=== PATIENT | male | born 1945 | race Caucasian/White ===

== ENCOUNTER 2023-04-28 09:40 | Emergency (ER) | payer OTHER, SELFPAY ==
[2023-04-28 09:53] VITALS: BP 170/108; PULSE 125; RESP 22; O2SAT 99; BMI 23.7
--- NOTE | 2023-04-28 09:58 | ED.MALEGU1 ---
HPI - Male Genitourinary General Stated complaint: DIFFICULTY URINATING Time Seen by Provider: 04/28/23 09:56 Source: patient Mode of arrival: walk-in Limitations: no limitations History of Present Illness HPI Narrative: 77-year-old male presents to the emergency department because he can't urinate. He's been dribbling a little bit but has the extreme need to urinate. No fever or vomiting. He's had to have a urinary catheter previously and sees a urologist. No fever or vomiting. Symptom is continuous. Related Data Previous Rx's Medication Instructions Recorded cephalexin 500 mg tablet 500 mg PO Q8H 10 days #30 tabs 04/28/23 Allergies Allergy/AdvReac Type Severity Reaction Status Date / Time No Known Drug Allergies Allergy Verified 04/28/23 09:57 Review of Systems ROS Narrative A ten point review of systems is negative except as noted above. PFSH PFSH Social History Smoking status: Former smoker Exam Narrative Exam Narrative: Nurses note and vital signs reviewed and patient is not hypoxic. General: The patient appears uncomfortable and is sitting on the edge of the cart. Skin: Warm, dry, no pallor noted. There is no rash noted. Head: Normocephalic, atraumatic Eye: Normal conjunctiva, no drainage Ears, Nose, Mouth, and Throat: oral mucosa is moist. Nares patent. Cardiovascular: Regular Rate and Rhythm Respiratory: Patient is in no distress, no accessory muscle use, lungs are clear to auscultation, no wheezing, rales or rhonchi Back: non-tender GI: mildly distended Musculoskeletal: The patient has no evidence of calf tenderness, no pitting edema, symmetrical pulses noted bilaterally Neurological: A&O, normal speech Psychiatric: Cooperative Constitutional Vital Signs, click to edit/add: Last Vital Signs Pulse 79 04/28/23 10:20 Resp 14 04/28/23 10:20 BP 117/82 04/28/23 10:20 Pulse Ox 99 04/28/23 10:20 O2 Del Method Room Air 04/28/23 10:20 Course Vital Signs Vital signs: Vital Signs Pulse Rate 125 H 04/28/23 09:53 Respiratory Rate 22 04/28/23 09:53 Blood Pressure 170/108 H 04/28/23 09:53 Pulse Oximetry 99 04/28/23 09:53 Oxygen Delivery Method Room Air 04/28/23 09:53 Pulse Rate 79 04/28/23 10:20 Respiratory Rate 14 04/28/23 10:20 Blood Pressure 117/82 04/28/23 10:20 Pulse Oximetry 99 04/28/23 10:20 Oxygen Delivery Method Room Air 04/28/23 10:20 MDM - Male Genitourinary MDM Narrative Medical decision making narrative: White catheter was inserted with at least fourteen hundred mL is of drainage. He feels much better now. Renal function is preserved but he has a urinary tract infection. He was given IV Rocephin and prescribed Keflex. He feels well and at this point does not need to be admitted to the hospital. Treatment diagnosis and follow-up were discussed with the patient as well as . He is already on Flomax. Differential Diagnosis Differential diagnosis: Likely acute retention of urine and other Lab Data Attestation: I reviewed the patient's lab results. Labs: Lab Results 04/28/23 04/28/23 Range/Units 10:15 10:44 WBC 11.1 H (4.0-11.0) 10^3/uL RBC 4.27 L (4.70-6.10) 10^6/uL Hgb 14.4 (14.0-18.0) g/dL Hct 41.3 L (42.0-54.0) % MCV 96.7 H (80.0-94.0) fL MCH 33.7 (25.9-34.0) pg MCHC 34.9 (29.9-35.2) g/dL RDW 12.4 (11.0-15.0) % Plt Count 246 (150-450) 10^3/uL MPV 9.8 (9.5-13.5) fL Neut % (Auto) 74.3 (43.0-75.0) % Lymph % (Auto) 11.1 L (20.5-60.0) % [place] % (Auto) 13.0 H (1.7-12.0) % Eos % (Auto) 0.4 L (0.9-7.0) % Baso % (Auto) 0.4 (0.2-2.0) % Neut # (Auto) 8.3 H (1.4-6.5) 10^3/uL Lymph # (Auto) 1.2 (1.2-3.8) 10^3/uL [place] # (Auto) 1.5 H (0.3-0.8) 10^3/uL Eos # (Auto) 0.0 (0.0-0.7) 10^3/uL Baso # (Auto) 0.1 (0.0-0.1) 10^3/uL Abs Immat Gran (auto) 0.09 H (0.00-0.03) 10^3/uL Imm/Tot Granulo (auto) 0.8 H (0.0-0.5) % Sodium 139 (136-145) mmol/L Potassium 3.2 L (3.5-5.1) mmol/L Chloride 101 (98-107) mmol/L Carbon Dioxide 23.0 (21.0-32.0) mmol/L Anion Gap 18.2 BUN 23.0 H (7.0-18.0) mg/dL Creatinine 1.26 (0.70-1.30) mg/dL Est GFR ( Amer) >60 (>=60) Est GFR (Non-Af Amer) 56 L (>=60) BUN/Creatinine Ratio 18.3 Glucose 159 H (74-106) mg/dL Calcium 9.4 (8.5-10.1) mg/dL Urine Color Yellow (YELLOW) Urine Clarity Cloudy A (CLEAR) Urine pH 7.0 (5.0-9.0) Ur Specific [place] 1.015 (1.005-1.025) Urine Protein 100 A (NEG/TRACE) mg/dL Urine Glucose (UA) Negative (NEGATIVE) mg/dL Urine Ketones Negative (NEGATIVE) mg/dL Urine Occult Blood Small A (NEGATIVE) Urine Nitrite Positive A (NEGATIVE) Urine Bilirubin Negative (NEGATIVE) Urine Urobilinogen 0.2 (0.2-1.0) EU/dL Ur Leukocyte Esterase Moderate A (NEGATIVE) Urine RBC 5-10 A (0-2) #/HPF Urine WBC >100 A (NONE SEEN) #/HPF Ur Squamous Epith Cells Few A (NONE/RARE) #/LPF Ur Renal Epithelial Cell Rare A (NONE SEEN) #/LPF Urine Crystals Seen A (None Seen) #/HPF Triple Phos Crystals Moderate Urine Bacteria Large A (NONE SEEN) #/HPF Urine Mucus None seen (NONE SEEN) Discharge Plan Discharge Clinical Impression: Urinary tract infection, Acute urinary retention Patient Disposition: Home, Self-Care Time of Disposition Decision: 11:47 Condition: Good Mode of Transportation: Private Vehicle Prescriptions / Home Meds: New cephalexin 500 mg tablet 500 mg PO Q8H 10 Days Qty: 30 0RF Instructions: Urinary Retention in Men (ED), Urinary Tract Infection in Men (ED), White Catheter Placement and Care (ED), How to Change a Catheter Drainage Bag (DC) Stand Alone Forms: Portal Instructions Referrals: Physician,Non-Staff, MD [Primary Care Provider] - 1 week
[2023-04-28 10:20] VITALS: BP 117/82; PULSE 79; RESP 14; O2SAT 99
[2023-04-28 10:28] LABS: Basophils Absolute Auto 0.1 10^3/uL (0.0-0.1); Basophils Percent Auto 0.4 % (0.2-2.0); Eosinophils Percent Auto 0.4 % (0.9-7.0); Hematocrit 41.3 % (42.0-54.0); Hemoglobin 14.4 g/dL (14.0-18.0); Immature Granulocytes Abs Auto 0.09 10^3/uL (0.00-0.03); Immature Granulocytes Pct Auto 0.8 % (0.0-0.5); Lymphocytes Absolute Auto 1.2 10^3/uL (1.2-3.8); Lymphocytes Percent Auto 11.1 % (20.5-60.0); Mean Corpuscular HGB Conc 34.9 g/dL (29.9-35.2); Mean Corpuscular Hemoglobin 33.7 pg (25.9-34.0); Mean Corpuscular Volume 96.7 fL (80.0-94.0); Mean Platelet Volume 9.8 fL (9.5-13.5); Monocytes Absolute Auto 1.5 10^3/uL (0.3-0.8); Neutrophils Absolute Auto 8.3 10^3/uL (1.4-6.5); Neutrophils Percent Auto 74.3 % (43.0-75.0); Platelet Count 246 10^3/uL (150-450); Red Blood Count 4.27 10^6/uL (4.70-6.10); Red Cell Distribution Width 12.4 % (11.0-15.0); White Blood Count 11.1 10^3/uL (4.0-11.0)
[2023-04-28 10:39] LABS: Bilirubin Urine NEGATIVE (NEGATIVE); Blood Urine SMALL (NEGATIVE); Color Urine YELLOW (YELLOW); Glucose Urine UA NEGATIVE (NEGATIVE); Ketones Urine NEGATIVE (NEGATIVE); Leukocyte Esterase Urine MODERATE (NEGATIVE); Nitrite Urine POSITIVE (NEGATIVE); Protein Urine 100 mg/dL (NEG/TRACE); Specific Gravity Urine 1.015 (1.005-1.025); Urobilinogen Urine 0.2 EU/dL (0.2-1.0)
[2023-04-28 10:50] LABS: Clarity Urine CLOUDY (CLEAR)
[2023-04-28 10:53] LABS: WBC Urine >100 #/HPF (NONE SEEN)
[2023-04-28 10:54] LABS: Bacteria Urine LARGE #/HPF (NONE SEEN); Crystals Seen? Seen #/HPF (None Seen); Mucus Urine NONE SEEN (NONE SEEN); Renal Epithelial Cells Urine RARE #/LPF (NONE SEEN); Squamous Epithelial Cell Urine FEW #/LPF (NONE/RARE); Triple Phosphate Crystal Urine MODERATE
[2023-04-28] MEDS: CEFTRIAXONE 1,000 MG in 0.9 % SODIUM CHLORIDE 50 ML 100 MG IV (11:09)
[2023-04-28 11:10] LABS: Anion Gap 18.2; BUN Creatinine Ratio 18.3; Calcium 9.4 mg/dL (8.5-10.1); Chloride 101 mmol/L (98-107); Estimated GFR (African America >60 (>=60); Estimated GFR (Non-African Ame 56 (>=60); Glucose 159 mg/dL (74-106); Potassium 3.2 mmol/L (3.5-5.1); Sodium 139 mmol/L (136-145)
[2023-04-28 12:05] VITALS: BP 130/80; PULSE 85; RESP 18; O2SAT 96
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
== END 2023-04-28 12:11 | disposition home or self-care (01) ==
PROVIDERS: Emergency Provider Emergency Medicine
DX: N39.0 Urinary tract infection, site not specified (principal); R33.9 Retention of urine, unspecified; Z87.891 Personal history of nicotine dependence
CPT/HCPCS: 36415; 80048; 81001; 85025; 87086; 87150; 87186; 96365; 99285

== ENCOUNTER 2023-06-10 11:08 | Emergency (ER) | payer OTHER, SELFPAY ==
[2023-06-10 11:12] VITALS: BP 119/72; PULSE 103; RESP 16; TEMP 36.6; O2SAT 96; BMI 23.7
--- NOTE | 2023-06-10 11:18 | ED.MALEGU1 ---
HPI - Male Genitourinary General Chief complaint: Urogenital-Male Stated complaint: UTI SYMPTOMS Time Seen by Provider: 06/10/23 11:17 Source: patient Mode of arrival: walk-in Limitations: no limitations History of Present Illness HPI Narrative: Patient admits to brownish colored urine for the last few days. He humphries a urethral catheter that was inserted 5 weeks ago and changed 2 weeks ago. No abdominal pain or flank pain. He admits to some uretheral discomfort that has been present since the catheter was placed. No penile or scrotal redness, swelling or tenderness. Related Data Previous Rx's Medication Instructions Recorded cephalexin 500 mg capsule 500 mg PO BID 7 days #14 caps 06/10/23 Allergies Allergy/AdvReac Type Severity Reaction Status Date / Time No Known Drug Allergies Allergy Verified 06/10/23 11:16 PFSH [facility] Social History Smoking status: Former smoker Exam Narrative Exam Narrative: Nurses notes and vital signs reviewed and patient is not hypoxic. afebrile General: Well-appearing and in no apparent distress. Skin: Warm, dry, no pallor noted. Eye: Pupils are equal, round and EOMI. No scleral icterus. Cardiovascular: Regular Rate and Rhythm without murmur, gallop or rub. Respiratory: No accessory muscle use or respiratory distress. Lungs are clear to auscultation, no wheezing, rales or rhonchi Back: No CVA tenderness Musculoskeletal: normal ROM GI: Abdomen is soft, non-distended. Normal bowel sounds. No tenderness to palpation. No rebound, guarding, or rigidity noted. Neurological: A&O x4. No cranial nerve dysfunction observed. No truncal ataxia. Moves all extremities. Sensation intact. Psychiatric: Cooperative and interactive. Normal mood and affect. Constitutional Vital Signs, click to edit/add: Last Vital Signs Temp 97.8 F 06/10/23 11:12 Pulse 103 H 06/10/23 11:12 Resp 16 06/10/23 11:12 BP 119/72 06/10/23 11:12 Pulse Ox 96 06/10/23 11:12 O2 Del Method Room Air 06/10/23 11:12 Course Vital Signs Vital signs: Vital Signs Temperature 97.8 F 06/10/23 11:12 Pulse Rate 103 H 06/10/23 11:12 Respiratory Rate 16 06/10/23 11:12 Blood Pressure 119/72 06/10/23 11:12 Pulse Oximetry 96 06/10/23 11:12 Oxygen Delivery Method Room Air 06/10/23 11:12 Temperature 97.8 F 06/10/23 11:12 Pulse Rate 103 H 06/10/23 11:12 Respiratory Rate 16 06/10/23 11:12 Blood Pressure 119/72 06/10/23 11:12 Pulse Oximetry 96 06/10/23 11:12 Oxygen Delivery Method Room Air 06/10/23 11:12 MDM - Male Genitourinary MDM Narrative Medical decision making narrative: urine obtained from the catheter and sent for testing. Blood drawn as well. Normal WBC, normal BUN/Cr and electrolytes. Recent urine culture revealed cook sensitive Klebsiella. Patient discharged home with prescription for Keflex. Will call him if UCx reveals resistant bacteria. Lab Data Attestation: I reviewed the patient's lab results. Labs: Lab Results 06/10/23 06/10/23 Range/Units 11:19 11:35 WBC 9.4 (4.0-11.0) 10^3/uL RBC 4.38 L (4.70-6.10) 10^6/uL Hgb 14.7 (14.0-18.0) g/dL Hct 43.6 (42.0-54.0) % MCV 99.5 H (80.0-94.0) fL MCH 33.6 (25.9-34.0) pg MCHC 33.7 (29.9-35.2) g/dL RDW 13.2 (11.0-15.0) % Plt Count 259 (150-450) 10^3/uL MPV 8.2 L (9.5-13.5) fL Neut % (Auto) 54.8 (43.0-75.0) % Lymph % (Auto) 22.3 (20.5-60.0) % [place] % (Auto) 12.2 H (1.7-12.0) % Eos % (Auto) 9.1 H (0.9-7.0) % Baso % (Auto) 1.0 (0.2-2.0) % Neut # (Auto) 5.1 (1.4-6.5) 10^3/uL Lymph # (Auto) 2.1 (1.2-3.8) 10^3/uL [place] # (Auto) 1.2 H (0.3-0.8) 10^3/uL Eos # (Auto) 0.9 H (0.0-0.7) 10^3/uL Baso # (Auto) 0.1 (0.0-0.1) 10^3/uL Abs Immat Gran (auto) 0.06 H (0.00-0.03) 10^3/uL Imm/Tot Granulo (auto) 0.6 H (0.0-0.5) % Sodium 142 (136-145) mmol/L Potassium 3.6 (3.5-5.1) mmol/L Chloride 104 (98-107) mmol/L Carbon Dioxide 32.6 H (21.0-32.0) mmol/L Anion Gap 9.0 BUN 15.0 (7.0-18.0) mg/dL Creatinine 1.07 (0.70-1.30) mg/dL Est GFR ( Amer) >60 (>=60) Est GFR (Non-Af Amer) >60 (>=60) BUN/Creatinine Ratio 14.0 Glucose 135 H (74-106) mg/dL Calcium 9.2 (8.5-10.1) mg/dL Urine Color Brown A (YELLOW) Urine Clarity Cloudy A (CLEAR) Urine pH 6.5 (5.0-9.0) Ur Specific [place] >=1.030 A (1.005-1.025) Urine Protein >=300 A (NEG/TRACE) mg/dL Urine Glucose (UA) Negative (NEGATIVE) mg/dL Urine Ketones Negative (NEGATIVE) mg/dL Urine Occult Blood Large A (NEGATIVE) Urine Nitrite Positive A (NEGATIVE) Urine Bilirubin Small A (NEGATIVE) Urine Urobilinogen 1.0 (0.2-1.0) EU/dL Ur Leukocyte Esterase Moderate A (NEGATIVE) Urine RBC >100 A (0-2) #/HPF Urine WBC 5-10 A (NONE SEEN) #/HPF Ur Squamous Epith Cells None seen (NONE/RARE) #/LPF Urine Crystals None seen (None Seen) #/HPF Urine Bacteria Trace A (NONE SEEN) #/HPF Urine Casts None seen (NONE SEEN) #/LPF Urine Mucus None seen (NONE SEEN) Ur Culture Indicated? Yes Discharge Plan Discharge Chief Complaint: Urogenital-Male Clinical Impression: Urinary tract infection Patient Disposition: Home, Self-Care Time of Disposition Decision: 12:00 Prescriptions / Home Meds: New cephalexin 500 mg capsule 500 mg PO BID 7 Days Qty: 14 0RF Instructions: Urinary Tract Infection in Men (ED) Stand Alone Forms: Portal Instructions Referrals: Physician,Non-Staff, MD [Primary Care Provider] - 1 week
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
[2023-06-10 11:47] LABS: Basophils Absolute Auto 0.1 10^3/uL (0.0-0.1); Eosinophils Absolute Auto 0.9 10^3/uL (0.0-0.7); Eosinophils Percent Auto 9.1 % (0.9-7.0); Hematocrit 43.6 % (42.0-54.0); Hemoglobin 14.7 g/dL (14.0-18.0); Immature Granulocytes Abs Auto 0.06 10^3/uL (0.00-0.03); Immature Granulocytes Pct Auto 0.6 % (0.0-0.5); Lymphocytes Absolute Auto 2.1 10^3/uL (1.2-3.8); Lymphocytes Percent Auto 22.3 % (20.5-60.0); Mean Corpuscular HGB Conc 33.7 g/dL (29.9-35.2); Mean Corpuscular Hemoglobin 33.6 pg (25.9-34.0); Mean Corpuscular Volume 99.5 fL (80.0-94.0); Mean Platelet Volume 8.2 fL (9.5-13.5); Monocytes Absolute Auto 1.2 10^3/uL (0.3-0.8); Monocytes Percent Auto 12.2 % (1.7-12.0); Neutrophils Absolute Auto 5.1 10^3/uL (1.4-6.5); Neutrophils Percent Auto 54.8 % (43.0-75.0); Platelet Count 259 10^3/uL (150-450); Red Blood Count 4.38 10^6/uL (4.70-6.10); Red Cell Distribution Width 13.2 % (11.0-15.0); White Blood Count 9.4 10^3/uL (4.0-11.0)
[2023-06-10 11:50] LABS: Bilirubin Urine SMALL (NEGATIVE); Blood Urine LARGE (NEGATIVE); Clarity Urine CLOUDY (CLEAR); Color Urine BROWN (YELLOW); Glucose Urine UA NEGATIVE (NEGATIVE); Ketones Urine NEGATIVE (NEGATIVE); Leukocyte Esterase Urine MODERATE (NEGATIVE); Nitrite Urine POSITIVE (NEGATIVE); Protein Urine >=300 mg/dL (NEG/TRACE); Specific Gravity Urine >=1.030 (1.005-1.025); Urine Microscopic Indicated YES; pH Urine 6.5 (5.0-9.0)
[2023-06-10 11:51] LABS: Calcium 9.2 mg/dL (8.5-10.1); Carbon Dioxide 32.6 mmol/L (21.0-32.0); Chloride 104 mmol/L (98-107); Estimated GFR (African America >60 (>=60); Estimated GFR (Non-African Ame >60 (>=60); Glucose 135 mg/dL (74-106); Potassium 3.6 mmol/L (3.5-5.1); Sodium 142 mmol/L (136-145)
[2023-06-10 11:55] LABS: RBC Urine >100 #/HPF (0-2)
[2023-06-10 11:56] LABS: Bacteria Urine TRACE #/HPF (NONE SEEN); Cast Seen? NONE SEEN #/LPF (NONE SEEN); Crystals Seen? None Seen #/HPF (None Seen); Mucus Urine NONE SEEN (NONE SEEN); Squamous Epithelial Cell Urine NONE SEEN #/LPF (NONE/RARE); Urine Culture Indicated YES
== END 2023-06-10 12:05 | disposition home or self-care (01) ==
PROVIDERS: Emergency Provider Emergency Medicine
DX: N39.0 Urinary tract infection, site not specified (principal); Z87.891 Personal history of nicotine dependence
CPT/HCPCS: 36415; 80048; 81001; 85025; 87086; 87186; 99283

== ENCOUNTER 2023-08-07 20:43 | Emergency (ER) | payer OTHER, SELFPAY ==
[2023-08-07 20:46] VITALS: BP 173/100; PULSE 85; RESP 18; TEMP 36.4; O2SAT 97; BMI 24.4
--- OUTSIDE RECORDS SUMMARY | 2023-08-07 20:51 | XMS_ITS | CCD ---
Author Name Unknown Address [address] [place] [address] Organization [facility] Care Team Providers Care Hotel Supplies Salesperson Name Role Phone Janice Arellano Unavailable Maged Andrade Unavailable CHRISTIANA DIA Consulting Unavailable EDWARDO WALKER Admitting Unavailable EDWARDO WALKER Attending Unavailable [facility], DR BONILLA Primary Care Unavailable DESIRE, DR JERAMY Singh Admitting Unavailable DESIRE, DR JERAMY Singh Attending Unavailable DESIRE, DR JERAMY Singh Consulting Unavailable MAGED ANDRADE Primary Care Physician Lue, Deandra MCarla Admitting Unavailable Lue, Deandra MCarla Attending Unavailable Lue, Deandra MCarla Referring Unavailable Lue, Deandra MCrala Admitting Unavailable Lue, Deandra MCarla Attending Unavailable Lue, Deandra MCarla Referring Unavailable Lue, Deandra MCarla Attending Unavailable Lue, Deandra MCarla Referring Unavailable Lue, Deandra M. Admitting Unavailable Lue, Deandra MCarla Attending Unavailable Lue, Deandra MCarla Attending Unavailable Lue, Deandra MaCrla Attending Unavailable DAMIYESENIA Attending Unavailable Lue, Deandra MCarla Attending Unavailable DAMI YESENIA E Attending Unavailable DAMIYESENIA Attending Unavailable Lue, Deandra MCarla Attending Unavailable Steve ROBISON Attending Unavailable Steve ROBISON Attending Unavailable MAGED ANDRADE Attending Unavailable SHAIKH CONTE Attending Unavailable Allergies Allergy Classification Reported Allergen(s) Allergy Type Date of Onset Reaction(s) Facility (1 source) No Known Medication Allergies; Translations: [No Known Medication Allergies] Propensity to adverse reactions (disorder) [facility] Repository Medications Current Medications Medication Drug Class(es) Dates Sig (Normalized) Sig (Original) [id number] 200 actuat albuterol 0.09 mg/actuat metered dose inhaler (3 sources) beta2-Adrenergic Agonist take 1 puff(s) by inhalation every four hours as needed ProAir HFA 108 (90 Base) MCG/ACT 1 puff as needed Inhalation every 4 hrs Active aspirin 81 mg oral capsule (11 sources) Platelet Aggregation Inhibitor, Nonsteroidal Anti-inflammatory Drug Start: 10-15-2022 take 1 capsule by mouth once daily aspirin 81 mg oral capsule 81 mg = 1 cap(s), Oral, Daily, Refills(s) 0, Blood Thinner Start Date: 10/15/22 Status: Ordered take 1 tablet by chintan th every twenty-four hours Aspirin 81 MG 1 tablet Orally Once a day Active brimonidine (3 sources) alpha-Adrenergic Agonist Brimoni dine Tartrate Active calcium carbonate 1250 mg oral tablet (8 sources) Start: 023 calcium 500 mg tablets 1,250 mg = 1 tab(s), Oral, BID, Refills(s) 0, Prophylaxis Start Date: 10/15/22 Status: Ordered cephalexin 500 mg oral capsule (3 sources) Cephalosporin Antibacterial Start: 023 cephalexin 500 mg Cap Refills(s) 0 Start Date: 05/01/23 Status: Ordered cetirizine hydrochloride 10 mg oral tablet (3 sources) Histamine-1 Receptor Antagonist Start: 022 take 1 tablet by mouth every twenty-four hours Cetirizine HCl 10 MG 1 tablet Orally Once a day for 14 days Oct, Active DULoxetine 60 mg delayed release oral capsule (3 sources) Serotonin and Norepinephrine Reuptake Inhibitor take 2 capsules by mouth every twenty-four hours DULoxetine HCl 60 MG 2 capsules Orally Once a day Active duloxetine 60 mg Cap-DR (8 sources) Start: 023 take 2 capsules by mouth once daily duloxetine 60 mg Cap-DR 120 mg, Oral, Daily, Refills(s) 0, Depression Start Date: 10/15/22 Status: Ordered finasteride 5 mg oral tablet (11 sources) 5-alpha Reductase Inhibitor Start: 023 take 1 tablet by mouth once daily finasteride 5 mg Tab 5 mg = 1 tab(s), Oral, Daily, Refills(s) 0, Urinary discomfort Start Date: 10/15/22 Status: Ordered take 1 tablet by chintan th every twenty-four hours Finasteride 5 MG 1 tablet Orally Once a day Active hydroCHLOROthiazide 25 mg oral tablet (11 sources) Thiazide Diuretic Start: 10-15-2022 hydrochlorothiazide 25 mg Tab 12.5 mg = 0.5 tab(s), Oral, Daily, Refills(s) 0, High blood pressure Start Date: 10/15/22 Status: Ordered take 0.5 tablet by mouth once da aubrey hydroCHLOROthiazide 25 MG 1/2 tab Orally Once a day Active hydroxychloroquine sulfate 200 mg oral tablet (11 sources) Antimalarial, Antirheumatic Agent Start: 10-15-2022 take 1 tablet by mouth twice daily hydroxychloroquine 200 mg Tab 200 mg = 1 tab(s), Oral, BID, Refills(s) 0, Arthritis Start Date: 10/15/22 Status: Ordered take 1 tablet by mouth twice roger ly Hydroxychloroquine Sulfate 200 MG 1 tab Orally bid Active lamoTRIgine 150 mg oral tablet (11 sources) Mood Stabilizer, Anti-epileptic Agent Start: 10-15-2022 take 1 tablet by mouth twice daily lamotrigine 150 mg Tab 150 mg = 1 tab(s), Oral, BID, Refills(s) 0, Depression Start Date: 10/15/22 Status: Ordered take 1 tablet by chintan th every twelve hours lamoTRIgine 150 MG 1 tablet Orally bid Active latanoprost 0.05 mg/ml ophthalmic solution (3 sources) Prostaglandin Analog take 1 drop(s) into the eye(s) once daily in the evening Latanoprost 0.005 % 1 drop into affected eye in the evening Ophthalmic Once a day Active take 1 drop(s) into the eye(s) once daily in the evening Latanoprost 0.005 % 1 drop into affected eye in the evening Ophthalmic Once a day Active leflunomide 20 mg oral tablet (11 sources) Antirheumatic Agent Start: 10-15-2022 take 1 tablet by mouth once daily leflunomide 20 mg Tab 20 mg = 1 tab(s), Oral, Daily, Refills(s) 0, Arthritis Start Date: 10/15/22 Status: Ordered take 1 tablet by chintan th every twenty-four hours Leflunomide 20 MG 1 tablet Orally Once a day Active Multivitamin preparation (8 sources) Start: 10-15-2022 multivitamin See Instructions, Refill(s) 0, Prophylaxis Start Date: 10/15/22 Status: Ordered nitrofurantoin, macrocrystals 25 mg / nitrofurantoin, monohydrate 75 mg oral capsule (1 source) Nitrofuran Antibacterial Start: 10-28-2022 End: 10-29-2022 take 1 capsule by mouth every twelve hours in the morning Macrobid 100 mg Cap 100 mg = 1 cap(s), Oral, q12hr, Take AM of white removal, X 1 day(s), # 2 cap(s), Refills(s) 0, Pharmacy: [email or web address][id number], 186, cm, 10/15/22 12:53:00 EDT, Height/Length Dosing, 85.7, kg, 10/15/22 12:53:00 EDT, Weight Dosing Start Date: 10/28/22 Stop Date: 10/29/22 Status: Ordered predniSONE 10 mg oral tablet (3 sources) Start: 10-31-2021 prednisone 10 MG as directed with food Orally 5 tablet x 2 days, 4 tablet x2 days, 3 tablet x2 days, 2 tablet x 2 days, 1 tablet x 2 days for 10 days Oct, Active rOPINIRole 1 mg oral tablet (11 sources) Nonergot Dopamine Agonist Start: 10-15-2022 take 2 tablets by mouth twice daily ropinirole 1 mg Tab 2 mg = 2 tab(s), Oral, BID, Refills(s) 0, Other (see comment) Start Date: 10/15/22 Status: Ordered take 1 tablet by [facility] once daily at bedtime rOPINIRole HCl 1 MG 1 tablet 1 to 3 hour s before bedtime Orally 4x day Active sertraline 50 mg oral tablet (11 sources) Serotonin Reuptake Inhibitor Start: 10-15-2022 sertraline 50 mg Tab 25 mg = 0.5 tab(s), Oral, Daily, Refills(s) 0, Depression Start Date: 10/15/22 Status: Ordered take 0.5 tablet by mouth once da aubrey Sertraline HCl 50 MG 1/2 tab Orally Once a day Active tamsulosin hydrochloride 0.4 mg oral capsule (11 sources) alpha-Adrenergic Christophe Start: 10-15-2022 take 1 capsule by mouth once daily tamsulosin 0.4 mg Cap 0.4 mg = 1 cap(s), Oral, Daily, Refills(s) 0, Urinary discomfort Start Date: 10/15/22 Status: Ordered take 1 capsule by [facility] every twenty-four hours Tamsulosin HCl 0.4 MG 1 capsule Orally Once a day Active traZODone hydrochloride 100 mg oral tablet (11 sources) Serotonin Reuptake Inhibitor Start: 10-15-2022 take 1 tablet by mouth once daily at bedtime traZODONE 100 mg Tab 100 mg = 1 tab(s), Oral, Once a day (at bedtime), Refills(s) 0, Sleep Start Date: 10/15/22 Status: Ordered take 2 tablets by mouth once roger ly traZODone HCl 100 MG 2 tabs Orally Once a day Active 24 hr verapamil hydrochloride 240 mg extended release oral capsule (8 sources) Calcium Channel Christophe Start: 10-15-2022 take 1 capsule by mouth once daily verapamil 240 mg Cap-ER 240 mg = 1 cap(s), Oral, Daily, Refills(s) 0, High blood pressure Start Date: 10/15/22 Status: Ordered Completed/Discontinued Medications Medication Drug Class(es) Dates Sig (Normalized) Sig (Original) ciprofloxacin 500 mg oral tablet (1 source) Quinolone Antimicrobial Start: 09-08-2022 take 1 tablet by mouth every twelve hours ciprofloxacin 500 mg Tab 14 EA, take 1 tablet by mouth every 12 hours, Refills(s) 0 Start Date: 09/08/22 Status: Ordered potassium chloride 10 meq oral tablet (11 sources) Start: 10-15-2022 take 1 tablet by mouth once daily potassium chloride 10 mEq ER Tab 10 mEq = 1 tab(s), Oral, Daily, Refills(s) 0, Prophylaxis Start Date: 10/15/22 Status: Ordered take 2 tablets by mouth once roger ly Potassium Chloride ER 10 MEQ 2 tabs Orally Once a day Active triamcinolone acetonide 1 mg/ml topical cream (5 sources) Corticosteroid Start: 09-08-2022 triamcinolone Top 0.1% Crm 15 gram Refill(s) 0, 454 gm, APPLY TO THE AREAS ON THE TRUNK AND EXTREMITIES FOR SEVERE FLARES... (REFER TO PRESCRIPTION NOTES). Start Date: 09/08/22 Status: Ordered Start: 11-21-2021 Kenalog -40 mg Oct, 60 mg Start: 10-31-2021 Kenalog -40 mg Oct, 60 mg Problems Active Problems Problem Classification Problem Date Documented Date Episodic/Chronic Anxiety disorders (3 sources) Anxiety; Translations: [Other specified anxiety disorders] Chronic Biliary tract disease (9 sources) Gallstone 09-08-2022 Episodic Calculus of urinary tract (18 sources) Kidney stone; Translations: [Calculus of kidney] Onset: 10-28-2022 09-08-2022 Episodic Chronic obstructive pulmonary disease and bronchiectasis (12 sources) Pulmonary emphysema; Translations: [Other emphysema] 09-08-2022 Chronic Essential hypertension (12 sources) Essential hypertension; Translations: [Essential (primary) hypertension] 09-08-2022 Chronic Genitourinary symptoms and ill-defined conditions (20 sources) Retention of urine, unspecified; Translations: [Retention of urine] Onset: 08-25-2022 Episodic Glaucoma (9 sources) Glaucoma 09-08-2022 Chronic Hyperplasia of prostate (14 sources) Benign prostatic hyperplasia with lower urinary tract symptoms; Translations: [Benign prostatic hypertrophy with outflow obstruction] Onset: 08-26-2022 Chronic Mood disorders (9 sources) Depressive disorder 09-08-2022 Chronic Osteoarthritis (9 sources) Arthritis 09-08-2022 Chronic Other diseases of kidney and ureters (1 source) Urinary tract obstruction; Translations: [Other obstructive and reflux uropathy] Onset: 10-28-2022 Episodic Other hereditary and degenerative nervous system conditions (8 sources) Restless legs 10-15-2022 Chronic Residual codes; unclassified (3 sources) Obstructive sleep apnea syndrome; Translations: [Obstructive sleep apnea (adult) (pediatric)] Chronic Rheumatoid arthritis and related disease (4 sources) Rheumatoid arthritis; Translations: [Rheumatoid arthritis, unspecified] Onset: 12-24-2021 Chronic Substance-related disorders (8 sources) Smoker 10-15-2022 Chronic Comment on above: Added secondary to d ocumentation in Social History. Unclassified (9 sources) Finding of sensation of bladder 09-08-2022 Urinary tract infections (9 sources) Urinary tract infection, site not specified; Translations: [Urinary tract infectious disease] Onset: 08-26-2022 Episodic Past or Other Problems Problem Classification Problem Date Documented Da te Episodic/Chronic Allergic reactions (3 sources) Irritant contact dermatitis due to other chemical products; Translations: [Urticaria, unspecified] Onset: 10-31-2021 Resolved: 11-21-2021 Episodic Other skin disorders (3 sources) Rash and other nonspecific skin eruption; Translations: [RASH OTH NONSPECIFIC SKIN ERUPTION] Onset: 12-20-2021 Episodic Screening and history of mental health and substance abuse codes (1 source) Personal history of nicotine dependence; Translations: [PERSONAL HISTORY OF NICOTINE DEPEND] Onset: 12-24-2021 Episodic Results Test Name Value Interpretation Reference Range Facility [facility] 07-24-2023 Screens [id number]. 00TIFF [facility] Screens [id number] 0TIFF [facility] Ambulatory Visit Summaryon 1 09-22-2022 Ambulatory Visit Summary RICKEY GARCIA Hernandez :1945 Visit Date:07/22/2023 Ambulatory Visit Instructions Your Diagnosis Urinary retention Bacteriuria BPH with urinary obstruction History of kidney stones Your Care Team Attending Physician - Deandra Rodriguez MD Primary Care Physician - MAGED ANDRADE DO This Is Your Medications List Contact prescribing physician if questions or concerns aspirin (aspirin 81 mg oral capsule) calcium carbonate (calcium 500 mg tablets) cephalexin (cephalexin 500 mg Cap) duloxetine (duloxetine 60 mg Cap-DR) finasteride (finasteride 5 mg Tab) hydrochlorothiazide (hydrochlorothiazide 25 mg Tab) hydroxychloroquine (hydroxychloroquine 200 mg Tab) lamotrigine (lamotrigine 150 mg Tab) leflunomide (leflunomide 20 mg Tab) multivitamin potassium chloride (potassium chloride 10 mEq ER Tab) ropinirole (ropinirole 1 mg Tab) sertraline (sertraline 50 mg Tab) tamsulosin (tamsulosin 0.4 mg Cap) trazodone (traZODONE 100 mg Tab) verapamil (verapamil 240 mg Cap-ER) Procedures Performed Cystoscopic litholapaxy (10/28/2022), Transurethral insertion of prostatic urethral lift implant (10/28/2022), Cystoscopy (09/29/2022), TRUS - Transrectal ultrasonography (09/29/2022), Urodynamics (09/29/2022), Colonoscopy. Discharge Vitals Temperature (Temporal Artery) 36.2 ?C Heart Rate (Peripheral) 74 Blood Pressure 118/78 Height 185 cm Height 73 in Weight 82 kg Weight 180.4 lb BMI 23.96 What to do next Scheduled Follow-Up Appointments Thursday 9:45 AM EST With: Deandra Rodriguez MD Where: [facility] Patient Educationon 07-22-20 23 Patient Education Urology Benign Prostatic Hyperplasia Benign prostatic hyperplasia (BPH) is an enlarged prostate gland that is caused by the normal aging process. The prostate may get bigger as a man gets older. The condition is not caused by cancer. The prostate is a walnut-sized gland that is involved in the production of semen. It is located in front of the rectum and below the bladder. The bladder stores urine. The urethra carries stored urine out of the body. An enlarged prostate can press on the urethra. This can make it harder to pass urine. The buildup of urine in the bladder can cause infection. Back pressure and infection may progress to bladder damage and kidney (renal) failure. What are the causes? This condition is part of the normal aging process. However, not all men develop problems from this condition. If the prostate enlarges away from the urethra, urine flow will not be blocked. If it enlarges toward the urethra and compresses it, there will be problems passing urine. What increases the risk? This condition is more likely to develop in men older than 50 years. What are the signs or symptoms? Symptoms of this condition include: ? Getting up often during the night to urinate. ? Needing to urinate frequently during the day. ? Difficulty starting urine flow. ? Decrease in size and strength of your urine stream. ? Leaking (dribbling) after urinating. ? Inability to pass urine. This needs immediate treatment. ? Inability to completely empty your bladder. ? Pain when you pass urine. This is more common if there is also an infection. ? Urinary tract infection (UTI). How is this diagnosed? This condition is diagnosed based on your medical history, a physical exam, and your symptoms. Tests will also be done, such as: ? A post-void bladder scan. This measures any amount of urine that may remain in your bladder after you finish urinating. ? A digital rectal exam. In a rectal exam, your health care provider checks your prostate by putting a lubricated, gloved finger into your rectum to feel the back of your prostate gland. This exam detects the size of your gland and any abnormal lumps or growths. ? An exam of your urine (urinalysis). ? A prostate specific antigen (PSA) screening. This is a blood test used to screen for prostate cancer. ? An ultrasound. This test uses sound waves to electronically produce a picture of your prostate gland. Your health care provider may refer you to a specialist in kidney and prostate diseases (urologist). How is this treated? Once symptoms begin, your health care provider will monitor your condition (active surveillance or watchful waiting). Treatment for this condition will depend on the severity of your condition. Treatment may include: ? Observation and yearly exams. This may be the only treatment needed if your condition and symptoms are mild. ? Medicines to relieve your symptoms, including: ? Medicines to shrink the prostate. ? Medicines to relax the muscle of the prostate. ? Surgery in severe cases. Surgery may include: ? Prostatectomy. In this procedure, the prostate tissue is removed completely through an open incision or with a laparoscope or robotics. ? Transurethral resection of the prostate (TURP). In this procedure, a tool is inserted through the opening at the tip of the penis (urethra). It is used to cut away tissue of the inner core of the prostate. The pieces are removed through the same opening of the penis. This removes the blockage. ? Transurethral incision (TUIP). In this procedure, small cuts are made in the prostate. This lessens the prostate's pressure on the urethra. ? Transurethral microwave thermotherapy (TUMT). This procedure uses microwaves to create heat. The heat destroys and removes a small amount of prostate tissue. ? Transurethral needle ablation (TUNA). This procedure uses radio frequencies to destroy and remove a small amount of prostate tissue. ? Interstitial laser coagulation (ILC). This procedure uses a laser to destroy and remove a small amount of prostate tissue. ? Transurethral electrovaporization (TUVP). This procedure uses electrodes to destroy and remove a small amount of prostate tissue. ? Prostatic urethral lift. This procedure inserts an implant to push the lobes of the prostate away from the urethra. Follow these instructions at home: ? Take bniw-rwu-ptljiuy and prescription medicines only as told by your health care provider. ? Monitor your symptoms for any changes. Contact your health care provider with any changes. ? Avoid drinking large amounts of liquid before going to bed or out in public. ? Avoid or reduce how much caffeine or alcohol you drink. ? Give yourself time when you urinate. ? Keep all follow-up visits. This is important. Contact a health care provider if: ? You have unexplained back pain. ? Your symptoms do not get better with treatment. ? You develop side effects from the medicine (more content not included)... Normal [facility] Urology Office/Clinic Noteon 07-22-2023 Urology Office/Clinic Note Chief Complaint 2 week F/U with PVR and voiding trial HPI Staff 2wk PVR & Voiding Diary DX: Urinary Retention, Bacteriuria, BPH & Hx of Kidney Stones Began CIC q3hrs at time of last encounter. Every 6 hours is what he is CIC now. Advised to increase water intake at time of last encounter *Tamsulosin 0.4mg qd and Finasteride 5mg qd. He is still taking, is not having no concerns with these [facility] checks PSA. IPSS 5 LEONARDO 3 Could not give a urine sample today 7 a.m. last CIC today. No discomfort al all PVR 661 History of Present Illness Tests reviewed: reviewed UA and PVR. I have reviewed the previous health record information and history for this patient from . I have reviewed and verified the staff HPI to be accurate for this encounter. There have been no associated fever, chills, flank pain, or blood in the urine. Denies any urinary infections since last encounter. Review of Systems PHQ Score Initial Depression Screen Score: 0 SCORE ROS - Provider Constitutional: denies weight loss, denies hot flashes. Eyes: denies eye problems. Gastrointestinal: denies nausea, denies vomiting. Cardiovascular: denies chest pain or angina. Integumentary: no dryness Musculoskeletal: denies musculoskeletal symptoms. ENMT: denies otolaryngeal symptoms. Respiratory: no shortness of breath. Heme/Lymph: denies easy bleeding tendency, denies easy bruising tendency. Psychiatric: no confusion, no anxiety. Genitourinary: See HPI. Physical Exam Vitals & Measurements T: 36.2 ?C(Temporal Artery) HR: 74(Peripheral) BP: 118/78 HT: 73 in HT: 185 cm WT: 82 kg WT: 180.4 lb BMI: 23.96 General Appearance: alert, no distress, well nourished, well developed male. Assessment/Plan Rickey is a 77 yo M pt, here today with daughter. COPD, former smoker with long standing history of recurrent urinary retention (2 L) s/p UroLift/Cystolitholapa xy 10/28/22. Post op requiring CIC, pt stopped, prompting retention 4-6 wks later. [place] [facility] [place], did not bring a list of medications with him today. Baby aspirin, no hx of stroke or heart attack. States if he has to see a specialist through the [place] he has to travel to [place]. 1. Urinary retention (R33.9: Retention of urine, unspecified) S/p UroLift/Cystolitholapa xy 10/28/22. Did CIC in the past, stopped about 4-6 weeks ago due feeling he did not need to. States lowest volume he had was 180mL when self-cathing. Presented to [facility] ER 04/28/23 due to inability to urinate. Drained at least 1400mL with White catheter. Kidney function was preserved at that time. Hx of CIC, pt non compliant. At time of encounter w/[facility], pt opted for indwelling catheter. Has been getting monthly cath changes in our office. Cath Last changed: 06/23/23 Pt was to start CIC again, every 3 hours, and was to do a voiding diary. Pt states that he has done this but is concerned that his volumes from when he CIC's are low, about 150mL, and when he CIC's in the morning his volumes are high, 650-700mL, sleeps for about 12 hours, does not wake up with the urge to void. Pt states that he is not able to void on his own before he CIC's. IPSS 5, LEONARDO 3 Could not give a urine sample today, 7 a.m. last CIC today. No discomfort at all. PVR today was 661cc. Advised pt that he may not be cathing all of the way to get all of the urine out vs very low fluid intake during the day (pt admits to this). Advised pt on the proper technique of self cathing. Pt states that he does not think he has been doing that, has been taking the catheter out once it is done flowing. Advised pt that with how long he sleeps, he should try to cath if he wakes up in the middle of the night. Advised pt that the total he needs to try to get is 500mL's when he cath's during the day. Pt states that there are times that the pee sprays out when he caths- might be waiting too long and his bladder might have had a spasm due to being too full. Pt states that he has an easy time cathing, but he has some trouble at times. Again discussed bladder retraining. Counseled pt on the possible treatment options such as SMN if fails bladder retraining. Education provided Follow up in 2 wks w/PVR and Voiding Diary. All questions/concerns were discussed. Pt to call the office if he encounters any issues prior. Pt acknowledges understanding. -Increase fluids. -CIC as instructed as above 2. Bacteriuria (R82.71: Bacteriuria) UCx 04/28/23 - K. oxytoca, still taking Keflex. Advised pt to complete abx course. [facility] ER 06/10/23 - CC: brownish colored urine, +C&S Sent home with Keflex therapy. He did take all this, no problems with this, no pain or burning, blood in bag, noticed this morning. -Increase water intake. -CIC as instructed 3. BPH with urinary obstruction (N40.1: Benign prostatic hyperplasia with lower urinary tract symptoms) Hx long standing history of recurrent urinary retention, catheter dependent for over 3 months after 2L urinary retentio (more content not included)... Normal [facility] Comment on above: Result Comment: Elec tronically Signed By: Deandra Rodriguez MD\.br\Date and Time Signed: 07/22/23 09:00 EST\.br\Electronically Co-Signed By: Anastasia Rowell\.br\Date and Time Co-Signed: 07/22/23 08:37 EST ED Note-Physicianon 12-15-20 23 ED Note-Physician [id number] 0TIFF [facility] Lab Reportson 07-10-2023 Lab Reports [id number] 0TIFF [facility] Ambulatory Visit Summaryon 1 09-08-2022 Ambulatory Visit Summary RICKEY GARCIA :1945 Visit Date:07/08/2023 Ambulatory Visit Instructions Your Diagnosis Urinary retention Bacteriuria BPH with urinary obstruction History of kidney stones Your Care Team Attending Physician - Deandra Rodriguez MD Primary Care Physician - MAGED ANDRADE DO This Is Your Medications List sulfamethoxazole-trime thoprim (Bactrim D.S. 800 mg-160 mg Tab) Contact prescribing physician if questions or concerns aspirin (aspirin 81 mg oral capsule) calcium carbonate (calcium 500 mg tablets) cephalexin (cephalexin 500 mg Cap) duloxetine (duloxetine 60 mg Cap-DR) finasteride (finasteride 5 mg Tab) hydrochlorothiazide (hydrochlorothiazide 25 mg Tab) hydroxychloroquine (hydroxychloroquine 200 mg Tab) lamotrigine (lamotrigine 150 mg Tab) leflunomide (leflunomide 20 mg Tab) multivitamin potassium chloride (potassium chloride 10 mEq ER Tab) ropinirole (ropinirole 1 mg Tab) sertraline (sertraline 50 mg Tab) tamsulosin (tamsulosin 0.4 mg Cap) trazodone (traZODONE 100 mg Tab) verapamil (verapamil 240 mg Cap-ER) Procedures Performed Cystoscopic litholapaxy (10/28/2022), Transurethral insertion of prostatic urethral lift implant (10/28/2022), Cystoscopy (09/29/2022), TRUS - Transrectal ultrasonography (09/29/2022), Urodynamics (09/29/2022), Colonoscopy. Discharge Vitals Heart Rate (Peripheral) 68 Blood Pressure 117/78 Height 185 cm Height 73 in Weight 82 kg Weight 180.4 lb BMI 23.96 What to do next Scheduled Follow-Up Appointments Thursday 8:15 AM EST With: Michael SMITH, Deandra Smith Where: [facility]ara [facility] Patient Educationon 07-08-20 Patient Education Urology Clean Intermittent Catheterization, Male Clean intermittent catheterization (CIC) is a procedure to remove urine from the bladder by placing a small, flexible tube (catheter) into the bladder though the urethra. The urethra is a tube in the body that carries urine from the bladder out of the body. CIC may be done when: ? You cannot completely empty your bladder on your own. This may be due to a blockage in the bladder or urethra. ? Your bladder leaks urine. This may happen when the muscles or nerves near the bladder are not working normally, so the bladder overflows. Your health care provider will show you how to perform CIC and will help you to become comfortable performing this procedure at home. Your health care provider will also help you to get the home care supplies that are needed for this procedure. Supplies needed: ? Germ-free (sterile), water-based lubricant. ? A container for urine collection. You may also use the toilet to dispose of urine from the catheter. ? A catheter. Your health care provider will determine the best size for you. ? Use this catheter size: ? Clean gloves. ? Soap and water. ? Towel. How to perform this procedure: Most people need CIC at least 4 times per day to adequately empty the bladder. Your health care provider will tell you how often you should perform CIC. ? Number of times per day to perform CIC: ____ To perform CIC, follow these steps: 1. Wash your hands with soap and water. If soap and water are not available, use hand fisher purse seine. 2. Clean your penis with soap and water. Dry the tip of your penis completely. 3. Prepare the supplies that you will use during the procedure. Open the catheter package and lubricant. 4. Get in a comfortable position. Possible positions include: ? Sitting on a toilet, a chair, or the edge of a bed. ? Standing near a toilet. ? Lying down with your head raised on pillows and your knees pointing to the ceiling. You may wish to place a waterproof mat or pad under you. 5. If you are using a urine collection container, position it between your legs. 6. Urinate, if you are able. 7. Put on gloves. 8. Apply lubricant to about 2 inches (5 cm) of the tip of the catheter. 9. Set the catheter down on a clean, dry surface within reach. 10. Gently stretch your penis out from your body. Pull back any skin that covers the end of your penis (foreskin). Clean the end of your penis with medicated sterile swabs as told by your health care provider. 11. Hold your penis upward at a 45?60 degree angle. This helps to straighten the urethra. 12. Slowly insert the lubricated catheter straight into your urethra until urine flows freely. This is usually about 6?8 inches (15?20 cm). 13. When urine starts to flow freely, insert the catheter 1 inch (3 cm) more. Allow urine to drain into the toilet or the urine collection container. 14. When urine stops flowing, slowly remove the catheter. 15. Note the color, amount, and odor of the urine. 16. Measure your urine and note the amount, if told by your health care provider. 17. Discard the urine in the toilet. 18. Clean your penis using soap and water. 19. Move the foreskin back in place, if applicable. 20. If you are using a single-use catheter, discard the catheter and supplies. 21. Wash your hands with soap and water. 22. If you are using a reusable catheter, follow package instructions about how to clean the catheter after each use. How often should I perform this procedure? ? Do CIC to empty your bladder every 4?6 hours or as often as told by your health care provider. ? If you have symptoms of too much urine in your bladder (overdistension) and you are not able to urinate, perform CIC. Symptoms of overdistension may include: ? Restlessness. ? Sweating or chills. ? Headache. ? Flushed or pale skin. ? Bloated lower abdomen. What are the risks? Generally, this is a safe procedure, however problems may occur, including: ? Infection. ? Injury to the urethra. ? Irritation of the urethra. Follow these instructions at home General instructions ? Drink enough fluid to keep your urine pale yellow. ? Dispose of a multiple use catheter when it becomes dry, brittle, or cloudy. This usually happens after you use the catheter for 1 week. ? Avoid caffeine. Caffeine may make you need to urinate more frequently and more urgently. ? When traveling, bring extra supplies with you in case of delays. Keep supplies with you in a place that you can access easily. If traveling by plane: ? Make sure that the lubricant in your carry-on bag is less than 3.4 ounces (100 mL). ? Use a single-use catheter. It may be difficult to clean a reusable catheter in a small bathroom. ? Take tkyv-xpb-rnyzinz and prescription medicines only as told by your he (more content not included)... 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 Pt had initially presented to [facility] as a new pt, due to Urinary Retention this past August. *Tamsulosin 0.4mg qd and Finasteride 5mg qd He states he is not sure if it working, but is still taking [facility] checks PSA S/p UroLift/Cystolitholapa xy 10/28/22. Hx of CIC, pt non compliant. At time of encounter w/PRW, pt opted for indwelling catheter. Has been getting monthly cath changes in our office. Cath Last changed: 06/23/23- Pt is here today to follow up to [facility] ER 06/10/23 CC: brownish colored urine +C&S Sent home with Keflex therapy. He did take all this, no problems with this * no pain or burning, blood in bag, noticed this morning* History of Present Illness Tests reviewed: reviewed external records including labs, cultures and notes I have reviewed the previous health record information and history for this patient from , Dr. Robison and external providers I have reviewed and verified the staff HPI to be accurate for this encounter. There have been no associated fever, chills, flank pain, or blood in the urine. Denies any urinary infections since last encounter. Review of Systems PHQ Score Initial Depression Screen Score: 0 SCORE ROS - Provider Constitutional: denies weight loss, denies hot flashes. Eyes: denies eye problems. Gastrointestinal: denies nausea, denies vomiting. Cardiovascular: denies chest pain or angina. Integumentary: no dryness Musculoskeletal: denies musculoskeletal symptoms. ENMT: denies otolaryngeal symptoms. Respiratory: no shortness of breath. Heme/Lymph: denies easy bleeding tendency, denies easy bruising tendency. Psychiatric: no confusion, no anxiety. Genitourinary: See HPI. Physical Exam Vitals & Measurements HR: 68(Peripheral) BP: 117/78 HT: 73 in HT: 185 cm WT: 82 kg WT: 180.4 lb BMI: 23.96 General Appearance: alert, no distress, well nourished, well developed male. Assessment/Plan Rickey is a 77 yo M pt, here today with daughter. COPD, former smoker with long standing history of recurrent urinary retention (2 L) s/p UroLift/Cystolitholapa xy 10/28/22. Post op requiring CIC, pt stopped, prompting retention 4-6 wks later. [place], did not bring a list of medications with him today. Baby aspirin, no hx of stroke or heart attack. States if he has to see a specialist through the [place] he has to travel to [place]. 1. Urinary retention (R33.9: Retention of urine, unspecified) S/p UroLift/Cystolitholapa xy 10/28/22. Did CIC in the past, stopped about 4-6 weeks ago due feeling he did not need to. States lowest volume he had was 180mL when self-cathing. Presented to [facility] ER 04/28/23 due to inability to urinate. Drained at least 1400mL with White catheter. Kidney function was preserved at that time. Hx of CIC, pt non compliant. At time of encounter w/PRW, pt opted for indwelling catheter. Has been getting monthly cath changes in our office. Cath Last changed: 06/23/23 Discussed starting to CIC again or repeat cysto to see if room for improvement with BPH. Given his PVRs were improving from 650 ml to 180 ml while CIC prior, likely due to bladder decompensation and need for retraining, CIC compliance rather than outlet. Counseled pt on the possible risks of his bladder being permanently damaged given 3+ trabeculations and large volume retention. Counseled pt and daughter on the proper care for the catheter and where is should be secured. Pt states that he had some difficulty when he CIC at times. Counseled pt on how to avoid bladder spasms, and how to ensure he empties his bladder properly. Pt states that he would like to know how to CIC and keep it placed and taking it out so he can get in the hot tub. Advised pt that we would need to teach him how to properly do this, due to risks of infection and possible complications. Pt states that he would like to start to CIC again and would like to be taught again. Advised pt to record the volumes he gets when he CIC to keep track, start with CIC every 3 hours, goal total volume < 500cc Follow up in 1-2 wks w/PVR and voiding diary All questions/concerns were discussed. Pt to call the office if he encounters any issues prior. Pt acknowledges understanding. -Start CIC again, every 3 hours, with voiding diary. -Will send Bactrim DS BID x3days for prophy given manipulation today 2. Bacteriuria (R82.71: Bacteriuria) UCx 04/28/23 - K. oxytoca, still taking Keflex. Advised pt to complete abx course. Pt is here today to follow up to [facility] ER 06/10/23 - CC: brownish colored urine, +C&S Sent home with Keflex therapy. He did take all this, no problems with this, no pain or burning, blood in bag, noticed this morning. Has been asx during positive cultures. Discussed difference between colonization vs UTI. Advised pt that when he has a catheter placed, he will always have bacteria (more content not included)... [facility] Comment on above: Result Comment: Elec tronically Signed By: Michael SMITH, Deandra Smith\.br\Date and Time Signed: 07/08/23 11:33 EST\.br\Electronically Co-Signed By: Anastasia Rowell\.br\Date and Time Co-Signed: 07/08/23 11:11 EST Ambulatory Visit Summaryon 1 Ambulatory Visit Summary RICKEY GARCIA :1945 Visit Date:05/26/2023 Ambulatory Visit Instructions Your Care Team Attending Physician - Steve ROBISON MD Primary Care Physician - MAGED ANDRADE DO This Is Your Medications List aspirin (aspirin 81 mg oral capsule) calcium carbonate (calcium 500 mg tablets) cephalexin (cephalexin 500 mg Cap) duloxetine (duloxetine 60 mg Cap-DR) finasteride (finasteride 5 mg Tab) hydrochlorothiazide (hydrochlorothiazide 25 mg Tab) hydroxychloroquine (hydroxychloroquine 200 mg Tab) lamotrigine (lamotrigine 150 mg Tab) leflunomide (leflunomide 20 mg Tab) multivitamin potassium chloride (potassium chloride 10 mEq ER Tab) ropinirole (ropinirole 1 mg Tab) sertraline (sertraline 50 mg Tab) tamsulosin (tamsulosin 0.4 mg Cap) trazodone (traZODONE 100 mg Tab) verapamil (verapamil 240 mg Cap-ER) Procedures Performed Cystoscopic litholapaxy (10/28/2022), Transurethral insertion of prostatic urethral lift implant (10/28/2022), Cystoscopy (09/29/2022), TRUS - Transrectal ultrasonography (09/29/2022), Urodynamics (09/29/2022), Colonoscopy. What to do next Scheduled Follow-Up Appointments Thursday 1:00 PM EST Where: [facility] Patient Correspondenceon Patient Correspondence [id number] 0TIFF [facility] Ambulatory Visit Summaryon 1 Ambulatory Visit Summary RICKEY GARCIA Hernandez :1945 Visit Date:05/01/2023 Ambulatory Visit Instructions Your Diagnosis Urinary retention Urinary tract infection BPH with urinary obstruction History of kidney stones Your Care Team Attending Physician - Steve ROBISON MD Primary Care Physician - MAGED ANDRADE DO This Is Your Medications List Contact prescribing physician if questions or concerns aspirin (aspirin 81 mg oral capsule) calcium carbonate (calcium 500 mg tablets) cephalexin (cephalexin 500 mg Cap) duloxetine (duloxetine 60 mg Cap-DR) finasteride (finasteride 5 mg Tab) hydrochlorothiazide (hydrochlorothiazide 25 mg Tab) hydroxychloroquine (hydroxychloroquine 200 mg Tab) lamotrigine (lamotrigine 150 mg Tab) leflunomide (leflunomide 20 mg Tab) multivitamin potassium chloride (potassium chloride 10 mEq ER Tab) ropinirole (ropinirole 1 mg Tab) sertraline (sertraline 50 mg Tab) tamsulosin (tamsulosin 0.4 mg Cap) trazodone (traZODONE 100 mg Tab) verapamil (verapamil 240 mg Cap-ER) Procedures Performed Cystoscopic litholapaxy (10/28/2022), Transurethral insertion of prostatic urethral lift implant (10/28/2022), Cystoscopy (09/29/2022), TRUS - Transrectal ultrasonography (09/29/2022), Urodynamics (09/29/2022), Colonoscopy. Discharge Vitals Heart Rate (Peripheral) 90 Respiratory Rate 16 Blood Pressure 139/84 Height 185 cm Height 73 in Weight 82 kg Weight 180.4 lb BMI 23.96 What to do next Scheduled Follow-Up Appointments Thursday 1:00 PM EDT Where: [facility] ED Note-Physicianon 05-01-20 ED Note-Physician [id number] 0TIFF [facility] Patient Educationon 05-01-20 Patient Education Urology Indwelling Urinary Catheter Insertion For people with certain conditions, urine is not able to move normally through the urethra. The urethra is the part of the body that drains urine from the bladder. An indwelling urinary catheter may be needed if you have urinary retention problems or bladder obstruction. It may also be needed during and after surgical procedures and for other medical conditions. An indwelling urinary catheter is a thin, germ-free (sterile) tube that is placed into the bladder through the urethra to help drain urine out of the body. After the catheter is inserted, it is held in place by a small balloon on the catheter. The small balloon is filled with sterile water. Urine drains from the catheter into a drainage bag outside of the body. Tell a health care provider about: ? Any allergies you have. ? Any surgeries you have had. ? Any medical conditions you have. ? Any bleeding problems you have. What are the risks? Generally, this is a safe procedure. However, problems may occur, including: ? Infection. ? Bleeding. ? Damage to nearby structures or organs. What happens before the procedure? ? Your health care provider will inspect your urethra before inserting the catheter. ? Ask your health care provider what steps will be taken to help prevent infection. These steps may include washing your skin with a germ-killing soap. What happens during the procedure? ? A lubricant will be placed on the catheter to make it easy to insert it into the urethra. ? The catheter will be inserted into the urethra until you can see urine flowing into the drainage bag. After the urine starts to flow, the catheter may be inserted another couple of inches (about 5 cm). ? Sterile water will be used to inflate the balloon to hold the catheter in place. ? After the catheter balloon is inflated, it will be pulled back so it is against the narrow opening at the end of the bladder. ? Your health care provider will check for urine flow into the drainage bag. The procedure may vary among health care providers and hospitals. What happens after the procedure? ? Urine in the drainage bag will be emptied and measured by your health care provider while you are in the hospital. ? Your health care provider will remove the catheter for you. This will be done when the catheter is no longer necessary, which is likely to be before you leave the hospital. Summary ? An indwelling catheter is a sterile tube that is placed into the bladder through the urethra to help drain urine out of the body. ? The catheter will be removed when it is no longer needed. This information is not intended to replace advice given to you by your health care provider. Make sure you discuss any questions you have with your health care provider. Document Revised: 03/12/2022 Document Reviewed: 03/12/2022 [employer] Patient Education ? 2022 [employer] Indwelling Urinary Catheter Insertion, Care After This sheet gives you information about how to care for yourself after your procedure. Your health care provider may also give you more specific instructions. If you have problems or questions, contact your health care provider. What can I expect after the procedure? After the procedure, it is common to have: ? Slight discomfort around your urethra where the catheter enters your body. Follow these instructions at home: General instructions ? Keep the drainage bag at or below the level of your bladder. By doing this, your urine can only drain out instead of going back into your body. ? Secure the catheter tubing and drainage bag to your leg or thigh to keep it from moving. ? Check the catheter tubing regularly to make sure there are no kinks or blockages. ? Take showers daily to keep the catheter clean. Do not take a bath. ? Do not pull on your catheter. ? Disconnect the tubing and drainage bag as little as possible. ? Empty the drainage bag every 2?4 hours, or more often if needed. Do not let the bag get completely full. ? Wash your hands with soap and water before and after touching the catheter, tubing, or drainage bag. ? Do not let the drainage bag or catheter tubing touch the floor. ? Drink enough fluids to keep your urine pale yellow, or as told by your health care provider. How to remove the catheter Remove the catheter only if told by your health care provider. Follow instructions from your health care provider about when and how to remove the catheter. For most catheters, you will need to take the following steps: 1. Prepare your supplies. You will need a: ? Syringe. This would be given to you by your health care provider. ? Towel. ? Wastebasket. 2. Empty the drainage bag if needed. 3. Wash your hands with soap and warm water. 4. Remove the tape that secures the catheter to your leg or thigh. 5. Get into a comfortable po (more content not included)... [facility] Urology Office/Clinic Noteon 05-01-2023 Urology Office/Clinic Note Chief Complaint ER follow up *Urinary Retention HPI Staff Follow up to [facility] ER 04/28/23 CC: difficulty urinating Catheter was inserted with at least 1400ml drainage Tx'd w/IV Rocephin & Sent home with Keflex due to UTI *>100k Klebsiella Oxytoca Pt is a KML pt Last seen in our office 11/18/22 by KEVIN due to urinary retention. sp Urolift/cystolithalopa xy 10/28/22. still on Flomax and Finasteride. At that time pt was taught CIC Pt called our office 11/25/22 stating he was having high volumes (650-1000ml). Pt was advised to increase CIC to BID. Pt later advised to increase CIC to TID. Pt called our office 04/28/23 c/o weakness and inability to void for the past 4days Denies CIC. Stopped approximately 6wks ago. States he only had a limited amount of catheters. Tried washing them. Ran out. States his PVR's were 140-180ml w/CIC TID. Did not think he needed to it anymore. States he will try again if he needs to. States he might prefer an indwelling catheter vs CIC. Denies blood in bag. Still taking Keflex therapy. History of Present Illness Tests reviewed: ER notes, urine culture I have reviewed the previous health record information and history for this patient from Dr. Rodriguez. I have reviewed and verified the staff HPI to be accurate for this encounter. There have been no associated fever, chills, flank pain, or blood in the urine. Denies any urinary infections since last encounter. Review of Systems PHQ Score Initial Depression Screen Score: 0 ROS - Provider Constitutional: denies weight loss, denies hot flashes. Eyes: denies eye problems. Gastrointestinal: denies nausea, denies vomiting. Cardiovascular: denies chest pain or angina. Integumentary: no dryness Musculoskeletal: denies musculoskeletal symptoms. ENMT: denies otolaryngeal symptoms. Respiratory: no shortness of breath. Heme/Lymph: denies easy bleeding tendency, denies easy bruising tendency. Psychiatric: no confusion, no anxiety. Genitourinary: See HPI. Physical Exam Vitals & Measurements HR: 90(Peripheral) RR: 16 BP: 139/84 HT: 73 in HT: 185 cm WT: 82 kg WT: 180.4 lb BMI: 23.96 General Appearance: alert, no distress, well nourished, well developed male. Genitourinary: normal scrotum, normal testes, normal urethra, normal epididymis, normal vas deferens/spermatic cord. Flank Pain: none. Bladder: nonpalpable. Assessment/Plan Rickey is a 77 yo M pt of Dr. Rodriguez. 1. Urinary retention (R33.9: Retention of urine, unspecified) S/p UroLift/Cystolitholapa xy 10/28/22. Did CIC in the past, stopped about 4-6 weeks ago due feeling he did not need to. States lowest volume he had was 180mL when self-cathing. Presented to [facility] ER 04/28/23 due to inability to urinate. Drained at least 1400mL with White catheter. Kidney function was preserved at that time. States he would be satisfied with leaving indwelling catheter in place. Discussed this is a good option. Will teach proper catheter and leg bag placement IO today. Follow up with monthly cath changes with Dr. Rodriguez. All questions/concerns were discussed. Pt to call the office if he encounters any issues prior. Pt acknowledges understanding. 2. Urinary tract infection (N39.0: Urinary tract infection, site not specified) UCx 04/28/23 - K. oxytoca, still taking Keflex. Advised pt to complete abx course. 3. BPH with urinary obstruction (N40.1: Benign prostatic hyperplasia with lower urinary tract symptoms) Taking Tamsulosin 0.4mg qd and Finasteride 5mg qd. [facility] checks PSA. 4. History of kidney stones (Z87.442: Personal history of urinary calculi) States last stone was approx. 5 years ago, hx of surgical tx. No recent imaging. Follow-up With When Contact Information Michael SMITH, Deandra Smith, URL, [facility] [address], [address] [place], [place] [id number] Additional Instructions: 1 month cath change Patient Education Indwelling Urinary Catheter Insertion Indwelling Urinary Catheter Insertion, Care After IShahla, personally scribed for Dr. Robison on 05/01/2023 11:05:21. . Documentation recorded by the scribeShahla, accurately reflects the services(s) I performed and decisions made by me. Authenticated by Dr. Robison on 05/01/2023 11:06:59. Problem List/Past Medical History Ongoing Arthritis BPH with urinary obstruction COPD (chronic obstructive pulmonary disease) Depression Feeling of incomplete bladder emptying Gall stone Glaucoma History of kidney stones HTN (hypertension) Kidney stones Smoker Urinary retention Urinary tract infection Historical No qualifying data Procedure/Surgical History Cystoscopic litholapaxy (10/28/2022), Transurethral insertion of prostatic urethral lift implant (10/28/2022), Cystoscopy (09/29/2022), TRUS - Transrectal ultrasonography (09/29/2022), Urodynamics (09/29/2022), Colonoscopy. Medications aspirin 81 mg oral capsule, 81 mg= 1 cap(s), Oral, Daily calcium 500 mg tablets, (more content not included)... [facility] Comment on above: Result Comment: Elec tronically Signed By: Steve ROBISON MD\.br\Date and Time Signed: 05/01/23 11:07 EDT\.br\Electronically Co-Signed By: Shahla Shelley\.br\Date and Time Co-Signed: 05/01/23 11:05 EDT ED Note-Physicianon 04-29-20 ED Note-Physician [id number]#[id number] 0CD:127 [facility] Ambulatory Visit Summaryon 0 11-18-2022 Ambulatory Visit Summary RICKEY GARCIA :1945 Visit Date:11/18/2022 Ambulatory Visit Instructions Your Diagnosis Urinary retention Tests Performed Urnls Dip Stick Auto w/o Microscopy POC 71512 Your Care Team Attending Physician - YESENIA LOMAX PA-C Primary Care Physician - MAGED ANDRADE DO This Is Your Medications List Contact prescribing physician if questions or concerns aspirin (aspirin 81 mg oral capsule) calcium carbonate (calcium 500 mg tablets) duloxetine (duloxetine 60 mg Cap-DR) finasteride (finasteride 5 mg Tab) hydrochlorothiazide (hydrochlorothiazide 25 mg Tab) hydroxychloroquine (hydroxychloroquine 200 mg Tab) lamotrigine (lamotrigine 150 mg Tab) leflunomide (leflunomide 20 mg Tab) multivitamin potassium chloride (potassium chloride 10 mEq ER Tab) ropinirole (ropinirole 1 mg Tab) sertraline (sertraline 50 mg Tab) tamsulosin (tamsulosin 0.4 mg Cap) trazodone (traZODONE 100 mg Tab) verapamil (verapamil 240 mg Cap-ER) Procedures Performed Cystoscopic litholapaxy (10/28/2022), Transurethral insertion of prostatic urethral lift implant (10/28/2022), Cystoscopy (09/29/2022), TRUS - Transrectal ultrasonography (09/29/2022), Urodynamics (09/29/2022), Colonoscopy. Discharge Vitals Heart Rate (Peripheral) 68 Respiratory Rate 16 Blood Pressure 132/78 Height 186 cm Height 73 in Weight 82 kg Weight 180.4 lb BMI 23.7 Medications What How Much When Instructions Unchanged aspirin (aspirin 81 mg oral capsule) 1 Capsules By Mouth Every day Contact prescribing physician if questions or concerns Unchanged calcium carbonate (calcium 500 mg tablets) 1 Tablets By Mouth 2 times a day Contact prescribing physician if questions or concerns Unchanged duloxetine (duloxetine 60 mg Cap-DR) 120 Milligram By Mouth Every day Contact prescribing physician if questions or concerns Unchanged finasteride (finasteride 5 mg Tab) 1 Tablets By Mouth Every day Contact prescribing physician if questions or concerns Unchanged hydrochlorothiazide (hydrochlorothiazide 25 mg Tab) 0.5 Tablets By Mouth Every day Contact prescribing physician if questions or concerns Unchanged hydroxychloroquine (hydroxychloroquine 200 mg Tab) 1 Tablets By Mouth 2 times a day Contact prescribing physician if questions or concerns Unchanged lamotrigine (lamotrigine 150 mg Tab) 1 Tablets By Mouth 2 times a day Contact prescribing physician if questions or concerns Unchanged leflunomide (leflunomide 20 mg Tab) 1 Tablets By Mouth Every day Contact prescribing physician if questions or concerns Unchanged multivitamin See instructions Contact prescribing physician if questions or concerns Unchanged potassium chloride (potassium chloride 10 mEq ER Tab) 1 Tablets By Mouth Every day Contact prescribing physician if questions or concerns Unchanged ropinirole (ropinirole 1 mg Tab) 2 Tablets By Mouth 2 times a day Contact prescribing physician if questions or concerns Unchanged sertraline (sertraline 50 mg Tab) 0.5 Tablets By Mouth Every day Contact prescribing physician if questions or concerns Unchanged tamsulosin (tamsulosin 0.4 mg Cap) 1 Capsules By Mouth Every day Contact prescribing physician if questions or concerns Unchanged trazodone (traZODONE 100 mg Tab) 1 Tablets By Mouth Once a day (at bedtime) Contact prescribing physician if questions or concerns Unchanged verapamil (verapamil 240 mg Cap-ER) 1 Capsules By Mouth Every day Contact prescribing physician if questions or concerns Test Results Urnls Dip Stick Auto w/o Microscopy POC 70944 (11/18/2022) Bilirubin Urine Dipstick - Negative Blood Urine Dipstick - Negative Glucose Urine Dipstick - Negative Ketones Urine Dipstick - Negative Leukocytes Urine Dipstick - 1+ Small Nitrite Urine Dipstick - Positive Protein Urine Dipstick - Negative Specific [place] Urine Dipstick - 1.025 Urine Appearance Urine Dipstick - Clear Urine Color Urine Dipstick - Yellow Urobilinogen Urine Dipstick - Normal 0.2-1 EU/dl pH Urine Dipstick - 6 Allergies No Known Medication Allergies Problems Ongoing - Any problem that you are currently receiving treatment for. Arthritis BPH with urinary obstruction COPD (chronic obstructive pulmonary disease) Depression Feeling of incomplete bladder emptying Gall stone Glaucoma HTN (hypertension) Kidney stones Smoker Urinary retention Urinary tract infection Education Materials Acute Urinary Retention, Male Acute urinary retention is a condition in which a person is unable to pass urine or can only pass a little urine. This condition can happen suddenly and last for a short time. If left untreated, it can become long-term (chronic) and result in kidney damage or other serious complications. What are the causes? This condition may be caused by: ? Obstruction or narrowing of the tube that drains the bladder (urethra). This may be caused by surgery, probl (more content not included)... Normal [facility] Patient Educationon 11-19-19 Patient Education Urology Acute Urinary Retention, Male Acute urinary retention is a condition in which a person is unable to pass urine or can only pass a little urine. This condition can happen suddenly and last for a short time. If left untreated, it can become long-term (chronic) and result in kidney damage or other serious complications. What are the causes? This condition may be caused by: ? Obstruction or narrowing of the tube that drains the bladder (urethra). This may be caused by surgery, problems with nearby organs, or injury to the bladder or urethra. ? Problems with the nerves in the bladder. ? Tumors in the area of the pelvis, bladder, or urethra. ? Certain medicines. ? Bladder or urinary tract infection. ? Constipation. What increases the risk? This condition is more likely to develop in older men. As men age, their prostate may become larger and may start to press or squeeze on the bladder or the urethra. Other chronic health conditions can increase the risk of acute urinary retention. These include: ? Diseases such as multiple sclerosis. ? Spinal cord injuries. ? Diabetes. ? Degenerative cognitive conditions, such as delirium or dementia. ? Psychological conditions. A man may hold his urine due to trauma or because he does not want to use the bathroom. What are the signs or symptoms? Symptoms of this condition include: ? Trouble urinating. ? Pain in the lower abdomen. How is this diagnosed? This condition is diagnosed based on a physical exam and your medical history. You may also have other tests, including: ? An ultrasound of the bladder or kidneys or both. ? Blood tests. ? A urine analysis. ? Additional tests may be needed, such as a CT scan, MRI, and kidney or bladder function tests. How is this treated? Treatment for this condition may include: ? Medicines. ? Placing a thin, sterile tube (catheter) into the bladder to drain urine out of the body. This is called an indwelling urinary catheter. After it is inserted, the catheter is held in place with a small balloon that is filled with sterile water. Urine drains from the catheter into a collection bag outside of the body. ? Behavioral therapy. ? Treatment for other conditions. If needed, you may be treated in the hospital for kidney function problems or to manage other complications. Follow these instructions at home: Medicines ? Take xyhs-jwx-epxybjl and prescription medicines only as told by your health care provider. Avoid certain medicines, such as decongestants, antihistamines, and some prescription medicines. Do not take any medicine unless your health care provider approves. ? If you were prescribed an antibiotic medicine, take it as told by your health care provider. Do not stop using the antibiotic even if you start to feel better. General instructions ? Do not use any products that contain nicotine or tobacco. These products include cigarettes, chewing tobacco, and vaping devices, such as e-cigarettes. If you need help quitting, ask your health care provider. ? Drink enough fluid to keep your urine pale yellow. ? If you have an indwelling urinary catheter, follow the instructions from your health care provider. ? Monitor any changes in your symptoms. Tell your health care provider about any changes. ? If instructed, monitor your blood pressure at home. Report changes as told by your health care provider. ? Keep all follow-up visits. This is important. Contact a health care provider if: ? You have uncomfortable bladder contractions that you cannot control (spasms). ? You leak urine with the spasms. Get help right away if: ? You have chills or a fever. ? You have blood in your urine. ? You have a catheter and the following happens: ? Your catheter stops draining urine. ? Your catheter falls out. Summary ? Acute urinary retention is a condition in which a person is unable to pass urine or can only pass a little urine. If left untreated, this condition can result in kidney damage or other serious complications. ? An enlarged prostate may cause this condition. As men age, their prostate gland may become larger and may press or squeeze on the bladder or the urethra. ? Treatment for this condition may include medicines and placement of an indwelling urinary catheter. ? Monitor any changes in your symptoms. Tell your health care provider about any changes. This information is not intended to replace advice given to you by your health care provider. Make sure you discuss any questions you have with your health care provider. Document Revised: 04/03/2021 Document Reviewed: 04/03/2021 [employer] Patient Education ? 2022 [employer] [facility] Urology Office/Clinic Noteon 11-18-2022 Urology Office/Clinic Note Chief Complaint Teach CIC HPI Staff See message from 11/11/22. Pt here to either have white placed or learn CIC. Last OV by KMHernandez on 09/08/22. Cysto/TRUS 09/29/22 - Obstructed prostate, Severe bilobar hypertrophy, mild elevated bladder neck without significant ball-valve intravesical median lobe. Posterior bladder wall mucosal irrigation from white. No concerning bladder tumors or lesions. 1 x 2cm bladder stone and debris. Large posterior inferior wall diverticulum. 2-3+ trabeculations. [facility] Note 09/29/22 - Discussed outlet procedure vs bladder retraining. Urodynamics 09/29/22 - Large bladder capacity 800 ml, compliant, delayed sensation, detrusor overactivity at 215 ml without leak, PDet at max flow 25 cm H2O but only able to void 14 ml. EMG activity and valsalva during attempts to void. XR Ab 10/28/22 [facility] - A catheter overlies the lower pelvis, likely within the urinary bladder. An approximately 1. A by 0.8 cm radiodensity overlying the midline of the distal sacrum may be a bladder calculus. Two approximately 5 mm calcifications overlie the lower pole the right kidney, without other significant urinary tract calculi identified elsewhere, by plain radiography. S/p Urolift 6 implants, cystolitholapaxy 10/28/22. Cath removed 10/30/22. Finasteride & Fl[place] therapy from [place]. Urine today does have strong odor but pt admits to not drinking much today. As well as +Leuks & Nitrates. PVR 566. Pt states his stream has gone back to normal. Denies pain/burning. Gets up 1-2x/night. No complaints getting stream started. Denies urgency. States he has not successfully cathed himself in 4 wks. Has tried, but gets large amount of blood each time. Review of Systems PHQ Score Initial Depression Screen Score: 0 no fever, chills, malaise, myalgia. no rash/lesions. no chest pain, palpitations, or SOB. no abdominal pain, nausea, vomiting. no unilateral calf swelling, redness, pain Physical Exam Vitals & Measurements HR: 68(Peripheral) RR: 16 BP: 132/78 HT: 73 in HT: 186 cm WT: 82 kg WT: 180.4 lb BMI: 23.7 General: nontoxic, NAD Mouth: moist mucosa Lungs: normal respiratory effort Cardio: regular rate, good distal perfusion Abdomen: nondistended, no suprapubic distention or tenderness, no CVA tenderness Neurologic: Grossly normal Skin: No rashes or suspicious lesions Assessment/Plan UA today shows leuks/nitrites but pt has been attempting to cath himself and so he will likely have some colonization. He denies dysuria, SP or low back pain. Will hold off on cx for now. 1. Urinary retention (R33.9: Retention of urine, unspecified) sp Urolift/cystolithalopa xy 10/28/22. still on Flomax and Finasteride. Discussed options - relearn CIC vs indwelling white. Pt strongly prefers CIC. I instructed pt on proper CIC technique. He demonstrated this during office visit today. He was given a supply bag of 14fr coude tip caths for home. I told him to CIC once daily, at bedtime, after trying to empty his bladder fully. Document volumes and call office w update in 1 week. no f/u currently scheduled. wait and see how things go with CIC. Ordered: Body Mass Index (BMI) documented 3008F Current tobacco non-user 1036F Depression Screening Negative 3352F E&M of Est. Patient Low 20-29 Min 64516 Influenza immunization status assessed 1030F Measure Post Void residual urine and/or bladder capacity by US- non-imaging 56706 Most recent diastolic blood pressure <80 mm Hg 3078F Patient screen for fall risk: no falls in last year or 1 fall with no injury in last year 1101F Systolic BP 130-139 mm Hg (Most Recent) 3075F Urnls Dip Stick Auto w/o Microscopy POC 45841 Total time spent reviewing previous notes/results/external documents, preparing the chart, conducting the encounter with the patient and family, ordering tests/medications, and documenting the encounter was 25 minutes. Follow-up No qualifying data available pending call in 1 week Problem List/Past Medical History Ongoing Arthritis BPH with urinary obstruction COPD (chronic obstructive pulmonary disease) Depression Feeling of incomplete bladder emptying Gall stone Glaucoma HTN (hypertension) Kidney stones Smoker Urinary retention Urinary tract infection Historical No qualifying data Procedure/Surgical History Cystoscopic litholapaxy (10/28/2022), Transurethral insertion of prostatic urethral lift implant (10/28/2022), Cystoscopy (09/29/2022), TRUS - Transrectal ultrasonography (09/29/2022), Urodynamics (09/29/2022), Colonoscopy. Medications aspirin 81 mg oral capsule, 81 mg= 1 cap(s), Oral, Daily calcium 500 mg tablets, 1250 mg= 1 tab(s), Oral, BID duloxetine 60 mg Cap-DR, 120 mg, Oral, Daily finasteride 5 mg Tab, 5 mg= 1 tab(s), Oral, Daily hydrochlorothiazide 25 mg Tab, 12.5 mg= 0.5 tab(s), Oral, Daily hydroxychloroquine 200 mg Tab, 200 mg= 1 tab(s), Oral, BID lamotrigine 150 mg Tab, 150 mg= 1 tab(s), Oral, BID leflunomide 20 mg Tab, (more content not included)... Normal [facility] Comment on above: Result Comment: Elec tronically Signed By: YESENIA LOMAX PA-C\Date and Time Signed: 11/18/22 15:58 EDT Ambulatory Visit Summaryon 0 11-07-2022 Ambulatory Visit Summary RICKEY GARCIA :1945 Visit Date:11/07/2022 Ambulatory Visit Instructions Your Diagnosis Urinary retention Your Care Team Attending Physician - MAGED ANDRADE DO Primary Care Physician - MAGED ANDRADE DO This Is Your Medications List aspirin (aspirin 81 mg oral capsule) calcium carbonate (calcium 500 mg tablets) duloxetine (duloxetine 60 mg Cap-DR) finasteride (finasteride 5 mg Tab) hydrochlorothiazide (hydrochlorothiazide 25 mg Tab) hydroxychloroquine (hydroxychloroquine 200 mg Tab) lamotrigine (lamotrigine 150 mg Tab) leflunomide (leflunomide 20 mg Tab) multivitamin potassium chloride (potassium chloride 10 mEq ER Tab) ropinirole (ropinirole 1 mg Tab) sertraline (sertraline 50 mg Tab) tamsulosin (tamsulosin 0.4 mg Cap) trazodone (traZODONE 100 mg Tab) verapamil (verapamil 240 mg Cap-ER) Procedures Performed Lithotripsy (10/28/2022), Colonoscopy. Medications What How Much When Instructions Unchanged aspirin (aspirin 81 mg oral capsule) 1 Capsules By Mouth Every day Unchanged calcium carbonate (calcium 500 mg tablets) 1 Tablets By Mouth 2 times a day Unchanged duloxetine (duloxetine 60 mg Cap-DR) 120 Milligram By Mouth Every day Unchanged finasteride (finasteride 5 mg Tab) 1 Tablets By Mouth Every day Unchanged hydrochlorothiazide (hydrochlorothiazide 25 mg Tab) 0.5 Tablets By Mouth Every day Unchanged hydroxychloroquine (hydroxychloroquine 200 mg Tab) 1 Tablets By Mouth 2 times a day Unchanged lamotrigine (lamotrigine 150 mg Tab) 1 Tablets By Mouth 2 times a day Unchanged leflunomide (leflunomide 20 mg Tab) 1 Tablets By Mouth Every day Unchanged multivitamin See instructions Unchanged potassium chloride (potassium chloride 10 mEq ER Tab) 1 Tablets By Mouth Every day Unchanged ropinirole (ropinirole 1 mg Tab) 2 Tablets By Mouth 2 times a day Unchanged sertraline (sertraline 50 mg Tab) 0.5 Tablets By Mouth Every day Unchanged tamsulosin (tamsulosin 0.4 mg Cap) 1 Capsules By Mouth Every day Unchanged trazodone (traZODONE 100 mg Tab) 1 Tablets By Mouth Once a day (at bedtime) Unchanged verapamil (verapamil 240 mg Cap-ER) 1 Capsules By Mouth Every day Allergies No Known Medication Allergies Problems Ongoing - Any problem that you are currently receiving treatment for. Arthritis BPH with urinary obstruction COPD (chronic obstructive pulmonary disease) Depression Feeling of incomplete bladder emptying Gall stone Glaucoma HTN (hypertension) Kidney stones Smoker Urinary retention Urinary tract infection Normal [facility] IntraOperative Documentson 0 11-04-2022 IntraOperative Documents [id number]. 00CD:127 Normal [facility] Postoperative Documentson Postoperative Documents [id number]#1.0 0CD:127 Normal [facility] Calculus Analysison 11-04-19 23 Calcium hydrogen phosphate dihydrate (Stone) [Mass fraction] 5 % Invalid Interpretation Code [facility] Comment on above: Performed By: #### 1 [id number] #### [facility] [address] [place] [address] Calcium oxalate dihydrate Infrared spectroscopy (Stone) [Mass fraction] 20 % Invalid Interpretation Code [facility] Comment on above: Performed By: #### 1 [id number] #### [facility] [address] [place] [address] Calcium oxalate monohydrate (Stone) [Mass fraction] 75 % Invalid Interpretation Code [facility] Comment on above: Performed By: #### 1 [id number] #### [facility] [address] [place] [address] Color (Stone) Duran Invalid Interpretation Code [facility] Comment on above: Performed By: #### 1 [id number] #### [facility] [address] [place] [address] Composition Comment Invalid Interpretation Code [facility] Comment on above: Result Comment: Perc entage (Represents the % composition) Performed By: #### 1 [id number] #### [facility] [address] [place] [address] Disclaimer: Comment Invalid Interpretation Code [facility] Comment on above: Result Comment: This test was developed and its performance characteristics determined by [facility]. It has not been cleared or approved by the Food and Drug Administration. Performed at: [facility] [employer] Stone [employer] [address] [place] [address] [address] [place] [id number] PhD Alvarez Mccoy Performed By: #### 1 [id number] #### [facility] [address] [id number] Laboratory comment Good (Report) Comment Invalid Interpretation Code [facility] Comment on above: Result Comment: Tessa louis questions regarding Calculi Analysis contact [facility] at: [phone]. Performed By: #### 1 [id number] #### [facility] [address] [id number] Please Note: Comment Invalid Interpretation Code [facility] Comment on above: Result Comment: Calc maciej report will follow via computer, mail or independent crop consultant delivery. Performed By: #### 1 [id number] #### [facility] [address] [place] [address] Size (Stone) [Entitic vol] 7x13 Invalid Interpretation Code [facility] Comment on above: Result Comment: Mult iple pieces received. Dimensions of the largest piece reported. Performed By: #### 1 [id number] #### [facility] [address] [place] [address] Specimen source subject Nom Comment Invalid Interpretation Code [facility] Comment on above: Result Comment: Urin jasiel Bladder Performed By: #### 1 [id number] #### [facility] [address] [place] [address] Stone Photo Comment Invalid Interpretation Code [facility] Comment on above: Result Comment: Phot ograph will follow under a separate cover Performed By: #### 1 [id number] #### [facility] [address] [place] [address] Weight (Stone) 1188 mg Invalid Interpretation Code [facility] Comment on above: Performed By: #### 1 [id number] #### [facility] [address] [place] [address] Coding Summary.on 10-31-2022 Coding Summary. CD:[id number] Ww +PGhlYWQ+NY0AXOLwW84et NZyqK1nD3BGEMeXWbkbTBH ZJZgEWvLecpZkNW9opZSiT XJu IC8+IS0bQWYfFykifZMpx1 T1gDS0N67ejv5uOIuiuOB9 ENUiElLqotyrg7iqcJz8BL cuNmluOyBt PXByoI80XVN0gB52Pw37iU RtpPGmb6aybBo0WqTrCCPb PHN7wYenAKcad2IpGZFfN3 3hfFFbf6T6 XFKxhKswoRZtVePzuNW0xZ 9jDPlrzwxty3oioqxoLcd6 nq27eSRuy0O1nHF9L3Suza X6QBInmNSb RnstyMIYcZ6llugne7hvbl akWzXaVOZyRRe6ZTs7WNJi iVdeCvNeBP45ZKB9ZJNwsl HyT7AiNHNr bLbfAwL2y2P5Zh0SY4BOZz txC4VPFBJBJCqcdZL+PC90 lp59K0DeGuapRsv8IOAgEQ I5gRX7vJ7x ERPmXFlqz2Y0xRJ8J0Akdj Pwrl4pq3zwHEQkUFmuF00w hFPlr7B0QZUlaVQ3TEGgxY uzPbUgrT63 Oyc+EPKzmGxya0QzPxmey2 ats2ffuJb9AroxIJXzmmUh bKpcFSD6u5RgIi7bYCMhxE B1oCN1aX0e JnOhHnM1DXbhG676IsXkaX SeFnahX99tD3NbtKM+PHRy Oyp1VAGzdNgpQL5kN5BkNB RpbmctbGVm rJojAX1cUDZgadxuWUKsiD 1zNORaV3i9KaRfBfE4CWuy Q1XnDDEegfvkCe42uD1vWe CaDwK7LUrs P0HukzZ4MZQdyHWdEZihRN K0U47dd5H5MNEcJUVaKOK0 lFG0iK3piLqhkarubVPrsG sgdmVydGlj JDtsHOpoI780TKFkmXhePn NvZGluZyBEYXRlOiAgMDQv MDcvMjAyMzwvdGQ+PHRkIH U6jHluLOYs iERgEQajZk1hfJcrdDzoQC 4jTVZuaqsdUCGtkY1uTGBj nIPiaOaaYY6zUORjhptzj6 72ZhKoGEY7 DLHwaXGeG0DypU0tTlPyTB OmRTLzU3UqqUJhQYujL144 VQqtMsW9CNTaioVpC6LsIK FsaWduOiB0 o4I9Ma2Dg4CgguclX9MwzQ JkMkCnIwvtRVw0K2OoMwzf dHI+ZG70QEOaCB49GYy5QO B6hImsLEqf QQIvE9RdpE7sYcKpTLPsWG RkOyc+PHRhYmxlIHdpZHRo YSwbIFEbBdDgbMmdGM8qBc 9yZGVyLWNv vIallEHzLiIvx1dvAEPnPO foCG4thPfyE0OmbQN5PLPs f0f2Xi40G97sR5MrmVD+PG UjsMB6hWN4 zW1eHkHhOzH7IKiyN546Cx EfwMBbBlhyq2ene9vaaPx1 VmY9QQWweuYkgXtmBWR3b2 MkXi61Q75z IHdpZHRoPSIxNSUiIHZhbG sgom4fdN5aDq3+PGNvbCB3 tCL6aS2qOmQuPaG4OOcxD7 49InRvcCIv Ddolo6hqs1mimCh2TvXcCE BeadLfyQirSMY1f9GoKc71 F6UraHukb1UtEel8ax57yO Yox0V5yKI9 P2LkRNLugchzjWBxbDzgQT 4iKNBycugyGSJbaV9oYCMq Q7s7VuUlNlK3MLnrT7Eard U9XRXidQVs CODzaBRYvY1oghniw7adxz alGdWjQLGxFFn6NAj7OOFl sShvFgGjPXM8KxJ4UMR7sX FwuV3eyLuq monrhV4jVau+QNT9wNOduM SYYX5hUqmnrNG+PHRkIHN0 sIlfZJvrGMKftE1fVHQkR8 q6JbExDiO7 RKcuZ6BhdoE5PHUptZZjIM MlfHGNpG6escfqw9wyyvnc FyAxLUBvABf1SNq1SJSsjF duOiBsZWZ0 ItP9RFV2kNGycJ3lqPahpr kjjY9uOit+QmlydGggRGF0 QWb8N1MfGwp3XZOglIfhOM 0ncGFkZGlu He9zqDogmWqdGS5tHGZqds nfr825VhYwa0vvKHBfsFRk YUmnZBN6W87ik4T9DEUfBM BnPVP8hQX4 kK0haFwfecwxqGGwaZwrnz IybPtbVPikUOlpQ962HIQo sOibPaUuABv7U8McZcn9DX YfvMxdEL8o sJXnLEmnXo4uyPmhmWjdVM 9nHBGjjrmts777RyRap7wt UOQcpMNxZUkoXPM3Z20bo1 L5LYZaXPOz ZDR1cKH9eH4atPpxzwwbxB VmdDsgdmVydGljYWwtYWxp V306ZGEhgXwoMoYkmRm5X9 HgAan3IYCz kLvaSX8apUKmWWncDw2icS zfgTbkRB2gMXPtqorpr469 GmBej3trHDRxzSBhIKssJH D7Y60ba5P1 NIYzGPEyLPQ8tDZ9rA8fxH lnbjogbGVmdDsgdmVydGlj ZXurOBrpS327RXVhtSywLj BhdGllbnQg SWapVPo4H1LhBjsjoGV+PC 31MHWcLM81lZMgvALup4sz sVj4RmEiRFWmCDY3jWthGI ary6AoSBWo L07ylDRrv0W1LWFsvAkzuC DiVcQctNS1eO1sBCwbksdt t2fdfcitYutxq1puos18vH 27D95cHTyt ZHRoPSIzMCUiIHZhbGlnbj 1bjV2oQh3+GBPsuML7dOE3 dR3fECWrVcX5KGrgY519Jv RvcCIvPjxj x8ics7lnhSk6CvV9GTCmqb KhlPcbTJQ9f6OvEx30L13q IHdpZHRoPSIyMCUiIHZhbG irad7lpC7g Ii8+YEYggWR4tEW0mE8qUf LvLrY3XNftG231XqVnvCOq SgjdN64fM2UjlBC+PHRyPj h7IEAcfLbw XA2gpMBeSFkjZs4xFSA2Zy GbXjQtQRrmX9XiRSXdbtmt hzxhaPT5VJVjRODvxR52Ww 9udDogMTBw jUNFpW1ogerhk0kdloarOa FySZSqZBr6UZm7XVFdpTdp FvUzDKY6FgT6PCA7wNDzxW 1hbGlnbjog tZ6kD3BrUVNbdrhjIc76nF 5dNgAnPoO7CMayGyf+TEFV JiPNOMVYZSnqX8NLWIjKWl WQEM59VJ93 fURrb6B2qJH5L5SnNQBwvf zxkzahzCK4BHVaOMPfcU68 iYEgWCgfMw1cv0K1f842WY XlKSIhnQ03 Ep3rwJxoRBCilLQCfE3bsb exd3rafvzoAlVvIHYgDAm6 QTn5MNUidDgiMvRoEMI6Tz V0SEF3dNRi iN8asXrwqbskzC4rXjy+MD LvGywiFCz3OfmjoMD+PHRk JKY6pBajNZemUPItmT3oAV AzM7r0TsRc WvE2OGshY7WfLOYxyhsxYf 23nQ1zZaJzBdD5DNowE4Ci sqX7BPVlwFXoOOlaTIF8Y6 8hv5I9HDEi XCNlWUX9dHX8dP3dpLqsuy ogbGVmdDsgdmVydGljYWwt QHunR403YKRdyHihIht2EZ nyNDOpZU47 OV63aATdf8E7xIT5M4GwUL JndezjhgqxkVH4WMGkSRFu kI20sWVeAElyCu2uk7P3i0 06IDAuMDUw lE35Ku6vbKzjOLFmfJZBlV 8wsjcyr5rwmjqjYnAsCXPr MOu0KQp4HNDgkIzlVzGePG I3TcC8YQY0 xTYunR0ceMuikknwqY7mRu c+TWFsZTwvdGQ+PHRkIHN0 iDlkTDsiUUSkyV1yQBPeX0 b6ZpYeEmM4 DPchD8QcAZKuitubWd22pO 0iIsKmKbP0CKgpE3YlssQ2 JGZowOZcGFutSXT4T46hf2 Q4CZNtEOYw XJA7iXH8hP7vyIhewyzljS VmdDsgdmVydGljYWwtYWxp X258IKRtsDfsGzLfDkVyYP JgoqqqV0Oq MEVJIVjeX6FsC4WgrNyuvR Q+YY26ad15R7TfBceyOml9 JSVgWVJ7tJK7kC1gPHFnET lya2E6qGO6 G0WpndEgqj4gd6gdOYPcOX xvM30frMVsm5J5HAHfxUL1 NMCflWziOtPwqZ50Mix+PG IdvGlry6Wy Eimln9dgn2hueDv2VrByFQ ByhzLmfKsoENS9o4ZvCi79 A79uJCewMGEvCUEiZSFyDP QhxJhoab8a kB3tDb9+NTDwzFC0fCN5cP 8kFqPxFjM2STfaV568SrWb qHEjLdccv8pjo5qxxDx7Tk IwJSIgdmFs cRpzFVP2i7UbEh69U6SomU pkw1PuMul0qb75jROok8N5 oXD4H0UeEYRfjsdxwWRvwG qsAM3bKJAw saukEMJudE8wSSFfQ2x6Cq CpKqJ0QTsgB6PllqI4JHMj wGGtUUEfkFYXnG5cjaeni5 xvcjogIzAw LTXrCVe9GJi1TJQomMjdWs GmCOJ3TxD2NZW3vNXtkM3i iZzniikicX5fSgy+UGh5c2 bxvVGyJS9m bCR0DH45MN29aLEsr1J9wM G6N2GcAGEveorvvxupbYQ3 QFYlIVXfcC37Qj8rrOkvLx 3vYVByLWA6 AKFsoIZzF5YovN8eKbLbTY MaGSPbL8EavNCpLWgqC327 BWfvTgF2RNWmltYjX0NfVJ FsaWduOiB0 a3I2Cq4SUG98WY42LG71pS Iou5F3eKQ9F8PxCGPaudib swfujIJ9SRSlRUAvvL38Oe 6xnQooMz6w KZRjZJM0TFJnjKWaB7VopX 4nPsCqFKOwMEGlE0DlsJHh VElkG360QTkhElN9KKJzff JzQ0JyCKZy tReqEoG7n5E6Ko7HRn77MC 65WM05sGGze1S1mZM0P3Mw QBHkxfgzrfoghYG9JDYiSF EgvB19Uz4o eMbjZc1aIWJjZKQ9XSHhaN VsY4CvkM0pRiPaINYeAITj H3OrtCRnJJigB442NNbbTj O2THOhzsBw J0YwAPWlmOlqQeM8b0I9Bd 5BFClpmcx3V4FfYsvnsYP+ KA86IWTaOV25zEZdoISvu0 wjeAg9MxUy MCUnIHN0 (more content not included)... [facility] Main OR Intraoperative Recor don 10-30-2022 Main OR Intraoperative Record IntraOp Document Type FT Summary Primary Physician: Deandra Rodriguez MD Finalized Date/Time: 10/30/22 13:00:09 Pt. Name: RICKEY GARCIA/Sex: 1945 Male Med Rec #: [id number] Physician: Deandra Rodriguez MD Financial #: [id number] Pt. Type: A Room/Bed: [place] [address] Admit/Disch: 10/28/22 08:00:59 - 10/28/22 13:45:00 Institution: Case Times FT Entry 1 Patient Times In Room 10/28/22 09:51:00 Out Room 10/28/22 11:06:00 Procedure Times Start 10/28/22 10:20:00 Stop 10/28/22 10:57:00 Anesthesia Times Start 10/28/22 09:51:00 Stop 10/28/22 11:06:00 Last Modified By: Toan BENÍTEZ, Aviva Hicks 10/28/22 11:06:55 General Comments: PATIENT ARRIVED IN OR SUITE WITH WHITE. WHITE REMOVED BY SUKHJINDER MARTINES/SA. KALEY RN 10/30/22 Chart opened to review and send charges [facility] Case Attendance FT Entry 1 Entry 2 Entry 3 Case Attendee Cristy SMITH, Lev Rodriguez MD, Deandra Nino [employer] CENTRE MANAGER, Crystal Carter Role Performed Anesthesiologist of Surgeon - Primary Scrub - Primary Record Time In 10/28/22 09:51:00 10/28/22 09:51:00 10/28/22 09:51:00 Time Out 10/28/22 11:06:00 10/28/22 11:06:00 10/28/22 11:06:00 Procedure CYSTOSCOPY(.), CYSTOSCOPY(.), CYSTOSCOPY(.), CYSTOSCOPY W/ HOMIUM CYSTOSCOPY W/ HOMIUM CYSTOSCOPY W/ HOMIUM LASER(.) LASER(.) LASER(.) Comments PRECPTING - ANGEL NAVARRO CST (ORIENTING) Last Modified By: Toan RN, Aviva Joya RN, Aviva Nguyen RN 10/28/22 11:09:19 10/28/22 11:09:19 10/28/22 11:09:19 Entry 4 Entry 5 Entry 6 Case Attendee Toan BENÍTEZ, Aviva Lofton CST, Bert York RN, Wilma Mcleod Role Performed Psychiatric Security Nurse - Primary Central Office Equipment Installer Staff - Other Time In 10/28/22 09:51:00 10/28/22 09:51:00 10/28/22 10:55:00 Time Out 10/28/22 11:00:00 10/28/22 11:00:00 10/28/22 11:06:00 Procedure CYSTOSCOPY(.), CYSTOSCOPY(.), CYSTOSCOPY(.), CYSTOSCOPY W/ HOMIUM CYSTOSCOPY W/ HOMIUM CYSTOSCOPY W/ HOMIUM LASER(.) LASER(.) LASER(.) Comments RN RELIEF FOR DIRECTOR BUSINESS AND ROOM TURNOVER Last Modified By: Toan RN, Aviva Joya RN, Aviva Nguyen RN 10/28/22 11:09:19 10/28/22 11:09:19 10/28/22 11:09:19 Entry 7 Case Attendee Angel Navarro Role Performed Scrub - Primary Time In 10/28/22 09:51:00 Time Out 10/28/22 11:06:00 Procedure CYSTOSCOPY(.), CYSTOSCOPY W/ HOMIUM LASER(.) Comments ORIENTATION Last Modified By: Zaynab Putnam CST 10/30/22 12:52:22 General Comments: LEISA DEGROOT - UROLIFT REP. 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 Protocols FT Pre-Care Text: Implements protective measures prior to operative or invasive procedure, confirms identity before the operative or invasive procedure, verifies operative procedure, surgical site, and laterality Entry 1 Procedure(s) CYSTOSCOPY(.), Patient Identity Birthday, ID Band CYSTOSCOPY W/ HOMIUM Verified (select at Check, Patient LASER(.) least 2): Participation Consents / H and P Anesthesia Consent, Operative Site Present Verified HandP, Surgery/Procedure Marking Verified Consent Surgical Site Yes Laterality Verified Yes Verified Procedure Verified Yes Correct Patient Yes Position Verified Availability Equipment, Implant, Prep Dry n/a Verified (If Medication Applicable) PreOp Antibiotic Yes Time Out Lev Muniz MD Participants Michael Carter MD, Kathy M., Slusher CST, Julie A, Barbee RN, Rolly Dubose CST, Benjamin Time Out Complete 10/28/22 10:15:00 Outcomes Met? Yes Last Modified By: Aviva Joya RN 10/28/22 10:26:08 Post-Care Text: The patient is free from signs and symptoms of injury caused by extraneous objects Allergy Information FT Pre-Care Text: Verifies allergies Entry 1 Allergies Reviewed? Yes Allergies Reviewed Self/Patient With Outcomes Met? Yes Last Modified By: Aviva Joya RN 10/28/22 10:29:11 Post-Care Text: The patient received appropriate medication(s) safely administered during the perioperative period Surgical Procedures FT Entry 1 Entry 2 Procedure Description Procedure CYSTOSCOPY CYSTOSCOPY W/ HOMIUM LASER Modifiers . . Surgeon Description UROLIFT AND LITHOPAXY; UROLIFT AND LITHOPAXY; CYSTOSCOPY, STONE CYSTOSCOPY, STONE BASKET, STONE EXTRACTION BASKET, STONE EXTRACTION Primary Procedure No Yes Primary Surgeon Michael SMITH, Deandra Rodriguez MD, Deandra Smith Start 10/28/22 10:20:00 10/28/22 10:20:00 Stop 10/28/22 10:57:00 10/28/22 10:57:00 Anesthesia Type General General Surgical Service Urology Urology Wound Class 2 - Clean-Contaminated 2 - Clean-Contaminated Last Modified By: Toan BENÍTEZ, Aviva Joya RN, Aviva Hicks 10/28/22 11:01:26 10/28/22 11:01:26 General Case Data FT Pre-Care Text: Classifies surgical wound, implements aseptic technique, initiates traffic control Entry 1 Case Information OR OR 6 FT Case Level Level 3 Wound Class 2 - Clean-Contaminated Specialty Urology ASA Class 2 Preop Diagnosis BPH WITH LUTZ AND Postop Same (more content not included)... [facility] Consent for Anesthesiaon Consent for Anesthesia [id number]#1.0 0CD:127 [facility] Discharge Instructionson Discharge Instructions [id number]#1.0 0CD:127 [facility] H&P Updateon 10-29-2022 H&P Update [id number]#1.0 0CD:127 [facility] IntraOperative Documentson 0 10-29-2022 IntraOperative Documents [id number]#1.0 0CD:127 [facility] IntraOperative Documents [id number]#1.0 0CD:127 [facility] Preoperative Documentson Preoperative Documents [id number]#1.0 0CD:127 [facility] Consent for Procedure/Surger yon 10-28-2022 Consent for Procedure/Surgery [id number]#1. 00CD:127 [facility] Consent for Treatmenton Consent for Treatment [id number] 0CD:127 [facility] Inpatient Patient Summaryon 10-28-2022 Inpatient Patient Summary [address] [address] [facility] Clinical Discharge Instructions PERSON INFORMATION Name: RICKEY GARCIA [facility]#:[id number] PHYSICIANS Admitting Physician: Deandra Rodriguez MD Attending Physician: Deandra Rodriguez MD PCP: MAGED ANDRADE DO Discharge Diagnosis: BPH with urinary obstruction; Bladder stone; Other obstructive and reflux uropathy Comment: PATIENT EDUCATION INFORMATION Instructions: White Catheter Care, Male-[facility] (Custom); Post Op Patient Instructions - FT (CUSTOM); EU - Urolift Discharge Instructions (Custom) Medication Leaflets: Follow up: With: Address: When: Deandra Michael [address] [place] [address] [phone] Business (1) [address], [address] [address] [phone] Business (1) Comments: Office to call for followup appointment in 2 days for white removal and voiding trial and clean intermittent cath teaching MEDICATION LIST New Medications [id number], [address], [place] [id number], [phone] nitrofurantoin (Macrobid 100 mg Cap) 1 Capsules By Mouth every 12 hours for 1 Days. Take AM of white removal. Refills: 0. Medications to Continue with No Changes Other Medications aspirin (aspirin 81 mg oral capsule) 1 Capsules By Mouth every day. calcium carbonate (calcium 500 mg tablets) 1 Tablets By Mouth 2 times a day. duloxetine (duloxetine 60 mg Cap-DR) 120 Milligram By Mouth every day. finasteride (finasteride 5 mg Tab) 1 Tablets By Mouth every day. hydrochlorothiazide (hydrochlorothiazide 25 mg Tab) 0.5 Tablets By Mouth every day. hydroxychloroquine (hydroxychloroquine 200 mg Tab) 1 Tablets By Mouth 2 times a day. lamotrigine (lamotrigine 150 mg Tab) 1 Tablets By Mouth 2 times a day. leflunomide (leflunomide 20 mg Tab) 1 Tablets By Mouth every day. multivitamin potassium chloride (potassium chloride 10 mEq ER Tab) 1 Tablets By Mouth every day. ropinirole (ropinirole 1 mg Tab) 2 Tablets By Mouth 2 times a day., restless legs sertraline (sertraline 50 mg Tab) 0.5 Tablets By Mouth every day. tamsulosin (tamsulosin 0.4 mg Cap) 1 Capsules By Mouth every day. trazodone (traZODONE 100 mg Tab) 1 Tablets By Mouth once a day (at bedtime). verapamil (verapamil 240 mg Cap-ER) 1 Capsules By Mouth every day. Comment: [facility] Main OR PACU I Recordon Main OR PACU I Record PACU Phase I Docum ent Type FT Summary Primary Physician: Deandra Rodriguez MD Finalized Date/Time: 10/28/22 12:52:42 Pt. Name: RICKEY GARCIA/Sex: 1945 Male Med Rec #: [id number] Physician: Deandra Rodriguez MD Financial #: [id number] Pt. Type: A Room/Bed: [place] [address] Admit/Disch: 10/28/22 08:00:59 - Institution: Case Times PACU I FT Pre-Care Text: Identifies barriers to communication and implements measures to provide psychological support Develops individualized plan of care, and ensures continuity of care Maintains patient's dignity and privacy, and maintains patient confidentiality Identifies and reports philosophical, cultural, and spiritual beliefs and values Identifies individual values and wishes concerning care Implements aseptic technique, and administers prescribed antibiotic therapy and immunizing agents as ordered Evaluates postoperative tissue perfusion Implements thermoregulation measures, and monitors body temperature Evaluates postoperative respiratory status Evaluates postoperative cardiac status Evaluates postoperative neurological status Assesses pain control, collaborated in initiating patient-controlled analgesia and implements alternative methods of pain control Verifies allergies, administers prescribed medications and solutions, evaluates response to medications Entry 1 In PACU I 10/28/22 11:10:00 Discharge from PACU 10/28/22 12:05:00 I Outcomes Met? Yes Last Modified By: Angela Wills RN 10/28/22 12:52:26 Post-Care Text: The patient demonstrates knowledge of the expected response to the operative or invasive procedure The patient's care is consistent with the individualized perioperative plan of care The patient's right to privacy is maintained The patient's value system, lifestyle, ethnicity, and culture are considered, respected, and incorporated into the perioperative plan of care The patient participates in decisions affecting his or her perioperative plan of care The patient is free from signs and symptoms of infection The patient has wound/tissue perfusion consistent with or improved from baseline levels established preoperatively The patient is at or returning to normothermia at the conclusion of the immediate postoperative period The patient's respiratory function is consistent with or improved from baseline levels established preoperatively The patient's cardiovascular status is consistent with or improved from baseline levels established preoperatively The patient's cardiovascular status is consistent with or improved from baseline levels established preoperatively The patient demonstrates and/or reports adequate pain control throughout the perioperative period The patient received appropriate medication(s), safely administered during the perioperative period Acuity Level PACU I FT Entry 1 Start Time 10/28/22 11:10:00 Stop Time 10/28/22 12:05:00 Acuity Level Acuity Level I Last Modified By: Angela Wills RN 10/28/22 12:52:37 Finalized By: Angela Wills RN Document Signatures Signed By: Angela Wills RN 10/28/22 12:52 [facility] Main OR PACU II Recordon Main OR PACU II Record PACU Phase II Document Type FT Summary Primary Physician: Deandra Rodriguez MD Finalized Date/Time: 10/28/22 13:55:54 Pt. Name: EDYMARLA RICKEYCELINA Boland/Sex: 1945 Male Med Rec #: [id number] Physician: Deandra Rodriguez MD Financial #: [id number] Pt. Type: A Room/Bed: [facility] Admit/Disch: 10/28/22 08:00:59 - Institution: Case Times PACU II FT Pre-Care Text: Identifies barriers to communication and implements measures to provide psychological support and determines knowledge level Develops individualized plan of care, and ensures continuity of care Maintains patient's dignity and privacy, and maintains patient confidentiality Identifies and reports philosophical, cultural, and spiritual beliefs and values Identifies individual values and wishes concerning care administers prescribed antibiotic therapy and immunizing agents as ordered, Evaluates postoperative tissue perfusion Implements thermoregulation measures, and monitors body temperature Evaluates postoperative respiratory status Evaluates postoperative cardiac status Evaluates postoperative neurological status Assesses pain control, collaborated in initiating patient-controlled analgesia and implements alternative methods of pain control Verifies allergies, administers prescribed medications and solutions, evaluates response to medications Entry 1 In PACU II 10/28/22 12:10:00 Discharge from PACU 10/28/22 13:45:00 II Outcomes Met? Yes Last Modified By: Stevenson Ruggiero 10/28/22 13:55:52 Post-Care Text: The patient demonstrates knowledge of the expected response to the operative or invasive procedure The patient's care is consistent with the individualized perioperative plan of care The patient's right to privacy is maintained The patient's value system, lifestyle, ethnicity, and culture are considered, respected, and incorporated into the perioperative plan of care The patient participates in decisions affecting his or her perioperative plan of care. The patient is free from signs and symptoms of infection The patient has wound/tissue perfusion consistent with or improved from baseline levels established preoperatively The patient is at or returning to normothermia at the conclusion of the immediate postoperative period The patient's respiratory function is consistent with or improved from baseline levels established preoperatively The patient's cardiovascular status is consistent with or improved from baseline levels established preoperatively The patient's neurological status is consistent with or improved from baseline levels established preoperatively The patient demonstrates and/or reports adequate pain control throughout the perioperative period The patient received appropriate medication(s), safely administered during the perioperative period Finalized By: Stevenson Ruggiero Document Signatures Signed By: Stevenson Ruggiero 10/28/22 13:55 [facility] Main OR Preoperative Recordo n 10-28-2022 Main OR Preoperative Record PreOp Document Type FT Summary Primary Physician: Deandra Rodriguez MD Finalized Date/Time: 10/28/22 10:26:28 Pt. Name: RADHA RICKEYCELINA Boland/Sex: 1945 Male Med Rec #: [id number] Physician: Deandra Rodriguez MD Financial #: [id number] Pt. Type: A Room/Bed: [facility]/ Admit/Disch: 10/28/22 08:00:59 - Institution: Case Times PreOp FT Pre-Care Text: Verifies consent for planned procedure, identifies individual values and wishes concerning care, includes family members in perioperative teaching Entry 1 Patient Times. In Pre Surgery 10/28/22 08:20:00 Out Pre Surgery 10/28/22 09:49:00 Outcomes Met? Yes Last Modified By: Aviva Joya RN 10/28/22 10:26:19 Post-Care Text: The patient participates in decisions affecting his or her perioperative plan of care Finalized By: Aviva Joya RN Document Signatures Signed By: Aviva Joya RN 10/28/22 10:26 [facility] Monitor Recordon 10-28-2022 Monitor Record [id number]. 00CD:127 [facility] Operative Reporton Operative Report Patient: RICKEY GARCIA Age: 76 years Sex: Male : 1945 Associated Diagnoses: None Author: Deandra Rodriguez MD Procedure Procedure Date: 10/28/2022. Confirmed: patient, procedure, site, safety procedures followed. Performed by: Deandra Rodriguez MD. Type of procedure: 1. Cystoscopy, cystolitholapaxy with Holmium laser lithotripsy 2. Cystourethroscopy, with insertion of permanent adjustable transprostatic implant; single implant 3. Cystourethroscopy, with insertion of permanent adjustable transprostatic implant; each additional implant 4. Cystourethroscopy, with insertion of permanent adjustable transprostatic implant; each additional implant 5. Cystourethroscopy, with insertion of permanent adjustable transprostatic implant; each additional implant 6. Cystourethroscopy, with insertion of permanent adjustable transprostatic implant; each additional implant 7. Cystourethroscopy, with insertion of permanent adjustable transprostatic implant; each additional implant . Physical Exam: no relative contraindications found, vital signs Vital Signs 10/28/2022 8:33 EDT Temperature Oral 36.8 DegC 10/28/2022 8:33 EDT Systolic Blood Pressure 143 mmHg HI Diastolic Blood Pressure 92 mmHg HI Mean Arterial Pressure, Monitered 109 mmHg . Informed consent: signed by patient. Indication: 76-year-old male with benign prostatic hyperplasia and long standing history of recurrent urinary retention, now catheter dependent for over 3 months after 2L urinary retention and failing multiple voiding trials. Urodynamics demonstrate detrusor pressures and low flow during voiding consistent with bladder outlet obstruction, and transrectal prostate ultrasound confirms a 38.7 gram prostate volume. Office cystoscopy demonstrates severe bilateral lateral lobe obstruction without median lobe component, only elevated bladder neck and 2-3+ trabeculations with bladder stone. His symptoms have failed to improve on medical therapy. After discussion of risks/benefits of surgical treatment options, the patient elected a prostatic urethral lift procedure in which permanent transprostatic implants are installed to create a wider channel by which to void, as well as treatment of bladder stone via Holmium laser. Other surgical alternatives were rejected due to comorbidities. . Findings: Severe bilobar hypertrophy with elevated bladder neck. 2-3+ trabeculated bladder, 1.5x2cm bladder stone underwent laser lithotripsy and basket extraction from bladder. Friable bladder neck. 6 implants attempted, 6 seated of Urolift devices for open anterior channel. 18Fr 2way catheter was placed at the end due to mild hematuria and history of retention, possibly requiring clean intermittent catheterizatipn post op. . Procedure tolerated: well. Specimen: sent to pathology, bladder stone. Complications: none. Anesthesia: Dr. Desir, General LMA PROCEDURE: Prior to the operating room, informed consent was obtained for the procedure as described above. Existing white catheter was removed. The patient was then taken to the operating suite where a final time out was taken to confirm the patient and the procedure. General anesthesia LMA was administered, patient received appropriate dose of IV antibitoics and the patient was placed in dorsal lithotomy position, sterilely prepped and draped in the standard fashion for this procedure. Lidocaine gel was inserted per urethra. We began the procedure using a 22.5 Indonesian rigid cystoscope, 30 degree lens, and inserted this into the bladder without any issue. We noted a normal appearance of the urethra en route to the bladder, findings as above. Once inside the bladder, a cystoscopic examination revealed no bladder tumors, lesions or foreign bodies. Bilateral ureteral orifices were orthotopic and patent. The stone was too large to be removed with flexible graspers and too hard to crush. A 1000 micron Holmium laser fiber was used to fragment the stone into smaller pieces. A 2.2 zero tip basket was used to remove all the pieces from the bladder. After patient was stone free, we proceeded with Urolift portion and the existing cystoscope was removed. A 20F cystoscope was inserted into the bladder. The cystoscopy bridge was replaced with a UroLift UL-2 delivery device. The first treatment site was the patient's left side approximately 1.5 cm distal to the bladder neck. The distal tip of the delivery device was then angled anterior laterally approximately 10 degrees at this position to compress the lateral lobe. The trigger was pulled, thereby deploying a needle containing the implant through the prostate. The implant was additionally compressed for total 20 degrees, trigger pulled and needle was then retracted, allowing one end of the implant to be delivered to the capsular surface of the prostate. The implant was then tensioned to assure capsular seating and removal of slack monofilament. The device was then angled back toward midline and (more content not included)... [facility] Comment on above: Result Comment: Elec tronically Signed By: Deandra Rodriguez MD\.br\Date and Time Signed: 10/28/22 11:36 EDT Outpatient Surgery Discharge Instructionon 10-28-2022 Outpatient Surgery Discharge Instruction [place] [id number] Patient Discharge Instructions PERSON INFORMATION Name: RICKEY GARCIA Date of : 1945 Current Date: 10/28/2022 12:08:16 PHYSICIANS Admitting Physician: Deandra Rodriguez MD Discharge Diagnosis: BPH with urinary obstruction; Bladder stone; Other obstructive and reflux uropathy RICKEY GARCIA has been given the following list of follow-up instructions, prescriptions, and patient education materials: PATIENT FOLLOW-UP INFORMATION Diet: Drink liquids and eat a light meal Discharge Activity: Ambulate as tolerated, Arrange for a responsible adult supervision for 24 hours, Expect mild pain, Expect minimal amount of drainage and/or bleeding Call Your Doctor For: Persistent or heavy bleeding, Temperature above 101.5 degrees, Severe pain at the operative site, Persistent vomiting IF UNABLE TO CONTACT YOUR PHYSICIAN AND YOU FEEL IT IS AN EMERGENCY, GO TO THE NEAREST EMERGENCY ROOM OR CALL 911 RADHA Estrada STEPHEN L, have received the attached patient education materials/instructions and have verbalized understanding: May we do a follow up call? Yes No I was present when discharge instructions were given Patient Signature Date Clinican/Nurse Signature ___ Date Follow up: With: Address: When: Deandra Rodriguez [address] [place] [address] [phone] Business (1) [address] [facility] [address] [address] [phone] [employer] (1) Comments: Office to call for followup appointment in 2 days for white removal and voiding trial and clean intermittent cath teaching Pharmacy Information: You may receive a survey from [facility] asking you to rate your care experience. Your feedback is important and will help us understand what we do well and how we can improve the quality of care we provide to you, your loved ones and our community. It?s an honor to serve you. Thank you for choosing [facility] HERE ARE THE MEDICATION CHANGES THAT OCCURRED DURING YOUR HOSPITAL STAY New Medications [id number], [address] [place], [place] [id number], [phone] nitrofurantoin (Macrobid 100 mg Cap) 1 Capsules By Mouth every 12 hours for 1 Days. Take AM of white removal. Refills: 0. Medications to Continue with No Changes Other Medications aspirin (aspirin 81 mg oral capsule) 1 Capsules By Mouth every day. calcium carbonate (calcium 500 mg tablets) 1 Tablets By Mouth 2 times a day. duloxetine (duloxetine 60 mg Cap-DR) 120 Milligram By Mouth every day. finasteride (finasteride 5 mg Tab) 1 Tablets By Mouth every day. hydrochlorothiazide (hydrochlorothiazide 25 mg Tab) 0.5 Tablets By Mouth every day. hydroxychloroquine (hydroxychloroquine 200 mg Tab) 1 Tablets By Mouth 2 times a day. lamotrigine (lamotrigine 150 mg Tab) 1 Tablets By Mouth 2 times a day. leflunomide (leflunomide 20 mg Tab) 1 Tablets By Mouth every day. multivitamin potassium chloride (potassium chloride 10 mEq ER Tab) 1 Tablets By Mouth every day. ropinirole (ropinirole 1 mg Tab) 2 Tablets By Mouth 2 times a day., restless legs sertraline (sertraline 50 mg Tab) 0.5 Tablets By Mouth every day. tamsulosin (tamsulosin 0.4 mg Cap) 1 Capsules By Mouth every day. trazodone (traZODONE 100 mg Tab) 1 Tablets By Mouth once a day (at bedtime). verapamil (verapamil 240 mg Cap-ER) 1 Capsules By Mouth every day. PATIENT EDUCATION INFORMATION Instructions: White Catheter Care, Male A White catheter is a soft, flexible tube that is placed into the bladder to drain urine. The catheter has a balloon to hold it inside the bladder. A White catheter may be inserted if: ? You leak urine or are not able to control when you urinate (urinary incontinence). ? You are not able to urinate when you need to (urinary retention). ? You had prostate surgery or surgery on the genitals. ? You have certain medical conditions, such as multiple sclerosis, dementia, or a spinal cord injury. To Prevent Infection: 1. Wash your hands with soap and water before and after handling your catheter. 2. Using mild soap and warm water on a clean washcloth; twice a day. ? Clean the area on your body closest to the catheter insertion site using a circular motion, moving away from the catheter. Never wipe toward the catheter because this could sweep bacteria up into the urethra and cause infection. ? Remove all traces of soap. Pat the area dry with a clean towel and reposition the foreskin. No tub baths. No lotions, powders, or sprays unless directed by your physician. 3. Keep the tube s (more content not included)... Normal [facility] Patient Education - Texton 0 10-28-2022 Patient Education - Text White Catheter Care, Male A White catheter is a soft, flexible tube that is placed into the bladder to drain urine. The catheter has a balloon to hold it inside the bladder. A White catheter may be inserted if: ? You leak urine or are not able to control when you urinate (urinary incontinence). ? You are not able to urinate when you need to (urinary retention). ? You had prostate surgery or surgery on the genitals. ? You have certain medical conditions, such as multiple sclerosis, dementia, or a spinal cord injury. To Prevent Infection: 1. Wash your hands with soap and water before and after handling your catheter. 2. Using mild soap and warm water on a clean washcloth; twice a day. ? Clean the area on your body closest to the catheter insertion site using a circular motion, moving away from the catheter. Never wipe toward the catheter because this could sweep bacteria up into the urethra and cause infection. ? Remove all traces of soap. Pat the area dry with a clean towel and reposition the foreskin. No tub baths. No lotions, powders, or sprays unless directed by your physician. 3. Keep the tube secure. Do not let the tube pull or catch when you are moving around. ? Attach the catheter to your leg so there is no tension on the catheter. Use adhesive tape or a leg strap. If you are using adhesive tape, remove any sticky residue left behind by the previous tape you used. 4. Replace wet leg straps with dry ones. 5. 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 6. Keep the drainage bag below the level of the bladder, but keep it off the floor. 7. Check throughout the day to be sure the catheter is working and urine is draining freely. Make sure the tubing does not become kinked or looped. 8. Do not pull on the catheter or try to remove it. Pulling could damage internal tissues. TAKING CARE OF THE DRAINAGE BAGS You will be given two drainage bags to take home. One is a large overnight drainage bag, and the other is a smaller leg bag that fits underneath clothing. You may wear the overnight bag at any time, but you should never wear the smaller leg bag at night, unless directed by your physician. Follow the instructions below for how to empty and change your drainage bags. Emptying the Drainage Bag You must empty your drainage bag when it is ?? full. 1. Wash your hands with soap and water before and after handling your catheter. 2. Keep the drainage bag below your hips, below the level of your bladder. This stops urine from going back into the tubing and into your bladder. 3. Hold the dirty bag over the toilet or a clean container. 4. Open the pour spout at the bottom of the bag and empty the urine into the toilet or container. Do not let the pour spout touch the toilet, container, or any other surface. Doing so can place bacteria on the bag, which can cause an infection. 5. Clean the pour spout with a gauze pad or cotton ball that has rubbing alcohol on it. 6. Close the pour spout. 7. Attach the bag to your leg with adhesive tape or a leg strap. Changing the Drainage Bag 1. Wash your hands with soap and water before and after handling your catheter. 2. Pinch off the rubber catheter so that urine does not spill out. 3. Disconnect the catheter tube from the drainage tube at the connection valve. Do not let the tubes touch any surface. 4. Clean the end of the catheter tube with an alcohol wipe. Use a different alcohol wipe to clean the end of the drainage tube. 5. Connect the catheter tube to the drainage tube of the clean drainage bag. 6. Attach the new bag to the leg with adhesive tape or a leg strap. Avoid attaching the new bag too tightly. 7. Place a cap on the drainage bag not in use and store in a clean towel. SEEK MEDICAL CARE IF: ? Your urine is cloudy or smells. ? Your catheter starts to leak. ? Your catheter falls out or is pulled out. ? You have pain, swelling, redness, or pus where the catheter enters the body. ? You have pain in the abdomen, legs, lower back, or bladder. ? You have a fever of 100.4 F (38 C) or higher ? You see pink, red, dark, coffee colored, or pus-like urine. ? You have nausea, vomiting, or chills. ? You are not feeling better in 2 to 3 days or you are feeling worse. ? You are not draining urine into the bag or your bladder feels full. MAKE SURE YOU: ? Understand the reason you have the catheter. ? Understand and follow these instructions to care for the catheter. ? Will watch your condition. ? Drink 6-8 glasses of water or liquids per day to keep your urine clear. ? Avoid Caffeinated drinks. They can irritate the bladder and cause bladder spasms. ? Keep your follow up appointments and call with any concerns. Urolift ? Some men may experience discomfort after the procedure. On occasion, some bloody discharge may be apparent from the penis. You m (more content not included)... Normal [facility] Progress Note-Physicianon Progress Note-Physician Patient: RICKEY GARCIA Age: 76 years Sex: Male : 1945 Associated Diagnoses: None Author: Cristy SMITH, Lev Carter Postoperative Information Postoperative disposition: Postoperative disposition: To PACU. Optimetrix number: Optimetrix number [id number]. Anesthetic utilized: General. Physical Examination Vital Signs 10/28/2022 12:10 EDT Systolic Blood Pressure 150 mmHg HI Diastolic Blood Pressure 88 mmHg Mean Arterial Pressure, Monitered 109 mmHg 10/28/2022 12:10 EDT Temperature Temporal Artery 36.7 DegC 10/28/2022 12:00 EDT Temperature Temporal Artery 37 DegC Heart Rate Monitored 71 bpm Respiratory Rate Monitored 11 br/min Systolic Blood Pressure 153 mmHg HI Diastolic Blood Pressure 93 mmHg HI Blood Pressure Location Right arm Mean Arterial Pressure, Cuff 113 mmHg SpO2 95 % Pain Assessment: Pain Assessment 10/28/2022 12:11 EDT Preliminary Pain Scale 5 10/28/2022 12:00 EDT Numeric Pain Scale 0 = No pain 10/28/2022 11:10 EDT Numeric Pain Scale 0 = No pain . General: Awake, Alert, Appropriate. Respiratory: Adequate air exchange, Equal bilateral chest wall expansion. Cardiovascular: Stable. Neurological: At Baseline. Assessment Anesthetic outcome No anesthetic complications noted. Review / Management Condition: Stable. Plan Transfer/Discharge: Transfer/Discharge Discharge when meets criteria ( To home ). [facility] Comment on above: Result Comment: Elec tronically Signed By: Cristy SMITH, Lev Carter\.br\Date and Time Signed: 10/28/22 12:30 EDT Progress Note-Physician Patient: RICKEY GARCIA Age: 76 years Sex: Male : 1945 Associated Diagnoses: None Author: Lev Muniz MD Preoperative Information Anesthesia Preop Info: Time patient last ate or drank 10/27/2022 19:30:00. Anesthesia history: Patient history: None. Family history+: None. Informed consent: Signed by patient. Including risks, benefits, and alternatives related to the: Anesthetic plan, Postoperative pain management plan. Re-evaluation prior to induction: Cristy SMITH, Lev Carter. Initial evaluation reviewed: No significant change. Review of Systems Eye: Negative. Ear/Nose/Mouth/Throat: Negative. Respiratory: Negative. Cardiovascular: Negative. Gastrointestinal: Negative. Genitourinary: Negative. Hematology/Lymphatics: Negative. Endocrine: Negative. Musculoskeletal: Negative. Neurologic: Negative. Health Status Allergies: Allergies (1) Active Reaction No Known Medication Allergies None Documented Current medications: Home Medications (15) Active aspirin 81 mg oral capsule 81 mg = 1 cap(s), Oral, Daily calcium 500 mg tablets 1,250 mg = 1 tab(s), Oral, BID duloxetine 60 mg Cap-DR 120 mg, Oral, Daily finasteride 5 mg Tab 5 mg = 1 tab(s), Oral, Daily hydrochlorothiazide 25 mg Tab 12.5 mg = 0.5 tab(s), Oral, Daily hydroxychloroquine 200 mg Tab 200 mg = 1 tab(s), Oral, BID lamotrigine 150 mg Tab 150 mg = 1 tab(s), Oral, BID leflunomide 20 mg Tab 20 mg = 1 tab(s), Oral, Daily multivitamin See Instructions potassium chloride 10 mEq ER Tab 10 mEq = 1 tab(s), Oral, Daily ropinirole 1 mg Tab 2 mg = 2 tab(s), Oral, BID sertraline 50 mg Tab 25 mg = 0.5 tab(s), Oral, Daily tamsulosin 0.4 mg Cap 0.4 mg = 1 cap(s), Oral, Daily traZODONE 100 mg Tab 100 mg = 1 tab(s), Oral, Once a day (at bedtime) verapamil 240 mg Cap-ER 240 mg = 1 cap(s), Oral, Daily , Medications (1) Active Scheduled: (0) Continuous: (1) Lactated Ringers 1,000 mL 1,000 mL, IV, 150 mL/hr PRN: (0) Problem list: All Problems Arthritis / SNOMED CT 4176186 / Confirmed BPH with urinary obstruction / SNOMED CT 6709776188 / Confirmed COPD (chronic obstructive pulmonary disease) / SNOMED CT 31485330 / Confirmed Depression / SNOMED CT 85023655 / Confirmed Feeling of incomplete bladder emptying / SNOMED CT 696704148 / Confirmed Gall stone / SNOMED CT 541728088 / Confirmed Glaucoma / SNOMED CT 59230971 / Confirmed HTN (hypertension) / SNOMED CT 9454616881 / Confirmed Kidney stones / SNOMED CT 440487044 / Confirmed Restless legs syndrome (RLS) / SNOMED CT 32514826 / Confirmed Smoker / SNOMED CT 545888327 / Confirmed Added secondary to documentation in Social History. Urinary retention / SNOMED CT 299488213 / Confirmed Urinary tract infection / SNOMED CT 435041929 / Confirmed, Active Problems (13) Arthritis BPH with urinary obstruction COPD (chronic obstructive pulmonary disease) Depression Feeling of incomplete bladder emptying Gall stone Glaucoma HTN (hypertension) Kidney stones Restless legs syndrome (RLS) Smoker Urinary retention Urinary tract infection Histories Social History Social & Psychosocial Habits Alcohol 10/15/2022 Risk Assessment: Denies Alcohol Use Substance Abuse 09/08/2022 Use: Current Type: Marijuana 10/15/2022 Type: Marijuana Frequency: Several times per day 10/15/2022 Risk Assessment: High Risk Tobacco 09/08/2022 Tobacco Use: Former smoker, quit more Smokeless tobacco use: Never Type: Cigarettes Smoking Cessation Yes 10/15/2022 Risk Assessment: Denies Tobacco Use . Physical Examination Vital Signs 10/28/2022 8:35 EDT Heart Rate Monitored 80 bpm Systolic Blood Pressure 130 mmHg Diastolic Blood Pressure 88 mmHg Mean Arterial Pressure, Monitered 102 mmHg 10/28/2022 8:35 EDT Heart Rate Monitored 86 bpm SpO2 96 % 10/28/2022 8:35 EDT Apical Heart Rate 78 bpm 10/28/2022 8:33 EDT Temperature Oral 36.8 DegC 10/28/2022 8:33 EDT Systolic Blood Pressure 143 mmHg HI Diastolic Blood Pressure 92 mmHg HI Mean Arterial Pressure, Monitered 109 mmHg Measurements from flowsheet : Measurements 10/28/2022 8:48 EDT Height/Length Measured 168 cm Weight Measured 85.7 kg Airway: Mallampati classification: II (soft palate, fauces, uvula visible). Distance: Thyromental, Adequate. Respiratory: Lungs are clear to auscultation, Symmetrical chest wall expansion. Cardiovascular: Regular rhythm, Good pulses equal in all extremities. Gastrointestinal: Soft, Non-tender. Plan [place] [employer]hesi[employer] (ASA) physical status classification: Class II. Anesthetic Preoperative Plan: Anesthesia General. Normal [facility] Comment on above: Result Comment: Elec tronically Signed By: Cristy SMITH, Lev Humphrey.br\Date and Time Signed: 10/28/22 10:54 EDT XR Abdomen 1 Viewon 10-29-19 XR Abdomen 1 View Exam Date/Time: 10/28/2022 08:28 EDT Reason for Exam: Kidney stone Report IMPRESSION: CATHETER LIKELY WITHIN THE URINARY BLADDER. POSSIBLE 1.8 CM URINARY BLADDER CALCULUS AND SMALL RIGHT LOWER POLE RENAL CALCULI. EXAM: XR Abdomen 1 View DATE: 10/28/2022 CLINICAL HISTORY: Kidney stone. COMPARISON: None available. TECHNIQUE: Two supine radiographs of the abdomen and pelvis were obtained. FINDINGS: A catheter overlies the lower pelvis, likely within the urinary bladder. An approximately 1. A by 0.8 cm radiodensity overlying the midline of the distal sacrum may be a bladder calculus. Other calcifications in the pelvis appear vascular. Two approximately 5 mm calcifications overlie the lower pole the right kidney, without other significant urinary tract calculi identified elsewhere, by plain radiography. The bowel gas pattern is unremarkable. The visualized lung bases are clear. Mild to moderate rotary levoscoliosis and moderate degenerative changes of the spine are present. Surgical clips in the right upper quadrant are noted from previous cholecystectomy. Ordering Provider: Deandra Rodriguez FINAL REPORT Dictated: 10/28/2022 11:26 am Daniel Vargas MD Signed (Electronic Signature): 10/28/2022 11:26 am Signed by: Daniel Varags MD Transcribed by: JAXSON Technologist: KHLOE Technical Comments Radiation Dose: Ka,r in mGy = 0 DAP = 0 Normal [facility] Coding Summary.on 10-21-2022 Coding Summary. CD:[id number] Ww +PGhlYWQ+WU1BYIKpS28ha VZxtC0dM2GJNMqAZwjxYSO JHAeCTjAeukQpRZ0zuWNnK XJu IC8+UQ8eIVGbAbjeyCCxn6 S6vVE7E85onv0tJKsyaUK3 DLGqEiBhrosir8qgiXf4DL cuNmluOyBt RINkzR01XQW5tD70Di85pP QujEOag2wnwNj3EcQwPRMg IUH9eVloBZtgy9TuRBGmC0 9szUEmv3Y6 CWPlgZcqySEmMvXnqFL9aE 5oDXwmmaqia9naqegnPos3 br07zJLyv0V7gGY9F1Pnrc M9WQWqqPAv UcatcKPMxE0mdwbum3gpdk ofRqCgXCJrUHa1BJw9OOHe kCddUfVbYH27XJX7UCKmdd RqS6FaCBXm zGhrDjU2d3X8Xa7BR6OELy hjQ7HERFZWUVerrJB+PC90 nv34T7CgWxhbXgg0DZYoON F3oOM2gK6n NTDjOWrbc9A3wFY9V8Alii Nwaw6ql4ovALYdKZwuT72r oLWjq8D5DHDfuAT2LHAflD mmHmNjxW74 Oyc+UMVymJmkr6DcIlbxi3 xbm4rrmMq0VohxDTPawqQr bPqbFSX4v2ApWu5rINAedT Z0dOQ6nW4f EuPqOtA5RMmqN636RcGecW NuUizvN71cN7TrdGF+PHRy Iew1IDFrhRghFL4aD4WxCC RpbmctbGVm jTvcRL7jJIPmrcokMFBraC 3bKIVjE0e1ShItUnW9ANpl U4LqEYNagsesCh63wE7uCv RwJrI2GZjv N4WfytA4ZAQusDOxEHruRU G7M97sw8X3MIFzSGWcILE0 pTD5qN7lrZxorwqcmFAiiW sgdmVydGlj FVyhLSgfV433OAFrhCfeNf NvZGluZyBEYXRlOiAgMDMv MjgvMjAyMzwvdGQ+PHRkIH D6zRomTNIt cZAbDGrgPd6iqSyygGajSJ 8wLODrqmirCZFdzN4kLONu rGJnuDmxVP2rRXXfydyqa7 08VrVzIRW9 SRHygDQnM8YobI5xZuXiVF VvYCBuL8RmsJAiSOwoH514 JKzkTuJ4IPZjwhJsK2RdCF FsaWduOiB0 a0L2Pn3Ow3JofwgqG7UutI DwOmJwTqqpOOr6Q8IfCmij dHI+QU94BRQwAY64NPs9PI B7xFwfYRye JNCvP9BnlP3nIbYvIASrGM RkOyc+PHRhYmxlIHdpZHRo TUixRLFkKhArqEgdNM9eBu 9yZGVyLWNv zHszgNYmOoBsm8elFMQhZI drVO7nmZeaN8UkiDV8YTJf o6d8Xc22Y39nB9RzkNN+PG FmcFE7fSP5 hJ5gVmYrFuT9EJolG828Er VwfKLdTvtiq0xza2lxjUx1 VzP7TGWheqRloUsdVNZ5j7 FyOv33Q92l IHdpZHRoPSIxNSUiIHZhbG rhta1jwT5cNk7+PGNvbCB3 tHP3aR1hCpJlCuE6HFucM6 49InRvcCIv Apmpv7iyw1cavMi8XvIrAY RycbWjpQamMYZ1w4SoYy42 D0CscEcwk4VuFeu3bp31vS Blx7B4nME3 F1EbXDSjkodooFCzqLfzHI 2jSYPklallCXHleM3wMONx U7w3WlHbBsH8VYvyP2Vsgd Z2TINbzRXx LNUwxXXRgG7tvhtlj9mvle ksKuPrZACeCRw0OYu1MUKv bAnfTgWdZCB3ZzB2GEQ0zT PcfR5dyAyb bbdeaI3hNif+FXX4kHFuxR KOQR5bIoalpJG+PHRkIHN0 nHbnFCvwCGOiqK9vWILjK0 b6DyYxVvE8 YAdxT8OewgV3BPWjcENwWU KcwAOIiW7mzggio8swfesg CpPmMHYzHYm2DSv2WJTuhR duOiBsZWZ0 WxQ7MTN7wKCylG7reBslrz mijK2nNwl+QmlydGggRGF0 RNq3K9WqBqp3EJLrrSfpID 0ncGFkZGlu Ha0rhVubjOuoYI5oCFKgki tyv309OsCcr5ddUSQllMPm IAsiDHB4T78yf1Z1RJIjSG PoVNL4iKA4 mY7imTbksjbbpYQozKwlhv TdfUutDAnsXGpoL429ZNXr dLgdXdLfZLu2J1NnAjy4QO XrtZqyCJ1w wQHiQUluSh7syQrpmObaAY 5sGHDagrfay174KcLyh7qj IVRmdOApRKigLOF4I98ew8 A2XOLlJTRe HCO7qVI7fU6nnChfoqexwB VmdDsgdmVydGljYWwtYWxp Q907UZBvaEafCsGddEq3M0 VlVgy5QCId hBbbAE4pvAYcBZvmZu0rqP wpnJbrIQ9eUSBlszqnb264 JvMkb0hlIXCpeLDqTFuiQR Z2F22es1W7 HLNlYYJxTHP7tLA8nU9zpV lnbjogbGVmdDsgdmVydGlj ACoaJJdxI918JTOwaYlaZo BhdGllbnQg MZmvFVq1K6SaGpzthJF+PC 02KWHyPN02kSPoiHBrt5bj bHu5NkXfZDOnAPM4qPbnEG hyz7PpVDAc O70xeCJkw1R4IFJoaDkdqP TaExAmvXE3uD9pLFvrhjpr w3pnapptFievr1uhfq88qA 60J42fTPkt ZHRoPSIzMCUiIHZhbGlnbj 0wqC2uEz3+WMOibKL6vTU2 cC0lUAXySgJ6YQecR476Rk RvcCIvPjxj k7htq5wshCq7DrE1XJRegl VelXbxGYC0t2LkUp95W53a IHdpZHRoPSIyMCUiIHZhbG wqkf6wwG8n Ii8+VHFosCA9sTJ0jS4rJb UsIlA5MXxeW111CwAiaBLp BftaD80cK2IjrRO+PHRyPj d2BSFhuTit EK2sfDQbTBzySg7nTHC2Bg IjXeYxPVjyE4SbJQZkmekk pnqehGU3KCHfVYOyrL59Lm 9udDogMTBw iQBQoI8kwzkhx3nfxflpGt DuWIVoMRv2GSi4WLXdeUnb AfEvWYX7NfP9BSX8aZJqbV 1hbGlnbjog xM8zG3JwRBKmczxtMe11rA 2rQtMgBqW3ILmmLhr+TEFV UeFXVIVCKSvkN2LBFPsBYu HDRW39XK58 zZWlx8B8iMG3S0XbAPQdnv miyztryBK8CSByBEAmzK20 yCKjQGctPm8sd4Y7z075HP HmURIbdH81 Wn7utDcrEURcjOAFjL2vfx eyb6fyrmdjDiMbCDOzBFv0 VXi7LPVvyXccHuUeTUX8Tb M2WBS2tKVt iN6icVrjxqftpK7bQbv+MD XrMlkvHHf8OuxoiQK+PHRk RVI0mZmsSFtnKWInbR5uJH RkX9f4FyCv NjC0QDzmM5IpFKMlunqdIi 17eR6dOoXtTfW7JCkfE9Ip viK0WLDhbJMfHIaeBXB8F5 8ft5E9AAEr TZTzPDI7xHM2nP5msKcptl ogbGVmdDsgdmVydGljYWwt TQqdQ567GCOcuXlkCnu1JT mkBRKfID34 ZZ31qFDhx8B4lBS1M7YuCI LjovvnprtzvCQ5FIJtEHCb xG41iISpVFnmFu0lr2E7q4 06IDAuMDUw vJ75Wg3mlHurUAMaoTDUqO 4npeoio0wslulcQjQxDBFo JRx5XFa6WHGoqIniWkKrME F2UnU3EEK8 dUTmlT4aaIqphwmobG0dOn c+TWFsZTwvdGQ+PHRkIHN0 zYudRKcjIFAcmM6vQLLpK7 l6UiYrXhO8 IGgiK5ZmCGFsncskUy91xU 7dKmXkHbP0HKmlI5IamlN5 JEUsoCWwZStrRMM0A51qf4 N8JTCvXKVr THN0tRG5eZ4irIrbtkfvzY VmdDsgdmVydGljYWwtYWxp P202HTZphNauXe97jBUorX vxzaO0X3Be PjwvdHI+PB42UATeET31wB HzbMSsm1ltfOz4FhByGYFs OAP4yClgPItbg7KrGXOiS5 5vaGAul6S8 BJIhiVtkyLAwToKzyTP3cJ 6zSMjmgiivz5wzlycxTwgt r0pkol91wI91D89sKHotEN RoPSIzMCUi SJIkiBrula9qaY6hZe1+PG NcwMZ0kWT8pR7uJhRyIxF5 QUnoS238DfEbaVRePgxcb7 kpv3jeuIe7 XqTuUDFqtgFluEspPCS0u8 HeVl37E56dGQpaMQIzWIZf ZPUnPLJckCtyut9tgZ9cBq 8+KX3gf4kz qx24nX11dYY+JIWhLAL3nV vdXLzfRTGqrK1yWKhfEqZ1 ENMhFvFsoF25fMVyYFvgMq 1yaWdodDog OX9yIPVxrwbna980DxAps3 lkYRNfmNOtFQbuSMQ3I04t o5J0HHNtPQOdWYL0xGF3jC 1hbGlnbjog bGVmdDsgdmVydGljYWwtYW oiG002XUMyjFzsIbWrsCPc C4rccwFARX1oDmityZX+PH GeTUK3nHfo IKgnAJYtaC5rCKBrE6o7Ij MaFlL1JSwcZ4UwodF8RKSq mPOoFWSohEJWnW0bqckyv0 xvcjogIzAw OVZaTPq8PYz7SECigEppIh IfJOZ9GeB0ODX7uQLfzR3o rGuxlppdeM2gTjt+RklOOj wvdGQ+PHRk JTR1fFbzFLshWIXcmI2pCC KvJ3i7OrTyArM4HBtxP7En mqW0UNWvzOAaUMGtiNIGdR 3hwvsyg2ap rjioNvPlHTNvQPe0YJn2FB XeeJxvXgIoQOA0VbX7AFF3 cALuaB4kuHxmoubvaP9qAf c+TVJOOjwv dGQ+QHMqKUX1lRbmQAitML UbhQ4mUCBwT3t1BrAbYnV9 ACexI2JpohC1XTYhnCFzCV RrmIFWvR1s yeyso8lhxyuzSjIqGQQlOQ t0YJk6WNRrhVtlQlEeSTU2 UzY5WQG9xCKhnG3oqUsrrn hwqK6zSpr+ LXM9MAU9RW72SX08L6NgVl wvdGFibGU+PHRhYmxlIHdp ZHRoPScxMDAlJyBzdHlsZT 2pRo4uGDJv LWNvbGxh (more content not included)... Normal [facility] Transfer Inon 10-17-2022 Transfer In [id number]#[id number] CD:127 Normal [facility] Transfer In [id number]#1.0 0CD:127 Normal [facility] Transfer In [id number]#[id number] 0CD:127 Normal [facility] Auto Diffon 10-15-2022 Basophils/100 WBC (Bld) 0.6 % Normal 0.0-2.0 [facility] Comment on above: Order Comment: Order Added by Discern Expert. Performed By: #### 2 [id number] ####[id number] [place] [address] Basophils/Leukocytes Auto (Bld) [Pure # fraction] 0.1 E9/L Normal 0.0-0.2 [facility] Comment on above: Order Comment: Order Added by Discern Expert. Performed By: #### 2 [id number], [id number], [id number], [id number], [id number] ####[facility] [id number] [place] [address] Eosinophils/100 WBC (Bld) 9.1 % High 0.0-8.0 [facility] Comment on above: Order Comment: Order Added by Discern Expert. Performed By: #### 2 [id number], [id number], [id number], [id number], [id number] ####[address] [place] [address] Eosinophils/Leukocyte s Auto (Bld) [Pure # fraction] 0.7 E9/L High 0.0-0.5 [facility] Comment on above: Order Comment: Order Added by Sissy Expert. Performed By: #### 2 [id number], [id number], [id number], [id number], [id number] ####[address] [place] [address] Lymphocytes/100 WBC (Bld) 15.5 % Normal 14.0-50.0 [facility] Comment on above: Order Comment: Order Added by Sissy Expert. Performed By: #### 2 [id number], [id number], [id number], [id number], [id number] ####[address] [address] Lymphocytes/Leukocyte s Auto (Bld) [Pure # fraction] 1.3 E9/L Normal 1.0-4.0 [facility] Comment on above: Order Comment: Order Added by Sissy Expert. Performed By: #### 2 460256, 2028090, 57211507, 37675276, 7050527 ####[address] [place] [address] Monocytes/100 WBC (Bld) 9.2 % Normal 4.0-14.0 [facility] Comment on above: Order Comment: Order Added by Sissy Expert. Performed By: #### 2 668068, 8679204, 19590743, 78534561, 1223294 ####[facility] [address] [place] [address] Monocytes/Leukocytes Auto (Bld) [Pure # fraction] 0.8 E9/L Normal 0.2-1.0 [facility] Comment on above: Order Comment: Order Added by Discern Expert. Performed By: #### 2 572456, 7565008, 20174735, 68794339, 6118482 ####[facility] [address] [place] [address] Neutrophils/100 WBC (Bld) 65.6 % Normal 36.0-75.0 [facility] Comment on above: Order Comment: Order Added by Discern Expert. Performed By: #### 2 335009, 5372736, 65077566, 52751129, 0882127 ####[facility] [address] [place] [address] Neutrophils/Leukocyte s Auto (Bld) [Pure # fraction] 5.4 E9/L Normal 2.0-7.5 [facility] Comment on above: Order Comment: Order Added by Discern Expert. Performed By: #### 2 552318, 9405633, 31430753, 19904024, 2960803 ####[facility] [address] [place] [address] BMPon 10-15-2022 Anion gap [Moles/Vol] 10 mmol/L Normal 6-16 [facility] Comment on above: Performed By: #### 2 758267, 3706194, 92222044, 98838962, 5676307 ####[facility] [address] [place] [address] Calcium [Mass/Vol] 9.5 mg/dL Normal 8.9-11.1 [facility] Comment on above: Performed By: #### 2 698336, 6906755, 66853165, 41683161, 2177612 ####[facility] [address] [place] [address] Chloride [Moles/Vol] 103 mmol/L Normal 101-111 [facility] Comment on above: Performed By: #### 2 590617, 1419251, 73790609, 14647302, 1749391 ####[facility] [address] [place] [address] CO2 [Moles/Vol] 30 mmol/L Normal 21-31 [facility] Comment on above: Performed By: #### 2 905743, 4910135, 87523320, 49562627, 0015540 ####[facility] [address] [place] [address] Creatinine [Mass/Vol] 0.9 mg/dL Normal 0.5-1.3 [facility] Comment on above: Performed By: #### 2 964846, 6763067, 47668941, 38458888, 3314476 ####[facility] [address] [place] [address] Glucose [Mass/Vol] 144 mg/dL Normal 55-199 [facility] Comment on above: Result Comment: If t his glucose result represents a fasting glucose, interpretation should refer to the following reference range: 55-99 mg/dL Performed By: #### 2 067423, 9143886, 05418994, 21433894, 0069865 ####[facility] [address] [place] [address] Potassium [Moles/Vol] 3.6 mmol/L Normal 3.5-5.3 [facility] Comment on above: Performed By: #### 2 542835, 2277685, 10090271, 24132644, 4070911 ####[facility] [address] [place] [address] Sodium [Moles/Vol] 139 mmol/L Normal 135-145 [facility] Comment on above: Performed By: #### 2 534157, 8988206, 64124414, 47868983, 6980765 ####[facility] [address] [place] [address] Urea nitrogen [Mass/Vol] 18 mg/dL Normal 5-21 [facility] Comment on above: Performed By: #### 2 734795, 8006955, 16510850, 58897959, 3141280 ####[facility] [address] [place] [address] Urea nitrogen/Creatinine [Mass ratio] 20 No Units Normal 10-20 [facility] Comment on above: Performed By: #### 2 715700, 4917153, 57612066, 80895692, 3770933 ####[facility] [address] [place] [address] CBC w/ Auto Diffon 3 Erythrocyte distribution width (RBC) [Ratio] 13.6 % Normal 10.9-14.2 [facility] Comment on above: Performed By: #### 2 670559, 4821492, 17286781, 63239156, 5769540 ####[facility] [address] [place] [address] Hematocrit (Bld) [Volume fraction] 42.3 % Normal 37.7-49.0 [facility] Comment on above: Performed By: #### 2 887271, 3790700, 45478459, 57796358, 5555936 ####[facility] [address] [place] [address] Hemoglobin (Bld) [Mass/Vol] 14.1 g/dL Normal 13.5-17.5 [facility] Comment on above: Performed By: #### 2 750710, 7620276, 46742631, 43045702, 9456650 ####[facility] [address] [place] [address] MCH (RBC) [Entitic mass] 33.6 pg Normal 27.0-34.0 [facility] Comment on above: Performed By: #### 2 820111, 3095436, 58465871, 68777438, 6627437 ####[facility] [address] [place] [address] MCHC (RBC) [Mass/Vol] 33.3 g/dL Normal 31.4-36.0 [facility] Comment on above: Performed By: #### 2 913037, 8473481, 42313817, 28208285, 8674651 ####[address] [place] [address] MCV (RBC) [Entitic vol] 100.8 fL High 80.0-100.0 [facility] Comment on above: Performed By: #### 2 406630, 5338299, 97783884, 96206044, 1396567 ####[address] [address] Platelet mean volume (Bld) [Entitic vol] 6.9 fL Normal 6.4-10.8 [facility] Comment on above: Performed By: #### 2 239480, 4442689, 29820714, 39301652, 1072573 ####[address] [address] Platelets (Bld) [#/Vol] 310.0 E9/L Normal 150.0-500.0 [facility] Comment on above: Performed By: #### 2 737991, 7031698, 06918007, 69366351, 0955479 ####[address] [address] RBC (Bld) [#/Vol] 4.2 E12/L Low 4.3-5.9 [facility] Comment on above: Performed By: #### 2 333075, 2588478, 97763780, 18900121, 9610902 ####[address] [address] WBC corrected for nucl RBC Auto (Bld) [#/Vol] 8.2 E9/L Normal 4.0-11.0 [facility] Comment on above: Performed By: #### 2 797364, 2559715, 37377383, 00012141, 7546926 ####[address] [address] CHEMISTRYOrdered By: SYSTEM SYSTEM on 10-15-2022 Anion gap [Moles/Vol] 10 mmol/L Normal 6 - 16 mEq/L [facility] Calcium [Mass/Vol] 9.5 mg/dL Normal 8.9 - 11. 1 mg/dL [facility] Chloride [Moles/Vol] 103 mmol/L Normal 101 - 1 11 mmol/L [facility] CO2 [Moles/Vol] 30 mmol/L Normal 21 - 31 mmol/L [facility] Creatinine [Mass/Vol] 0.9 mg/dL Normal 0.5 - 1.3 mg/dL [facility] GFR/1.73 sq M.predicted among blacks MDRD (S/P/Bld) [Vol rate/Area] mL/min/1.73 m2 Normal >=59mL/min/1 .73 m2 [facility] Chem S GFR/1.73 sq M.predicted among non-blacks MDRD (S/P/Bld) [Vol rate/Area] mL/min/1.73 m2 Normal >=59mL/min/1 .73 m2 [facility] Chem S Glucose [Mass/Vol] 144 mg/dL Normal 55 - 199 mg/dL [facility] Potassium [Moles/Vol] 3.6 mmol/L Normal 3.5 - 5.3 mmol/L [facility]isol Sodium [Moles/Vol] 139 mmol/L Normal 135 - 145 mmol/L [facility] Urea nitrogen [Mass/Vol] 18 mg/dL Normal 5 - 21 mg/dL [facility] Urea nitrogen/Creatinine [Mass ratio] 20 mg/mg Normal 10 - 20 [facility] COAGULATIONOrdered By: John Pineda on 10-15-2022 aPTT Coag (PPP) [Time] 33.7 s Normal 25.1 - 36.5 second(s) FT Auto Coag INR Coag (PPP) [Relative time] 1.0 {INR} Invalid Interpretation Code [facility] Auto Coag PT Coag (PPP) [Time] 10.6 s Normal 9.4 - 1 2.5 second(s) [facility] Auto Coag Consent for Treatmenton 09-25 Consent for Treatment [id number]#1.0 0CD:127 Normal [facility] HEMATOLOGYOrdered By: SYSTEM SYSTEM on 10-15-2022 Basophils/100 WBC (Bld) 0.6 % Normal 0.0 - 2.0 % [facility] HemeAutoSS Basophils/Leukocytes Auto (Bld) [Pure # fraction] 0.1 E9/L Normal 0.0 - 0.2 E9/L [facility] HemeAutoSS Eosinophils/100 WBC (Bld) 9.1 % High 0.0 - 8.0 % [facility] HemeAutoSS Eosinophils/Leukocyte s Auto (Bld) [Pure # fraction] 0.7 E9/L High 0.0 - 0.5 E9/L [facility] HemeAutoSS Lymphocytes/100 WBC (Bld) 15.5 % Normal 14.0 - 50.0 % [facility] HemeAutoSS Lymphocytes/Leukocyte s Auto (Bld) [Pure # fraction] 1.3 E9/L Normal 1.0 - 4.0 E9/L [facility] HemeAutoSS Monocytes/100 WBC (Bld) 9.2 % Normal 4.0 - 14.0 % [facility] HemeAutoSS Monocytes/Leukocytes Auto (Bld) [Pure # fraction] 0.8 E9/L Normal 0.2 - 1.0 E9/L [facility] HemeAutoSS Neutrophils/100 WBC (Bld) 65.6 % Normal 36.0 - 75.0 % [facility] HemeAutoSS Neutrophils/Leukocyte s Auto (Bld) [Pure # fraction] 5.4 E9/L Normal 2.0 - 7.5 E9/L [facility] HemeAutoSS HEMATOLOGYOrdered By: Maria De Jesus Patterson on 10-15-2022 Erythrocyte distribution width (RBC) [Ratio] 13.6 % Normal 10.9 - 14.2 % [facility] HemeAutoSS Hematocrit (Bld) [Volume fraction] 42.3 % Normal 37.7 - 49.0 % [facility] HemeAutoSS Hemoglobin (Bld) [Mass/Vol] 14.1 g/dL Normal 13.5 - 17.5 gm/dL [facility] HemeAutoSS MCH (RBC) [Entitic mass] 33.6 pg Normal 27.0 - 34.0 pg [facility] HemeAutoSS MCHC (RBC) [Mass/Vol] 33.3 g/dL Normal 31.4 - 36.0 gm/dL [facility] HemeAutoSS MCV (RBC) [Entitic vol] 100.8 fL High 80.0 - 100.0 fL [facility] HemeAutoSS Platelet mean volume (Bld) [Entitic vol] 6.9 fL Normal 6.4 - 10.8 fL [facility] HemeAutoSS Platelets (Bld) [#/Vol] 310.0 E9/L Normal 150.0 - 500.0 E9/L [facility] HemeAutoSS RBC (Bld) [#/Vol] 4.2 E12/L Low 4.3 - 5.9 E12/L [facility] HemeAutoSS WBC corrected for nucl RBC Auto (Bld) [#/Vol] 8.2 E9/L Normal 4.0 - 11.0 E9/L [facility] HemeAutoSS PT & PTTon 10-15-2022 aPTT Coag (PPP) [Time] 33.7 second(s) Normal 25.1-36.5 [facility] Comment on above: Result Comment: Para meter 15 days - 4 weeks 1 - 5 months 6 - 11 months 1 - 5 years 6 - 10 years 11 - 17 years PTT Mean: 35.4 (27.6-45.6) Mean: 33.5 (24.8-40.7) Mean: 32.4 (25.1-40.7) Mean: 31.6 (24.0-39.2) Mean: 31.6 (26.9-38.7) Mean: 31.0 (24.6-38.4) Pediatric Reference ranges were obtained from a study by Julian Mac et al. prepared from 1437 samples obtained at 7 different centers using the same coagulation reagent and instrumentation as [facility]. Currently there are no coagulation studies available worldwide for children to 14 days, and no normal ranges. Heparin therapeutic range (represented by Anti-Factor Xa activity of 0.2 - 0.4 U/mL) corresponds to PTT of 56.6 - 109.0 sec. Performed By: #### 2 048361, 6930343, 70240788, 35498603, 5395539 ####[facility] [address] [place] [address] INR Coag (PPP) [Relative time] 1.0 {INR} Invalid Interpretation Code [facility] Comment on above: Result Comment: INR results are specifically intended to assess patients stabilized on long-term Anticoagulation therapy suggested INR?s ?Less Intensive Anticoagulation? 2.0 ? 3.0 Conventional Range 3.0 ? 4.5 Performed By: #### 2 863374, 5431835, 49571088, 70791185, 6543098 ####[facility] [address] [place] [address] PT Coag (PPP) [Time] 10.6 second(s) Normal 9.4-12.5 [facility] Comment on above: Result Comment: 15 d ays - 4 weeks 1 - 5 months 6 -11 months 1 ? 5 years 6 ? 10 years 11 -17 years Mean: 11.2 (9.5 ? 12.6) Mean: 11.0 (9.7 ? 12.8) Mean: 11.0 (9.8 ? 13.0) Mean: 11.3 (9.9 ? 13.4) Mean: 11.7 (10.0 ? 14.6) Mean: 11.8 (10.0 - 14.1) Pediatric Reference ranges were obtained from a study by tarsha Acosta al. prepared from 1437 samples obtained at 7 different centers using the same coagulation reagent and instrumentation as [facility]. Currently there are no coagulation studies available worldwide for children to 14 days, and no normal ranges. Performed By: #### 2 170990, 1968750, 87159184, 90212753, 8540869 ####[facility] [address] [place] [address] XR Chest 2 Viewson 3 XR Chest 2 Views Exam Date/Time: 10/15/2022 13:12 EDT Reason for Exam: P.A.T. Report IMPRESSION: NO EVIDENCE OF ACTIVE CHEST DISEASE. CLINICAL HISTORY: P.A.T.. Prior smoker. COMMENT: The heart is normal in size. The mediastinum is unremarkable. No infiltration nor pleural effusion is evident. There is deformity of the shaft of the right clavicle due to old healed fracture. There are old healed right rib fractures. Ordering Provider: Felipe Morillo FINAL REPORT Dictated: 10/15/2022 2:55 pm Carmen Mari, Jose Ng Signed (Electronic Signature): 10/15/2022 2:55 pm Signed by: Jose Morales M.D. Transcribed by: JAXSON Technologist: CLIFTON Technical Comments Radiation Dose: Kar in mGy = n/a DAP = n/a Normal [facility] eGFRon 10-15-2022 GFR/1.73 sq M.predicted among blacks MDRD (S/P/Bld) [Vol rate/Area] mL/min/{1.73_m2} Normal >=59 [facility] Comment on above: Order Comment: Order added by Discern Expert. Result Comment: eGFR is race adjusted. AA=. Performed By: #### 2 131724, 8525799, 88729663, 02891594, 9882842 ####[facility] [address] [place] [address] GFR/1.73 sq M.predicted among non-blacks MDRD (S/P/Bld) [Vol rate/Area] mL/min/{1.73_m2} Normal >=59 [facility] Comment on above: Order Comment: Order added by Discern Expert. Result Comment: Mobile Lab Technician noe kidney disease could be indicated at eGFR's of less than 60 mL/min/1.73m2. Kidney failure is indicated at less than 15 mL/min/1.73m2. Performed By: #### 2 693482, 4609946, 66367951, 67404805, 2227317 ####[facility] [address] [place] [address] Coding Summary.on 09-30-2022 Coding Summary. [id number] Gh 0bWw+PGhlYWQ+OU8QYSMnF 65nbAFyqQ6CE4vMSR0OZUA KDSVTGO1DBO0poAX8RDwaV 2VybiAv BhuxnIBwQQ62JTp9QQW0uX dmPEymxU0pvTPrW7h2MzFm MD18hF44CIgwIUSiPyR9Su ZpbjsgbWFy O4ayZcFodTCuOig+PHRhYm xlIHdpZHRoPScxMDAlJyBz yTbtAF6hTt6wSRAhKEXuqA xhcHNlOiBj o7hqRLEcETibWY8sbLlkG6 EkkQA2GEGcg1w6Oc27gJL+ VJGpHPJ5cOqrRKzju668Es Mcb6soEQZ8 tATiGZrbIYQ8P26yw9G4ZW PwXDWrMNA0sZG0bZ3nqXjn yemkV8UmxQAaTnB1UFA3eI DneH9rkAiq prhcnO2jUnx+M08APH8RUD MMAJ5JKca6M0IdBrqvvJN+ SE61ZMEaSW73xOZttJJcw7 otdWz5QdLf SXSfKJX7fOvnKJetp7IaUC LyA43hlIKlr7L7IOTdlDba bSQtMsHjoBB3jF6hSDwvee qes1iyxowi Mtjnw7chnz29vY75Q38zWN pkTGXcTOE9CDKzMONrhMik tb1nsN0yWk0+YSrij2set7 ywnRd0PoQb CUPkooPreGiiIWM9b8ByWa 37P5CydUlgu0NbEez8bi08 bSMpl6H6zCM8YVcmEBBufY 6sYLmhYlM8 BVYkGlXnjD68vIDwPKczDy 4keJozqXtbOU4mVJYplswu KEVzuE4uVDEdaJAihEqiYM 4wNTBpbjtm z805NdBvFUX7BEMbpSGaS1 ZngU2fWgTvKJPyXPVjN5Pb hXFeAZufT414LYjfOgK5VD DenhBrH7Nz CKDqvLbjFzE8e4U1Hp9Vq8 DlxipcFOX6JStbEAUmRcS3 UeCdBeO1Q4MqYse2WASjxK qjVW2cH3Jl XWKjadylwhqpxWK9QFDaNF YeiU29hMSfPYxiVy9re0T1 l792LKZjITWlrT70Xg1hjI ogMTBwdCBU gR9jcqkrn4yrpfwmKzHmQX HfGXx9ZSg4CUXboZilEiCj EEC4ZmT0CUT1lSVidE8bgP qipcgxlM2r Oyc+U64ylP5kWCC4RIF3hb peQBCsnkWdRO08IT41U5Ex PjwvdGFibGU+PGRpdiBzdH oyTP5mPyHz i4gtu9MgHOanQ2IiYJSiAD hjOlz9HJKhPQP3cXH4gY2g IASvCCbqe3K4yYP0Z3Rjlu Xylo4vi6ip XSTfMNpgV14nqHGgx1D2AA CqlOD1PJYxdOiaCgEjmT92 Oyc+SGLlqUyxx1UmQyphm0 hgf9wzyOo8 AgQzOQJaekVjxSqiNVZ6h6 HxFy73F09tBLvlEFEnGMKt OPOaWHAjaBhhqa2mgV9zSo 8+PGNvbCB3 fJU4lS7tGWZtEzE1GJomH1 09ItJrrYLxIrixy3hts3zo nGw6RbQlQELnvhYhgYthHM E6x1UfUr91 M63oRGsdPCVyRMTtKJZbKR EqbAcsnd8fkO5xKo4+PC9j f4shem10fF93hYL+PHRkIH E8vQqgBJga OJJmdP8gABqbJeV1RMKxMp JbbY32iIVtTCrpXj5qcRpa fLbwGB8jNLIeglwse672Ku Zsq5fmISJv wZEqMTsnQEZ9Y03ya1C1CY RoNBObGOZ2zCL3vU7nyVny bjogbGVmdDsgdmVydGljYW mbGEqrS356 IHRvcDsnPlBhdGllbnQgTm UoYPv8N4AdQcz9VCQwoFtw RX0jiFUeQVfuTr5dhXjodD xdML8dTLDt pvkhm630ZbAzm3frFFWrqB ZhVBjcCDM9C68cl3K9NCTl BFYiVNZ7vXY7sV4gsMtsal ogbGVmdDsg kjXrtYegPMztAPcyY830UC RvcDsnPkJpcnRoIERhdGU6 GD03JM67jAZlp1H9rLJ6C7 BhZGRpbmct gbxqoQC9TLOeXZZhjQ62Og 2giJjmLd1lXSHoYHU3TWOr cUUhE5UzlV2sJmUaZTUdNR ZrB5FugGUj QNrcO658EHjqMrB3GNIgbz UjZ1FjXJIzdSaaAqI3l9T5 Gt9LE0Y0QH18YY78uSVum4 M3kPY1R3Sp EWGtbwzavgxwhRX4XOGtWO VnfG92Vx3fpRdjBc6iEERg FMR2LVVrzIHbW3UqnL1tXc AjMDAwMDAw K2GbbKSvNShgP396XSwwRy P7RWZqagXaN4QdZRXcdJuo ExU6s6R3Ch1YOKs8XH97AB 92pOLng5H3 rFU7K8QyFLShgjfwqlmcwJ I3RMOjFNDcqZ14Xe4dmZtx Ji5rEXWiEHP0BHTglSQwV0 EbdF8zNvNe GDVnHTZkS3IvrEUbKQvhR2 06RXvdCzI7MSNnamSwW4Ko WJFeqRdxSgV3b1K8Hv6TDF EhII61RAV2 lZS9SV06YX35M4FnLepvnT FibGU+PHRhYmxlIHdpZHRo PFmxICHtBvDtrDdpTN6sEt 9yZGVyLWNv mCxlbOVcTaOqn3alTUFsWL bmQG8nfVanY3UaeHL6AWOw f7r6Qb52Y55dF7IllMY+PG YonPF3mJT4 tQ7uAhKgXyI6DLyfO956Dx JmeHOlLtugv3erp3qncZd0 ExY6FWKmptGviMhnCTC7a7 NpPz62Q55v IHdpZHRoPSIxNSUiIHZhbG gczj4lnJ8fNg8+PGNvbCB3 wLC9jH9zYhSiAhL0WMsoR6 49InRvcCIv Xedsw2uwy1vyvJg4XiWdIU DhtqTmaOccKIK7b7NgMe54 B9AwzNmsf8AuHgq4cj68vF Wis0K9yIW9 R6WtCMWdrizgyWOwyZwjNO 1zGCXdagnfIMHluZ5sTEFy R3r6NoVoNvL7XRcvS3Tmht D1WEHmpPFk KAjqQRF7O71iq5P9SLXnIK LyKZF2eBF6tM5vqFhakcri bGVmdDsgdmVydGljYWwtYW fmE890PCXm jTwbOVErwF0sXRCwrJKtnV btOE6gLLLzgczqGstYSKDT GuWDDKMjKYOMZLTXOB6fKH wvdGQ+PHRk EBV8qOojRGngDVGvhL1uCQ AnA2o9MtKeQiO8FVnbY9Lo GPWptwxjCi79aY5cMwOyBn Y6IGkaM3To doQ6EWRqfBMnDBkdEHY2I5 6ie6D4ZSEbQDAqFOF2xJP1 bF1hmIjjdvpakSTecFwemx VydGljYWwt ECybE721IVSnzGojQeZ9Cm K3BuH1LVv9M4FhNou8ADAr xCetNS0atWEhGZzgGs1yzO lvrYejNN8i YNJeaivmJMZvwP1sWKXfiY PvpTbxPA2cSULrablpi565 IgIyFLI0KYKpxNLqH8YwmO 9yOiAjMDAw GBUsF0EyxSDnWAwrN385ET waNzB7JJNjakJvJ3RiWMLm fIgcRkE9g1Q3Gs06JSMOJI FyczwvdGQ+ KHPkMNP3vLclATsdQNEjyG 6sEABvK7u1GhUoGjE3GVoy A5PgAEZfizjfIi04pI0iXi KrZnG4JLfj M5DkjgO9JEPplCHgKQbhHU X6R85sq9Y2KTPnLDZaKTH9 iVK3kZ1jwEirgmzsgSHscJ sgdmVydGlj FIczBLkaI626GRWanNeePh 6ioQQ6A9CySvo8KQQrsUcz KO1mpHHjGDlhGl0qvNaceP xlDS9mSWSp mkjeFFImbM3pXCIaeRXxvU zcVE6dXDWszmtrr062RpLl MYK0OCBwnMIxB2SjjT5fKi AjMDAwMDAw U3TieSEyFLvfT896BMldVg Y2RKOuglYvC7RzNZQeoBnl VdB2v0R9Km0GhZWzOZLqVW 96ZC04VP19 E6XwUgmqqCSiiDA+PHRhYm xlIHdpZHRoPScxMDAlJyBz yHkhMR7gJg6hUXGwREFtsK xhcHNlOiBj f5jfSNViYRccSC5zeZqeL6 IqrNH3ZTTli1l1Rw65P14v B5ToxKZ+EMOauZZ6wYO4rZ 8uDtTeLlW3 XYerG509XaWslTVsPwcgm8 hsu0jrsBf1BtTvMDPphiAy xBjqEII8g4HvTp64K61sDA dpZHRoPSIy MRTpXFKctQfjsb7rbW0dHe 8+OYOprEZ6kNL9fN7tPdNo WuZ6OPipT798HqCcxUDiPn lrQ54yY9Gk dXA+CXOmFpg1WRLrxYhyDC 6zxTZwLAicCa8tDKT1ImOo HbLtRRvfL6NvTTUgkxpokd qldKB3BEQf UZPerQ17Nf1llVwmOq3aED RnWJG7YSNioGAbQ9ZovJ0t RfLpVLNhPSFpM2AlaZEtFL khK040EEzw JmR5DGPqgwMoN1TpHDRowY xjEgK6r1G1Fl6VkQnnhTNi DK7wPpFkJMe2G1GrMnm7IM RosNxdMQ3n yYGbDPplWj0kmPzjyHfnMI 3aOXRtkqcuk545BdNgu0im SOFnqNGbHMtiFSR2P70ft3 H2TNHeMTKd RII3oTV0qX9iiJsroctvcB VmdDsgdmVydGljYWwtYWxp A308WHMvgBvbNeJXYbh5Z2 JhXmx5BALj gQheDO6sdDNcDBzlMh0xqH qjnXtbAZ4qAFAqxqfrh440 QsDfg8flXGJrmSDrOFylGQ E5G09wa3L6 POXqLDQsIBN6nVM1uJ6saG lnbjogbGVmdDsgdmVydGlj ZWpdJCrrW726DXBpdPhqLh 3RQbf4I1Rw Rqu9CFEevFgiOX7uaZKeSK iaDn5sjCzcpKfyHQ0iQZIa wolhm718MhZeq8rwDRZowE QgVGltZXM7 N07xq5C0QGMjRGQiCVE4fD E8mE5psQqlaprraYCueHdx zwVvnJgoXPfnOMscH740GB RvcDsnPlBh eWVyOjwvdGQ+UC64gi20M3 TtUxipYhi7JPWwDJZ2qUL3 dE1qYKMaJCraw1A7eWL3L8 LoapGimd8z b2xs (more content not included)... Normal [facility] Patient Correspondenceon Patient Correspondence [id number]#1.0 0CD:127 [facility] Consent for Procedure/Surger yon 09-29-2022 Consent for Procedure/Surgery [id number]#1. 00CD:127 Normal [facility] Consent for Treatmenton Consent for Treatment [id number] 0CD:127 Normal [facility] Inpatient Patient Summaryon 09-29-2022 Inpatient Patient Summary [place] [id number] Clinical Summary Person Information Name: RICKEY GARCIA Age: 76 Years : 1945 Sex: Male PCP: MAGED ANDRADE DO Marital Status: Race: White Ethnicity: Non- or Language: [place] Visit Id: Visit Reason: FEELING OF INCOMPLETE BLADDER EMPTYING BPH WITH LUTZ AND URINARY RETENTION Speciality: Acuity: Enc Type: Outpatient Med Service: Surgery Arrival: 09/29/2022 08:51:30 Discharge: Dispo Type: Address: [address] [place] [id number] Provider Notes: Diagnosis: BPH with urinary obstruction; Feeling of incomplete bladder emptying; Other obstructive and reflux uropathy; Urinary retention Problems Active Feeling of incomplete bladder emptying BPH with urinary obstruction Urinary tract infection Kidney stones HTN (hypertension) Glaucoma Gall stone Depression COPD (chronic obstructive pulmonary disease) Arthritis Urinary retention Smoking Status: Functional Status: Sensory Deficits: History of Falls: Mobility Assistance Prior to Admission: ADLs: Current Level of Assistance for Self-Care/Mobility: Cognitive Status: Allergies No Known Medication Allergies Laboratory or Other Results This Visit (last charted value for your 09/29/2022 visit) No Laboratory or Other Results This Visit Measurements: Height: 186 cm Weight: Blood Pressure: Not Valued / Not Valued BMI: Procedures No Procedures Documented Immunizations No Immunizations Documented This Visit Final Med List: ciprofloxacin (ciprofloxacin 500 mg Tab) 14 EA, take 1 tablet by mouth every 12 hours. triamcinolone topical (triamcinolone Top 0.1% Crm 15 gram) 454 gm, APPLY TO THE AREAS ON THE TRUNK AND EXTREMITIES FOR SEVERE FLARES... (REFER TO PRESCRIPTION NOTES).. Care Team Members: Attending Physician: Deandra Rodriguez MD Consulting Physician: Referring Physician: Deandra Rodriguez MD Follow up: With: Address: When: Deandra Rodriguez Comments: Will call to schedule cystolitholapaxy, Urolift Patient Education Information: EU - Cystoscopy Discharge Instructions (CUSTOM) [facility] IntraOperative Documentson 0 09-29-2022 IntraOperative Documents [id number]. 00CD:127 [facility] IntraOperative Documents [id number]#1. 00CD:127 [facility] Main OR Intraoperative Recor don 09-29-2022 Main OR Intraoperative Record IntraOp Document Type FTURO Summary Primary Physician: Deandra Rodriguez MD Finalized Date/Time: 09/29/22 11:13:54 Pt. Name: RADHARICKEY/Sex: 1945 Male Med Rec #: [id number] Physician: Deandra Rodriguez MD Financial #: [id number] Pt. Type: O Room/Bed: / Admit/Disch: 09/29/22 08:51:30 - Institution: Case Times FTURO Entry 1 Patient Times In Room 09/29/22 10:45:00 Out Room 09/29/22 11:18:00 Procedure Times Start 09/29/22 10:54:00 Stop 09/29/22 11:12:00 Anesthesia Times Last Modified By: Rosario BENÍTEZ, Haydee CHISHOLM 09/29/22 11:10:40 Case Attendance FTURO Entry 1 Entry 2 Entry 3 Case Attendee Deandra Rodriguez MD, RN, KATHRINE, Neeru Patterson Role Performed Surgeon - Primary Psychiatric Security Nurse - Primary Scrub - Primary Time In 09/29/22 10:45:00 09/29/22 10:45:00 09/29/22 10:45:00 Time Out 09/29/22 11:18:00 09/29/22 11:18:00 09/29/22 11:18:00 Procedure CYSTOSCOPY LOCAL(.) CYSTOSCOPY LOCAL(.) CYSTOSCOPY LOCAL(.) Comments Last Modified By: Rosario BENÍTEZ, HALEYOR, Rosario BENÍTEZ, HALEYOR, Rosario BENÍTEZ, HALEYOR, Haydee 09/29/22 Haydee 09/29/22 Haydee 09/29/22 11:10:42 11:10:42 11:10:42 Surgical Procedures FTURO Entry 1 Procedure Description Procedure CYSTOSCOPY LOCAL Modifiers . Surgeon Description CYSTOSCOPY WITH TRUS Primary Procedure Yes Primary Surgeon Deandra Rodriguez MD Start 09/29/22 10:54:00 Stop 09/29/22 11:12:00 Anesthesia Type Local Surgical Service Urology Wound Class 2 - Clean-Contaminated Last Modified By: Rosario BENÍTEZ, KATHRINE, Haydee 09/29/22 11:10:43 General Comments: 19f coude cath inserted General Case Data FTURO Pre-Care Text: Classifies surgical wound, implements aseptic technique, initiates traffic control Entry 1 Case Information OR URO 1 FT Case Level None Wound Class 2 - Clean-Contaminated Specialty Urology Preop Diagnosis FEELING OF INCOMPLETE Postop Same As Preop No BLADDER EMPTYING BPH WITH LUTZ AND URINARY RETENTION Postop Diagnosis FEELING OF INCOMPLETE Outcomes Met? Yes BLADDER EMPTYING BPH WITH LUTZ AND URINARY RETENTION Last Modified By: Rosario BENÍTEZ, HALEYOR, Haydee 09/29/22 09:59:19 Post-Care Text: The patient is free from signs and symptoms of infection EU IntraOp - FTURO Pre-Care Text: Implements protective measures prior to operative or invasive procedure, confirms identity before the operative or invasive procedure, verifies operative procedure, surgical site, and laterality Entry 1 EU Perioperative Protocols Procedure(s) CYSTOSCOPY LOCAL(.) Patient Identity Birthday, ID Band Verified (select at Check, Patient least 2): Participation Consents / H and P HandP, Surgery/Procedure Operative Site N/A Verified Consent Marking Verified Surgical Site Yes Laterality Verified n/a Verified Procedure Verified Yes Correct Patient Yes Position Verified Availability Equipment, X-ray Time Out Deandra Rodriguez MD, Verified (If Participants Rosario BENÍTEZ, CNOR, Applicable) Leonardo Hubbard Jessica D Time Out Complete 09/29/22 10:47:00 Allergies Reviewed? Yes Body Position Supine Prep Area supine Prep Agents Betadine Solution Skin. Condition Unable to Visualize Additional None Specimens Collected Vitals - EU Blood Pressure Pulse Respirations SPO2 EBL 0 IandO - EU Total Intake 0 mL Total Output 0 mL Outcomes Met? Yes Last Modified By: KATHRINE Ponce RN, Ruthann 09/29/22 11:11:28 Post-Care Text: The patient is free from signs and symptoms of injury caused by extraneous objects General Comments: after cysto patient turned to left side for TRUS Sign Out FTURO Entry 1 Before Patient Leaves OR Nurse verbally Yes Nurse verbally n/a confirms with the confirms with the team the name of team that the procedure(s) instrument, sponge, recorded and needle counts are correct (or N/A) Nurse verbally n/a Nurse verbally n/a confirms with the confirms with the team how the team whether there specimen is labeled are any equipment (including patient problems to be name), if applicable addressed Sign Out Complete 09/29/22 11:14:00 Last Modified By: KATHRINE Ponce RN, Ruthann 09/29/22 11:10:56 Case Comments Finalized By: KATHRINE Ponce RN, Ruthann Document Signatures Signed By: KATHRINE Ponce RN, Ruthann 09/29/22 11:11 KATHRINE Ponce RN, Ruthann 09/29/22 11:13 Normal [facility] Main OR Preoperative Recordo n 09-29-2022 Main OR Preoperative Record Holding Area Document Type FTURO Summary Primary Physician: Deandra Rodriguez MD Finalized Date/Time: 09/29/22 10:48:21 Pt. Name: RICKEY GARCIA/Sex: 1945 Male Med Rec #: [id number] Physician: Deandra Rodriguez MD Financial #: [id number] Pt. Type: O Room/Bed: / Admit/Disch: 09/29/22 08:51:30 - Institution: Case Times Holding FTURO Pre-Care Text: Verifies consent for planned procedure, identifies individual values and wishes concerning care, includes family members in perioperative teaching Secures patient's records' belongings, and valuables, maintains patient's dignity and privacy, and maintains patient confidentiality Entry 1 In Holding 09/29/22 10:40:00 Outcomes Met? Yes Last Modified By: Samia Forte LPN 09/29/22 10:40:24 Post-Care Text: The patient participates in decisions affecting his or her perioperative plan of care The patient's right to privacy is maintained Surgery Checklist FTURO Entry 1 Patient Birthday, Patient Procedure History and Physical, Identification: Participation Verification: Surgical Consent, With Patient NPO after Midnight: No Date/Time: 09/29/22 10:40:00 Personal Items: Dentures, Glasses, Personal Items clothes Jewelry Comment: Limitations: na Complaints of Pain: No Pain Comment: na Skin Integrity Intact, [place], Warm, & Dry Vitals - EU Blood Pressure 136/102 Pulse 93 bpm Respirations 18 br/min SPO2 95 % Last Modified By: Samia Forte LPN 09/29/22 10:48:16 General Comments: temp:35.8 Finalized By: Samia Forte LPN Document Signatures Signed By: Samia Forte LPN 09/29/22 10:48 Normal [facility] Operative Reporton Operative Report Patient: RICKEY GARCIA Age: 76 years Sex: Male : 1945 Associated Diagnoses: None Author: Deandra Rodriguez MD Procedure Operative Information Details: Date/ Time: 09/29/2022 12:15:00. Pre-Op Dx: BPH with urinary obstruction (TGP20-CJ N40.1, Discharge, Medical), Feeling of incomplete bladder emptying (VGN05-FP R39.14, Discharge, Medical), Urinary retention (XCD46-NX R33.9, Discharge, Medical). Post-Op Dx: Bladder stone (MNM12-KY N21.0, Working, Medical), BPH with urinary obstruction (LTK97-WE N40.1, Discharge, Medical), Feeling of incomplete bladder emptying (JLX81-MJ R39.14, Discharge, Medical), Urinary retention (BFV72-OU R33.9, Discharge, Medical). Anesthesia Type: Local. Procedure: Local Cystoscopy, Transrectal ultrasound of prostate. Complications: None. Risks/Benefits/Informe d Consent: Surgical risks, benefits, details of the procedure have been explained to the patient, Full informed consent has been obtained. Intraoperative Information Prepped: Patient is brought back to the endoscopy suite, Patient is placed in supine position, Patient prepped in the usual fashion with Betadine solution, 2% Xylocaine Jelly is placed per Urethra, After waiting several minutes the Cystoscope is introduced. The Urethra is: Normal. The Prostatic Urethra is: Obstructed, Severe bilobar hypertrophy, mild elevated bladder neck without significant ball-valve intravesical median lobe. . The Bladder is: Posterior wall mucosal irrigation from white. No concerning bladder tumors or lesions. 1x2cm bladder stone and debris. Large posterior inferior wall diverticulum. 2-3+ trabeculations. . The ureteral orifices: Show efflux of clear urine. Devices Implanted: None. Removal: Cystoscope is removed, The patient tolerated it well. The patient was placed in a lateral decubitus position with the left side down. Lidocaine gel followed by a well lubricated transrectal ultrasound probe was inserted without difficulty. The prostate was measured in three dimensions with a calculated volume of 38.7 mL. This included width a 5 cm, height of 3.4 cm, and length of 4.3 cm. There were no significant hypo or hyperechoic lesions within the prostate. The seminal vesicles were visualized bilaterally. These were normal in size, shape and echotexture. The probe was removed and the patient tolerated the procedure well. . 18Fr coude catheter inserted without difficulty. Postoperative Information Discharge: Follow up arranged. BPH with bladder outlet obstruction with new finding of bladder stone noted. UDS today. See separate Clinic Note for details. Normal [facility] Comment on above: Result Comment: Elec tronically Signed By: Deandra Rodrgiuez MD\.br\Date and Time Signed: 09/29/22 12:20 EST Outpatient Surgery Discharge Instructionon 09-29-2022 Outpatient Surgery Discharge Instruction [address] [address] Patient Discharge Instructions PERSON INFORMATION Name: RICKEY GARCIA Date of : 1945 Current Date: 09/29/2022 11:34:13 PHYSICIANS Admitting Physician: Deandra Rodriguez MD Comment: Discharge Diagnosis: BPH with urinary obstruction; Feeling of incomplete bladder emptying; Other obstructive and reflux uropathy; Urinary retention RICKEY GARCIA has been given the following list of follow-up instructions, prescriptions, and patient education materials: IF UNABLE TO CONTACT YOUR PHYSICIAN AND YOU FEEL IT IS AN EMERGENCY, GO TO THE NEAREST EMERGENCY ROOM OR CALL 911 Follow up: With: Address: When: Deandra Rodriguez Comments: Will call to schedule cystolitholapaxy, Urolift Comment: PATIENT EDUCATION INFORMATION Instructions: Cystoscopy ? Voiding after the procedure: there may be some pain, burning, urgency, frequency and blood tinged urine following the procedure. These symptoms usually resolve within 2-5 days. Drink the amount of fluid it takes to keep the urine pink to yellow or clear in color. Drinking enough water and fluids will help to ease any discomfort after your procedure. ? If you are having problems that seem out of the ordinary, please call. ? If unable to contact your physician and you feel it is an emergency, go to the nearest emergency room or call 911 ? Diet ? you may resume your normal diet. ? Activity ? you may resume your normal activities ? Call if you have a fever over 100 degrees. I, RICKEY GARCIA, have received the attached patient education materials/instructions and have verbalized understanding: May we do a follow up call? Yes No I was present when discharge instructions were given Patient Signature Date Clinican/Nurse Signature ___ Date You may receive a survey from [employer] asking you to rate your care experience. Your feedback is important and will help us understand what we do well and how we can improve the quality of care we provide to you, your loved ones and our community. It?s an honor to serve you. Thank you for choosing [facility] Normal [facility] Progress Note-Physicianon Progress Note-Physician Patient: RICKEY GARCIA Age: 76 years Sex: Male : 1945 Associated Diagnoses: None Author: Michael SMITH, Deandra Smith Health Status Allergies: Allergic Reactions (Selected) No Known Medication Allergies, Allergies (1) Active Reaction No Known Medication Allergies None Documented Current medications: (Selected) Documented Medications Documented ciprofloxacin 500 mg Tab: 14 EA, take 1 tablet by mouth every 12 hours, Refills(s) 0 triamcinolone Top 0.1% Crm 15 gram: Refill(s) 0, 454 gm, APPLY TO THE AREAS ON THE TRUNK AND EXTREMITIES FOR SEVERE FLARES... (REFER TO PRESCRIPTION NOTES). Impression and Plan Assessment and Plan: Diagnosis: Bladder stone (PWR37-FG N21.0, Working, Medical), BPH with urinary obstruction (DSN60-JK N40.1, Discharge, Medical), Feeling of incomplete bladder emptying (VEY29-XB R39.14, Discharge, Medical), Urinary retention (YWF80-CA R33.9, Discharge, Medical). 76 [facility], hx COPD, presents for workup of acute on chronic urinary retention s/p white placed for 2.2 L urine 08/25/22. Hx [facility]IC in the past. [facility], pt did not bring meds again today, reportedly on finasteride and flomax for years. Cystoscopy today with severe bilobar hypertrophy, significantly trabeculated bladder with posterior inferior diverticulum and 1x2 cm bladder stone, 40 g prostate volume on TRUS. UDS notes large bladder capacity 800 ml, compliant, delayed sensation, detrusor overactivity at 215 ml without leak, PDet at max flow 25 cm H2O but only able to void 14 ml. EMG activity and valsalva during attempts to void. Discussed findings of chronic bladder outlet obstruction, acute on chronic urinary retention and bladder stone with pt, likely due to chronic BPH. He has some detrusor function and DO, however not high pressure typically seen with obstruction. Discussed risks/benefits of mgmt options including outlet procedure (Urolift, Rezum, TURP) with bladder retraining (CIC, timed voids) and chance of bladder still not being able to empty adequately due to detrusor underactivity. Pt would like to have least invasive measure with least amt of risks and understands a secondary procedure may be needed in the future. Will treat bladder stone at the same time given recent UTI. -Will call to schedule cystolitholapaxy (laser), Urolift under anesthesia, outpatient. Elevated periop risk due to COPD. -Pt needs bring med list and get [facility] records [facility] Comment on above: Result Comment: Elec tronically Signed By: Michael SMITH, Deandra Dumont.br\Date and Time Signed: 09/29/22 12:43 EST Pre-Certification Formon Pre-Certification Form [id number] 0CD:127 [facility] Pre-Certification Formon Pre-Certification Form [id number] CD:127 [facility] Auth for Release of Medical Recordson 09-10-2022 Auth for Release of Medical Records [id number] 0CD:127 [facility] ED Note-Physicianon 09-09-19 ED Note-Physician [id number] 0CD:127 [facility] Formson 09-09-2022 Forms [id number] 0CD:127 Normal [facility] Ambulatory Visit Summaryon 0 09-08-2022 Ambulatory Visit Summary RICKEY GARCIA :1945 Visit Date:09/08/2022 Ambulatory Visit Instructions Your Diagnosis Urinary retention Urinary tract infection BPH with urinary obstruction Your Care Team Attending Physician - Deandra Rodriguez MD This Is Your Medications List Contact prescribing physician if questions or concerns ciprofloxacin (ciprofloxacin 500 mg Tab) triamcinolone topical (triamcinolone Top 0.1% Crm 15 gram) Procedures Performed Colonoscopy. Discharge Vitals Heart Rate (Peripheral) 81 Blood Pressure 135/83 Height 186 cm Height 73 in Weight 82 kg Weight 180.4 lb BMI 23.7 What to do next You Need to Schedule the Following Appointments Follow Up with Michael SMITH, Deandra Smith, URL, URO When: Where: Medications What When Instructions Unchanged ciprofloxacin (ciprofloxacin 500 mg Tab) 14 EA, take 1 tablet by mouth every 12 hours Contact prescribing physician if questions or concerns Unchanged triamcinolone topical (triamcinolone Top 0.1% Crm 15 gram) 454 gm, APPLY TO THE AREAS ON THE TRUNK AND EXTREMITIES FOR SEVERE FLARES... (REFER TO PRESCRIPTION NOTES). Contact prescribing physician if questions or concerns Allergies No Known Medication Allergies Problems Ongoing - Any problem that you are currently receiving treatment for. Arthritis BPH with urinary obstruction COPD (chronic obstructive pulmonary disease) Depression Gall stone Glaucoma HTN (hypertension) Kidney stones Urinary retention Urinary tract infection Education Materials Acute Urinary Retention, Male Acute urinary retention is a condition in which a person is unable to pass urine. This can last for a short time or for a long time. If left untreated, it can result in kidney damage or other serious complications. What are the causes? This condition may be caused by: ? Obstruction or narrowing of the tube that drains the bladder (urethra). This may be caused by surgery or problems with nearby organs, such as the prostate gland, which can press or squeeze the urethra. ? Problems with the nerves in the bladder. These can be caused by diseases, such as multiple sclerosis, or by spinal cord injuries. ? Certain medicines. ? Tumors in the area of the pelvis, bladder, or urethra. ? Diabetes. ? Degenerative cognitive conditions such as delirium or dementia. ? Bladder or urinary tract infection. ? Constipation. ? Blood in the urine (hematuria). ? Injury to the bladder or urethra. ? Psychological (psychogenic) conditions. Someone may hold his urine due to trauma or because he does not want to use the bathroom. What increases the risk? This condition is more likely to develop in older men. As men age, their prostate may become larger and may start pressing or squeezing on the bladder or the urethra. What are the signs or symptoms? Symptoms of this condition include: ? Trouble urinating. ? Pain in the lower abdomen. Symptoms usually come on slowly over a long period of time. How is this diagnosed? This condition is diagnosed based on a physical exam and a medical history. You may also have other tests, including: ? An ultrasound of the bladder or kidneys or both. ? Blood tests. ? A urine analysis. ? Additional tests may be needed such as an MRI, kidney, or bladder function tests. How is this treated? Treatment for this condition may include: ? Medicines. ? Placing a thin, sterile tube (catheter) into the bladder to drain urine out of the body. This is called an indwelling urinary catheter. After being inserted, the catheter is held in place with a small balloon that is filled with sterile water. Urine drains from the catheter into a collection bag outside of the body. ? Behavioral therapy. ? Treatment for any underlying conditions. ? If needed, you may be treated in the hospital for kidney function problems or to manage other complications. Follow these instructions at home: ? Take fiyb-hin-ygghbhf and prescription medicines only as told by your health care provider. Avoid certain medicines, such as decongestants, antihistamines, and some prescription medicines. Do not take any medicine unless your health care provider has approved. ? If you were given an indwelling urinary catheter, take care of it as told by your health care provider. ? Drink enough fluid to keep your urine clear or pale yellow. ? If you were prescribed an antibiotic, take it as told by your health care provider. Do not stop taking the antibiotic even if you start to feel better. ? Do not use any products that contain nicotine or tobacco, such as cigarettes and e-cigarettes. If you need help quitting, ask your health care provider. ? Monitor any changes in your symptoms. Tell your health care provider about any changes. ? If instructed, monitor your blood pressure at home. Report changes as told by your he (more content not included)... Normal [facility] Patient Educationon 09-08-19 Patient Education Urology Acute Urinary Retention, Male Acute urinary retention is a condition in which a person is unable to pass urine. This can last for a short time or for a long time. If left untreated, it can result in kidney damage or other serious complications. What are the causes? This condition may be caused by: ? Obstruction or narrowing of the tube that drains the bladder (urethra). This may be caused by surgery or problems with nearby organs, such as the prostate gland, which can press or squeeze the urethra. ? Problems with the nerves in the bladder. These can be caused by diseases, such as multiple sclerosis, or by spinal cord injuries. ? Certain medicines. ? Tumors in the area of the pelvis, bladder, or urethra. ? Diabetes. ? Degenerative cognitive conditions such as delirium or dementia. ? Bladder or urinary tract infection. ? Constipation. ? Blood in the urine (hematuria). ? Injury to the bladder or urethra.? ? Psychological (psychogenic) conditions. Someone may hold his urine due to trauma or because he does not want to use the bathroom. What increases the risk? This condition is more likely to develop in older men. As men age, their prostate may become larger and may start pressing or squeezing on the bladder or the urethra. What are the signs or symptoms? Symptoms of this condition include: ? Trouble urinating. ? Pain in the lower abdomen. Symptoms usually come on slowly over a long period of time. How is this diagnosed? This condition is diagnosed based on a physical exam and a medical history. You may also have other tests, including: ? An ultrasound of the bladder or kidneys or both. ? Blood tests. ? A urine analysis. ? Additional tests may be needed such as an MRI, kidney, or bladder function tests. How is this treated? Treatment for this condition may include: ? Medicines. ? Placing a thin, sterile tube (catheter) into the bladder to drain urine out of the body. This is called an indwelling urinary catheter. After being inserted, the catheter is held in place with a small balloon that is filled with sterile water. Urine drains from the catheter into a collection bag outside of the body. ? Behavioral therapy. ? Treatment for any underlying conditions. ? If needed, you may be treated in the hospital for kidney function problems or to manage other complications. Follow these instructions at home: ? Take cpux-jkn-pganvxb and prescription medicines only as told by your health care provider. Avoid certain medicines, such as decongestants, antihistamines, and some prescription medicines. Do not take any medicine unless your health care provider has approved. ? If you were given an indwelling urinary catheter, take care of it as told by your health care provider. ? Drink enough fluid to keep your urine clear or pale yellow. ? If you were prescribed an antibiotic, take it as told by your health care provider. Do not stop taking the antibiotic even if you start to feel better. ? Do not use any products that contain nicotine or tobacco, such as cigarettes and e-cigarettes. If you need help quitting, ask your health care provider. ? Monitor any changes in your symptoms. Tell your health care provider about any changes. ? If instructed, monitor your blood pressure at home. Report changes as told by your health care provider. ? Keep all follow-up visits as told by your health care provider. This is important. Contact a health care provider if: ? You have uncomfortable bladder contractions that you cannot control (spasms) or you leak urine with the spasms. Get help right away if: ? You have chills or fever. ? You have blood in your urine. ? You have a catheter and: ? Your catheter stops draining urine. ? Your catheter falls out. Summary ? Acute urinary retention is a condition in which a person is unable to pass urine. If left untreated, it can result in kidney damage or other serious complications. ? The cause of this condition may include an enlarged prostate. As men age, their prostate gland may become larger and may start pressing or squeezing on the bladder or the urethra. ? Treatment for this condition may include medicines and placement of an indwelling urinary catheter. ? Monitor any changes in your symptoms. Tell your health care provider about any changes. This information is not intended to replace advice given to you by your health care provider. Make sure you discuss any questions you have with your health care provider. Document Released: 10/19/2001 Document Revised: 06/25/2018 Document Reviewed: 08/14/2017 [employer] Patient Education ? 2019 [employer]. [facility] Pre-Certification Formon Pre-Certification Form [id number]. [id number]:127 Normal [facility] Urology Office/Clinic Noteon 09-08-2022 Urology Office/Clinic Note Chief Complaint Pt is here for urinary retention HPI Staff Rickey is a 76 y.o. male new patent here for follow up to [facility] 08/25/22 due to urinary retention, cath was placed with over 2200ml drained from bladder. Patient was started on Cipro at that time due to UTI. Pt states he is on a whole bunch of medication but currently did not bring a list with him/[facility] [place]. Dysuria: denies Incomplete bladder emptying: Has White Hematuria: denies Leaking: yes History of Present Illness Tests reviewed: reviewed ED records including labs, UA/UCx notes from ER physician I have reviewed the previous health record information and history for this patient from external provider I have reviewed and verified the staff HPI to be accurate for this encounter. There have been no associated fever, chills, flank pain, or blood in the urine. Denies any urinary infections since last encounter. Review of Systems PHQ Score Initial Depression Screen Score: 0 ROS - Provider Constitutional: denies weight loss, denies hot flashes. Eyes: denies eye problems. Gastrointestinal: denies nausea, denies vomiting. Cardiovascular: denies chest pain or angina. Integumentary: no dryness Musculoskeletal: denies musculoskeletal symptoms. ENMT: denies otolaryngeal symptoms. Respiratory: no shortness of breath. Heme/Lymph: denies easy bleeding tendency, denies easy bruising tendency. Psychiatric: no confusion, no anxiety. Genitourinary: See HPI. Physical Exam Vitals & Measurements HR: 81(Peripheral) BP: 135/83 HT: 73 in HT: 186 cm WT: 82 kg WT: 180.4 lb BMI: 23.7 General Appearance: alert, no distress, well nourished, well developed male. Head: normocephalic . Eyes: normal orbit and globe. ENMT: normal examination of external ears. Chest: symmetric chest rise, respirations non labored. Cardiovascular: regular rate and rhythm. Abdomen: soft, non distended, no tenderness Genitourinary: normal scrotum, normal testes, normal urethra, normal epididymis, normal vas deferens/spermatic cord. Flank Pain: none. Bladder: nonpalpable. Penis: normal shaft, normal glans. circumcised. 16Fr white to gravity, mildly concentrated yellow urine with scant debris in tubing Skin: warm, dry, no bruising. Psychiatric: cooperative, affect appropriate for age, normal judgement, euthymic mood. Assessment/Plan 76 YO male here today due to recent UR episode. COPD, former smoker. [facility] [place] [facility], did not bring a list of medications with him today. Baby aspirin, no hx of stroke or heart attack. States if he has to see a specialist through the [place] he has to travel to [place]. 1. Urinary retention (R33.9: Retention of urine, unspecified) Presented to [facility] ER on 08/25/22 for a 2-3 day history of urinary retention. Patient was having a sensation of needing to urinate but was not able to pass urine very well. Bladder scan was showing greater than 900 mL. White catheter was placed, over 2200 mL was drained. -Denies hematuria, has noticed sediment Patient made mention to the ER that he had an episode of UR years ago, White placed by the [facility]. Pt states he CIC in the past. Inquired if he would be able to return to [facility], states if he has to but wishes for that to be his last resort. States he had a weak stream for approx. one week prior to having White placed. Shares he didn't go much for 3 days along with no bowel movements. Pt states he is now having BM's daily. Explained that constipation can attribute to retention. Completed tx for UTI Fill and pull voiding trial today. The White catheter has been removed today without complications. Will schedule Cystoscopy, Urodynamics and TRUS to measure prostate and Urodynamics. The risks and benefits for cystoscopy have been discussed. The risks include bleeding, infection, and irritation of the bladder and urinary channel, among others. The patient, after being informed of procedural details and after questions have been answered, wishes to proceed. Full informed consent has been obtained. Will order Local anesthesia. -[facility] supplies provided in case pt is unable to void following voiding trial -Timed voids -bowel regimen 2. Urinary tract infection (N39.0: Urinary tract infection, site not specified) UA 08/25/22 - Staphylococcus lugdunensis, tx'd with Cipro. Denies hx of recurrent UTIs. Only had urgency, no dysuria during UTI 3. BPH with urinary obstruction (N40.1: Benign prostatic hyperplasia with lower urinary tract symptoms) Shares he is taking Flomax and Finasteride and has been on them for years. [facility], no outside records to review. -Denies side effects -Instructed pt to bring list of meds at next visit -Elevated risk of recurrent retention given high volume retention while on dual medical therapy. -outlet work up per #1 #4 History of kidney stones States last stone was approx. 5 years ago, hx of surgical tx -No imaging done at the ER -Denies flank/back (more content not included)... Normal [facility] Comment on above: Result Comment: Elec tronically Signed By: Michael SMITH, Deandra Smith\.br\Date and Time Signed: 09/08/22 15:38 EST CULTURE URINEon 08-30-2022 CULTURE URINE Isolate 1 Staphylococcus lugdunensis >100,000 cfu/ml of ORGANISM 1 Staphylococcus lugdunensis ANTIBIOTIC M.I.C RX STATUS Beta-Lactamase Pos POS F Gentamicin <=0.5 S F Ciprofloxacin <=0.5 S F Levofloxacin <=0.12 S F Quinupristin/Dalfopris tin 0.5 S F Linezolid 1 S F Vancomycin <=0.5 S F Tetracycline 2 S F Nitrofurantoin <=16 S F Rifampicin <=0.5 S F Trimethoprim/Sulfameth oxazole <=10 S F Normal [facility] Comment on above: Performed By: #### U RCX #### [facility] [address] [place] [address] Dr. Vahid Ornelas ER URINE PROFILEon 3 Bilirubin Ql (U) Negative Normal NEGATIVE [facility] Comment on above: Performed By: #### E NAMRATA SOTO #### [facility] [address] [place] [address] Dr. Vahid Ornelas Clarity (U) CLEAR Normal CLEAR [facility] Comment on above: Performed By: #### E NAMRATA SOTO #### [facility] [address] [place] [address] Dr. Vahid Ornelas Color (U) LT. YELLOW Normal YELLOW [facility] Comment on above: Performed By: #### Lamberto SOTO UMICRO #### [facility] [address] [place] [address] Dr. Vahid KU A micrscopic examination will be performed if indicated. Normal [facility] Comment on above: Performed By: #### Lamberto SOTO UMICRO #### [facility] [address] [place] [address] Dr. Vahid Onrelas Glucose Ql (U) Negative Normal NEGATIVE [facility] Comment on above: Performed By: #### Lamberto SOTO UMICRO #### [facility] [address] [place] [address] Dr. Vahid Ornelas Hemoglobin Ql (U) LARGE Abnormal NEGATIVE [facility] Comment on above: Performed By: #### Lamberto SOTO UMICRO #### [facility] [address] [place] [address] Dr. Vahid Ornelas Ketones Ql (U) Negative Normal NEGATIVE [facility] Comment on above: Performed By: #### Lamberto SOTO UMICRO #### [facility] [address] [place] [address] Dr. Vahid Ornelas LEUKOCYTES SMALL Abnormal NEGATIVE [facility] Comment on above: Performed By: #### Lamberto SOTO UMICRO #### [facility] [address] [place] [address] Dr. Vahid Ornelas Nitrite Ql (U) Negative Normal NEGATIVE [facility] Comment on above: Performed By: #### Lamberto SOTO UMICRO #### [facility] [address] [place] [address] Dr. Vahid Ornelas pH (U) 6.0 [pH] Normal 5-9 [facility] Comment on above: Performed By: #### Lamberto SOTO UMICRO #### [facility] [address] [place] [address] Dr. Vahid Ornelas SPEC GRAVITY >=1.030 Abnormal 1.005-<=1.02 5 [facility] Comment on above: Performed By: #### Lamberto SOTO UMICRO #### [facility] [address] [place] [address] Dr. Vahid Ornelas UA PROTEIN TRACE Normal NEGATIVE/ TRACE [facility] Comment on above: Performed By: #### E BRITTANY UMICRO #### [facility] [address] [place] [address] Dr. Vahid Ornelas UR MICRO IND INDICATED Normal [facility] Comment on above: Performed By: #### E BRITTANY UMICRO #### [facility] [address] [place] [address] Dr. Vahid Ornelas Urobilinogen Qn (U) 0.2 {Kt'U}/dL Normal 0.2 - 1. 0 [facility] Comment on above: Performed By: #### Lamberto SOTO UMICRO #### [facility] [address] [place] [address] Dr. Vahid Ornelas URINE MICROSCOPIC ONLYon BACTERIA MODERATE Abnormal NONE SEEN [facility] Comment on above: Performed By: #### Lamberto SOTO UMICRO #### [facility] [address] [place] [address] Dr. Vahid Ornelas Bacteria identified Cx Nom (U) INDICATED Normal [facility] Comment on above: Performed By: #### Lamberto SOTO UMICRO #### [facility] [address] [place] [address] Dr. Vahid Ornelas CA OX CRYSTALS RARE Normal [facility] Comment on above: Performed By: #### Lamberto SOTO UMICRO #### [facility] [address] [place] [address] Dr. Vahid Ornelas CAST NONE SEEN Normal NONE SEEN [facility] Comment on above: Performed By: #### Lamberto SOTO UMICRO #### [facility] [address] [place] [address] Dr. Vahid Ornelas Crystals LM Nom (Urine sed) SEEN Abnormal NONE SEEN [facility] Comment on above: Performed By: #### Lamberto SOTO UMICRO #### [facility] [address] [place] [address] Dr. Vahid Ornelas Epithelial cells LM Ql (Urine sed) FEW Abnormal NONE SEEN /RARE [facility] Comment on above: Performed By: #### NAMRATA OTTO #### [facility] [address] [place] [address] Dr. Vahid Ornelas MUCOUS NONE SEEN Normal NONE SEEN [facility] Comment on above: Performed By: #### NAMRATA OTTO #### [facility] [address] [place] [address] Dr. Vahid Ornelas RBC 20-50 Abnormal 0-2 [facility] Comment on above: Performed By: #### RODERICK OTTORO #### [facility] [address] [place] [address] Dr. Vahid Ornelas WBC 10-20 Abnormal NONE SEEN [facility] Comment on above: Performed By: #### NAMRATA OTTO #### [facility] [address] [place] [address] Dr. Vahid Ornelas CBC AUTO DIFFon 12-20-2021 BASO # 0.1 103/ul Normal 0.0-0.1 [facility] Comment on above: Performed By: #### C BC #### [facility] [address] [place] [address] Dr. Vahid Ornelas Basophils/100 WBC (Bld) 0.8 % Normal 0.2-2.0 [facility] Comment on above: Performed By: #### C BC #### [facility] [address] [place] [address] Dr. Vahid Ornelas EO # 0.3 103/ul Normal 0.0-0.7 [facility] Comment on above: Performed By: #### C BC #### [facility] [address] [place] [address] Dr. Vahid Ornelas Eosinophils/100 WBC (Bld) 3.5 % Normal 0.9-7.0 [facility] Comment on above: Performed By: #### C BC #### [facility] [address] [place] [address] Dr. Vahid Ornelas Erythrocyte distribution width (RBC) [Ratio] 12.5 % Normal 11.0-15.0 [facility] Comment on above: Performed By: #### C BC #### [facility] [address] [place] [address] Dr. Vahid Ornelas Hematocrit (Bld) [Volume fraction] 44.3 % Normal 42.0-54.0 [facility] Comment on above: Performed By: #### C BC #### [facility] [address] [place] [address] Dr. Vahid Ornelas Hemoglobin (Bld) [Mass/Vol] 15.0 g/dL Normal 14.0-18.0 [facility] Comment on above: Performed By: #### C BC #### [facility] [address] [place] [address] Dr. Vahid Ornelas IG # 0.08 10e3/ul Critically high 0.00-0.03 [facility] Comment on above: Performed By: #### C BC #### [facility] [address] [place] [address] Dr. Vahid Ornelas IG % 1.0 % Critically high 0.0-0.5 [facility] Comment on above: Performed By: #### C BC #### [facility] [address] [place] [address] Dr. Vahid Ornelas LYMPH # 1.7 103/ul Normal 1.2-3.8 [facility] Comment on above: Performed By: #### C BC #### [facility] [address] [place] [address] Dr. Vahid Ornelas Lymphocytes/100 WBC (Bld) 22.1 % Normal 20.5-60.0 [facility] Comment on above: Performed By: #### C BC #### [facility] [address] [place] [address] Dr. Vahid Ornelas MANUAL DIFF REQ NO Normal [facility] Comment on above: Performed By: #### C BC #### [facility] [address] [place] [address] Dr. Vahid Ornelas MCH (RBC) [Entitic mass] 34.2 pg Critically high 25.9-34.0 [facility] Comment on above: Performed By: #### C BC #### [facility] [address] [address] [address] Vahid Ornelas MCHC (RBC) [Mass/Vol] 33.9 g/dL Normal 29.9-35.2 [facility] Comment on above: Performed By: #### C BC #### [facility] [address] [address] [address] Vahid Ornelas MCV (RBC) [Entitic vol] 100.9 fL Critically high 80.0-94.0 [facility] Comment on above: Performed By: #### C BC #### [facility] [address] [address] [address] Vahid Ornelas MONO # 0.9 103/ul Critically high 0.3-0.8 [facility] Comment on above: Performed By: #### C BC #### [facility] [address] [address] [address] Vahid Ornelas Monocytes/100 WBC (Bld) 11.7 % Normal 1.7-12.0 [facility] Comment on above: Performed By: #### C BC #### [facility] [address] [address] [address] Vahid Ornelas NEUT # 4.7 103/ul Normal 1.4-6.5 [facility] Comment on above: Performed By: #### C BC #### [facility] [address] [address] [address] Vahid Ornelas Neutrophils/100 WBC (Bld) 60.9 % Normal 43.0-75.0 [facility] Comment on above: Performed By: #### C BC #### [facility] [address] [address] [address] Vahid Ornelas Platelet mean volume (Bld) [Entitic vol] 8.1 fL Critically low 9.5-13.5 [facility] Comment on above: Performed By: #### C BC #### [facility] [address] [address] [address] Vahid Ornelas PLT 281 103/ul Normal 150-450 [facility] Comment on above: Performed By: #### C BC #### [facility] [address] [address] [address] Vahid Ornelas RBC 4.39 106/ul Critically low 4.70-6.10 [facility] Comment on above: Performed By: #### C BC #### [facility] [address] [address] [address] Vahid Ornelas WBC 7.8 103/ul Normal 4.0-11.0 [facility] Comment on above: Performed By: #### C BC #### [facility] [address] [address] [address] Vahid Ornelas PROF 14(COMP METB)on 022 Albumin [Mass/Vol] 3.6 g/dL Normal 3.4-5.0 [facility] Comment on above: Performed By: #### C MP #### [facility] [address] [place] [address] Dr. Vahid Ornelas Albumin/Globulin [Mass ratio] 1.0 {ratio} Normal [facility] Comment on above: Performed By: #### C MP #### [facility] [address] [address] [address] Vahid Ornelas ALP [Catalytic activity/Vol] 142 U/L Critically high 46-116 [facility] Comment on above: Performed By: #### C MP #### [facility] [address] [place] [address] Dr. Vahid Ornelas ALT [Catalytic activity/Vol] 42 U/L Normal 16-63 [facility] Comment on above: Performed By: #### C MP #### [facility] [address] [address] [address] Vahid Ornelas Anion gap [Moles/Vol] 12.8 mmol/L Normal [facility] Comment on above: Performed By: #### C MP #### [facility] [address] [address] [address] Vahid Ornelas AST [Catalytic activity/Vol] 19 U/L Normal 15-37 [facility] Comment on above: Performed By: #### C MP #### [facility] [address] [address] [address] Vahid Ornelas Bilirubin [Mass/Vol] 0.4 mg/dL Normal 0.2-1.0 [facility] Comment on above: Performed By: #### C MP #### [facility] [address] [address] [address] Vahid Ornelas Calcium [Mass/Vol] 9.2 mg/dL Normal 8.5-10.1 [facility] Comment on above: Performed By: #### C MP #### [facility] [address] [address] [address] Vahid Ornelas Chloride [Moles/Vol] 99 mmol/L Normal 98-107 [facility] Comment on above: Performed By: #### C MP #### [facility] [address] [place] [address] Dr. Vahid Ornelas CO2 [Moles/Vol] 28.5 mmol/L Normal 21.0-32.0 [facility] Comment on above: Performed By: #### C MP #### [facility] [address] [address] [address] Vahid Ornelas Creatinine [Mass/Vol] 0.92 mg/dL Normal 0.70-1.30 [facility] Comment on above: Performed By: #### C MP #### [facility] [address] [place] [address] Dr. Vahid Ornelas EGFR-AF SAMMARINESE >60 Normal >=60 [facility] Comment on above: Performed By: #### C MP #### [facility] [address] [place] [address] Dr. Vahid Ornelas EGFR-NON AF SAMMARINESE >60 Normal >=60 [facility] Comment on above: Performed By: #### C MP #### [facility] [address] [place] [address] Dr. Vahid Ornelas Globulin (S) [Mass/Vol] 3.7 g/dL Normal [facility] Comment on above: Performed By: #### C MP #### [facility] [address] [place] [address] Dr. Vahid Ornelas Glucose [Mass/Vol] 116 mg/dL Critically high 74-106 [facility] Comment on above: Performed By: #### C MP #### [facility] [address] [address] [address] Vahid Ornelas Potassium [Moles/Vol] 3.3 mmol/L Critically low 3.5-5.1 [facility] Comment on above: Performed By: #### C MP #### [facility] [address] [address] [address] Vahid Ornelas Protein [Mass/Vol] 7.3 g/dL Normal 6.4-8.2 [facility] Comment on above: Performed By: #### C MP #### [facility] [address] [place] [address] Dr. Vahid Ornelas Sodium [Moles/Vol] 137 mmol/L Normal 136-145 [facility] Comment on above: Performed By: #### C MP #### [facility] [address] [place] [address] Dr. Vahid Ornelas Urea nitrogen [Mass/Vol] 16.0 mg/dL Normal 7.0-18.0 [facility] Comment on above: Performed By: #### C MP #### [facility] [address] [place] [address] Dr. Vahid Ornelas Urea nitrogen/Creatinine [Mass ratio] 17.4 mg/mg Normal [facility] Comment on above: Performed By: #### C MP #### [facility] [address] [place] [address] Dr. Vahid Ornelas Urine Cultureon 02-20-2021 Bacteria identified Cx Nom (U) ORGANISM: Staphylococcus lugdunensis (O:STALUG) Winger Count >100,000 Aerobic ROHAN Charge (PC45) --- SUSCEPTIBILITY -- ORGANISM: O:STALUG ANTIBIOTIC INTERPRETATION ROHAN Amoxacillin/K Clavulanate S <4/2 Ampicillin/Sulbactam S <8/4 Cefazolin S <8 Ceftriaxone S <8 Ciprofloxacin S <1 Daptomycin S <1 Levofloxacin S <1 Linezolid S <2 Nitrofurantoin S <32 Oxacillin S <0.25 Penicillin S <0.03 Piperacillin/Tazobacta m S <4 Rifampin S <1 Tetracycline S <4 Trimethoprim/Sulfameth oxazole S <0.5/9.5 Vancomycin S <0.5 S = SUSCEPTIBLE I = INTERMEDIATE R = RESISTANT BLANK = DATA NOT AVAILABLE, OR DRUG NOT ADVISABLE OR TESTED R* = RESISTANCE DUE TO EXTENDED SPECTRUM BETA-LACTAMASES ESBL = EXTENDED SPECTRUM BETA-LACTAMASE TFG = THYMIDINE-DEPENDENT STRAIN EMERSON = BETA-LACTAMASE POSITIVE IB = INDUCIBLE BETA-LACTAMASE. APPEARS IN PLACE OF 'S' WITH SPECIES KNOWN TO POSSESS INDUCIBLE BETA-LACTAMASES. POTENTIALLY THEY MAY BECOME RESISTANT TO ALL B-LACTAM DRUGS. PERFORMED BY: [place] [address] PATHOLOGIST TALENT ACQUISITION SPECIALIST ARIK KOLB M.D. [facility] Comment on above: Performed By: #### C UU #### [address] Coding Summary 02-11-2021 Coding Summary HTMLBase 64 ObumyceyZAq8kPv+PGhlYW Q+VW0LSMWkT50gbNGxhG6X R3dVYC5UAAMTSLHSMA1QLZ 3qcIS8KAnpD5WpwoIy RjvkdYXiPH57GYw1ESV1cM xrTSdhbR4apQNhA8s7MaFh EL96eD83FFyjBBLuFaM8Nj ZpbjsgbWFy S5heThHcyOLpXjo+PHRhYm xlIHdpZHRoPScxMDAlJyBz yCpbKO5qFj3uDYBjTDRplV xhcHNlOiBj r7qyYBZpFMacKI5flPizI1 GplTD4OVMkj2y2Hf08uJT+ VSRaLCW1eWbkSYqgd494If Dvl2kzTGI4 lHNiSGdbPOB4S44ci1Z3OZ YtEERlCVM0aKA8sE0slIom zizcY1VpoHMtItX9QDA9pK PkhB8cmSvp ovguxY5jXju+Q84CYB7YIN PLHZ5FQgy8Q7AuNfrdtFH+ MZ43RVIgOT02hYGnoWYtb0 fuiBl3HyQt DCFlKOT1fGmoUXzuf7UyWN ZdW42llANse2Y7HXTxxZvh qSIbGhBxbPG7jE9fZDbdrq fom6igfjdo Dkfaj8tkbd45vI30R92hOY ezVQQnSOO3EMWyLKMbbPrt pe7jnL1fIz5+GMjtu7tih6 xdeCv4UdMx TUUihrWsaAnfANN1j5BpPc 70M3AxxIkqx4TwLfr5bi60 kLKft4S6qIB3DWidXQXoyO 9fXMkdYeJ9 DLHjIfCpzX62aSOnYGptQv 4rxUxsoQhfNZ6uHJTwkgbf ISFrpL7jMNJeuDPhvAjcTX 4wNTBpbjtm z624RjPqKVV5RBTmgXHuV5 EvwV2oXkFaNJTaFHFzH1Eq bCQlPGntU258HVqkAjW1PH EnsjNiQ3Dg NAJszZbrXzX4w2Y7Lh4Is9 QishqcCRK3JOaeVPB9SgV9 NeItJmK6J6RuIxz5UYGyfK rpTL2aQ7Fa IKEpvavxebmonXU5QSJiHK ErvD47lCByQBnvJx1jb4R9 i732BDSvOGMxwF85Sf5ceK ogMTBwdCBU iK4uuxajn3oyxzouAaJeZU CcTDf7AGr7AKBojPdhAsHo VVM2IzX0IFV1aIOviZ5baZ satgmtjM8g Oyc+V28cfG8xKSV8JIQ9tk qhTNThvaBsBT92MI02I7Te PjwvdGFibGU+PGRpdiBzdH fhTR0vRwEv w6pze7QiSHitH6VpLAJrJA sgMna7HGViWHY9uNM9gK7o EZIyWQenl3A8oEM2W5Hewr Clod8ls6wd RTVmQRjbL87wnOKcf4N8EU EwjND0LCPzeDziAoXhmS41 Oyc+TAXvvSqzt2QgAkbtc7 nkv5kzaZd9 QnAhRPDmvfHybFmyNVG6f3 KlTt28B01oBSufCCEwCASv HCElLOSocLnhqo0hwV9oPf 8+PGNvbCB3 lTC9nI5hZNQzLzT6FQzuR7 38IpRflKFlXugog4pyf4ot mCt6ToBoGOBqkkGolGdhTM B2y8ZhXr66 G71cZNzuCUIvBIXgHZYcOP QzdKtipp5xyD3vBz6+PC9j y7ynvd64lO10vAN+PHRkIH V0kKyiAJnk SOKhjW4vYNdkXlM8GYQgGi YvfM50vIBjYZusSq8wvAal aPrqCL2rEEUaoynyi790Fb Ffz6tbPNDu yGIcABdkUSP6Q02ij3I7MA PrXVUtKFO2ePK9rP7zxMmz bjogbGVmdDsgdmVydGljYW bbMZulM821 IHRvcDsnPlBhdGllbnQgTm BrKIi1X3BfUil3PATnhEat FY2alJFgOWguYv2ziMdhfD gnGL5zHYGy vaakk626JnTel4xfPEMpvI HnGRjoHJQ4E92yk3A7TYRp PJFjJYT2xWO8jO6wxQvxku ogbGVmdDsg bjXiiRhbVCadYHitU867JR RvcDsnPkJpcnRoIERhdGU6 WW17XM46kIMgl0J6bZH6M9 BhZGRpbmct nkzsoJW8JVRfPKSqvN55Xx 8xwQreKc9oJCNhAHM3DEIk gNFjD6YgvV0yWjLkACXtKV ScS6LjwCCy DYcnM327WRjyVbK5XGXaqi FsQ7RtZEHdaSghFnJ3m6W1 Cf2RE7F7YU79ZF68pSNzz1 X0qDH5O3Zn HAQvujkjiccviNR0TJGtNV WgmO84Vi9ltDbbWg3fELTc IFU8OMRmvLRfI4IaxK4mVm AjMDAwMDAw F0UepOWaMOvjX174IIdnDb C9ORWiwlMbR2AiNMTluYxe MaR0n0Q0Zn8OKCl9UQ08SN 05sKUlt1W2 dDG6X0UgZEQofysnpvtixR C9CDOeFALljD17Yv8tyIuo Kl4xUVPzONP4YFKyqRUzO7 CblE0zJsQt DBUvTXWcA1WcyRIzVRfdD6 59ALeqZtJ6GQZsqxQdZ6Dz AAGzrLrjHzV7d2F8Pu9RYF PuWY42IEO5 iVV2QQ01TY33J8QyKpqjfV FibGU+PHRhYmxlIHdpZHRo FPhiLBDeVnHoqRixZA4cAa 9yZGVyLWNv bOtxdJRpPpFrn9bxBNWjDQ gdQF3hxRacP6YsxRE1BSQe f6f1Al48T89yR7HmcFZ+PG KxlNZ0hIN7 hX4hBhArWjA8GLdjA133Hf ZzqMJfUfkah7jwk1aboQe6 IzO2YIIlxyIynCsfJDO3e4 BzSd63I76s IHdpZHRoPSIxNSUiIHZhbG zlow1hiH4qIi9+PGNvbCB3 tVY2nE9iIqKrRjA1LObqM3 49InRvcCIv Mwpii2ffe1krwGf3VvSdLG WsfjXffXloMJC4n1OqOe28 S3BttYwtp6LxVhp8ko05dB Ocb3S9vDM5 W9TwAFKenqwsuHGmyZljXA 1sKJRditjxKGBpmD9pQFAa H8b3UlLtKxS1DByiM0Pslm H2DBByzNKn LTjvRMJ0X37bp7Q2BBRcKH VuDBN8pHR3pY5rtZtkevhn bGVmdDsgdmVydGljYWwtYW tiG848HEWu nXctEVJstQ8jLAGqzYUioF aeUL6vSLLegmniQqtPHTDP BlZVPSCqSCHYBLKCMS6xFL wvdGQ+PHRk DEL5iLpaRXmuMUYkyM8lAF XyQ7f0DmDtZfN1SPrpT1Ih YOKqduanWo18bC2rNzVzBz F5GFvlN9Ga drI8PBSiiEDxTOfjGRX0J6 9gn2P4CSTkNRXqGHJ3lKV1 fQ1cxBvsctuyoRWcxKpcxx VydGljYWwt RFbtK028FHUaeBfwBxM5Cr N4OaS1VNs7G6AdIdb1WZXw bVggHZ0qvSKqWQqkEw4igA btpNjpYR0r KMGojugjHOWddN3hGQDgvH CnvPmqQV4gBFOjdxaph305 KvUeTFV3QPHbpVSsW0YgbN 9yOiAjMDAw QYGnG1PqxEUaDVsjA217ZI ydZpN1ESHncqHfJ3ZoDTSj aTbaNqX9w0A9Vd87YSUBFG FyczwvdGQ+ CLDcPFI8rOggRDsmPYIvlD 4yMTTrB5f3GqWyRlM4VCnn Z5UaPPAuiuakLl24lC4aQx RkOtH2JRbj W7WpqhD4GIBovCGsWUilBB B5B25gu7L9AVKkDGOuQLK4 uHC9nZ9isAcchnzuxZErsF sgdmVydGlj QYaqDPzcK837PKUxeGvrUe 3MNTT4F8DkQwl9HWSjvVxz NP3rbKCqFKgzOp8mjZoetP jhPG8uHAPu moiyRGLouR9wUPZskVLvgT nbDL3bJHEalhxbv881SzNl BQH4LXQycFMiL3HokQ3nEx AjMDAwMDAw H3NmuXBfWIdeT379AEiqYy W2HCGnwpRzB2WwZWQojHxc GxC5p6W8Aj6OXJjdvEJ+PC 20mw60O8Vh WxtbCkk4HOMsQIU6gVF7nS 4gQSOiUQfvy0R2jXA6R3Hh sfRpom8yg8wsXWMsKJueE6 4fqPMtf6W0 MEPhzGU1RJPueQkgTbSirT 93Oyc+DHVqjPwjn8KlGxtf s6dhw0nqhVo4MnDmKXVzbz FsaWduPSJ0 j8BtMr84E64iJYlnLXOxUK MyKUUoYREdxWofan3ivI0y Ii8+AFZorLN6kSR5pT6fAq WwOgX3WSqk H510VmFmmNYsLxqpb7iny5 cmhYl5AtZtEPQtqrTolAsp RAK8v6WnMo63U8FueJfcv2 VzNfz6nb38 yUYhw3V6eAT1Y7KqVNPdur pwbJNwaZhdWU7yRRLjicji FISmpZ9iTWIbO2e3JcXhGm T0IHgxS2Fi xpU2NFFwwFSaVYAyiHEXvR 4tblpvt9aqmuvbZhGxVTRa YSt6BTj8GYGdyLwxHgJhUW J6VkV5HFX0 aCFtyB6pbFtvcczqyI9bTb c+WRj9g1cssQAoLY0zzPB3 QV66FM07kIQij7V4nHO0N3 BhZGRpbmct scgxnLZ7AYYnRCEcfI14Ah 3loEaxWr1lGBAjGGA7CUKo aUEpD6QewV0sArVmEUFkRU WlS9CqmQIi MVjzJ554ODwuUgM2RHPmln UlN1IyJCYgvVjsHnA7g4N5 Rv8VMG08SS77ST05mFNhv0 S6fHZ4W4Oa JTRgplwwwdmarMB9FKOxVX SlqH58Sj8zzLpiVa2bCQYr PDB1ETNgmZXlE5SqiG9rKe AjMDAwMDAw V2KkfJMfMEgcW476OFyqYa Y8ELFjluHaW9GmSNYjmOzm StM0w7S2Ai8EPa74CS83YI 91kHXxp2A5 cLS9N3UhXJXaztutzsfdjY C3NYNxVGLfwI61Wq0ovLpl Hp0qYJQiDQW0WTQsuBWqP6 XnvQ2wJfOz UOCwDXEaA1NjgNTkJLedJ3 63WBujCpS2RLIrbcSxE0Sd OWAapJbrCnO2g4X1Ot7MZM ojjcz5M3Qe PjwvdHI+VG35REWjVS54vH DcdOAua6xfbMs1PgSyINWl ISK4zXtfKMuyp9MnZSQaZ5 8ruFXfx3H5 IGN (more content not included)... [facility] Provider Orderson 02-11-2021 Provider Orders [id number] [facility] C Urineon 02-10-2021 C Urine Mixed skin, or urogenital marcie. Clinically insignificant [facility] Comment on above: Performed By: #### 6 [id number] #### [facility] (DEFAULT) [address] [place] [address] Coding Summaryon 02-08-2021 [facility] TsojgndqZUy8rTy+PGhlYW Q+LW0WJYAlF16trETipC5I N2tJBB7THVMGTAWVOQ3NDH 0irFP9TDvsO3PanaIe EyqkxHXnEW54TYv4QUD1dX wyLOleeA6bzWShA6z0EjLr AF42iI57YVzbRJRiFwP5Vs ZpbjsgbWFy U7wxWyYqzSHpOmt+PHRhYm xlIHdpZHRoPScxMDAlJyBz hWjxWF1bQf5aLHBxLLJqjE xhcHNlOiBj g1asBWFuJAuoOU8vzKagT6 NodKU8GBOyg2r2Xl78nEN+ YTLdSXV0wGgyESqzr335Wu Xrm0usZKH6 kKSoZRldJFE4Z11bn6I2SM MdEQYcGTE3mAN1lX0dkXgf zizuO6ZwsAWwSkK6LPT6hY HxiF3vnAgy mdjfwV5rKyq+X45WHA9VFG IQSD0FLzs5A5BgEianjBD+ GD41KSGwKB44uDIjgMWva6 ufnRc1LeMy KBUcSWT5nUbqDFzwh8KiOC TzY12eeAZir4K5VHTrkVrn cDNhLqNkwDX8wC2uHKvgmq ngw7eubnqx Iulsb5frgp10iY49J66jAW ycVIKpSTQ4QDNvDBKqqKzd vt6rtA3vRp5+QQuhi3fxl5 ygxEx8AnJb VGWihtCoxPzcPUT4i2LwVe 02J3EbyLyjb7HhSde7tn24 eEHes1Z5fWE2RXliBZQdbM 6rKUlePnM3 PWJpMeVumP07dHFdNExqMs 2qrMheeUkgYD6eWRYqbplz JIHynL5qCYCtcAVkbBzfFA 4wNTBpbjtm e232PcNiGHM3NTLvcNQrU7 ZiiH6iHgApOJZdJZDfR8Js jBGcKYrnB504EWknTmH9GA ItoyPnG4Xu RWKtiBltZcP9v6U5Pq6Jm0 RqjdpcSGM7GHljYYQ8BlQ7 GzScKkW9Y4GcQvk2VLFwgZ qnAZ6vA7Ye EWEhgmcxhxbklKB3ZNZmOV IcfT97kMSyEWkpKq8lz1D7 e098TXHfQEFvwD80Rc2fyE ogMTBwdCBU bH5kcvrsh2kkfblsRlNpAM TeRTk8PTi0GQJdqBegRgJh XHQ9RrT9AIA9pQTbbA1geQ lnudxgxH3o Oyc+G12niV2lMHZ7GSZ1ux uyLEPwcuPeIP17BJ86R4Bu PjwvdGFibGU+PGRpdiBzdH kcJC6zSnSv j8pcs6UaZXheG3JaGWVzEV mnBhz7RPDoOWP6zEC4gJ2e FUIkDRfmc3O1jHV5H2Ajwj Kqkl0ve1od HFYvYYuzB37jpSKpq9P3VI BauVG4EIWbiXtzAqRptR30 Oyc+OTHuhUrhr7PtNebsj6 ppk1qgtQo7 ErYpVOSbrkDarIdsZZA9j4 JjTx06P77yZYnaNYZpXIIi BUPoKFWsaYzsnr5ohO7xPu 8+PGNvbCB3 lQZ9qG6dANJjNtV6ZQteP3 78UcLixLAvIgxoo1jsa4fm eHz2EyUuJHRyjlJlrKnnTT Y6g4YmPd60 B29cQGptBXZiBKUnJSNbDH MtgYbzma0vaU3eEr8+PC9j m9tdae61yD46lSO+PHRkIH N9lWkmMDfh KTVfvG9lYQgqNqF9JVGuUk VgyD98dCChMEgdLt0rvAfb uXxjBJ5aKOZknsulx557Aj Pcw8pjXIWt vRAtJDanXYG3S84kg6S3XP CuSBLaIXH5uMW6yY3htNti bjogbGVmdDsgdmVydGljYW lbJYzxD384 IHRvcDsnPlBhdGllbnQgTm QoXYc3K9HmFtl0GXWvqKkf ES7dzQGhYOpcFo0dbUuusD upVM2lBNDx dbvxx474XiMlx5ifSPQgeL MySCdeHDN1P65lw5Z9AJEe YOOgGQE5gXS5vI5lbTyohu ogbGVmdDsg pmAyaVogBNkkPHbhL609TP RvcDsnPkJpcnRoIERhdGU6 UL19HK59fLYqo2S8mYJ0W8 BhZGRpbmct bzatgZX8HEMeUORdoG33Oi 0lgEjoMc1xLGHkLVZ0ERBc wOHsY9WmwO1qMpSxZQFjCR FeS8MalKMu NPcjO677KYofVbH5GQKvph SuW1VzVNHhpWasSjA2v1S2 Ok7FU8L5IU90HS15nBPfm8 S2bGR5C4Yj NQZygcyvllixfGM2TGHuSG RnkH13Np6nkFrhQr1qRBXw UTH8GEMhpNQeZ1TscI9wCt AjMDAwMDAw R5YgvGRxDHthQ086ZXejHu G5MFXzesItV8DzBPPokMmf LbF1f0G6Wy2RGAn2JA35UJ 22tATty0D5 tTP9V8SfMYQbiyhavmvlkM T2FZKaNBYxyU54Cf6jyCgn Ue2tFETcNXY6UDNnoUZbH3 BzoC3oLkEn RKVxHJIlF5ItpBCqERwqV3 99WXzyNbS8MXMonvLyF1Mx ACZarRjiRtO0u5F0Qc4QGX XjOH46QJI4 iAJ7TX52AJ77Q2SyTaqafF FibGU+PHRhYmxlIHdpZHRo RZweSJLyPjLdoZkyPV3kZl 9yZGVyLWNv cAmlgWYjEmOrp9onVXFiJU goCU2fzMqpE5ItgSV7GBXp v9s1Nl95X67kH3IvjVS+PG CirZZ3tZE8 dR4mWkPtDqW1YMftB361Ky EouWNlNctxs4dzt7fplHh9 VlC8UZRqwlYwiKsmYUF1p1 AnOq86M61w IHdpZHRoPSIxNSUiIHZhbG mqeq3vkM8dMu1+PGNvbCB3 kLT3dF6fWhAiBlH1OUdwJ7 49InRvcCIv Hmxkf2ers1cpeKe9LbRwQO ZicoJzfRvrPWI2x0ByMi41 A5QiyJqah4DzYkm6wx00hB Vlz2I9uWE7 F2SbIPTvypcatZGgiJkbEO 2gYCSpzcpsHEQkeW6tTIHc U4x2DoDoUtD6DXekY3Uaoo I7MKXrpMWq YMrpOAJ5A59el9E2JKXsLT CvBPM4iGO4sB8veNtayioi bGVmdDsgdmVydGljYWwtYW tdR512PLJr jCqbTJZirZ5wXNOkhVSinT xrFP5aEOFnxtssLppUTSSF ZcFTJQXnWREUTQLJJP2tLS wvdGQ+PHRk KFO0aWpkIMbyPGXoxX2aNX WyY6n5XzPrXxS6ZNejS6Ci ZUZsoqbhTo92aY2kQbEtXa N6QItzD6Au fwM3XTAetZImADlkZAX9V6 5sf8J1EHUcYRBgFCQ5pEY5 gD4fsVsoiqdhlKOpiXujdu VydGljYWwt MBzaL503EGXypIygPyT7Dd F5AlE8NEe2M8SgFyt3TZVg vAfxWK5tvIKlFLnmMr0glN zppLlsDH2w DJTghfowDICdeF0hALLspT IlxEblKA3eJQVeqovtw096 KxApDDO9NABqiNDhP6UjhF 9yOiAjMDAw BAJzK9YrwEUxHWmwW922AR fxDoX9PVJdykTvD7FyKRYn tFzzDsI5u8I7Zg36TRHXZF FyczwvdGQ+ XGPzMIV3cAgfRUbuAIAqkZ 1hHKNkK8k5NvVnPgT0VUyf K3KsUJUqfwzjXz28sM2aPr JbSmF5IRny X8BhcpH5ARFewGAlYPgkNF Z6Y72fv1Y6QKBrEXUsNHV7 iQN9tA0glMyhjkytpLFejW sgdmVydGlj ROkjWZljS144OEDdrUpiXb 1NWXP8Y2DeJvw8CIQzeMkn YM3xnJUhVVppQi7cnBburH rvAQ1pMHXw ovkvULJhlO5qYIYirKZqfO rnBH0dPNCjobnyq714KnCw LFT9TXYxaTWiO4KyhX4jTt AjMDAwMDAw E1KzfQFsXZeyF430EFuuWs J8DXUunmNgR0UvPHFdcTwz IiU3b4Q1Rh5YKBgwtND+PC 88fe09F0Bz ZgkmQxp8OGOuQCM6eGF5bF 1zRHGuAHlnt8C3aZD7B4Eu zzZsao6cv3nfPCTdDYuqO6 5edAWtw5P1 CCMpwFV3SXZheBfbUnXbrP 93Oyc+RJDlnCfqk6LoQler f2aoo4fufSg6ZkKuQWIuvu FsaWduPSJ0 z7QmHf56K28tORixESOwTZ GpABOsQRFkpTkzye4faD0e Ii8+MPNleBH2bMK8rC0sUj StGcF0SEnn E886DkCtxGAzLfyzj9jdo2 wgmMe4QwKtPLNhkdPtmBin ZVO5u7TjCa27T1QrtLtxb8 AkFew7ml76 fPNhg2Q7bWJ3N5HpORQubi qiaYGpnInoBD3uYXVvrqog NPGydJ3xNPDaI5b1YoIrDz W9OHehM6Ox qcD1YPWizNOjZSWaqOEQcW 9trnohe0mohveoVwNzRLHk JYv5GYb6XRUsoDoxOcIiBD B1DzF5QJT5 pZVsxO7qlJkdvnxveC8iGl c+URi7y4haoGNkUN1gjIS3 WD81SL23eUFxg6X9hYO0D4 BhZGRpbmct inholOS4MANtBISxmF30Gk 3frJyjGp4oIQHiNCH0LZMx yIWuP7JgjI9xWrCdVIItNM VpW2FfzFPk PLrxG743TQcfRxU8ZDTjwy IlA1HxQYFcvUgpHdS9w9A7 Pr6JLN04DA00KD69mILfk6 Z9nYT9T3Nu TKUpduadgtryeKM0BPFxGH ZjdE76Rk0kpFnrUl2sTHUa KAQ6YRKxqFNuP8YmnZ6vHb AjMDAwMDAw G7NmdSXfFLjeZ621UOtzEc W0YPDtqfFlG3OnYYNngJpf DfR7t5L7Nk2PTo49CH92UX 41xSQju3Y0 cZA8A6TcIFNuxdmbcptehI A2ICCvPHVunU33Ky8rgOeu Rx0mWESnPPH4UIQdeDRdT2 JmxR9oSgKb AHRlVJQuO0RuyQXsCEdaF6 13BUspMoO6JKBzewJcC2Cr IBIlfXuvBvX8w2E9Gw2RSR ldzis6F4Ik PjwvdHI+PR10RLVbMR55oM VaeKMuz2kujBt2ZgVkUUMt HZN5yJuqNLkvs2GqNDIpB5 1veVAaw1O1 IGN (more content not included)... Normal [facility] Provider Orderson 02-07-2021 Provider Orders [id number]#1.0 [id number] Normal [facility] .Auto Diff 102-06-2021 Auto [place] % 12 % Normal 08-07 [facility] Comment on above: Performed By: #### 7 [id number], 4740341, [id number], [id number], [id number] #### [facility] (DEFAULT) [address] [place] [address] Baso Abs# 0.0 x10 Normal 0.0-0.2 [facility] Comment on above: Performed By: #### 7 232114, 1616594, [id number], [id number], [id number] #### [facility] (DEFAULT) [address] [place] [address] Basophils/100 WBC (Bld) 0.3 % Normal 0.2-2.0 [facility] Comment on above: Performed By: #### 7 285538, 4370326, [id number], [id number], [id number] #### [facility] (DEFAULT) [address] [place] [address] Eos Abs# 0.5 x10 High 0.0-0.4 [facility] Comment on above: Performed By: #### 7 408389, 7174701, 089494670, [id number], [id number] #### [facility] (DEFAULT) [address] [place] [address] Eosinophils/100 WBC (Bld) 6.0 % High 0.9-4.0 [facility] Comment on above: Performed By: #### 7 350947, 6760625, 428260148, [id number], [id number] #### [facility] (DEFAULT) [address] [place] [address] 37371 Lymph Abs# 1.8 x10 Normal 1.3-2.9 [facility] Comment on above: Performed By: #### 7 120119, 7507191, 716500833, [id number], [id number] #### [facility] (DEFAULT) [address] [place] [address] Lymphocytes/100 WBC (Bld) 21 % Normal 14-48 [facility] Comment on above: Performed By: #### 7 005545, 4342534, 933008879, [id number], [id number] #### [facility] (DEFAULT) [address] [place] [address] [place] Abs# 1.1 x10 High 0.0-0.8 [facility] Comment on above: Performed By: #### 7 220222, 5335885, 314688274, [id number], [id number] #### [facility] (DEFAULT) [address] [place] [address] Neut Abs# 5.3 x10 Normal 1.5-9.2 [facility] Comment on above: Performed By: #### 7 948089, 3283813, 590849282, [id number], [id number] #### [facility] (DEFAULT) [address] [place] [address] Neutrophils/100 WBC (Bld) 60 % Normal 44-88 [facility] Comment on above: Performed By: #### 7 825975, 8219717, 804958901, [id number], 55606229 #### [facility] (DEFAULT) [address] [place] [address] CBC w/ Auto Diffon 1 Erythrocyte distribution width (RBC) [Ratio] 13.1 % Normal 11.5-15.0 [facility] Comment on above: Performed By: #### 7 296287, 6313131, 432801957, 6999939918, [id number] #### [facility] (DEFAULT) [address] [place] [address] Hematocrit (Bld) [Volume fraction] 43.1 % Normal 34.8-51.9 [facility] Comment on above: Performed By: #### 7 633499, 5918799, 763526502, [id number], [id number] #### [facility] (DEFAULT) [address] [place] [address] Hemoglobin (Bld) [Mass/Vol] 14.7 g/dL Normal 11.8-17.7 [facility] Comment on above: Performed By: #### 7 805431, 0507780, 054161131, 4422542428, 77391165 #### [facility] (DEFAULT) [address] [place] [address] Instr WBC 8.7 x10 Invalid Interpretation Code [facility] Comment on above: Performed By: #### 7 319624, 9229595, 014709434, [id number], 64862534 #### [facility] (DEFAULT) [address] [place] [address] Man Diff? Auto Normal [facility] Comment on above: Performed By: #### 7 219073, 7637775, 304835416, [id number], 64984924 #### [facility] (DEFAULT) [address] [place] [address] 55155 MCH (RBC) [Entitic mass] 34 pg Normal 24-34 [facility] Comment on above: Performed By: #### 7 485087, 1452920, 936996688, [id number], [id number] #### [facility] (DEFAULT) [address] [place] [address] 25881 MCHC (RBC) [Mass/Vol] 34 g/dL Normal 26-37 [facility] Comment on above: Performed By: #### 7 874921, 2557580, 096586705, [id number], [id number] #### [facility] (DEFAULT) [address] [place] [address] 99962 MCV (RBC) [Entitic vol] 99 fL Normal 81-100 [facility] Comment on above: Performed By: #### 7 271883, 5261213, 989708228, 0225448790, 86634204 #### [facility] (DEFAULT) [address] [place] [address] 88232 Platelet 286 x10 Normal 138-427 [facility] Comment on above: Performed By: #### 7 309609, 5849554, 173436652, 2632305829, 46834643 #### [facility] (DEFAULT) [address] [place] [address] Platelet mean volume (Bld) [Entitic vol] 8.3 fL Normal 6.3-10.2 [facility] Comment on above: Performed By: #### 7 946768, 6492561, 780161916, [id number], [id number] #### [facility] (DEFAULT) [address] [place] [address] RBC 4.37 x10 Normal 3.70-5.30 [facility] Comment on above: Performed By: #### 7 801493, 8029974, 643306315, [id number], [id number] #### [facility] (DEFAULT) [address] [place] [address] WBC 8.7 x10 Normal 3.5-10.5 [facility] Comment on above: Performed By: #### 7 406910, 5906719, 038051124, [id number], 66182507 #### [facility] (DEFAULT) [address] [place] [address] Standardon 02-06-2021 eGFR Non AA >60 Invalid Interpretation Code [facility] Comment on above: Performed By: #### 7 626927, 0111653, [id number], [id number], [id number] #### [facility] (DEFAULT) [address] [place] [address] eGFR AA >60 Invalid Interpretation Code [facility] Comment on above: Result Comment: Mobile Lab Technician noe Kidney disease could be indicated at eGFRs of less than 60 ml/min/1.73m2. Kidney Failure is indicated at less than 15 ml/min/1.73m2 Performed By: #### 7 409963, 6423838, 928733271, [id number], 65857960 #### [facility] (DEFAULT) [address] [place] [address] Albumin [Mass/Vol] 4.4 g/dL Normal 3.5-5.0 [facility] Comment on above: Performed By: #### 7 481898, 9821141, 135016653, 5615274527, 13006068 #### [facility] (DEFAULT) [address] [place] [address] Albumin/Globulin [Mass ratio] 1.6 {ratio} Normal 1.4-2.6 [facility] Comment on above: Performed By: #### 7 309039, 5688549, 060949383, 5409788316, 34029803 #### [facility] (DEFAULT) [address] [place] [address] Alk Phos 107 IU/L High 32-91 [facility] Comment on above: Performed By: #### 7 083057, 7058884, 731948455, 5382697691, 36392195 #### [facility] (DEFAULT) [address] [place] [address] ALT [Catalytic activity/Vol] 16.0 U/L Low 17.0-63.0 [facility] Comment on above: Performed By: #### 7 880325, 0439953, 569176473, 3998308700, [id number] #### [facility] (DEFAULT) [address] [place] [address] Anion gap [Moles/Vol] 17.0 mmol/L Normal 5.0-19.0 [facility] Comment on above: Performed By: #### 7 610371, 3088777, 277640332, [id number], 74819290 #### [facility] (DEFAULT) [address] [place] [address] AST [Catalytic activity/Vol] 16 U/L Normal 15-41 [facility] Comment on above: Performed By: #### 7 885511, 4483305, 112087575, [id number], 57818539 #### [facility] (DEFAULT) [address] [place] [address] Bili Total 0.7 mg/dL Normal 0.3-1.2 [facility] Comment on above: Performed By: #### 7 161255, 8424272, 911846852, [id number], 25330739 #### [facility] (DEFAULT) [address] [place] [address] 56228 Calcium [Mass/Vol] 9.6 mg/dL Normal 8.9-10.3 [facility] Comment on above: Performed By: #### 7 571680, 8988332, 038628722, 0884439672, 98251785 #### [facility] (DEFAULT) [address] [place] [address] Chloride [Moles/Vol] 101 mmol/L Normal 101-111 [facility] Comment on above: Performed By: #### 7 458590, 7614462, 572186006, 4984159379, 09678523 #### [facility] (DEFAULT) [address] [place] [address] CO2 [Moles/Vol] 25 mmol/L Normal 21-32 [facility] Comment on above: Performed By: #### 7 819599, 6208691, 644949018, [id number], 22506404 #### [facility] (DEFAULT) [address] [place] [address] Creatinine [Mass/Vol] 0.87 mg/dL Low 0.90-1.30 [facility] Comment on above: Performed By: #### 7 869593, 6688666, 235539895, 0535942184, 53252327 #### [facility] (DEFAULT) [address] [place] [address] 27598 Globulin (S) [Mass/Vol] 2.7 g/dL Normal 1.5-4.3 [facility] Comment on above: Performed By: #### 7 291843, 1486777, 500190511, 6809892759, 88331934 #### [facility] (DEFAULT) [address] [place], [place] [address] Glucose [Mass/Vol] 124.0 mg/dL High 74.0-118.0 [facility] Comment on above: Performed By: #### 7 932605, 0334280, 767013894, [id number], 72067971 #### [facility] (DEFAULT) [address] [place] [address] 81053 Osmolality 279 mOsm/L Invalid Interpretation Code [facility] Comment on above: Performed By: #### 7 973221, 1882734, 621594830, [id number], 60646060 #### [facility] (DEFAULT) [address] [place] [address] 04909 Potassium [Moles/Vol] 4.1 mmol/L Normal 3.6-5.1 [facility] Comment on above: Performed By: #### 7 207594, 6669654, 473758647, [id number], 55959356 #### [facility] (DEFAULT) [address] [place] [address] 31371 Protein [Mass/Vol] 7.1 g/dL Normal 6.5-8.1 [facility] Comment on above: Performed By: #### 7 820113, 2497348, 148209828, [id number], 92287079 #### [facility] (DEFAULT) [address] [place] [address] 99956 Sodium [Moles/Vol] 139.0 mmol/L Normal 136.0-144.0 [facility] Comment on above: Performed By: #### 7 743628, 1698944, 393077887, 4356077203, 42623160 #### [facility] (DEFAULT) [address] [place] [address] 19258 Urea nitrogen [Mass/Vol] 13 mg/dL Normal 8-26 [facility] Comment on above: Performed By: #### 7 497182, 5806842, 498980043, 6980935819, 93161136 #### [facility] (DEFAULT) [address] [place] [address] 55598 Urea nitrogen/Creatinine [Mass ratio] 15.0 mg/mg Normal 4.6-16.2 [facility] Comment on above: Performed By: #### 7 823831, 1693079, 714972293, [id number], 16805317 #### [facility] (DEFAULT) [address] [place] [address] 96698 PSA Screenon 02-06-2021 PSA Screen 2.30 ng/mL Normal 0.00-4.00 [facility] Comment on above: Result Comment: The concentration of PSA in a given specimen determined with assays from different manufacturers can vary due to differences in assay methods and reagent specificity. Values obtained with different assay methods cannot be used interchangeably. If, in the course of monitoring a patient, the assay method used for determining PSA levels serially is changed, additional sequential testing should be carried out to confirm baseline values. Current Methodology: [employer] PSA Performed By: #### 7 289646, 8158783, 500410627, [id number], [id number] #### [facility] (DEFAULT) [address] [place] [address] 69757 TSH w/ Reflex to FT4on 02-06 TSH Qn 2.15 m[IU]/L Normal 0.45-5.33 [facility] Comment on above: Result Comment: Gene ral Population (males and non- females, aged 21-88) 0.45 - 5.33 Females, 1st Trimester 0.05 - 3.70 Females, 2nd Trimester 0.31 - 4.35 Females, 3rd Trimester 0.41 - 5.18 Performed By: #### 7 [id number] #### [facility] (DEFAULT) [address] [place] [address] 69950 UA Standardon 02-06-2021 Breakpoint UA [facility] Comment on above: Performed By: #### 1 [id number] #### [facility] (DEFAULT) [address] [place] [address] 22781 Color (U) Yellow [facility] Comment on above: Performed By: #### 1 [id number] #### [facility] (DEFAULT) [address] [place] [address] 01533 Glucose (U) [Mass/Vol] Negative [facility] Comment on above: Performed By: #### 1 [id number] #### [facility] (DEFAULT) [address] [place] [address] 37909 Ketones Ql (U) Negative [facility] Comment on above: Performed By: #### 1 [id number] #### [facility] (DEFAULT) [address] [place] [address] 85110 UA Bilirubin Negative Normal [facility] Comment on above: Performed By: #### 1 [id number] #### [facility] (DEFAULT) [address] [place] [address] 38150 UA Blood LARGE Abnormal NEGATIVE [facility] Comment on above: Performed By: #### 1 [id number] #### [facility] (DEFAULT) [address] [place] [address] 26212 UA Clarity SL CLOUDY Abnormal CLEAR [facility] Comment on above: Performed By: #### 1 [id number] #### [facility] (DEFAULT) [address] [place] [address] 21190 UA Leuk Est MODERATE Abnormal NEGATIVE [facility] Comment on above: Performed By: #### 1 [id number] #### [facility] (DEFAULT) [address] [place] [address] 77944 UA Nitrite Negative Normal NEGATIVE [facility] Comment on above: Performed By: #### 1 [id number] #### [facility] (DEFAULT) [address] [place] [address] 66043 UA pH 5.5 Normal 5-8 [facility] Comment on above: Performed By: #### 1 [id number] #### [facility] (DEFAULT) [address] [place] [address] 89233 UA Protein Negative Normal [facility] Comment on above: Performed By: #### 1 [id number] #### [facility] (DEFAULT) [address] [place] [address] 78491 UA Spec Grav 1.020 Normal 1.001-1.035 [facility] Comment on above: Performed By: #### 1 [id number] #### [facility] (DEFAULT) [address] [place] [address] 93794 UA Urobilinogen 0.2 mg/dL Normal 0.2-1.0 [facility] Comment on above: Performed By: #### 1 [id number] #### [facility] (DEFAULT) [address] [place] [address] 54026 Urine Source Clean Catch Normal [facility] Comment on above: Performed By: #### 1 [id number] #### [facility] (DEFAULT) [address] [place] [address] XR Chest 2 Viewson XR Chest 2 Views EXAM: CHEST 2 VIEWS HISTORY: unintentional weight loss TECHNIQUE: PA and lateral views chest. COMPARISON: None. FINDINGS: The lungs are hyperinflated with biapical scarring. There is no focal lung consolidation, pleural effusion or pneumothorax. Pulmonary vasculature is within normal limits. The cardiomediastinal silhouette is normal. There are remote right-sided rib fractures. IMPRESSION: 1. Chronic obstructive pulmonary disease without acute cardiopulmonary disease. Final Dictated by: MD Mondragon Wincha Dictated DT/TM: 02/06/21 8:01 Signed (Electronic Signature): MD Mondragon Wincha 02/06/21 8:03 pm Technologist: [facility] Vital Signs Date Time Vital Sign Value Performing Clinician Facility 08-05-2023 09:50-0500 Blood Pressure Location Deandra Lue [facility] 08-05-2023 09:50-0500 Diastolic blood pressure 78 mm[Hg] Deandra Lue [facility] 08-05-2023 09:50-0500 Systolic blood pressure 128 mm[Hg] Deandra Lue [facility] 07-22-2023 08:09-0500 Blood Pressure Location Deandra Lue [facility] 07-22-2023 08:09-0500 Body temperature 97.16 [degF] Deandra Lue [facility] 07-22-2023 08:09-0500 Diastolic blood pressure 78 mm[Hg] Deandra Lue [facility] 07-22-2023 08:09-0500 Heart rate 74 /min Deandra Lue [facility] 07-22-2023 08:09-0500 Systolic blood pressure 118 mm[Hg] Deandra Lue [facility] 11-18-2022 15:12-0400 Blood Pressure Location YESENIA DAMI [facility] 11-18-2022 15:12-0400 Diastolic blood pressure 78 mm[Hg] YESENIA DAMI [facility] 11-18-2022 15:12-0400 Heart rate 68 /min YESENIA DAMI [facility] 11-18-2022 15:12-0400 Respiratory rate 16 /min YESENIA DAMI [facility] 11-18-2022 15:12-0400 Systolic blood pressure 132 mm[Hg] YESENIA DAMI [facility] 10-28-2022 13:42-0400 Heart rate 77 /min Deandra Lue [facility] 10-28-2022 13:42-0400 SaO2% (BldA) [Mass fraction] 95 % Deandra Lue [facility] 10-28-2022 13:42-0400 Respiratory rate 16 /min Deandra Lue [facility] 10-28-2022 13:41-0400 Body temperature 98.06 [degF] Deandra Lue [facility] 10-28-2022 13:41-0400 Diastolic blood pressure 83 mm[Hg] Deandra Lue [facility] 10-28-2022 13:41-0400 Mean blood pressure 110 mm[Hg] Deandra Lue [facility] 10-28-2022 13:41-0400 Systolic blood pressure 165 mm[Hg] Deandra Lue [facility] 10-28-2022 12:12-0400 Heart rate 68 /min Deandra Lue [facility] 10-28-2022 12:12-0400 SaO2% (BldA) [Mass fraction] 93 % Deandra Lue [facility] 10-28-2022 12:11-0400 Respiratory rate 18 /min Deandra Lue [facility] 10-28-2022 12:10-0400 Diastolic blood pressure 88 mm[Hg] Deandra Lue [facility] 10-28-2022 12:10-0400 Mean blood pressure 109 mm[Hg] Deandra Lue [facility] 10-28-2022 12:10-0400 Systolic blood pressure 150 mm[Hg] Deandra Lue [facility] 10-28-2022 12:10-0400 Body temperature 98.06 [degF] Deandra Lue [facility] 10-28-2022 12:00-0400 Body temperature 98.6 [degF] Deandra Lue [facility] 10-28-2022 12:00-0400 Diastolic blood pressure 93 mm[Hg] Deandra Lue [facility] 10-28-2022 12:00-0400 Heart rate 71 /min Deandra Lue [facility] 10-28-2022 12:00-0400 Respiratory rate 11 /min Deandra Lue [facility] 10-28-2022 12:00-0400 Systolic blood pressure 153 mm[Hg] Deandra Lue [facility] 10-28-2022 11:55-0400 Blood Pressure Location Deandra Lue [facility] 10-28-2022 11:55-0400 Mean blood pressure 113 mm[Hg] Deandra Lue [facility] 10-28-2022 11:55-0400 Respiratory rate 16 /min Deandra Lue [facility] 10-28-2022 11:40-0400 Mean blood pressure 108 mm[Hg] Deandra Lue [facility] 10-28-2022 11:40-0400 Respiratory rate 19 /min Deandra Lue [facility] 10-28-2022 11:10-0400 Body temperature 97.7 [degF] Deandra Lue [facility] 10-28-2022 11:05-0400 Respiratory rate 8 /min Deandra Lue [facility] 10-28-2022 08:35-0400 Mean blood pressure 102 mm[Hg] Deandra Lue [facility] 10-28-2022 08:35-0400 Heart rate 78 /min Deandra Lue [facility] 10-28-2022 08:33-0400 Body temperature 98.24 [degF] Deandra Lue [facility] 10-15-2022 12:32-0400 Diastolic blood pressure 82 mm[Hg] Deandra Lue [facility] 10-15-2022 12:32-0400 Heart rate 74 /min Deandra Lue [facility] 10-15-2022 12:32-0400 Mean blood pressure 100 mm[Hg] Deandra Lue [facility] 10-15-2022 12:32-0400 Systolic blood pressure 134 mm[Hg] Deandra Lue [facility] 09-08-2022 13:28-0500 Blood Pressure Location Deandra Lue [facility] 09-08-2022 13:28-0500 Diastolic blood pressure 83 mm[Hg] Deandra Lue [facility] 09-08-2022 13:28-0500 Heart rate 81 /min Deandra Lue [facility] 09-08-2022 13:28-0500 Systolic blood pressure 135 mm[Hg] Deandra Lue [facility] 11-21-2021 11:10-0400 Body height 187.96 cm Janice Arelalno Other [facility] Other 10-31-2021 12:30-0400 Body height 187.96 cm Janice Arellano Other [facility] Other 10-31-2021 12:30-0400 Body mass index (BMI) [Ratio] 25.16 kg/m2 Janice Arellano Other [facility] Other 10-31-2021 12:30-0400 Body temperature 97.3 [degF] Janice Arellano Other [facility] Other 10-31-2021 12:30-0400 Body weight 88.91 kg Janice Arellano Other [facility] Other 10-31-2021 12:30-0400 Diastolic blood pressure 73 mm[Hg] Janice Arellano Other [facility] Other 10-31-2021 12:30-0400 Respiratory rate 18 /min Janice Arellano Other [facility] Other 10-31-2021 12:30-0400 SaO2% (BldA) [Mass fraction] 97 % Janice Arellano Other [facility] Other 10-31-2021 12:30-0400 Systolic blood pressure 137 mm[Hg] Janice Arellano Other [facility] Other Encounters Encounter Date Encounter Type Care Provider Facility Start: 08-05-2023 ambulatory Deandra Rodriguez Facility:[facility] Start: 08-05-2023 End: 08-05-2023 Patient encounter procedure Deandra Rodriguez [facility] Start: 08-04-2023 End: 08-04-2023 ambulatory SHAIKH DG Not Available Start: 07-28-2023 ambulatory YESENIA Hogan ty:[facility] Start: 07-22-2023 End: 07-23-2023 ambulatory Deandra Rodriguez Facility:[facility] Start: 07-22-2023 End: 07-22-2023 Patient encounter procedure Deandra Rodriguez [facility] Start: 07-08-2023 End: 07-09-2023 ambulatory Deandra Rodriguez Facility:[facility] Start: 06-23-2023 End: 06-24-2023 ambulatory YESENIA MUKHERJEERY Facility:[facility] Start: 06-23-2023 End: 06-23-2023 Patient encounter procedure YESENIA LOMAX [facility] Start: 05-26-2023 End: 05-27-2023 ambulatory Steve ROBISON Facility:[facility] [place] Start: 05-01-2023 End: 05-02-2023 ambulatory Steve ROBISON Facility:[facility] Start: 11-18-2022 End: 11-19-2022 ambulatory YESENIA LOMAX Facility:[facility] Start: 11-18-2022 End: 11-18-2022 Patient encounter procedure YESENIA LOMAX [facility] Start: 11-07-2022 End: 11-08-2022 ambulatory MAGED LUPE Facility:[facility] Start: 11-07-2022 End: 11-07-2022 Patient encounter procedure MAGED GUERRAHAYLEESean [facility] Start: 10-30-2022 End: 10-31-2022 ambulatory Deandra Brice. Zakiae Facility:[facility] [place] Start: 10-30-2022 End: 10-30-2022 Patient encounter procedure Deandra Rodriguez [facility] [place] Start: 10-28-2022 End: 10-28-2022 ambulatory Deandra M. Lue Facility:[facility] Start: 10-28-2022 End: 10-28-2022 Admission to same day surgery center Deandra Rodriguez [facility] Start: 10-15-2022 End: 10-16-2022 ambulatory Deandra M. Lue Facility:[facility] Start: 10-15-2022 End: 10-15-2022 Patient encounter procedure Deandra M. Lue [facility] Start: 10-15-2022 ambulatory Facility:[id number] Start: 09-29-2022 End: 09-30-2022 ambulatory Deandra M. Lue Facility:[facility] Start: 09-16-2022 ambulatory Deandra Lue Facility:[facility] [place] Start: 09-08-2022 End: 09-09-2022 ambulatory Deandra M. Lue Facility:[facility] [place] Start: 09-08-2022 End: 09-08-2022 Patient encounter procedure Deandra Brice. Lue [facility] Start: 08-25-2022 End: 08-25-2022 ambulatory CHRISTIANA DIA Facility:[facility] Start: 12-20-2021 End: 12-20-[address] JERAMY PHIPPS Facility:[facility] Start: 11-21-2021 End: 11-21-2021 ambulatory Janice Arellano Other [facility] Other Start: 11-21-2021 Office outpatient visit 15 minutes Janice Arellano [facility] Start: 10-31-2021 End: 10-31-2021 ambulatory Janice Arellano Other [facility] Other Start: 10-31-2021 Office outpatient visit 15 minutes Janice Arellano [facility] Start: 10-31-2021 Telephone encounter Maged Alvarez i [facility] Procedures Date Procedure Procedure Detail Performing Clinician Start: 10-28-2022 Jae operation, litholapaxy YESENIA LOMAX Start: 10-28-2022 Lithotripsy Deandra Lue Start: 10-28-2022 Transurethral insert ion of prostatic urethral lift implant YESENIA LOMAX Start: 09-29-2022 Cystoscopy YESENIA SCHMIDT Start: 09-29-2022 Ultrasonography by transrectal approach YESENIA LOMAX Start: 09-29-2022 Urodynamic studies ABRAHAM LOMAX Colonoscopy Deandra Lue Payers Date Payer Category Payer Unknown [id number] 2022 Unknown [id number] 1958 Medicare [id number] 1945 Unknown [id number] 2.16.84 [id number] 1945 Unknown [id number] 2.16.84 [id number] 1945 Unknown [id number] 2.16. [id number] 1945 Unknown [id number] 2.16.8 40.1.314579.3.579.2.727 1945 Unknown [id number] 2.16.8 40.1.211177.3.579.2.727 1945 Unknown [id number] 2.16.8 40.1.765070.3.579.2.727 1945 Unknown [id number] 2.16.8 40.1.916255.3.579.2.727 1945 Unknown [id number] 2.16.8 40.1.102537.3.579.2.727 1946 Unknown [id number] 2.16.8 40.1.400645.3.579.2.727 1946 Unknown [id number] 2.16.8 40.1.046398.3.579.2.727 1946 Unknown [id number] 2.16.8 40.1.502198.3.579.2.727 1946 Unknown [id number] 2.16.8 40.1.525469.3.579.2.727 1946 Unknown [id number] 2.16.8 40.1.541703.3.579.2.727 1946 Unknown [id number] 2.16.8 40.1.405497.3.579.2.72 1945 Unknown [id number] 2.16.8 40.1.442740.3.579.2.727 1946 Unknown [id number] 2.16.8 40.1.493272.3.579.2. 1945 Unknown [id number] 2.16.8 40.1.486831.3.579.2.727 1945 Unknown [id number] 2.16.84 [id number] Medicare [id number] 2.16. [id number] Social History Date Type Detail Facility Sex Assigned At [facility] Start: 09-08-2022 End: 05-01-2023 Tobacco smoking status Ex-smoker (finding) [facility] Start: 07-22-2023 End: 08-05-2023 Tobacco smoking status Never [facility] Medical Equipment Procedure Code Equipment Code Equipment Origin al Text Equipment Identifier Dates CYSTOSCOPY Deandra Ovalles 10/28/22 Unknown Other FDA Start: 10-28-2022 CYSTOSCOPY Deandra Ovalles 10/28/22 Unknown Other FDA Start: 10-28-2022 CYSTOSCOPY Michael Corado, Deandra Smith 10/28/22 Unknown Other FDA Start: 10-28-2022 CYSTOSCOPY Michael Corado, Deandra Smith 10/28/22 Unknown Other FDA Start: 10-28-2022 CYSTOSCOPY Lue M D, Deandra M. 10/28/22 Unknown Other FDA Start: 10-28-2022 CYSTOSCOPY Lue M D, Deandra M. 10/28/22 Unknown Other FDA Start: 10-28-2022 CYSTOSCOPY Lue M D, Deandra M. 10/28/22 Unknown Other FDA Start: 10-28-2022 CYSTOSCOPY Lue M D, Deandra M. 10/28/22 Unknown Other FDA Start: 10-28-2022 CYSTOSCOPY Lue M D, Deandra M. 10/28/22 Unknown Other FDA Start: 10-28-2022 CYSTOSCOPY Lue M D, Deandra M. 10/28/22 Unknown Other FDA Start: 10-28-2022 CYSTOSCOPY Lue M D, Deandra M. 10/28/22 Unknown Other FDA Start: 10-28-2022 CYSTOSCOPY Lue M D, Deandra M. 10/28/22 Unknown Other FDA Start: 10-28-2022 CYSTOSCOPY Lue M D, Deandra M. 10/28/22 Unknown Other FDA Start: 10-28-2022 CYSTOSCOPY Lue M D, Deandra M. 10/28/22 Unknown Other FDA Start: 10-28-2022 Functional Status Date Assessment Result Facility 08-05-2023 Functional Status N/A [facility] 07-22-2023 Functional Status N/A [facility] 11-18-2022 Functional Status N/A [facility] 10-15-2022 Functional Status No [facility] 09-08-2022 Functional Status N/A [facility] [place] Clinical Notes 10-31-2021 to 08-05-2023 Note Date & Type Note Facility 08-05-2023 Hospital Discharge instructions Patient Education 08/05/2023 10:41:40 Clean Intermittent Catheterization, Male Clean Intermittent Catheterization, Male Clean intermittent catheterization (CIC) is a procedure to remove urine from the bladder by placing a small, flexible tube (catheter) into the bladder though the urethra. The urethra is a tube in the body that carries urine from the bladder out of the body. CIC may be done when: You cannot completely empty your bladder on your own. This may be due to a blockage in the bladder or urethra. Your bladder leaks urine. This may happen when the muscles or nerves near the bladder are not working normally, so the bladder overflows. Your health care provider will show you how to perform CIC and will help you to become comfortable performing this procedure at home. Your health care provider will also help you to get the home care supplies that are needed for this procedure. Supplies needed: Germ-free (sterile), water-based lubricant. A container for urine collection. You may also use the toilet to dispose of urine from the catheter. A catheter. Your health care provider will determine the best size for you. ?Use this catheter size: Clean gloves. Soap and water. Towel. How to perform this procedure: Most people need CIC at least 4 times per day to adequately empty the bladder. Your health care provider will tell you how often you should perform CIC. Number of times per day to perform CIC: __ To perform CIC, follow these steps: 1.Wash your hands with soap and water. If soap and water are not available, use hand fisher purse seine. 2.Clean your penis with soap and water. Dry the tip of your penis completely. 3.Prepare the supplies that you will use during the procedure. Open the catheter package and lubricant. 4.Get in a comfortable position. Possible positions include: Sitting on a toilet, a chair, or the edge of a bed. Standing near a toilet. Lying down with your head raised on pillows and your knees pointing to the ceiling. You may wish to place a waterproof mat or pad under you. 5.If you are using a urine collection container, position it between your legs. 6.Urinate, if you are able. 7.Put on gloves. 8.Apply lubricant to about 2 inches (5 cm) of the tip of the catheter. 9.Set the catheter down on a clean, dry surface within reach. 10.Gently stretch your penis out from your body. Pull back any skin that covers the end of your penis (foreskin). Clean the end of your penis with medicated sterile swabs as told by your health care provider. 11.Hold your penis upward at a 45 60 degree angle. This helps to straighten the urethra. 12.Slowly insert the lubricated catheter straight into your urethra until urine flows freely. This is usually about 6 8 inches (15 20 cm). 13.When urine starts to flow freely, insert the catheter 1 inch (3 cm) more. Allow urine to drain into the toilet or the urine collection container. 14.When urine stops flowing, slowly remove the catheter. 15.Note the color, amount, and odor of the urine. 16.Measure your urine and note the amount, if told by your health care provider. 17.Discard the urine in the toilet. 18.Clean your penis using soap and water. 19.Move the foreskin back in place, if applicable. 20.If you are using a single-use catheter, discard the catheter and supplies. 21.Wash your hands with soap and water. 22.If you are using a reusable catheter, follow package instructions about how to clean the catheter after each use. How often should I perform this procedure? Do CIC to empty your bladder every 4 6 hours or as often as told by your health care provider. If you have symptoms of too much urine in your bladder (overdistension) and you are not able to urinate, perform CIC. Symptoms of overdistension may include: ?Restlessness. ?Sweating or chills. ?Headache. ?Flushed or pale skin. ?Bloated lower abdomen. What are the risks? Generally, this is a safe procedure, however problems may occur, including: Infection. Injury to the urethra. Irritation of the urethra. Follow these instructions at home General instructions Drink enough fluid to keep your urine pale yellow. Dispose of a multiple use catheter when it becomes dry, brittle, or cloudy. This usually happens after you use the catheter for 1 week. Avoid caffeine. Caffeine may make you need to urinate more frequently and more urgently. When traveling, bring extra supplies with you in case of delays. Keep supplies with you in a place that you can access easily. If traveling by plane: ?Make sure that the lubricant in your carry-on bag is less than 3.4 ounces (100 mL). ?Use a single-use catheter. It may be difficult to clean a reusable catheter in a small bathroom. Take icui-fdf-dvsrmgb and prescription medicines only as told by your health care provider. Keep all follow-up visits as told by your health care provider. This is important. Contact a health care provider if you: Have difficulty performing CIC. Have urine leaking during CIC. Have: ?Dark or cloudy urine. ?Blood in your urine or in your catheter. ?A change in the smell of your urine or discharge. ?A burning feeling while you urinate. Feel nauseous or you vomit. Have pain in your abdomen, your back, or your sides below your ribs. Have swelling or redness around the opening of your urethra. Develop a rash or sores on your skin. Get help right away if you have: A fever. Symptoms that do not go away after 3 days. Symptoms that suddenly get worse. Severe pain. A decrease in the amount of urine that drains from your bladder. Summary Clean intermittent catheterization (CIC) is a procedure to remove urine from the bladder by placing a small, flexible tube (catheter) into the bladder though the urethra. Your health care provider will show you how to perform CIC and will help you to become comfortable performing this procedure at home. Most people need CIC at least 4 times per day to adequately empty the bladder. This information is not intended to replace advice given to you by your health care provider. Make sure you discuss any questions you have with your health care provider. Document Revised: 05/19/2022 Document Reviewed: 05/19/2022 [employer] Patient Education 2022 [employer]. Follow Up Care 07/22/2023 08:40:54 With:Michael SMITH, Deandra Smith, AARTIL, URO Address: [address] [place] [address]- [phone] When: Unknown Comments:6 mos [facility] 07-22-2023 Hospital Discharge instructions Patient Education 07/22/2023 08:35:43 Benign Prostatic Hyperplasia Benign Prostatic Hyperplasia Benign prostatic hyperplasia (BPH) is an enlarged prostate gland that is caused by the normal aging process. The prostate may get bigger as a man gets older. The condition is not caused by cancer. The prostate is a walnut-sized gland that is involved in the production of semen. It is located in front of the rectum and below the bladder. The bladder stores urine. The urethra carries stored urine out of the body. An enlarged prostate can press on the urethra. This can make it harder to pass urine. The buildup of urine in the bladder can cause infection. Back pressure and infection may progress to bladder damage and kidney (renal) failure. What are the causes? This condition is part of the normal aging process. However, not all men develop problems from this condition. If the prostate enlarges away from the urethra, urine flow will not be blocked. If it enlarges toward the urethra and compresses it, there will be problems passing urine. What increases the risk? This condition is more likely to develop in men older than 50 years. What are the signs or symptoms? Symptoms of this condition include: Getting up often during the night to urinate. Needing to urinate frequently during the day. Difficulty starting urine flow. Decrease in size and strength of your urine stream. Leaking (dribbling) after urinating. Inability to pass urine. This needs immediate treatment. Inability to completely empty your bladder. Pain when you pass urine. This is more common if there is also an infection. Urinary tract infection (UTI). How is this diagnosed? This condition is diagnosed based on your medical history, a physical exam, and your symptoms. Tests will also be done, such as: A post-void bladder scan. This measures any amount of urine that may remain in your bladder after you finish urinating. A digital rectal exam. In a rectal exam, your health care provider checks your prostate by putting a lubricated, gloved finger into your rectum to feel the back of your prostate gland. This exam detects the size of your gland and any abnormal lumps or growths. An exam of your urine (urinalysis). A prostate specific antigen (PSA) screening. This is a blood test used to screen for prostate cancer. An ultrasound. This test uses sound waves to electronically produce a picture of your prostate gland. Your health care provider may refer you to a specialist in kidney and prostate diseases (urologist). How is this treated? Once symptoms begin, your health care provider will monitor your condition (active surveillance or watchful waiting). Treatment for this condition will depend on the severity of your condition. Treatment may include: Observation and yearly exams. This may be the only treatment needed if your condition and symptoms are mild. Medicines to relieve your symptoms, including: ?Medicines to shrink the prostate. ?Medicines to relax the muscle of the prostate. Surgery in severe cases. Surgery may include: ?Prostatectomy. In this procedure, the prostate tissue is removed completely through an open incision or with a laparoscope or robotics. ?Transurethral resection of the prostate (TURP). In this procedure, a tool is inserted through the opening at the tip of the penis (urethra). It is used to cut away tissue of the inner core of the prostate. The pieces are removed through the same opening of the penis. This removes the blockage. ?Transurethral incision (TUIP). In this procedure, small cuts are made in the prostate. This lessens the prostate's pressure on the urethra. ?Transurethral microwave thermotherapy (TUMT). This procedure uses microwaves to create heat. The heat destroys and removes a small amount of prostate tissue. ?Transurethral needle ablation (TUNA). This procedure uses radio frequencies to destroy and remove a small amount of prostate tissue. ?Interstitial laser coagulation (ILC). This procedure uses a laser to destroy and remove a small amount of prostate tissue. ?Transurethral electrovaporization (TUVP). This procedure uses electrodes to destroy and remove a small amount of prostate tissue. ?Prostatic urethral lift. This procedure inserts an implant to push the lobes of the prostate away from the urethra. Follow these instructions at home: Take jzvw-tru-zsmtwyr and prescription medicines only as told by your health care provider. Monitor your symptoms for any changes. Contact your health care provider with any changes. Avoid drinking large amounts of liquid before going to bed or out in public. Avoid or reduce how much caffeine or alcohol you drink. Give yourself time when you urinate. Keep all follow-up visits. This is important. Contact a health care provider if: You have unexplained back pain. Your symptoms do not get better with treatment. You develop side effects from the medicine you are taking. Your urine becomes very dark or has a bad smell. Your lower abdomen becomes distended and you have trouble passing urine. Get help right away if: You have a fever or chills. You suddenly cannot urinate. You feel light-headed or very dizzy, or you faint. There are large amounts of blood or clots in your urine. Your urinary problems become hard to manage. You develop moderate to severe low back or flank pain. The flank is the side of your body between the ribs and the hip. These symptoms may be an emergency. Get help right away. Call 911. Do not wait to see if the symptoms will go away. Do not drive yourself to the hospital. Summary Benign prostatic hyperplasia (BPH) is an enlarged prostate that is caused by the normal aging process. It is not caused by cancer. An enlarged prostate can press on the urethra. This can make it hard to pass urine. This condition is more likely to develop in men older than 50 years. Get help right away if you suddenly cannot urinate. This information is not intended to replace advice given to you by your health care provider. Make sure you discuss any questions you have with your health care provider. Document Revised: 01/29/2022 Document Reviewed: 01/29/2022 [employer] Patient Education 2022 [employer]. Follow Up Care 07/08/2023 11:23:53 With:Michael SMITH, DIVINE Naranjo, URO Address: When:Within 2 Week(s) Comments:w/PVR and Voiding Diary [facility] 11-18-2022 Hospital Discharge instructions Patient Education 11/18/2022 16:09:20 Acute Urinary Retention, Male Acute Urinary Retention, Male Acute urinary retention is a condition in which a person is unable to pass urine or can only pass a little urine. This condition can happen suddenly and last for a short time. If left untreated, it can become long-term (chronic) and result in kidney damage or other serious complications. What are the causes? This condition may be caused by: Obstruction or narrowing of the tube that drains the bladder (urethra). This may be caused by surgery, problems with nearby organs, or injury to the bladder or urethra. Problems with the nerves in the bladder. Tumors in the area of the pelvis, bladder, or urethra. Certain medicines. Bladder or urinary tract infection. Constipation. What increases the risk? This condition is more likely to develop in older men. As men age, their prostate may become larger and may start to press or squeeze on the bladder or the urethra. Other chronic health conditions can increase the risk of acute urinary retention. These include: Diseases such as multiple sclerosis. Spinal cord injuries. Diabetes. Degenerative cognitive conditions, such as delirium or dementia. Psychological conditions. A man may hold his urine due to trauma or because he does not want to use the bathroom. What are the signs or symptoms? Symptoms of this condition include: Trouble urinating. Pain in the lower abdomen. How is this diagnosed? This condition is diagnosed based on a physical exam and your medical history. You may also have other tests, including: An ultrasound of the bladder or kidneys or both. Blood tests. A urine analysis. Additional tests may be needed, such as a CT scan, MRI, and kidney or bladder function tests. How is this treated? Treatment for this condition may include: Medicines. Placing a thin, sterile tube (catheter) into the bladder to drain urine out of the body. This is called an indwelling urinary catheter. After it is inserted, the catheter is held in place with a small balloon that is filled with sterile water. Urine drains from the catheter into a collection bag outside of the body. Behavioral therapy. Treatment for other conditions. If needed, you may be treated in the hospital for kidney function problems or to manage other complications. Follow these instructions at home: Medicines Take qlvn-wyx-redasdv and prescription medicines only as told by your health care provider. Avoid certain medicines, such as decongestants, antihistamines, and some prescription medicines. Do not take any medicine unless your health care provider approves. If you were prescribed an antibiotic medicine, take it as told by your health care provider. Do not stop using the antibiotic even if you start to feel better. General instructions Do not use any products that contain nicotine or tobacco. These products include cigarettes, chewing tobacco, and vaping devices, such as e-cigarettes. If you need help quitting, ask your health care provider. Drink enough fluid to keep your urine pale yellow. If you have an indwelling urinary catheter, follow the instructions from your health care provider. Monitor any changes in your symptoms. Tell your health care provider about any changes. If instructed, monitor your blood pressure at home. Report changes as told by your health care provider. Keep all follow-up visits. This is important. Contact a health care provider if: You have uncomfortable bladder contractions that you cannot control (spasms). You leak urine with the spasms. Get help right away if: You have chills or a fever. You have blood in your urine. You have a catheter and the following happens: ?Your catheter stops draining urine. ?Your catheter falls out. Summary Acute urinary retention is a condition in which a person is unable to pass urine or can only pass a little urine. If left untreated, this condition can result in kidney damage or other serious complications. An enlarged prostate may cause this condition. As men age, their prostate gland may become larger and may press or squeeze on the bladder or the urethra. Treatment for this condition may include medicines and placement of an indwelling urinary catheter. Monitor any changes in your symptoms. Tell your health care provider about any changes. This information is not intended to replace advice given to you by your health care provider. Make sure you discuss any questions you have with your health care provider. Document Revised: 04/03/2021 Document Reviewed: 04/03/2021 [employer] Patient Education 2022 [employer]. [facility] 10-28-2022 Hospital Discharge instructions Patient Education 10/28/2022 12:08:15 White Catheter Care, Male-[facility] (Custom) White Catheter Care, Male A White catheter is a soft, flexible tube that is placed into the bladder to drain urine. The catheter has a balloon to hold it inside the bladder. A White catheter may be inserted if: You leak urine or are not able to control when you urinate (urinary incontinence). You are not able to urinate when you need to (urinary retention). You had prostate surgery or surgery on the genitals. You have certain medical conditions, such as multiple sclerosis, dementia, or a spinal cord injury. To Prevent Infection: 1. Wash your hands with soap and water before and after handling your catheter. 2. Using mild soap and warm water on a clean washcloth; twice a day. Clean the area on your body closest to the catheter insertion site using a circular motion, moving away from the catheter. Never wipe toward the catheter because this could sweep bacteria up into the urethra and cause infection. Remove all traces of soap. Pat the area dry with a clean towel and reposition the foreskin. No tub baths. No lotions, powders, or sprays unless directed by your physician. 3. Keep the tube secure. Do not let the tube pull or catch when you are moving around. Attach the catheter to your leg so there is no tension on the catheter. Use adhesive tape or a leg strap. If you are using adhesive tape, remove any sticky residue left behind by the previous tape you used. 4. Replace wet leg straps with dry ones. 5. 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 6. Keep the drainage bag below the level of the bladder, but keep it off the floor. 7. Check throughout the day to be sure the catheter is working and urine is draining freely. Make sure the tubing does not become kinked or looped. 8. Do not pull on the catheter or try to remove it. Pulling could damage internal tissues. TAKING CARE OF THE DRAINAGE BAGS You will be given two drainage bags to take home. One is a large overnight drainage bag, and the other is a smaller leg bag that fits underneath clothing. You may wear the overnight bag at any time, but you should never wear the smaller leg bag at night, unless directed by your physician. Follow the instructions below for how to empty and change your drainage bags. Emptying the Drainage Bag You must empty your drainage bag when it is ? full. 1. Wash your hands with soap and water before and after handling your catheter. 2. Keep the drainage bag below your hips, below the level of your bladder. This stops urine from going back into the tubing and into your bladder. 3. Hold the dirty bag over the toilet or a clean container. 4. Open the pour spout at the bottom of the bag and empty the urine into the toilet or container. Do not let the pour spout touch the toilet, container, or any other surface. Doing so can place bacteria on the bag, which can cause an infection. 5. Clean the pour spout with a gauze pad or cotton ball that has rubbing alcohol on it. 6. Close the pour spout. 7. Attach the bag to your leg with adhesive tape or a leg strap. Changing the Drainage Bag 1. Wash your hands with soap and water before and after handling your catheter. 2. Pinch off the rubber catheter so that urine does not spill out. 3. Disconnect the catheter tube from the drainage tube at the connection valve. Do not let the tubes touch any surface. 4. Clean the end of the catheter tube with an alcohol wipe. Use a different alcohol wipe to clean the end of the drainage tube. 5. Connect the catheter tube to the drainage tube of the clean drainage bag. 6. Attach the new bag to the leg with adhesive tape or a leg strap. Avoid attaching the new bag too tightly. 7. Place a cap on the drainage bag not in use and store in a clean towel. SEEK MEDICAL CARE IF: Your urine is cloudy or smells. Your catheter starts to leak. Your catheter falls out or is pulled out. You have pain, swelling, redness, or pus where the catheter enters the body. You have pain in the abdomen, legs, lower back, or bladder. You have a fever of 100.4 F (38 C) or higher You see pink, red, dark, coffee colored, or pus-like urine. You have nausea, vomiting, or chills. You are not feeling better in 2 to 3 days or you are feeling worse. You are not draining urine into the bag or your bladder feels full. MAKE SURE YOU: Understand the reason you have the catheter. Understand and follow these instructions to care for the catheter. Will watch your condition. Drink 6-8 glasses of water or liquids per day to keep your urine clear. Avoid Caffeinated drinks. They can irritate the bladder and cause bladder spasms. Keep your follow up appointments and call with any concerns. 10/28/2022 12:08:15 Post Op Patient Instructions - FT (CUSTOM) 10/28/2022 11:16:50 EU - Urolift Discharge Instructions (Custom) Urolift Some men may experience discomfort after the procedure. On occasion, some bloody discharge may be apparent from the penis. You may have soreness in the lower abdomen, and it may be uncomfortable to sit. You may experience the need to urinate more frequently and with greater urgency. These are all normal reactions to the procedure. It is important to take care of yourself the next couple of days to facilitate a speedy recovery. The following are some suggestions: -Have someone drive you home after the procedure. -Drink plenty of water; 8 10oz glasses per day. If your urine looks dark yellow, you are probably not drinking enough water. -Take your medications as prescribed -If you have a catheter placed, do not engage in strenuous activity until your catheter has been removed. You may take a shower but avoid a bath while you have a catheter. - In the event you have to go home with a catheter, you may notice leakage of urine and/or yellow discharge/blood around the catheter. This is normal and no cause to be alarmed; UNLESS you are having significant pain associated with the leakage or the leakage does not stop. -You can use Tylenol or Advil for discomfort. Use AZO (over the counter) for burning with urination It is normal to have some blood in your urine after surgery. One day it may be clear, and the next day it might be bloody. Do not be alarmed, this can last a week and sometimes longer. It is normal to feel like you have to urinate very often but nothing comes out. You may feel like you have to urinate again, or feel pressure in the pelvic area, even right after you just urinated. You may leak and not make it to the bathroom. These are called bladder spasms and are common after the procedure. It is normal to have some discomfort after the procedure. This can last up to 4 weeks and includes: pelvic ache, urinary frequency, and urinary urgency. Most patients report symptoms getting better within 2 weeks. Start antibiotic the morning of white removal If you were given drugs to make you drowsy or pain medication follow these instructions: -You should spend the remainder of the day and evening resting -You should not attempt to walk, including going to the bathroom without assistance. You may be lightheaded from the medication you received. -Eat light today to avoid nausea. You should be able to return to your normal diet 24 to 36 hours after your procedure. -For the next 24 hours, do not consume alcohol, attempt to drive, use power tools, sign important documents or make important decisions. After that only do so if you feel perfectly normal and alert. -Follow carefully any verbal or written instructions your surgeon may give you. You should contact your physician if you experience any of the following: -Temperature above 101.5 -Excessive urinary bleeding or bleeding from the penis -Continuous bladder spasms -Painful, swollen and/or inflated testicle(s) or scrotum. -Unable to void spontaneously or the indwelling catheter is not draining urine or is blocked -Bright swanson red urine that does not stop after 3 days -Unable to urinate after 7-8 hours or bladder feeling full and you can t urinate -If you have excessive or persistent pain, swelling, bleeding, nausea, vomiting, or any problems, you should first call your surgeon for advice. If you are unable to contact your surgeon, seek help from a hospital emergency room. If your doctor suggests that you go to the emergency room for catheterization for inability to urinate, be sure to tell the facility personnel to use a Coude (pronounced extension course coordinator-day) tipped catheter. Follow Up Care 09/30/2022 12:31:12 With:Deandra Rodriguez Address: [address] [place] [phone] Business (1) [address], [address] [phone] Business (1) When: Unknown Comments:Office to call for followup appointment in 2 days for white removal and voiding trial and clean intermittent cath teaching [facility] 10-28-2022 Evaluation + Plan note Extrac claudine from: Title:CSB post op Author:Lev Muniz MD Date:10/28/22 Plan Transfer/Discharge: Transfer/Discharge Discharge when meets criteria ( To home ). Extracted from: Title:EU - cystolitholapaxy, Urolift- FT Author: Deandra Rodriguez MD Date:10/28/22 Impression and Plan Diagnosis BPH with urinary obstruction ([id number] N40.1, Discharge, Medical). Bladder stone (TLH84-XV N21.0, Discharge, Medical). Diagnosis BPH with urinary obstruction ([id number]-YT N40.1, Discharge, Medical). Bladder stone (FSZ80-OF N21.0, Discharge, Medical). Counseled: Patient, Family. Extracted from: Title:CSB GA Author:Lev Muniz MD Date:10/28/22 Plan [place] [employer] (ASA) physical status classification: Class II. Anesthetic Preoperative Plan: Anesthesia General. Diagnostic Tests Pending * Calculi Analysis Urinary 10/28/22 [facility]03-23-2023 Note [id number]:127[facility] 10-15-2022 [id number]:127[facility]03-06-2023 Note [id number]:127[facility] 09-29-2022 NoteCystoscopy ? Voiding after the procedure: there may be some pain, burning, urgency, frequency and blood tingedurine following the procedure. These symptoms usually resolve within 2-5 days. Drink the amount of fluid it takes to keep the urine pink to yellow or clear in color. Drinking enough water and fluids will help to ease any discomfort after your procedure. ? If you are having problems that seem out of the ordinary, please call. ? If unable to contact your physician and you feel it is an emergency, go to the nearest emergency room or call 911 ? Diet ? you may resume your normal diet. ? Activity ? you may resume your normal activities ? Call if you have a fever over 100 degrees.[facility] 09-08-2022 Hospital Discharge instructions Patient Education 09/08/2022 13:38:23 Acute Urinary Retention, Male Acute Urinary Retention, Male Acute urinary retention is a condition in which a person is unable to pass urine. This can last fora short time or for a long time. If left untreated, it can result in kidney damage or other seriouscomplications. What are the causes? This condition may be caused by: Obstruction or narrowing of the tube that drains the bladder (urethra). This may be caused by surgery or problems with nearby organs, such as the prostate gland, which can press or squeeze the urethra. Problems with the nerves in the bladder. These can be caused by diseases, such as multiple sclerosis, or by spinal cord injuries. Certain medicines. Tumors in the area of the pelvis, bladder, or urethra. Diabetes. Degenerative cognitive conditions such as delirium or dementia. Bladder or urinary tract infection. Constipation. Blood in the urine (hematuria). Injury to the bladder or urethra. Psychological (psychogenic) conditions. Someone may hold his urine due to trauma or because he doesnot want to use the bathroom. What increases the risk? This condition is more likely to develop in older men. As men age, their prostate may become largerand may start pressing or squeezing on the bladder or the urethra. What are the signs or symptoms? Symptoms of this condition include: Trouble urinating. Pain in the lower abdomen. Symptoms usually come on slowly over a long period of time. How is this diagnosed? This condition is diagnosed based on a physical exam and a medical history. You may also have othertests, including: An ultrasound of the bladder or kidneys or both. Blood tests. A urine analysis. Additional tests may be needed such as an MRI, kidney, or bladder function tests. How is this treated? Treatment for this condition may include: Medicines. Placing a thin, sterile tube (catheter) into the bladder to drain urine out of the body. This is called an indwelling urinary catheter. After being inserted, the catheter is held in place with a small balloon that is filled with sterile water. Urine drains from the catheter into a collection bag outside of the body. Behavioral therapy. Treatment for any underlying conditions. If needed, you may be treated in the hospital for kidney function problems or to manage other complications. Follow these instructions at home: Take slzi-jlh-tgaafzv and prescription medicines only as told by your health care provider. Avoid certain medicines, such as decongestants, antihistamines, and some prescription medicines. Do not take any medicine unless your health care provider has approved. If you were given an indwelling urinary catheter, take care of it as told by your health care provider. Drink enough fluid to keep your urine clear or pale yellow. If you were prescribed an antibiotic, take it as told by your health care provider. Do not stop taking the antibiotic even if you start to feel better. Do not use any products that contain nicotine or tobacco, such as cigarettes and e-cigarettes. If you need help quitting, ask your health care provider. Monitor any changes in your symptoms. Tell your health care provider about any changes. If instructed, monitor your blood pressure at home. Report changes as told by your health care provider. Keep all follow-up visits as told by your health care provider. This is important. Contact a health care provider if: You have uncomfortable bladder contractions that you cannot control (spasms) or you leak urine withthe spasms. Get help right away if: You have chills or fever. You have blood in your urine. You have a catheter and: ?Your catheter stops draining urine. ?Your catheter falls out. Summary Acute urinary retention is a condition in which a person is unable to pass urine. If left untreated, it can result in kidney damage or other serious complications. The cause of this condition may include an enlarged prostate. As men age, their prostate gland may become larger and may start pressing or squeezing on the bladder or the urethra. Treatment for this condition may include medicines and placement of an indwelling urinary catheter. Monitor any changes in your symptoms. Tell your health care provider about any changes. This information is not intended to replace advice given to you by your health care provider. Make sure you discuss any questions you have with your health care provider. Document Released: 10/19/2001 Document Revised: 06/25/2018 Document Reviewed: 08/14/2017 [employer] Patient Education 2020 [employer]. Follow Up Care 08/26/2022 14:25:12 With:Michael SMITH, DIVINE Naranjo, URO Address: When: Unknown [facility] 04-28-2022 Evaluation note* Encounter Date Diagnosis Assessment Notes Treatment Notes Treatment Clinical Notes Oct, Irritant contact dermatitis due to other chemical products (ICD-10 - L24.5) Physical exam findings consistent in appearance with contact dermatitis. Explained to patient that there are no signs of bacterial infection on exam today. Kenalog injection provided today in office. Informed patient that cause was likely from hot tub. Patient reports that he is going in his hot tub 4x daily. Advised that chemicals are causing irritation. Advised that this is the last time I will treat him for this issue because he refuses to limit use of hot tub. Instructed patient to take steroid as directed with food and to avoid NSAIDs while taking. Encouraged patient to begin taking rx of Cetirizine once daily, to help stop histamine reaction and calm itching. Also instructed patient that he may use OTC Calamine lotion or hydrocortisone cream topically for itching. Advised patient to avoid bath and showers with hot water. Putting a cool, wet towel on the area may help relieve itching. Keep away from strong soaps, detergents, and chemicals. Begin using hypoallergenic soaps. If symptoms persist despite treatment, pt should follow up with her PCP within 1 week. Patient should follow up with PCP or Derm if symptoms worsen despite treatment, or if he begins experiencing increased redness, warmth, swelling, or pain of affected area. Patient verbalized understanding and agreement with treatment plan [employer] Other [id number] Evaluation note* Encounter Date Diagnosis Assessment Notes Treatment Notes Treatment Clinical Notes Oct, Irritant contact dermatitis due to other chemical products (ICD-10 - L24.5) Physical exam findings consistent in appearance with contact dermatitis. Explained to patient that there are no signs of bacterial infection on exam today. Kenalog injection provided today in office. Informed patient that cause was likely from hot tub. Instructed patient to take steroid as directed with food and to avoid NSAIDs while taking. Encouraged patient to begin taking rx of Cetirizine once daily, to help stop histamine reaction and calm itching. Also instructed patient that he may use OTC Calamine lotion or hydrocortisone cream topically for itching. Advised patient to avoid bath and showers with hot water. Putting a cool, wet towel on the area may help relieve itching. Keep away from strong soaps, detergents, and chemicals. Begin using hypoallergenic soaps. If symptoms persist despite treatment, pt should follow up with her PCP within 1 week. Patient should follow up with PCP or return to UC sooner if symptoms worsen despite treatment, or if he begins experiencing increased redness, warmth, swelling, or pain of affected area. Pt verbalized understanding and agreement with tx plan Oct, Other Contact dermatitis home care material was printed [employer] Other Evaluation + Plan note Future Appointments Appointment Date:09/09/2022 10:15:00 AM Scheduled Provider: Location:[facility] Appointment Type:Urology CALL PAT FT Appointment Date:09/09/2022 10:45:00 AM Scheduled Provider: Location:[facility] Appointment Type:Urology CALL PAT FT Appointment Date:09/15/2022 08:00:00 AM Scheduled Provider: Location:[facility] Appointment Type:Urology FT Appointment Date:09/15/2022 09:00:00 AM Scheduled Provider: Location:[facility] Appointment Type:Urology FT [facility] Evaluation + Plan note Future Appointments Appointment Date:10/28/2022 11:25:00 AM Scheduled Provider: Location:[facility] Appointment Type:[place]gery [place] Hospital[facility] + Plan note Future Appointments Appointment Date:07/08/2023 10:00:00 AM Scheduled Provider:Deandra Rodriguez MD Location:[facility] Appointment Type:URO Office Visit Appointment Date:07/28/2023 01:00:00 PM Scheduled Provider: Location:[facility] Appointment Type:URO Nurse Visit [facility] evaluation + Plan note Future Appointments Appointment Date:08/05/2023 09:45:00 AM Scheduled Provider:Deandra Rodriguez MD Location:[facility] Appointment Type:URO Office Visit [facility] evaluation + Plan note Future Appointments Appointment Date:02/17/2024 10:45:00 AM Scheduled Provider:Deandra Rodriguez MD Location:[facility] Appointment Type:URO Office Visit [facility] evaluation noteNo InformationNort [employer] Other Hisnbrq general Narrative - Reported* Type Description Date Medical History rheumatoid arthritis Medical History ROCIO (noncompliant with CPAP ther apy) Medical History COPD Medical History Insomnia Medical History Hypertension Medical History Kidney Stones Medical History Multiple Renal Cysts ([facility]) Medical History Urinary Retention (requiring int ermittent self-cath) Surgical History cholecystectomy [employer] Other Hospital course Narrative No data available for this section [facility] Discharge instructions No data available for this section [facility] No data available for this section [facility] Natalie Summary Purpose Family History No Family History Records FoundNo Family History Records FoundNo Family History Records FoundNo Family History Records Found No data available for this section No data available for this section No Family History Records FoundNo Family History Records Found No data available for this section Advance Directives No Advanced Directives Records FoundNo Advanced Directives Records FoundNo Advanced Directives Records FoundNo Advanced Directives Records FoundNo Advanced Directives Records FoundNo Advanced Directives Records Found Additional Source Comments (unrecognized sect ion and content) No Status Records FoundNo Status Records FoundNo Status Records FoundNo Status Records FoundNo Status Records FoundNo Status Records Found INFORMATION SOURCE (unrecogn ized section and content) DATE CREATED AUTHOR 02/13/2021 [facility] DATE CREATED AUTHOR AUTHOR'S ORGANIZ ATION 08/18/2021 [facility] DATE CREATED AUTHOR AUTHOR'S ORGANIZ ATION 08/30/2022 [facility] DATE CREATED AUTHOR AUTHOR'S ORGANIZ ATION 11/02/2022 [facility] DATE CREATED AUTHOR AUTHOR'S ORGANIZ ATION 07/26/2023 [facility] DATE CREATED AUTHOR AUTHOR'S ORGANIZ ATION 08/05/2023 [facility] EPIC REASON FOR VISIT (unrecogniz ed section and content) RASH ON ARMNo InformationRAS H Patient Care team informatio n (unrecognized section and content) Personnel Name: MAGED ANDRADE DO Address: Address: [address] Personnel Name: MAGED ANDRADE DO Address: Address: [address] Personnel Name: MAGED ANDRADE DO Address: [facility] [address] [facility] [address] Personnel Name: MAGED ANDRADE DO Address: Address: [address] Personnel Name: MAGED ANDRADE DO Address: Address: [address] Personnel Name: MAGED ANDRADE DO Address: [facility] [address] [facility] [address] Personnel Name: MAGED ANDRADE DO Address: Address: [address] [place] [id number] Personnel Name: MAGED ANDRADE DO Address: Address: [address] [place] [id number] Personnel Name: MAGED ANDRADE DO Address: Address: [address] [place] [place] [id number] FOR RECORDS PERTAINING TO PATIENTS WHO ARE OR HAVE BEEN ENROLLED IN A CHEMICAL DEPENDENCY/SUBSTANCEABUSE PROGRAM, SOME INFORMATION MAY BE OMITTED. This clinical summary was aggregated from multiple sources. Caution should be exercised in using it in the provision of clinical care. This summary normalizes information from multiple sources, and as a consequence, information in this document may materially change the coding, format and clinical context of patient data. In addition, data may be omitted in some cases. CLINICAL DECISIONS SHOULD BE BASED ON THE PRIMARY CLINICAL RECORDS. [facility]. provides no warranty or guarantee of the accuracy or completeness of information in this document.
[2023-08-07 20:53] VITALS: BP 162/96
--- NOTE | 2023-08-07 21:00 | ED.MALEGU1 ---
HPI - Male Genitourinary General Chief complaint: Urogenital-Male Stated complaint: Urine Retention Time Seen by Provider: 08/07/23 20:55 Source: patient Mode of arrival: walk-in Limitations: no limitations History of Present Illness HPI Narrative: patient presents with urinary retention. States he has been trying to self cath for past couple of days. not successful. states urine wound spray around the catheter . no fever. No pain. No nausea Related Data Allergies Allergy/AdvReac Type Severity Reaction Status Date / Time No Known Drug Allergies Allergy Verified 06/10/23 11:16 Review of Systems ROS Status of ROS 10 or more systems reviewed and unremarkable except as noted in history and below PFS PFS Social History Smoking status: Former smoker Exam Constitutional Vital Signs, click to edit/add: Last Vital Signs Temp 97.6 F 08/07/23 20:46 Pulse 85 08/07/23 20:46 Resp 18 08/07/23 20:46 BP 162/96 H 08/07/23 20:53 Pulse Ox 97 08/07/23 20:46 O2 Del Method Room Air 08/07/23 20:46 Common normals: no apparent distress, average body habitus, oriented x3, no limitations, healthy appearing, alert and well nourished Eye Common normals: EOMs intact bilaterally and conjunctivae normal Respiratory Common normals: normal respiratory effort, no retractions and no use of accessory muscles Cardio Common normals: regular rate, regular rhythm and S1 normal heart sound GI Common normals: Normal to inspection, nondistended, normoactive bowel sounds present, soft to palpation and non-tender Extremity Common normals: normal to inspection and full ROM Neuro Common normals: oriented x3, CN's II-XII intact bilaterally, moves all extremities and no focal motor deficits Psych Appearance: grossly normal Course Vital Signs Vital signs: Vital Signs Temperature 97.6 F 08/07/23 20:46 Pulse Rate 85 08/07/23 20:46 Respiratory Rate 18 08/07/23 20:46 Blood Pressure 173/100 H 08/07/23 20:46 Pulse Oximetry 97 08/07/23 20:46 Oxygen Delivery Method Room Air 08/07/23 20:46 Temperature 97.6 F 08/07/23 20:46 Pulse Rate 85 08/07/23 20:46 Respiratory Rate 18 08/07/23 20:46 Blood Pressure 162/96 H 08/07/23 20:53 Pulse Oximetry 97 08/07/23 20:46 Oxygen Delivery Method Room Air 08/07/23 20:46 MDM - Male Genitourinary MDM Narrative Medical decision making narrative: patient presents with acute urinary retention. bladder scan with 500cc+ of urine. White placed by nursing. UA nitrite positive. Patient treated with keflex and discharged home with leg bag in place Lab Data Labs: Lab Results 08/07/23 Range/Units 21:50 Urine Color Lt. yellow (YELLOW) Urine Clarity Clear (CLEAR) Urine pH 6.0 (5.0-9.0) Ur Specific [place] 1.025 (1.005-1.025) Urine Protein Negative (NEG/TRACE) mg/dL Urine Glucose (UA) Negative (NEGATIVE) mg/dL Urine Ketones Negative (NEGATIVE) mg/dL Urine Occult Blood Negative (NEGATIVE) Urine Nitrite Positive A (NEGATIVE) Urine Bilirubin Negative (NEGATIVE) Urine Urobilinogen 0.2 (0.2-1.0) EU/dL Ur Leukocyte Esterase Small A (NEGATIVE) Discharge Plan Discharge Chief Complaint: Urogenital-Male Clinical Impression: Urinary tract infection, Acute urinary retention Patient Disposition: Home, Self-Care Instructions: Urinary Tract Infection in Men (DC), White Catheter Placement and Care (ED) Additional Instructions: follow up with your urologist next week Stand Alone Forms: Portal Instructions Referrals: Physician,Non-Staff, MD [Primary Care Provider] - 1 week
[2023-08-07 22:02] LABS: Bilirubin Urine NEGATIVE (NEGATIVE); Blood Urine NEGATIVE (NEGATIVE); Clarity Urine CLEAR (CLEAR); Color Urine LT. YELLOW (YELLOW); Glucose Urine UA NEGATIVE (NEGATIVE); Ketones Urine NEGATIVE (NEGATIVE); Leukocyte Esterase Urine SMALL (NEGATIVE); Nitrite Urine POSITIVE (NEGATIVE); Protein Urine NEGATIVE (NEG/TRACE); Specific Gravity Urine 1.025 (1.005-1.025); Urobilinogen Urine 0.2 EU/dL (0.2-1.0)
[2023-08-07 22:03] LABS: Urine Microscopic Indicated YES
[2023-08-07] MEDS: CEPHALEXIN 500 MG CAPSULE 1000 MG PO (22:20)
[2023-08-07 22:25] VITALS: BP 170/90; PULSE 87; O2SAT 95
[2023-08-07 22:28] LABS: Bacteria Urine MODERATE #/HPF (NONE SEEN); Cast Seen? NONE SEEN #/LPF (NONE SEEN); Crystals Seen? None Seen #/HPF (None Seen); Mucus Urine MODERATE (NONE SEEN); RBC Urine 0-2 #/HPF (0-2); Squamous Epithelial Cell Urine RARE #/LPF (NONE/RARE); Urine Culture Indicated YES
== END 2023-08-07 22:27 | disposition home or self-care (01) ==
PROVIDERS: Emergency Provider Internal Medicine
DX: R33.9 Retention of urine, unspecified (principal); N39.0 Urinary tract infection, site not specified; Z87.891 Personal history of nicotine dependence
CPT/HCPCS: 51702; 81001; 87086; 87150; 87186; 99285

== ENCOUNTER 2023-09-13 10:45 | Emergency (ER) | payer OTHER, SELFPAY ==
[2023-09-13 10:48] VITALS: BP 154/102; PULSE 91; RESP 22; TEMP 36.6; O2SAT 96; BMI 26.2
--- OUTSIDE RECORDS SUMMARY | 2023-09-13 10:50 | XMS_ITS | CCD ---
Author Name Unknown Address [address] [place] [address] Organization [facility] Care Team Providers Care Straightener Hand Name Role Phone Adan Janice Unavailable Maged Andrade Unavailable CHRISTIANA DIA Consulting Unavailable EDWARDO WALKER Admitting Unavailable EDWARDO WALKER Attending Unavailable [facility] [place] Primary Care Unavailable DESIRE, DR JERAMY Singh Admitting Unavailable DESIRE, DR JERAMY Singh Attending Unavailable DESIRE, DR JERAMY Singh Consulting Unavailable MAGED ANDRADE Primary Care Physician SHAIKH CONTE Attending Unavailable LueDeandra Attending Unavailable Lue Deandra MCarla Referring Unavailable Lue, Deandra MCarla Admitting Unavailable Lue Deandra MCarla Attending Unavailable YESENIA LOMAX Attending Unavailable ZakiaeDeandra MCarla Attending Unavailable YESENIA LOMAX Attending Unavailable Steve ROBISON Attending Unavailable YESENIA LOMAX Attending Unavailable Lue Deandra MCarla Attending Unavailable Steve ROBISON Attending Unavailable YESENIA LOMAX Attending Unavailable MAGED ANDRADE Attending Unavailable Lue, Deandra MCarla Attending Unavailable Lue, Deandra MCarla Attending Unavailable Lue, Deandra MCarla Attending Unavailable Lue, Deandra MCarla Attending Unavailable Lue, Deandra MCarla Referring Unavailable Lue, Deandra MCarla Admitting Unavailable Lue, Deandra MCrala Attending Unavailable Lue, Deandra MCarla Referring Unavailable Lue, Deandra MCarla Admitting Unavailable Allergies Allergy Classification Reported Allergen(s) Allergy Type Date of Onset Reaction(s) Facility (1 source) No Known Medication Allergies; Translations: [No Known Medication Allergies] Propensity to adverse reactions (disorder) [facility] Repository Medications Current Medications Medication Drug Class(es) Dates Sig (Normalized) Sig (Original) [id number] 200 actuat albuterol 0.09 mg/actuat metered dose [...] 1250 mg oral tablet (8 sources) Start: calcium 500 mg tablets 1,250 mg = 1 tab(s), Oral, BID, Refills(s) 0, Prophylaxis Start Date: 10/15/22 Status: Ordered cephalexin 500 mg oral capsule (3 sources) Cephalosporin Antibacterial Start: cephalexin 500 mg Cap Refills(s) 0 Start [...] day(s), # 2 cap(s), Refills(s) 0, [id number], 186, cm, 10/15/22 12:53:00 EDT, Height/Length Dosing, [...] Ordered take 1 tablet by chintan th once daily at bedtime rOPINIRole HCl 1 [...] 10/15/22 Status: Ordered take 1 capsule by [facility] every twenty-four hours Tamsulosin HCl 0.4 MG [...] Test Name Value Interpretation Reference Range Facility IntraOperative Documentson 0 09-03-2023 IntraOperative Documents [id number]#1.[address] [facility] ED Note-Physicianon 08-13-19 ED Note-Physician [id number]#1.[address] [facility] Lab Reportson 08-13-2023 Lab Reports [id number]#[address] [facility] Ambulatory Visit Summaryon 0 08-05-2023 Ambulatory Visit Summary RICKEY GARCIA Hernandez :1945 Visit Date:08/05/2023 Ambulatory Visit Instructions Your Diagnosis Urinary retention [...] ultrasonography (09/29/2022), Urodynamics (09/29/2022), Colonoscopy. Discharge Vitals Blood Pressure 128/78 Height 185 cm Height 73 in Weight 82 kg Weight 180.4 lb BMI 23.96 What to do next Scheduled Follow-Up Appointments Thursday 10:45 AM EDT With: Michael SMITH, Deandra Smith Where: [facility] Patient Educationon 08-05-19 Patient Education Urology Clean Intermittent Catheterization, Male [...] and water are not available, use hand phlebotomy technician. 2. Clean your penis with soap and [...] catheter in a small bathroom. ? Take trku-ryp-tmybvdn and prescription medicines only as told by your he (more content not included)... Normal [facility] Urology Office/Clinic Noteon 08-05-2023 Urology Office/Clinic Note Chief Complaint 2 week F/U with PVR and voiding trial HPI Staff 2wk PVR & to review Voiding Diary- average is about 300 every 6 hours Has not been able to void on his own DX: Urinary Retention, Bacteriuria, BPH & Hx of Kidney Stones *Tamsulosin 0.4mg qd and Finasteride 5mg qd. No issues with this or concerns [facility] checks PSA S/p UroLift/Cystolitholapa xy 10/28/22. he was not able to give a urine sample this morning CIC'd at 7 a.m. this morning PVR 63 History of Present Illness Tests reviewed: reviewed PVR I have reviewed the previous health record information and history for this patient from Dr. Rodriguez. I have reviewed and verified the staff HPI to be accurate for this encounter. Review of Systems PHQ Score Initial [...] See HPI. Physical Exam Vitals & Measurements BP: 128/78 HT: 73 in HT: 185 cm WT: 82 kg WT: 180.4 lb BMI: 23.96 General Appearance: alert, no distress, well nourished, well developed male. Genitourinary: Flank Pain: none. Bladder: nonpalpable. Assessment/Plan Rickey is a 77 yo M pt hx of COPD, former smoker with long standing history of recurrent urinary retention (2 L) s/p UroLift/Cystolitholapa xy 10/28/22. Post op requiring CIC, pt stopped, prompting retention 4-6 wks later. Here today with daughter on phone, sister in person. Goes to the CT in [place] for primary care Baby aspirin, no hx of stroke or heart attack. States if he has to see a specialist through the CT he has to travel to [place]. 1. Urinary retention (R33.9: Retention of urine, unspecified) S/p UroLift/Cystolitholapa xy 10/28/22. Did CIC in the past, stopped due to feeling he did not need to. States lowest volume he had was 180mL when self-cathing. [facility] ER 04/28/23 due to inability to urinate. Drained at least 1400mL with White catheter. Kidney function was preserved at that time. Start CIC again 07/08/2023 Previous voiding diary: 150mL during the day, 650-700mL in the morning (sleeps 12hrs). IPSS (5), LEONARDO (3) - none filled out today, pt CIC's. Previously discussed proper technique on CIC, ensuring appropriate amount is draining, and timing. Doing better than prior. Intermittent difficulty with cathing, but always able to, improved success with coude. States he has been draining 300mL each time he CICs q6h If residual 500 or more, he CICs more often throughout the day. Has been able to achieve proper drainage. Reports he is still unable to void prior to CIC. Does not feel sensation to void, even when he gets up in the morning and has residual of 650mL. No sample provided for UA today, pt CIC'd prior to appt. Bladder scan today 63mL (much improved from prior > 600cc) Discussed repeating operative intervention for bladder outlet obstruction if persistent. Discussed risk of atonic bladder given 3+ trabeculated bladder and UDS findings of low pressure/flow. Discussed bladder pathophysiology and bladder retraining, may take a year. Alternative option would be [facility]. Risks/benefits discussed. -Cont CIC q6h. Pt using coude due to difficulty with insertion with straight cath. Additional cath options provided. Pt to call to let us know which one he likes so we may order more for him. -Consider repeat cystoscopy to reevaluate for obstruction and need for repeat outlet procedure in the future. 2. Bacteriuria (R82.71: Bacteriuria) UCx 04/28/23 - K. oxytoca, tx'd with Keflex Possible UTI 06/10/23 at [facility] ER visit, tx'd with Keflex. Pt has an increased risk for colonization due to CIC. No issues recently. -Increase water intake. -CIC as instructed 3. BPH with urinary obstruction (N40.1: Benign prostatic hyperplasia with lower urinary tract symptoms) Hx long standing history of recurrent urinary retention, catheter dependent for over 3 months after 2L urinary retention and failing multiple voiding trials. UDS low detrusor pressures and low flow during voiding consistent with bladder outlet obstruction, and TRUS 38.7 gram prostate volume. Office cystoscopy - severe bilateral lateral lobe obstruction without median lobe component, only elevated bladder neck and 2-3+ trabeculations with bladder stone. His symptoms have failed to improve on medical therapy. S/p UroLift/Cystolitholapa xy 10/28/22 - 6 implants attempted, 6 seated of Urolift devices for open anterior channel. -Cont taking Tamsulosin 0.4mg qd and Finasteride 5mg qd. [facility] checks [facility]. -See #1 -F/u in 6 months. Discuss cysto at that time to reevaluate ou (more content not included)... Normal [facility] Comment on above: Result Comment: Elec tronically Signed By: Deandra Rodriguez MD\.br\Date and Time Signed: 08/05/23 15:00 EST\.br\Electronically Co-Signed By: Shahla Shelley\.br\Date and Time Co-Signed: 08/05/23 10:45 EST [place] 07-24-2023 Screens [id number]#1. 00TIFF [facility] Screens [id number]#1.[address] [facility] Ambulatory Visit Summaryon 1 09-22-2022 Ambulatory [...] Deandra Rodriguez MD Where: [facility] Patient Educationon 07-22-20 23 Patient [...] Follow these instructions at home: ? Take omzx-unn-ztotxod and prescription medicines only as told by [...] the medicine (more content not included)... Normal [facility] Urology Office/Clinic Noteon 07-22-2023 Urology Office/Clinic Note [...] retention 4-6 wks later. Goes to the CT in [place] for primary care, did not bring a list of medications with him today. Baby aspirin, no hx of stroke or heart attack. States if he has to see a specialist through the CT he has to travel to [place]. 1. Urinary retention (R33.9: Retention of urine, unspecified) S/p UroLift/Cystolitholapa xy 10/28/22. Did CIC in the past, stopped about 4-6 weeks ago due feeling he did not need to. States lowest volume he had was 180mL when self-cathing. Presented to [facility] ER 04/28/23 due to inability to [...] Keflex. Advised pt to complete abx course. [facility] ER 06/10/23 - CC: brownish colored [...] urinary retentio (more content not included)... Normal [facility] Comment on above: Result Comment: Elec tronically Signed By: Michael SMITH, Deandra Smith\.br\Date and Time Signed: 07/22/23 09:00 EST\.br\Electronically Co-Signed By: Anastasia Rowellbr\Date and Time Co-Signed: 07/22/23 08:37 EST ED Note-Physicianon 07-10-20 ED Note-Physician [id number]#1.0 0TIFF Normal [facility] Lab Reportson 07-10-2023 Lab Reports [id number]#1.0 0TIFF Normal [facility] Ambulatory Visit Summaryon 1 09-08-2022 Ambulatory Visit Summary RICKEY GARCIA :1945 Visit Date:07/08/2023 Ambulatory Visit Instructions Your Diagnosis Urinary retention Bacteriuria BPH with urinary obstruction History of kidney stones Your Care Team Attending Physician - Michael SIMTH, Deandra Smith Primary Care Physician - MAGED ANDRADE DO [...] SMITH, Deandra Smith Where: [facility] Patient Educationon 07-08-20 Patient Education [...] and water are not available, use hand phlebotomy technician. 2. Clean your penis with soap and [...] catheter in a small bathroom. ? Take urqq-syj-gsrhioc and prescription medicines only as told by your he (more content not included)... Normal [facility] Urology Office/Clinic Noteon 07-08-2023 Urology Office/Clinic Note Chief Complaint F/U for cathater HPI Staff Pt last seen in our office by PRW (due to be bonderizer) 05/01/23 for ER f/u to Urinary Retention. Pt had initially presented to [facility] as a new pt, due to Urinary [...] is here today to follow up to [facility] ER 06/10/23 CC: brownish colored urine [...] retention 4-6 wks later. Goes to the CT in [place] for primary care, did not bring a list of medications with him today. Baby aspirin, no hx of stroke or heart attack. States if he has to see a specialist through the CT he has to travel to [place]. 1. Urinary retention (R33.9: Retention of urine, unspecified) S/p UroLift/Cystolitholapa xy 10/28/22. Did CIC in the past, stopped about 4-6 weeks ago due feeling he did not need to. States lowest volume he had was 180mL when self-cathing. Presented to [facility] ER 04/28/23 due to inability to [...] is here today to follow up to [facility] ER 06/10/23 - CC: brownish colored urine, +C&S Sent home with Keflex therapy. He did take all this, no problems with this, no pain or burning, blood in bag, noticed this morning. Has been asx during positive cultures. Discussed difference between colonization vs UTI. Advised pt that when he has a catheter placed, he will always have bacteria (more content not included)... [facility] Comment on above: Result Comment: Elec tronically Signed By: Deandra Rodriguez MD\.br\Date and Time Signed: 07/08/23 11:33 EST\.br\Electronically Co-Signed [...] 1:00 PM EST Where: [facility] Patient Correspondenceon Patient Correspondence [id number] [facility] Ambulatory Visit Summaryon 1 Ambulatory Visit Summary RICKEY GARCIA :1945 Visit Date:05/01/2023 Ambulatory Visit Instructions Your [...] 1:00 PM EDT Where: [facility] ED Note-Physicianon 05-01-20 23 ED Note-Physician [id number]#1.[address] [facility] Patient Educationon 05-01-20 23 Patient Education Urology Indwelling Urinary Catheter Insertion [...] provider. Document Revised: 03/12/2022 Document Reviewed: 03/12/2022 [employer] Patient Education ? 2022 [employer] Indwelling Urinary Catheter Insertion, Care After [...] comfortable po (more content not included)... Normal [facility] Urology Office/Clinic Noteon 05-01-2023 Urology Office/Clinic Note Chief Complaint ER follow up *Urinary Retention HPI Staff Follow up to [facility] ER 04/28/23 CC: difficulty urinating Catheter [...] had was 180mL when self-cathing. Presented to [facility] ER 04/28/23 due to inability to [...] Information Michael SMITH, Deandra Smith, URL, [facility] [address], [place] [address]- [phone] Additional Instructions: 1 month cath change Patient Education Indwelling Urinary Catheter Insertion Indwelling Urinary Catheter Insertion, Care After I, Shahla Shelley, personally scribed for Dr. Robison on 05/01/2023 11:05:21. . Documentation recorded by the scribe, Shahla Shelley, accurately reflects the services(s) I performed and [...] 500 mg tablets, (more content not included)... Normal [facility] Comment on above: Result Comment: Elec tronically Signed By: Steve ROBISON MD\.br\Date and Time Signed: 05/01/23 11:07 EDT\.br\Electronically Co-Signed By: Shahla Shelley\.br\Date and Time Co-Signed: 05/01/23 11:05 EDT ED Note-Physicianon 04-29-20 ED Note-Physician [id number]#1.0 0CD:127 Normal [facility] Ambulatory Visit Summaryon 0 11-18-2022 Ambulatory Visit Summary RICKEY GARCIA Hernandez :1945 Visit Date:11/18/2022 Ambulatory Visit Instructions Your Diagnosis Urinary retention Tests Performed Urnls Dip Stick Auto w/o Microscopy POC 69676 Your Care Team Attending Physician - YESENIA [...] Urnls Dip Stick Auto w/o Microscopy POC 38861 (11/18/2022) Bilirubin Urine Dipstick - Negative Blood Urine Dipstick - Negative Glucose Urine Dipstick - Negative Ketones Urine Dipstick - Negative Leukocytes Urine Dipstick - 1+ Small Nitrite Urine Dipstick - Positive Protein Urine Dipstick - Negative Specific [place] Urine Dipstick - 1.025 Urine Appearance Urine [...] surgery, probl (more content not included)... Normal [facility] Patient Educationon 11-19-19 23 Patient Education Urology Acute Urinary Retention, Male [...] these instructions at home: Medicines ? Take pkxp-sgb-jtnlmmf and prescription medicines only as told by [...] provider. Document Revised: 04/03/2021 Document Reviewed: 04/03/2021 [employer] Patient Education ? [address] [employer] [facility] Urology Office/Clinic Noteon 11-18-2022 Urology Office/Clinic [...] during attempts to void. XR [place] 10/28/22 [facility] [place] catheter overlies the lower pelvis, [...] removed 10/30/22. [facility] Urine today does have strong odor but [...] E&M of Est. Patient Low 20-29 Min 54590 Influenza immunization status assessed 1030F Measure Post Void residual urine and/or bladder capacity by US- non-imaging 14795 Most recent diastolic blood pressure <80 mm Hg 3078F Patient screen for fall risk: no falls in last year or 1 fall with no injury in last year 1101F Systolic BP 130-139 mm Hg (Most Recent) 3075F Urnls Dip Stick Auto w/o Microscopy POC 45239 Total time spent reviewing previous notes/results/external documents, [...] mg Tab, (more content not included)... Normal [facility] Comment on above: Result Comment: Elec tronically Signed By: YESENIA LOMAX PA-C\.br\Date and Time Signed: 11/18/22 15:58 EDT Ambulatory Visit Summaryon 0 11-07-2022 Ambulatory Visit Summary RICKEY GARCIA Hernandez :1945 Visit Date:11/07/2022 Ambulatory Visit Instructions Your [...] Smoker Urinary retention Urinary tract infection Normal [facility] IntraOperative Documentson 0 11-04-2022 IntraOperative Documents [id number]. 00CD:127 Normal [facility] Postoperative Documentson Postoperative Documents [id number]#1.0 0CD:127 Normal [facility] Calculus Analysison 11-04-19 23 Calcium hydrogen phosphate dihydrate (Stone) [Mass fraction] 5 % Invalid Interpretation Code [facility] Comment on above: Performed By: #### 1 [id number] #### [facility] [address] [place] [address] Calcium oxalate dihydrate Infrared spectroscopy (Stone) [Mass fraction] 20 % Invalid Interpretation Code [facility] Comment on above: Performed By: #### 1 [id number] #### [facility] [address] [place] [address] Calcium oxalate monohydrate (Stone) [Mass fraction] 75 % Invalid Interpretation Code [facility] Comment on above: Performed By: #### 1 [id number] #### [facility] [address] [place] [address] Color (Stone) Duran Invalid Interpretation Code [facility] Comment on above: Performed By: #### 1 [id number] #### [facility] [address] [place] [address] Composition Comment Invalid Interpretation Code [facility] Comment on above: Result Comment: Perc entage (Represents the % composition) Performed By: #### 1 [id number] #### [facility] [address] [place] [address] Disclaimer: Comment Invalid Interpretation Code [facility] Comment on above: Result Comment: This test was developed and its performance characteristics determined by [facility]. It has not been cleared or approved by the Food and Drug Administration. Performed at: [facility] [employer] [facility] [employer] [address] [place] [address] [address] [place], [place] [id number] PhD Alvarez Mccoy Performed By: #### 1 [id number] #### [facility] [address] [place] [address] Laboratory comment Good (Report) Comment Invalid Interpretation Code [facility] Comment on above: Result Comment: Tessa louis questions regarding Calculi Analysis contact [facility] at: [phone]. Performed By: #### 1 [id number] #### [facility] [address] [place] [address] Please Note: Comment Invalid Interpretation Code [facility] Comment on above: Result Comment: Calc maciej report will follow via computer, mail or profiler hand delivery. Performed By: #### 1 [id number] #### [facility] [address] [place] [address] Size (Stone) [Entitic vol] 7x13 Invalid Interpretation Code [facility] Comment on above: Result Comment: Mult iple pieces received. Dimensions of the largest piece reported. Performed By: #### 1 [id number] #### [facility] [address] [address] Specimen source subject Nom Comment Invalid Interpretation Code [facility] Comment on above: Result Comment: Urin jasiel Bladder Performed By: #### 1 [id number] #### [facility] [address] [place] [address] Stone Photo Comment Invalid Interpretation Code [facility] Comment on above: Result Comment: Phot ograph will follow under a separate cover Performed By: #### 1 [id number] #### [facility] [address] [place] [address] Weight (Stone) 1188 mg Invalid Interpretation Code [facility] Comment on above: Performed By: #### 1 [id number] #### [facility] [address] [place] [address] Coding Summary.on 10-31-2022 Coding Summary. CD:[id number] Ww +PGhlYWQ+FZ6AKTVoQ21mn SXmpZ1mS2UAGAbERvrvQMF WGQoORkYjmjAaVO0pyFJqS XJu IC8+FU4wQWKwXczxpVLtd2 S1mVA1A23gjq2iNUjzpGI9 BFTuNaJzvqjky2vppFs8PT cuNmluOyBt FHOcyB55IWW7oL55Bl91wG LflFUzj6ahkKx6UwBbRVNm NZW0uDaeBQlze4TiBDXdC2 5esXSfs7Q6 SOTdwCqvuSVeJcJntYS7jD 2sLNkseufta1pjbigsEom7 rr69kPZxt1O3nGY0S4Dhwt P3OJCayOEi KyxfbPXUuJ1fvxoxn9snpo whXyIpOLFlXZr3RAh9BIAd dZkwDcJmQN06TPS0RSAuhb HbO0HyUAKx aBrxLzU2x0W9Ro8DO5CJJv jqQ0VCIMNOPCtqmPW+PC90 rm43P8NuPkpoSzc0CUAiFH E3iIX4lJ0y GRIbGCjuv6M0aFA7S8Njqc Lhrm0gq1agGMXbQRebY09i gHIzy7S3DUTbmBV7UWEfaL zmXqUspI80 Oyc+LYGkcIzsr8HnOshus1 bai8zozOj4DnanLYMjncRb cSdlWSX5n6BrGt7sFMSjyU S5rNB2xB3g XqPsPqW9XCsxP414NzZwsV GiUtbpF20xC4GrkTW+PHRy Iqn9DZIeiBrxXT4wY3OyIL RpbmctbGVm mAwkFV6oJAAkxrihCNWieX 9hSZYpJ8u8EoSaBlS2OBnt O1VbYVEirtvhIp54kL1fAm IpKxO9BLrp G5YszbY7ZVDqqGFqKCgkLM E7P91fa3T8MSTgCTCtJKJ8 zBU9sH3zmQgewswboVPxfQ sgdmVydGlj UDhqDKlrJ999TIOszLebXd NvZGluZyBEYXRlOiAgMDQv MDcvMjAyMzwvdGQ+PHRkIH G5vTylYNLa qSKdGSwnHz8xvRgknYkcCR 6uEGHutfbuSXDakO9rAXMc qNCnuJuhYE5kZSLhyisva6 05OvLvVTI3 TSZreRCiE7IvdR4pInEiJH SoQQYfS7MzmZUeNLwxJ788 VCnnPuY2NKFzjlArX2WiZJ FsaWduOiB0 l7E6Cr8Qd6FnljhlL7SteO TaWfDrCvbnVZm2X9RgKkgu dHI+PX92QZAiPY30AMh5OP L6uAwrCKbi NYMnO4SudE4nBlBdTXRuSW RkOyc+PHRhYmxlIHdpZHRo NRjbBMVwVuMadTlfSV6wKb 9yZGVyLWNv gCqquWSrQsXew6dbQIQcYR syVM2hvNnxR2JmoMI9WKSd j0s6Dw64M07fD6UjtYU+PG JljXU5yNW8 yE8gLfPxXnT2BXrcT426Dm LnnTJzNrcci2vfc9bumIz6 TtN5JKIkjqVvxXylHOQ2g8 VoYy53O10o IHdpZHRoPSIxNSUiIHZhbG uzie3bbA1sHl4+PGNvbCB3 fAW4sG9nOrNcYkC3HQmtU4 49InRvcCIv Gqrgk8hhf5npgRj4VpYsPE VlgjOoaJtiUIP5l1CmFa13 Y5WuiOfrz8IbWgg4ki88iQ Uur6F2rIC7 C0TcWHAignwerFNohXofRW 4kFPVkclbqJBSqiU0hQSIb G6e7PwAmLqT5MJziQ3Jawk M9XEEztXXn FCPnpEGXfD6dvhzgu2cdid qgYnCgPUOoHUs4HDw5IKRv mJcbCbFmEKI8JyO4MFB6cQ GgsA7slGsd jtbbiA1mBlp+GWR4nGIqdC HXSC1vLknmhFW+PHRkIHN0 nXnmPNbbYKPjmQ7hFBWcU9 a0YaOdDpW3 FSglM3PmoaT4MQVrjRMrQN WfkBBVbP8ktoyuu4oovnge KzTxMVHsTNu8ZNi8YCGvrS duOiBsZWZ0 WnP1CPK0cTQgnO5avQbhde xqpP6hEta+QmlydGggRGF0 NQy3P2TnXqv0EZMilPjeDS 0ncGFkZGlu Tr6whBjqjTjeSW4cGRYwbr kgg377OdYhh6raNNHlnWVq TWjgJIF3Y91va6E5BLWpWE WwUKD4lHR3 lK0izPizpcclhHUdcYfmen TigLmhBCxqTYjxY813WODg zOzgXtIpXKu0G8LuBwd4HZ IhbOtiDV5g fWJaVAnbXe9vvFpbuDntUP 6lPBOofyulx637XzPme7rs EAQayFXsCGywXAC5Z51kt7 F3FTMrGVUl EHD6uPI0fX1izIgyfqfwvU VmdDsgdmVydGljYWwtYWxp Y847JVHegHxoWpJasKj9H8 NsXdq1RTUu rFbbQY9dfOSpYSvdBl1gnS mfqKmjVB8wPMTlljtyq165 KpTff8kmVKZddYZmTKzjMM W5G56xw4Z0 OVPjRDKsQZY4iBD1aT3wkP lnbjogbGVmdDsgdmVydGlj UFtaXLsoK849RFZcaAdaJa BhdGllbnQg GLbzOTa3L6IzBjneeTJ+PC 28EKKyDH54tEKwzGRsm0nk nHm7KeEhEZKdECD8oIcwUL bph2KpEVNt L55riFLpo6G1CIImuJfqzH PaJoItrCQ9pP2kAKeqezys y8mzlpzfTtwdp7twzz68fZ 65J52lNQlc ZHRoPSIzMCUiIHZhbGlnbj 8plQ2jFp3+PPBiiGP1hHG8 uW5iABYzDoJ4ZSfrM737Ni RvcCIvPjxj y3ggn8ugeRc2FrZ4BLOuyn AnzUbiNGJ0e9MbXx85X17n IHdpZHRoPSIyMCUiIHZhbG buvd6rpD6p Ii8+WFYfuXV4kKB2mM9fAi NrQoH8ZGlzU635UmTkrAMy UoalK23pW7JsnLZ+PHRyPj a8BWDstZam JW0rbLQeUVruOr5yHYH2Nz EjIdMyOJgcX4IfFDOotnwr aoebfWU7ZAYjUEVqeK40Lk 9udDogMTBw wASIdW9wdadce0djiazqDg WdZTXcLUe5MWm8VUChuJzz OsWjJOL4TjT3TCK5qBPhfB 1hbGlnbjog tR0sW7AuIEYjdxezAx94xF 8rUqFlWvC5OJumPej+TEFV XlHLWNSVXRqzR8ASWOhXEy YTBR45FX22 cJAxn1A5sPA3Y1PsXCEano kueyiagNN0MAWfXVXelV14 gGVnWNuyOz3pa5G0m941ZW FmYGPadJ67 Of8sqSnwWIQvpUWVoQ2pau ccn4dlhtloJuNxBAYmQRx4 BEi8HMPtwRhiThPzFTW3Rx B2IPO6pGRr rM9ltUzbjwwgaX7tXvx+MD AgEaloDAy5VolglLR+PHRk IEU0gRunUHpyEUNwoE2wWQ XnC2v1CdEa KjA4ULsfB4FuIITmdkqsPn 02dI1yCmIwIbX2HAwwB2Tl ooC0BGCuhHJpGPpvMLA6P9 4jc0D8TSXl YMEfJEE9pNG9hC7ljLfijw ogbGVmdDsgdmVydGljYWwt QQggO133NJSjfGdzMkn9QT qfMEBeFZ14 LS38bJPcy3C6nLB5Z0GnFK ZogrhxvhypkCN9KNZuKKSl dH58rAOkTFapOa3ql1R9q2 06IDAuMDUw wH88Ou6zuOgbJLZbsBVEcE 5xomxir3ndifgtIjEhMBYo SVr3IZh4VCAchOmbIrNiSS Q2PoW4QQG9 kVRkzD9zqCpmhgflhH5qGx c+TWFsZTwvdGQ+PHRkIHN0 lOpuZRxhGDYxnY6aFHEyT5 z7LcWfZaV7 OKlmP6ObPSHizrnyNc58nD 6gQuAyJjE6SQeqG0QqipU7 BMMmqWMdIBpbKUP7C33pr3 P9CZDeEAHb RKB8yBY2hL8laIyckqgymK VmdDsgdmVydGljYWwtYWxp M173EPVeuSmjYwQyHzRvTI NxulmbG6Gx TQIMVLgrS2KoE1EbtFjypJ Q+TU37gc95T2ThUrhsBqu6 AJPaIWK0zBD7yJ2vODIaAE gtz7U6xWO4 Q8AqbtStem6xz5lwDVHeWN iuR94drINpp9O3EWAtuIW0 PFXiaKwuClQqbZ58Rpv+PG LppLvlf6Eo Pocbm0slc2adiXc0SyCySF AugbJitRwjCCW0u1LyNk87 R21pJLmlNDFdYDLzXBLvKY KtnTtamg2o fF2sIh2+DWBbnCH0vXY3jG 3hVcJcEbM2RLfeT837CvEa lMAiPivyt3phu5hgeDp4Xf IwJSIgdmFs lRgtYPJ5f7EmIt01Y8FylB ghq2QjMrx4et28yOMjk0A6 fAS5J6WpAVVhtswtyWQidB itUK1zMVXl tkfpHXZblY6iGPJqE0o5Xd KpRxA1XGsqP1DttaJ5GDEa eIWbFJTzdYWVbF2gfkrgc3 xvcjogIzAw HTWoICm4NWe9NWJpbIcxVp NtEAQ5PeZ5NSQ6cCPcsL9m rBhgzgojcH4gMiw+UGh5c2 keyKRqRL1e rDZ3NJ15FM94zKVdv0K0cK Q1A8TcVJSryaywdrwpgPM3 LXRqXENsqX41Ol7elDluKd 8dSJYuPSQ7 RXOipBKeY8MtyB2mUxKvOP MtOHXwM5XnwJIsONrpQ418 VSsmGxT5STJxbkIbC8GeYK FsaWduOiB0 v3Z7Dh2JCJ96EV00FN51qO Pfb9D0qKC3Q2ZjMIUclvzy fkkvpZW7KSYqCLIrdF61Xx 5xnRcrLt9n DVPqXHZ6QEOegTQkY5QjiZ 7iSlVeZOOhHATpR3RcwTHm ZOvhE369IIsxSyN1DTUqrv DzF3YcQOJa tJeyNwQ4o7X5Hv8BSj33EJ 53RJ54hTHwk2F1kWW6T6Vt KFYncgkixqfxkPY4LTKrPG EykL47Hh8h fCycBq9lJFZxKAA7LVVeaG WyP8MnzF4xAoJtJTGoGVSm O1ZfgHDvXFuuU961ITnvRl H7EERowxGh N9KwYGMyrKvnZrA4q1H3Fc 4IWWrbbix2J9YwRdjffKC+ VD25BOHgMY04yCLcbLTcx3 fkmJz7WbVu MCUnIHN0 (more content not included)... Normal [facility] Main OR Intraoperative Recor don 10-30-2022 Main OR Intraoperative Record IntraOp Document Type FT Summary Primary Physician: Deandra Rodriguez MD Finalized Date/Time: 10/30/22 13:00:09 Pt. Name: RICKEY GARCIA/Sex: 1945 Male Med Rec #: [id number] Physician: Deandra Rodriguez MD Financial #: [id number] Pt. Type: A Room/Bed: Admit/Disch: 10/28/22 08:00:59 - 10/28/22 13:45:00 Institution: Case Times FT Entry 1 Patient Times In Room 10/28/22 09:51:00 Out Room 10/28/22 11:06:00 Procedure Times Start 10/28/22 10:20:00 Stop 10/28/22 10:57:00 Anesthesia Times Start 10/28/22 09:51:00 Stop 10/28/22 11:06:00 Last Modified By: Aviva Joya RN 10/28/22 11:06:55 General Comments: PATIENT ARRIVED IN OR SUITE WITH WHITE. WHITE REMOVED BY SUKHJINDER MARTINES/SA. KALEY RN 10/30/22 Chart opened to review and send charges [facility] Case Attendance FT Entry 1 Entry 2 Entry 3 Case Attendee Cristy SMITH, Lev Rodriguez MD, Deandra Nino CST, Crystal Carter Role Performed Anesthesiologist of Surgeon - Primary Scrub - Primary Record Time In 10/28/22 09:51:00 10/28/22 09:51:00 10/28/22 09:51:00 Time Out 10/28/22 11:06:00 10/28/22 11:06:00 10/28/22 11:06:00 Procedure CYSTOSCOPY(.), CYSTOSCOPY(.), CYSTOSCOPY(.), CYSTOSCOPY W/ HOMIUM CYSTOSCOPY W/ HOMIUM CYSTOSCOPY W/ HOMIUM LASER(.) LASER(.) LASER(.) Comments PRECPTING - ANGEL MONTIEL CST (ORIENTING) Last Modified By: Toan RN, Aviva Joya RN, Aviva Nguyen RN 10/28/22 11:09:19 10/28/22 11:09:19 10/28/22 11:09:19 Entry 4 Entry 5 Entry 6 Case Attendee Toan BENÍTEZ, Aviva Lofton CST, Wilma Sepulveda RN Role Performed Weigher Packing - Primary Marketing Technologist Staff - Other Time In 10/28/22 09:51:00 10/28/22 09:51:00 10/28/22 10:55:00 Time Out 10/28/22 11:00:00 10/28/22 11:00:00 10/28/22 11:06:00 Procedure CYSTOSCOPY(.), CYSTOSCOPY(.), CYSTOSCOPY(.), CYSTOSCOPY W/ HOMIUM CYSTOSCOPY W/ HOMIUM CYSTOSCOPY W/ HOMIUM LASER(.) LASER(.) LASER(.) Comments 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 JEYSON ROCHEpublic relations specialist Protocols FT Pre-Care Text: Implements protective measures [...] Medication Applicable) PreOp Antibiotic Yes Time Out Cristy SMITH, Lev Given Participants S., Michael SMITH, Trung Naranjo CST, Toan Ferrara RN, Kimberly Y, Wilhelm CST, Benjamin Time Out Complete 10/28/22 10:15:00 [...] Surgeon Michael SMITH, Deandra Rodriguez MD, Deandra Dinero 10/28/22 10:20:00 10/28/22 10:20:00 Stop 10/28/22 10:57:00 10/28/22 10:57:00 Anesthesia Type General General Surgical Service Urology Urology Wound Class 2 - Clean-Contaminated 2 - Clean-Contaminated Last Modified By: Toan BENÍTEZ, Aviva Nguyen RN 10/28/22 11:01:26 10/28/22 11:01:26 General Case Data FT Pre-Care Text: Classifies surgical wound, implements aseptic technique, initiates traffic control Entry 1 Case Information OR OR 6 FT Case Level Level 3 Wound Class 2 - Clean-Contaminated Specialty Urology ASA Class 2 Preop Diagnosis BPH WITH LUTZ AND Postop Same (more content not included)... [facility] Consent for Anesthesiaon Consent for Anesthesia [id number]#1.0 0CD:127 [facility] Discharge Instructionson Discharge Instructions [id number]#1.0 0CD:127 [facility] H&P Updateon 10-29-2022 H&P Update [id number]#1.0 0CD:127 [facility] IntraOperative Documentson 0 10-29-2022 IntraOperative Documents [id number]#1.0 0CD:127 [facility] IntraOperative Documents [id number]#1.0 0CD:127 [facility] Preoperative Documentson Preoperative Documents [id number]#1.0 0CD:127 [facility] Consent for Procedure/Surger yon 10-28-2022 Consent for Procedure/Surgery [id number]#1. 00CD:127 Normal [facility] Consent for Treatmenton Consent for Treatment [id number]#1.0 0CD:127 Normal [facility] Inpatient Patient Summaryon 10-28-2022 Inpatient Patient Summary [place] [id number] [facility] Clinical Discharge Instructions PERSON INFORMATION Name: RICKEY GARCIA [facility]#:[id number] PHYSICIANS Admitting Physician: Deandra Rodriguez MD Attending Physician: Deandra Rodriguez MD PCP: MAGED ANDRADE DO Discharge Diagnosis: BPH with urinary obstruction; Bladder stone; Other obstructive and reflux uropathy Comment: PATIENT EDUCATION INFORMATION Instructions: White Catheter Care, Male-MC (Custom); Post Op Patient Instructions - FT (CUSTOM); EU - Urolift Discharge Instructions (Custom) Medication Leaflets: Follow up: With: Address: When: Deandra Rodriguez [address] [place] [address] [phone] Business (1) [address] [address] [phone] Business (1) Comments: Office to call for followup appointment in 2 days for white removal and voiding trial and clean intermittent cath teaching MEDICATION LIST New Medications [id number], [address], [place] [phone], [phone] nitrofurantoin (Macrobid 100 mg Cap) 1 Capsules [...] Capsules By Mouth every day. Comment: Normal [facility] Main OR PACU I Recordon Main OR PACU I Record PACU Phase I Docum ent Type FT Summary Primary Physician: Deandra Rodriguez MD Finalized Date/Time: 10/28/22 12:52:42 Pt. Name: REMICHONGKERRIRICKEY Valiente/Sex: 1945 Male Med Rec #: [id number] Physician: Deandra Rodriguez MD Financial #: [id number] Pt. Type: A Room/Bed: [place] [address] Admit/Disch: 10/28/22 08:00:59 - Institution: Case Times [...] By: Angela Wills RN 10/28/22 12:52 Normal [facility] Main OR PACU II Recordon Main OR PACU II Record PACU Phase II Document Type FT Summary Primary Physician: Deandra Rodriguez MD Finalized Date/Time: 10/28/22 13:55:54 Pt. Name: LEON GARCIACELINA Boland/Sex: 1945 Male Med Rec #: [id number] Physician: Deandra Rodriguez MD Financial #: [id number] Pt. Type: A Room/Bed: 0 Admit/Disch: 10/28/22 08:00:59 - Institution: Case Times [...] Signatures Signed By: Stevenson Ruggiero 10/28/22 13:55 [facility] Main OR Preoperative Recordo n 10-28-2022 Main OR Preoperative Record PreOp Document Type FT Summary Primary Physician: Deandar Rodriguez MD Finalized Date/Time: 10/28/22 10:26:28 Pt. Name: RICKEY GARCIA /Sex: 1945 Male Med Rec #: [id number] Physician: Deandra Rodriguez MD Financial #: [id number] Pt. Type: A Room/Bed: [place] [address] Admit/Disch: 10/28/22 08:00:59 - Institution: Case Times [...] By: Aviva Joya RN 10/28/22 10:26 Normal [facility] Monitor Recordon 10-28-2022 Monitor Record [id number]#1. 00CD:127 Normal [facility] Operative Reporton 3 Operative Report Patient: RICKEY GARCIA Age: 76 [...] We began the procedure using a 22.5 Chinese rigid cystoscope, 30 degree lens, and inserted [...] midline and (more content not included)... Normal [facility] Comment on above: Result Comment: Elec tronically Signed By: Deandra Rodriguez MD\.br\Date and Time Signed: 10/28/22 11:36 EDT Outpatient Surgery Discharge Instructionon 10-28-2022 Outpatient Surgery Discharge Instruction [address] [address] Patient Discharge Instructions PERSON INFORMATION [...] Address: When: Deandra Rodriguez [address] [place] [address] [phone] Business (1) [address] [address] [phone] Business (1) Comments: Office to call for [...] to serve you. Thank you for choosing [facility] HERE ARE THE MEDICATION CHANGES THAT OCCURRED DURING YOUR HOSPITAL STAY New Medications [id number], [address], [place] [id number], [phone] nitrofurantoin (Macrobid 100 mg Cap) 1 Capsules [...] tube s (more content not included)... 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 6. Keep the drainage bag below [...] You m (more content not included)... Normal [facility] Progress Note-Physicianon Progress Note-Physician Patient: RICKEY GARCIA Age: 76 years Sex: Male : 1945 Associated Diagnoses: None Author: Cristy SMITH, Lev Carter Postoperative Information Postoperative disposition: Postoperative disposition: To PACU. Optimetrix number: Optimetrix number [id number]. Anesthetic utilized: General. Physical Examination Vital Signs [...] when meets criteria ( To home ). [facility] Comment on above: Result Comment: Elec tronically Signed By: Lev Muniz MD\.br\Date and Time Signed: 10/28/22 12:30 EDT Progress [...] pain management plan. Re-evaluation prior to induction: Lev Muniz MD. Initial evaluation reviewed: No significant change. Review [...] list: All Problems Arthritis / SNOMED CT 0047229 / Confirmed BPH with urinary obstruction / SNOMED CT 1329180067 / Confirmed COPD (chronic obstructive pulmonary disease) / SNOMED CT 27573617 / Confirmed Depression / SNOMED CT 17699281 / Confirmed Feeling of incomplete bladder emptying / SNOMED CT 065719465 / Confirmed Gall stone / SNOMED CT 983809280 / Confirmed Glaucoma / SNOMED CT 91290094 / Confirmed HTN (hypertension) / SNOMED CT 8428281315 / Confirmed Kidney stones / SNOMED CT 049299263 / Confirmed Restless legs syndrome (RLS) / SNOMED CT 98279526 / Confirmed Smoker / SNOMED CT 299143595 / Confirmed Added secondary to documentation in Social History. Urinary retention / SNOMED CT 452224824 / Confirmed Urinary tract infection / SNOMED CT 179101623 / Confirmed, Active Problems (13) Arthritis BPH [...] in all extremities. Gastrointestinal: Soft, Non-tender. Plan [place] [employer]hes[employer] (ASA) physical status classification: Class II. Anesthetic Preoperative Plan: Anesthesia General. Normal [facility] Comment on above: Result Comment: Elec tronically Signed By: Cristy SMITH, Lev Humphrey.humberto\Date and Time Signed: 10/28/22 10:54 EDT XR [...] Signature): 10/28/2022 11:26 am Signed by: Daniel Vargas MD Transcribed by: JAXSON Technologist: KHLOE Technical Comments Radiation Dose: Ka,r in mGy = 0 DAP = 0 Normal [facility] Coding Summary.on 10-21-2022 Coding Summary. CD:[id number] Ww +PGhlYWQ+GG2FIBFvO61ho TFxsC7qU5JBIVoRSwbvYKY QFMjXTwAsnfXfRM4yeUAkU XJu IC8+XM5aNIRkPngpcCBqy4 Z1vEW3Y45nwx9pFZaxvSN1 ZGTmDbDexmpyw7firAa8TP cuNmluOyBt KYCbdO05ZQV2nS21Te81pB CfbCDaj2kcmQb6FjBgRZGk DFF4oNcuWPpve2UfXHUiG3 5esZUrx2B3 AYPjsCwkyAJoKxZeuYN8hI 6vKDnnzerxd1kmgwbmSao1 tn97wJCyv4P0uNI0Q5Gjar X3JJYvkEBy SnzfpZMNdV0kpppig5faog eeJjXlESOoDPd9PFh2TNCl cExcQvDfHF82JGH8TDWnfj YqX3AfLGDb hJfaCdK0g2U5Ri5PR6KUQf rrZ5VVBNUGETmnxDX+PC90 df22D1FwOpmpJha5XTPpTQ P9xHO2bF6l HLYtIGoht4M2iVN9X0Ergn Flcu8ah2beYTSxAYghR96l dLRze6E3CPLjyAW3JWVmlH snYiHqwJ86 Oyc+QLClgTqcl4KrRmxtr9 siy5ybvVb8MbqyXMEkhfTm tSmfDNL9m9KpGv0wDZIzlB J0eVK0rV7n NfYdFyE2ZZynY404YeBeqH TzJafbM56oQ8KnnJS+PHRy Orj8LUHzvWskXB6iN6XaHX RpbmctbGVm uSewLW2xVUUadropTLVetT 4xMKNnU5f2LeNbTwR6GZnt I5PdZQTbxcxrMo28cT3zQk ZuDmV0TAjs O8ExkmH3XPVwzENdZLpnAQ A6B23nx7W5EFMqXDRiQMY1 bDC3lV8tpMfuiqiqjUHtzK sgdmVydGlj DRraMLaeZ760VIOfpNjmZm NvZGluZyBEYXRlOiAgMDMv MjgvMjAyMzwvdGQ+PHRkIH H6lApjOVAn lRRpUDozXh5glSdjdWyoRM 3rDFEmcyweKVDriD4vQMIv zRIauViaUB5wWWHfntnvt0 54SmUkLJH9 TIPcmOZmK2SeeT7mIvDgKB QyRMMaX7FmdXLuESpeR045 KFtpYwB9DBClpvYgG4CpSY FsaWduOiB0 t6B8Wi7Tm7DswlzuJ3JsaT MhCgOpStueGSx6V5TeTpex dHI+MT52ZDSmCM15LVu7YR V9wVanKRxz SWJlY0LvsR7oVtYhFABiDD RkOyc+PHRhYmxlIHdpZHRo OHdeLWQcBkGxjVkdNA5pMh 9yZGVyLWNv zEnhmTRmRkYlg1utUTAbAE euLL2tlQugR0OvlRP5HKKz l5n0Ig64F73aI2JdjCU+PG StpHF5fOJ4 iA1nLaVpBbO5PSguW262Kh TeqBZgRqruq8voy0zljJi9 PvT8SLJrvmFlgEyeGKL9h8 EsWn75F19c IHdpZHRoPSIxNSUiIHZhbG emgg4vhT7xBi8+PGNvbCB3 hKY7nW4bPzJvNuV6LRvrY8 49InRvcCIv Hlobl6wzk3ilpJx5BzWtAK RicrAzrDyeSCO4w7YuZm54 P2RlxHhfw9CiNzr8yj06uS Yaf5R6nHE7 R5EbOQXzqrplcRKfdVwfGS 7lWFLoheaeHOQdtV4uYRDw L7s1OrEpKcG4CGurI2Fsrw T5FBElfZLl JNIgcKDSdH6noaetv3kcgc fpWiLfLYIrOFo4VPi6MNZo lNgyHdFlNBI6HrP6TII5nG IypF7aiHvt xkxjdQ2kAmc+DZB0mOApbH JPDJ7fCrdeyUQ+PHRkIHN0 yAyqHNfpKSBusU9hEXXgF7 m9IaEzTjN8 RIpaC4PsktL7UDKjsOCnOO TkeJLXuN7sogeev9outckt FpXoLDMoIQu5KIf0YVHnuY duOiBsZWZ0 DaJ7TLI9cSKcuS1kaEffpn hwyF4nYqw+QmlydGggRGF0 FHi8K7RcZyy5BQYswXxwUL 0ncGFkZGlu Cc7arUjwzCopNJ0mEBUqmo jzl090OgYel5mlZBRgjSCv BQxeMJA7P28ou1N6WVTyFU TqOID5kEO9 sZ9vsGmubrdwnBYykGdjbo HutUhbILirLGkdN524ZSDz oBmjOlPqFMb3D5YnKgw0FW SrfTsoEI9j pLUtPIyqNv4rqSdgfFwfRF 7cKSTdojump211YqNhy3ij OXEnoVQcGHqgSWL9N81lp9 E0AOIcYAYt DQM8jXY5sA2oqVkdcymmrN VmdDsgdmVydGljYWwtYWxp U042IQZxmOhpDsSffQq6Q3 HnCrf5JYUa uOduWY0yaZYjWRfnMm7vhA oezFuzBD4aYGOqscjxw457 UtQml0mvZVWyxNDvUUkcHP G3N04aq2G5 RXGlXUSjFOE4uNE5tQ9bxW lnbjogbGVmdDsgdmVydGlj LWedGWnmR087LGQvkLxjOg BhdGllbnQg CXrgKFr4X0JeLrajvQL+PC 90JQNjQU04wGQvlNPjt3mp sJv7ObLxFRVcMSJ4vIiuPJ ats1KxEQJg L99jaPYmm9X8GGVulRrfdL OcHwZjkRY2nW2jDZspmdrc w8vchnpyYtlpl5qyff59hN 82S46zETpq ZHRoPSIzMCUiIHZhbGlnbj 4yjA2cTr6+JQFrjOC1eCU3 sU3gYHVbYlC0AIviY421Wa RvcCIvPjxj d0bhr4gygTx0AaD5EMKyaq PrnVwdMSU6f3MvTw77C85l IHdpZHRoPSIyMCUiIHZhbG jpya1auR0b Ii8+HRXggNA6jRH2gL9aIt YcGzF8LAscM947XxWjeRRc KckeG60lR6GpvZJ+PHRyPj q0ANApnNko ZG4vpIBbDYwoOf7lODD1Vg IvByUkZFpuC4QiRDNlwmkj mjnrdWJ2NHOaHCUvjC54Jy 9udDogMTBw gWMTcW3erjaoz7touralQl QtURMeNCs6UHl2XXIzkAud OiHeOJB8JpO4NSG2xTUjdS 1hbGlnbjog zL0zZ7OjOFCmalbnPn54eI 6wFlTjGxB9XUeePkv+TEFV JhTRBNSIYBixM4QSXRmMDz MZFW90WC77 xCKbo7W5qVQ9N8RrOPNlyr btfzdtgXE7ZDJxKIRzfZ24 dOIjTDycFd2nr9I9i470RZ PjSHXcmA01 Dt6ofXxfQDAnrBQXwK3tce vwh0xlaeknBlEiAGBwYJo5 OCz6ZXGkzSsnImCyLLC5Lj X9RDA5vYMq jV9obRdzuutgrG4yXwa+MD FyAfsePOm5QfbubZJ+PHRk XQI9yTwoVCphYYVhoQ8oDW KzB2j4ZpPp EbX5EXlwZ4RsMDBwqtedYn 16eF5bTvEsSeR5FSlfN3Va qnO8MDEywHXzDObpBIP1G9 3sc0D8UOTb EMLxJSR8wBJ2gF5uwUnjuv ogbGVmdDsgdmVydGljYWwt AKdyR153AGFrzMgnUnj3XG wbIQXgJE80 WP85qHCni9K1nCE4V2TkBE VmeqhgaevxaOZ6AOIgNKCy cE71vKXqRKrcMp8jc9A4n2 06IDAuMDUw yZ27Il0plTgvDEPiqLLOjO 9bkganu8xgemaqHsRcWFVe AXo8RHs5YZAmdJjaKrGaYD K7NkB0PDS3 xBNbxV9rnLxvpwnmqE9mFn c+TWFsZTwvdGQ+PHRkIHN0 qQdmRWnxJFXvwK5sVVWbR3 o6VdDnZqZ8 DRzvB3BaQHRwxkykKp47nV 0gPxBmXjX6IMdwX5WuxdO1 ZPRykTBxLHdoLOO9V72zv8 I0HOVaKBSu BQB6iLP2xZ9shFncrwekoB VmdDsgdmVydGljYWwtYWxp U284IPYlhByfZi73iUHmpW ojweG9W8Ab PjwvdHI+JA10EGUsOL03yD ZloFCkj8cbdMe8RrAfHOUx FZI2cQpmFPhin0NdTNPsC5 0xuJZcm3B2 UARmbQmirKOkKjAnlIU8sC 6cKEyfvmakl8hxycauZuey s4acoa25oL18A59rWMqnWX RoPSIzMCUi BWRhmAeapg0zfH9zLv3+PG FdsYW5fET2wK7iIbSpXdT2 LZkrC333PxEpeDPkAjocr9 lrs6tnpQh1 LxXpJCXoaxUedYmfJZB0m2 VsGf51A35dCCxaTPCwMLGx PNHtUVNzdPjheb5tsY3kQf 8+KA5fu9vu sx08oU39nQS+PBPoNCH1jL lzTEjfHLBqwC5xHCugEfZ0 CBUuCoSftT57tJDnDCfrMl 1yaWdodDog VU2vPJZzjtjoj271WaWpd8 crOGWkkAClALizZBB6I79v a1D5ZDOrDVWdXBN2sGY1hZ 1hbGlnbjog bGVmdDsgdmVydGljYWwtYW sgX754RYUdkQutKfPzeCWn N6hiaoAJZK9sClddaXM+PH WfATO2kKfb MHdwYYLtzH5hQMJyZ1g5Uy MsVyV7YVzjQ8VjbyW6HAYo wHEgAHDzxBGWcK1uclclk5 xvcjogIzAw MEXfSGs8QVm5OLExdDpmYi ZlLWM7UhJ9IWM8qCEmiL6a gFcxovlbsG9jQon+RklOOj wvdGQ+PHRk ZZV5zUukAYgwDDVglY5lNQ RhB1t0FjRnBhX8OXhcN1Wd pqF6KGIhsYRhGOTyjZPLgC 7mbozlk9aa pvbjEtSzUVIoBDi3DGw0IL FkmHtqCoYpQEO6CfU3HPW7 uWAajG7ocWuylvmxlM2jVu c+TVJOOjwv dGQ+LINsQFM2kAbrURgjCI NejE2uARPjL3n2KoByOaW8 QZspY9DfgpS9UKDhxARvJZ DbiSLDtA1d yukvu4rvvgavNxGyBDQnDV l3JRs9HIVabFlbFkYsKCJ5 HpJ8IAS6zGAyqB0erIyqzy lqsX3mEzk+ KLN8HXI5HY41YR85L8BtQr wvdGFibGU+PHRhYmxlIHdp ZHRoPScxMDAlJyBzdHlsZT 8aHx4pOADd LWNvbGxh (more content not included)... Normal [facility] Transfer Inon 10-17-2022 Transfer In [id number] 06 [id number] CD:127 Normal [facility] Transfer In [id number] 30 [id number]#1.0 0CD:127 Normal [facility] Transfer In [id number] 0CD:127 Normal [facility] Auto Diffon 10-15-2022 Basophils/100 WBC (Bld) 0.6 % Normal 0.0-2.0 [facility] Comment on above: Order Comment: Order Added by Discern Expert. Performed By: #### 2 350530, 0255293, 67842029, 4925276, [id number] ####[address] [place] [address] Basophils/Leukocytes Auto (Bld) [Pure # fraction] 0.1 E9/L Normal 0.0-0.2 [facility] Comment on above: Order Comment: Order Added by Discern Expert. Performed By: #### 2 523072, 1284040, 33374202, 0548413, [id number] ####[address] [place] [address] Eosinophils/100 WBC (Bld) 9.1 % High 0.0-8.0 [facility] Comment on above: Order Comment: Order Added by Discern Expert. Performed By: #### 2 906238, 9753690, 98099213, 5001979, 81678351 ####[address] [address] Eosinophils/Leukocyte s Auto (Bld) [Pure # fraction] 0.7 E9/L High 0.0-0.5 [facility] Comment on above: Order Comment: Order Added by Discern Expert. Performed By: #### 2 882562, 1567965, 94953627, 0690001, 18063632 ####[address] [address] Lymphocytes/100 WBC (Bld) 15.5 % Normal 14.0-50.0 [facility] Comment on above: Order Comment: Order Added by Discern Expert. Performed By: #### 2 857157, 9819858, 36052777, 8625468, 32516085 ####[address] [address] Lymphocytes/Leukocyte s Auto (Bld) [Pure # fraction] 1.3 E9/L Normal 1.0-4.0 [facility] Comment on above: Order Comment: Order Added by Discern Expert. Performed By: #### 2 028853, 3956800, 07524659, 2008334, 87932818 ####[address] [place] [address] Monocytes/100 WBC (Bld) 9.2 % Normal 4.0-14.0 [facility] Comment on above: Order Comment: Order Added by Discern Expert. Performed By: #### 2 625785, 6210325, 38965035, 8116671, 36006625 ####[address] [place] [address] Monocytes/Leukocytes Auto (Bld) [Pure # fraction] 0.8 E9/L Normal 0.2-1.0 [facility] Comment on above: Order Comment: Order Added by Discern Expert. Performed By: #### 2 279159, 1162476, 11463823, 7666989, 96338369 ####[facility] [address] [place] [address] Neutrophils/100 WBC (Bld) 65.6 % Normal 36.0-75.0 [facility] Comment on above: Order Comment: Order Added by Discern Expert. Performed By: #### 2 609621, 7733471, 52244016, 5370361, 39984559 ####[facility] [address] [place] [address] Neutrophils/Leukocyte s Auto (Bld) [Pure # fraction] 5.4 E9/L Normal 2.0-7.5 [facility] Comment on above: Order Comment: Order Added by Discern Expert. Performed By: #### 2 252564, 1289923, 09850057, 3292227, 43868305 ####[facility] [address] [place] [address] BMPon 10-15-2022 Anion gap [Moles/Vol] 10 mmol/L Normal 6-16 [facility] Comment on above: Performed By: #### 2 051951, 2989728, 56788453, 8751638, 35096779 ####[facility] [address] [place] [address] Calcium [Mass/Vol] 9.5 mg/dL Normal 8.9-11.1 [facility] Comment on above: Performed By: #### 2 644292, 2468996, 70504147, 6322656, 89949994 ####[facility] [address] [place] [address] Chloride [Moles/Vol] 103 mmol/L Normal 101-111 [facility] Comment on above: Performed By: #### 2 708034, 3947780, 19220207, 8647494, 60550871 ####[facility] [address] [place] [address] CO2 [Moles/Vol] 30 mmol/L Normal 21-31 [facility] Comment on above: Performed By: #### 2 547353, 8548762, 51212315, 4509708, 33409168 ####[facility] [address] [place] [address] Creatinine [Mass/Vol] 0.9 mg/dL Normal 0.5-1.3 [facility] Comment on above: Performed By: #### 2 165169, 7219440, 34207882, 0444275, 95693760 ####[facility] [address] [place] [address] Glucose [Mass/Vol] 144 mg/dL Normal 55-199 [facility] Comment on above: Result Comment: If t his glucose result represents a fasting glucose, interpretation should refer to the following reference range: 55-99 mg/dL Performed By: #### 2 664270, 3432351, 29037782, 7064722, 85586117 ####[facility] [address] [place] [address] Potassium [Moles/Vol] 3.6 mmol/L Normal 3.5-5.3 [facility] Comment on above: Performed By: #### 2 293384, 9211244, 44748695, 6263121, 82062710 ####[facility] [address] [facility] [place] [address] Sodium [Moles/Vol] 139 mmol/L Normal 135-145 [facility] Comment on above: Performed By: #### 2 587170, 3976515, 05447425, 9498848, 24120998 ####[facility] [address] [place] [address] Urea nitrogen [Mass/Vol] 18 mg/dL Normal 5-21 [facility] Comment on above: Performed By: #### 2 902870, 2461931, 69949019, 2816949, 75816679 ####[facility] [address] [place] [address] Urea nitrogen/Creatinine [Mass ratio] 20 No Units Normal 10-20 [facility] Comment on above: Performed By: #### 2 001077, 5120316, 08121723, 6478367, 34127042 ####[address] [address] CBC w/ Auto Diffon Erythrocyte distribution width (RBC) [Ratio] 13.6 % Normal 10.9-14.2 [facility] Comment on above: Performed By: #### 2 686265, 9698929, 91832778, 2590910, 66806043 ####[address] [address] Hematocrit (Bld) [Volume fraction] 42.3 % Normal 37.7-49.0 [facility] Comment on above: Performed By: #### 2 612880, 7391850, 85447548, 7085474, [id number] ####[address] [place] [address] Hemoglobin (Bld) [Mass/Vol] 14.1 g/dL Normal 13.5-17.5 [facility] Comment on above: Performed By: #### 2 363789, 3030798, 02012105, 7640409, [id number] ####[address] [place] [address] MCH (RBC) [Entitic mass] 33.6 pg Normal 27.0-34.0 [facility] Comment on above: Performed By: #### 2 211477, 1286751, 47740155, 6016069, [id number] ####[address] [place] [address] MCHC (RBC) [Mass/Vol] 33.3 g/dL Normal 31.4-36.0 [facility] Comment on above: Performed By: #### 2 896195, 7824897, 30134361, 4426705, [id number] ####[address] [address] MCV (RBC) [Entitic vol] 100.8 fL High 80.0-100.0 [facility] Comment on above: Performed By: #### 2 772730, 1005078, 30910898, 3051611, 05075153 ####[address] [address] Platelet mean volume (Bld) [Entitic vol] 6.9 fL Normal 6.4-10.8 [facility] Comment on above: Performed By: #### 2 435660, 0818370, 93739501, 1027410, 60685514 ####[address] [address] Platelets (Bld) [#/Vol] 310.0 E9/L Normal 150.0-500.0 [facility] Comment on above: Performed By: #### 2 268176, 9747122, 23206929, 5638815, 45399332 ####[address] [address] RBC (Bld) [#/Vol] 4.2 E12/L Low 4.3-5.9 [facility] Comment on above: Performed By: #### 2 421271, 6369391, 79575211, 5898479, 27780718 ####[address] [address] WBC corrected for nucl RBC Auto (Bld) [#/Vol] 8.2 E9/L Normal 4.0-11.0 [facility] Comment on above: Performed By: #### 2 058274, 9997440, 05032567, 3391739, 85524599 ####[facility] [address] [facility] [place] [address] CHEMISTRYOrdered By: SYSTEM SYSTEM on 10-15-2022 Anion gap [Moles/Vol] 10 mmol/L Normal 6 - 16 mEq/L [place] [facility] [place]isol Calcium [Mass/Vol] 9.5 mg/dL Normal 8.9 - 11. 1 mg/dL [facility] Chloride [Moles/Vol] 103 mmol/L Normal 101 - 1 11 mmol/L [facility] Remisol CO2 [Moles/Vol] 30 mmol/L Normal 21 - 31 mmol/L [facility] Creatinine [Mass/Vol] 0.9 mg/dL Normal 0.5 - 1.3 mg/dL [facility]isol GFR/1.73 sq M.predicted among blacks MDRD (S/P/Bld) [Vol rate/Area] mL/min/1.73 m2 Normal >=59mL/min/1 .73 m2 [facility] [place] Chem S GFR/1.73 sq M.predicted among non-blacks MDRD (S/P/Bld) [Vol rate/Area] mL/min/1.73 m2 Normal >=59mL/min/1 .73 m2 [facility] [place] Chem S Glucose [Mass/Vol] 144 mg/dL Normal 55 - 199 mg/dL [facility] Potassium [Moles/Vol] 3.6 mmol/L Normal 3.5 - 5.3 mmol/L [facility] Sodium [Moles/Vol] 139 mmol/L Normal 135 - 145 mmol/L [facility] Urea nitrogen [Mass/Vol] 18 mg/dL Normal 5 - 21 mg/dL [facility] Urea nitrogen/Creatinine [Mass ratio] 20 mg/mg Normal 10 - 20 [facility] Remisol COAGULATIONOrdered By: John Pineda on 10-15-2022 aPTT Coag (PPP) [Time] 33.7 s Normal 25.1 - 36.5 second(s) [facility] Auto Coag INR Coag (PPP) [Relative time] 1.0 {INR} Invalid Interpretation Code [facility] Auto Coag PT Coag (PPP) [Time] 10.6 s Normal 9.4 - 1 2.5 second(s) [facility] Auto Coag Consent for Treatmenton 09-25 Consent for Treatment [id number]#1.0 0CD:127 Normal [facility] HEMATOLOGYOrdered By: SYSTEM SYSTEM on 10-15-2022 Basophils/100 [...] 100.8 fL High 80.0 - 100.0 fL [facility] HemeAutoSS Platelet mean volume (Bld) [Entitic vol] 6.9 fL Normal 6.4 - 10.8 fL [facility] HemeAutoSS Platelets (Bld) [#/Vol] 310.0 E9/L Normal 150.0 - 500.0 E9/L [facility] HemeAutoSS RBC (Bld) [#/Vol] 4.2 E12/L Low 4.3 - 5.9 E12/L [facility] HemeAutoSS WBC corrected for nucl RBC Auto (Bld) [#/Vol] 8.2 E9/L Normal 4.0 - 11.0 E9/L [facility] HemeAutoSS PT & PTTon 10-15-2022 aPTT Coag (PPP) [Time] 33.7 second(s) Normal 25.1-36.5 [facility] Comment on above: Result Comment: Para meter [...] the same coagulation reagent and instrumentation as [facility] [place]. Currently there are no coagulation studies available worldwide for children to 14 days, and no normal ranges. Heparin therapeutic range (represented by Anti-Factor Xa activity of 0.2 - 0.4 U/mL) corresponds to PTT of 56.6 - 109.0 sec. Performed By: #### 2 818181, 5810341, 12690608, 5773342, [id number] ####[facility] [address] [place] [address] INR Coag (PPP) [Relative time] 1.0 {INR} Invalid Interpretation Code [facility] Comment on above: Result Comment: INR results are specifically intended to assess patients stabilized on long-term Anticoagulation therapy suggested INR?s ?Less Intensive Anticoagulation? 2.0 ? 3.0 Conventional Range 3.0 ? 4.5 Performed By: #### 2 212759, 4981135, 06505068, 5492153, 86103500 ####[facility] [address] [place] [address] PT Coag (PPP) [Time] 10.6 second(s) Normal 9.4-12.5 [facility] Comment on above: Result Comment: 15 d [...] the same coagulation reagent and instrumentation as [facility] [place]. Currently there are no coagulation studies available worldwide for children to 14 days, and no normal ranges. Performed By: #### 2 141609, 0403955, 88093580, 6637119, 46407714 ####[facility] [address] [place] [address] XR Chest 2 Viewson 3 XR Chest [...] [place] FINAL REPORT Dictated: 10/15/2022 2:55 pm Jose Morales M.D. Signed (Electronic Signature): 10/15/2022 2:55 pm Signed by: Jose Morales M.D. Transcribed by: JAXSON Technologist: CLIFTON Technical Comments Radiation Dose: Ka,r in mGy = n/a DAP = n/a Normal [facility] eGFRon 10-15-2022 GFR/1.73 sq M.predicted among blacks MDRD (S/P/Bld) [Vol rate/Area] mL/min/{1.73_m2} Normal >=59 [facility] Comment on above: Order Comment: Order added by Discern Expert. Result Comment: eGFR is race adjusted. AA=. Performed By: #### 2 571833, 1631894, 51408699, 7460344, 66017940 ####[facility] [address] [place] [address] GFR/1.73 sq M.predicted among non-blacks MDRD (S/P/Bld) [Vol rate/Area] mL/min/{1.73_m2} Normal >=59 [facility] Comment on above: Order Comment: Order added by Discern Expert. Result Comment: Critical Care Specialist noe kidney disease could be indicated at eGFR's of less than 60 mL/min/1.73m2. Kidney failure is indicated at less than 15 mL/min/1.73m2. Performed By: #### 2 941084, 8086368, 24004868, 7678118, 19150743 ####[facility] [address] [place] [address] Coding Summary.on 09-30-2022 Coding Summary. CD:[id number]:[id number] Gh 0bWw+PGhlYWQ+WP8OSOMbC 45abAJptT0GD9dKXO4QSLP HPTSIUK8QFN7jhJV4XGmbP 2VybiAv VwxptCArHO65QQt1VYO3aE zjDSgopJ7krILbP6e4ZlQq NE04nA70YEbcYSEaZrD1On ZpbjsgbWFy V2csZdZwfFPdKqo+PHRhYm xlIHdpZHRoPScxMDAlJyBz mFohLR6gIo6zWHTrXTFqbM xhcHNlOiBj f5nvBIXuITgvSJ8gqTrnR2 NwhPD9GBZkv5n7Ci05hEA+ UAHcGNA6hDwiYXniw495Fq Lwu0pzEAK3 jYPjKKnrZZS2H90pt5A0QM ZhHEPfVAF0eJB9aU0jqAsu qedzI3YcgAAbRsX1DAY2nM OitO4gsWuj rvhiaB4fJll+Z99UKC2LGM XOUF2BRbi6G8OfJsineEY+ AC46SKSdVY87zJSioRZlo3 dywLr4OeKe SUSnSJG7jYbpXSjct3CsEE RhJ25wzNHfm0A7QGOpiCsa rIZbDjQktDG2vH6rMFzksy prx0kyqxwm Zbjzl0kccr95eZ13R37gAL zgJTKrWBV3EGZpMLGsvUio zl7thK4gGy4+TOfou0hxr7 yvaEy5HhAu YAXyifYjhAyzBSC1i7LhSg 29B1DusJuwb4GgRel1ic40 tXJur1N3zKP7YUpbVJCifY 8eIBggBrA5 QVAlTqDacJ00hMRrOQkhDg 4clLpgmAelVT7dDWAnyusr FNOqyT7lXAUxfCYkaKznCT 4wNTBpbjtm w736KyMcSHD2XXMotJObL7 PqrT5vFtCxKQIiFVJtI6Sw wQAxATppA584GRebXxS9PT EgctUiD2Wy JHPyfVmdHiA2f4C3Fv7Dt6 XlmtaaPWV3CAugSKEbVlG3 ElBuJdD4A7OeSbk3EFGrkK bfQK7zW5Fl IDYrcrqiaiqreMU9XWTdBM NevX75rKSqESdoYz5hx3Y3 s656RQAhNILsqW83Mt1ctC ogMTBwdCBU iC0kgiuhp4rieltnTdAcLI MwMOw9QZk4UHBtlLuiBiEa HYD6JyQ1JJK6hKZipD2xuP mlzflddR9r Oyc+X09jpX1gMOG0BEO0gc kwMQNmbiDiFQ94AR20S9Am PjwvdGFibGU+PGRpdiBzdH opJJ6xEvMc m1tvq9XjPCsdV2KbJINzYW boZvu9YOJeWUG0pIC5rT2y LEJkKFdop5R6dGE6D7Rspn Qmqk7il0fe WHFqBQmdT54gpDIhr7C9SZ HyrBT6WCTsiSvlLiLrtK05 Oyc+IRHttAdmz7TqTkkub2 zjm4izkOe6 RbUkMZZfdhBemWrkTVA3b3 DjQb00U32fFKgwRPVwCTVa YXHqDHCyvRisyq5vtV7qOp 8+PGNvbCB3 tBU9mA5tSDZoOhW4BEipG2 98IiMrdAQhKafoc8mzm0mr uJz5VxHcYSQjymYohBofSD W5a2GsBf62 M30hQDseHAOmOMUgZLZnVE EltCinmr7xgN1tIr9+PC9j a5sicq29rS80qOV+PHRkIH L4sJizYCgv EQMahT0dWZiwKfD7TPBlXz QcwL23mYYeDIybWb6yzLtj kYubNU2hJKGwohqdg276Kg Xft8gmYEMz eMTtICbnIXT0A42fd8G6VB YrGYHqRNX3zNV7rQ6ekHqs bjogbGVmdDsgdmVydGljYW pcKOzzQ115 IHRvcDsnPlBhdGllbnQgTm VwRWn8D0TvAxm7VVBlnHqy IN9wcVEsCXsgZl5ttAmzgD azXF2fWYQf wwquz927FmKsx6mxTEHecN LpHUbkNMY3K94ti6W2CJHz VHPnWHU9nHF1qY6raMiafk ogbGVmdDsg ryRzwNfzRKtaRKhbR892CR RvcDsnPkJpcnRoIERhdGU6 UK82NX53tFQvk9O8rTU1V2 BhZGRpbmct vwvtrSU4URXvEUNdlW12Yi 9pfOlhGj6yNRCxYGH5FEBu dHZrX2MiwF9nKjCqZBKgRZ YvQ3XtzEUj RYszL831FMrsYuN2IAIbnv GjY9SjAMRvzKogWiG9s4P6 Vo9FY4X5AB04LL69oNOyq5 M6oFD2O9Au STGkgghaxnfusXE9PBLfBM CqnS73Mc9cvNfqCc8nGKDs ILO7AQPysTOhX8RfeN1tOv AjMDAwMDAw P2HulQJrXNjpD103QYxbLn T6OZCqaoSoH0VeHNWapUcb FvB8i1M9Dk2LXKz7ZI09WN 74eQKye2E3 qRQ2G9MuITCdqyulmqaetJ G2ZNYhGQIijY67Hh9stMba Kw8yQFCrHLT5SEVrzKBoI3 OybU4sOyIu FZLmXSHiE6JsePLzJGykN3 03FYloIxK7TOTagqGdB3Kx IKInxOasIwY6d9J2Dv5XBQ QlRA46KCO3 hKP6DG90VQ50O6JrJybpoW FibGU+PHRhYmxlIHdpZHRo DAcxBKEwZaAliQlmNF1nTl 9yZGVyLWNv mXcjuOBcApVdv8faTKPqFR vkNL2uwNieO2CqeDO8OFQm k1z1Fm26B82lS9WweDU+PG LezFT9kDQ4 eT2nXkHsCrU7ADxnP072Ok ImiQUdKdgdy8ppb0jqhVk4 BrL8DSQokbJlcQctAIW3a3 EuFp06T15x IHdpZHRoPSIxNSUiIHZhbG alua3ogO0bOr8+PGNvbCB3 aHW8wI6lEeIlBbQ6YJuoY7 49InRvcCIv Jtsyl7kqv6uojDo2GiVfYI JwotYywFiqHFP1x4VvWc70 W6NwwOkpc6IkOoe9ch48iP Isp3D3kJP7 Y3JhLMGiqssnwGPfwTsfLZ 5aWOEkjpilOIWqzW4qGOQe O6x7OrDaFpS2MRveE2Cjgv R6GVXglZAl AUaqUGF5U70td2W8BPLiUV JoCQR7tRM0kU4joQgwsmbx bGVmdDsgdmVydGljYWwtYW zhA284ZYVa cDscHJXdyI4lBREehUHmuE csDB5nURJfpjmyIpwKLPKR UiRXEFPjWWXMRSCHTO7xTE wvdGQ+PHRk JHS4tDxuEDulZIPssG9fLV FvY0q2LySpDeY3ABqtB5Eg KOKzjkulFh98iU1tUyFnPs D0MRaqL2Kd bmT7LUFkwTLeVMyeRNU0P9 9un2V8JBEnOBTtSMV5xNI8 tP5otYbcilggkAXbjFxbvx VydGljYWwt YXqnO778GDCvpJlzAlK8Qv L6JzX5POo0I6NzBlz0BRKd mEoyUQ9pdOWdBPdvDm4wfX ropZrqZZ4t BNOweyiwFHVmsD1sLERsgT UqkElyFI5aUEFxjfmif422 DgJyRIJ9OULtcSTkV7JabO 9yOiAjMDAw CKMlG5PioTIyVXbbQ452VT qvCwV4XXVlefLoR5NlDOEk jHewXwX0k4X1Ak27STWNEN FyczwvdGQ+ BSSrYNB4pInnYBvcKLLllM 5zBNTuR6x5DeTtHcX7WEvo L7VqDTQvrakiPg83aU6gIy VfLaB3CAmf B7VylfP5ASBuaHLeEZpzJO F7E44qj1Z9MSWvQKDgHZG1 mST3bN1jbLbhkgruhGYpgS sgdmVydGlj CVzdTUlrS582WWYegWafFq 7czXK3N1JxAid8XRVraWfg UU1sbVKhYYqtPq7ryZlelJ srCH0yGNCj hxadPSObzT8pKVWlwVIdvQ pjSB0mVZBuuarua939CxUb PHE6DSArcVOlV2FwcI3mTs AjMDAwMDAw U0YadCFqQExwH337ZSbsOb N9YPJwlwIfF3MwKZNiaQfy JkQ4c2Z3Ti0XxHSjZKSmOF 23TF04GX45 L3TkWndajCMdgER+PHRhYm xlIHdpZHRoPScxMDAlJyBz oXkrWN1kJx1iBGYuKDUklS xhcHNlOiBj q7myGBSmCKmhAK1yjWcvC5 OqhNB7IAHxn9x6Eh11B22t T5DhkTD+YJModZS8rGJ9jG 6xXgMoBaI4 KBasH680NrJaxPSyTaknu6 zwu7kxsTe1UyYcMAIhxwUl aEnqYTM3b1NqPz80V27zJH dpZHRoPSIy LWPiKORmgVyqpg2koA0qKy 8+ZLKplZZ3pGD5aK3zSoVl VaY2UUbuT385AdKidWEgFm gaH18tP6Wt dXA+GLQkWhl5STZjdRnqMQ 8apYVaQJbzQu6hMBA2PlXz DfBpJNalD4TuBALiqtzmmt rknUO4MCFb HKTgdI11Jr2soMnoBj1cVX TvMBC4NSDyzPVbD5RepA8k ZsLrUHWyZIXoO7JmwPApNS gtN222WIsa VsN9XXFrduCbJ5VdGBBbrX teLcG7a9L1Qr0AdJwcnZYk RT7vDiZhDWb9P8KkGfn1AJ RczAooJE6f hBByXWbnAd3laOoiqNylOO 4dBREvdybxq882QyNzy0hd XHRtjMQyNJwlWHU5A61nk4 V1QXKqPNYl ZOP3lXL6jA9mpLlkcgwrqV VmdDsgdmVydGljYWwtYWxp R004RAHnsJogJtAWPou4Q1 MnEye4ARHm jJazQJ3ioUCrRSutCm0gjC bzkDqmPH5tXRXxwhhkw261 LcEna9gfBMHutEIjRSwxLW I5E50vb5W4 MUWfLDDgIXS6nMM5oI7lfJ lnbjogbGVmdDsgdmVydGlj BCkrDVopI696EVQcbLrsCr 5KBqr8E1Ww Lwu7TDKraKkjQG9ynTQlWR xjVo0ujHvwpVyfPP8pEKKz uydtq019FiQnd2xiGMXwmJ QgVGltZXM7 G01zw5N9QULsDTFnIHG6hZ K2xQ5yvWadrzqxgGWxkGkm oqNdyBqkFGcbILdiW074JO RvcDsnPlBh eWVyOjwvdGQ+AX53ec49O1 LwJounUra8YKVfPMA3eON4 yZ5cYQPnQPusm4L7qUG4U0 FflbRlsg9d b2xs (more content not included)... Normal [facility] Patient Correspondenceon Patient Correspondence [id number]#1.0 0CD:127 Normal [facility] Consent for Procedure/Surger yon 09-29-2022 Consent for Procedure/Surgery [id number]#1. 00CD:127 Normal [facility] Consent for Treatmenton Consent for Treatment [id number]#1.0 0CD:127 Normal [facility] Inpatient Patient Summaryon 09-29-2022 Inpatient Patient Summary [place] [address] [id number] Clinical Summary Person Information Name: RICKEY GARCIA Age: 76 Years : 1945 Sex: Male PCP: MAGED ANDRADE DO Marital Status: Race: White Ethnicity: Non- or Language: Bruneian Visit Id: Visit Reason: FEELING OF INCOMPLETE BLADDER EMPTYING BPH WITH LUTZ AND URINARY RETENTION Speciality: Acuity: Enc Type: Outpatient Med Service: Surgery Arrival: 09/29/2022 08:51:30 Discharge: Dispo Type: Address: [address] [place] [address] [id number] Provider Notes: Diagnosis: BPH with urinary obstruction; [...] Information: EU - Cystoscopy Discharge Instructions (CUSTOM) [facility] IntraOperative Documentson 0 09-29-2022 IntraOperative Documents [id number]#1. 00CD:127 [facility] IntraOperative Documents [id number]#1. 00CD:127 [facility] Main OR Intraoperative Recor don 09-29-2022 Main OR Intraoperative Record IntraOp Document Type FTURO Summary Primary Physician: Deandra Rodriguez MD Finalized Date/Time: 09/29/22 11:13:54 Pt. Name: RICKEY GARCIA Hernandez Boland/Sex: 1945 Male Med Rec #: [id number] Physician: Deandra Rodriguez MD Financial #: [id number] Pt. Type: O Room/Bed: / Admit/Disch: 09/29/22 08:51:30 - Institution: Case Times FTURO Entry 1 Patient Times In Room 09/29/22 10:45:00 Out Room 09/29/22 11:18:00 Procedure Times Start 09/29/22 10:54:00 Stop 09/29/22 11:12:00 Anesthesia Times Last Modified By: Rosario BENÍTEZ, Haydee CHISHOLM 09/29/22 11:10:40 Case Attendance FTURO Entry 1 Entry 2 Entry 3 Case Attendee Deandra Rodriguez MD, RNKATHRINE, Neeru Patterson Role Performed Surgeon - Primary Weigher Packing - Primary Scrub - Primary Time In 09/29/22 10:45:00 09/29/22 10:45:00 09/29/22 10:45:00 Time Out 09/29/22 11:18:00 09/29/22 11:18:00 09/29/22 11:18:00 Procedure CYSTOSCOPY LOCAL(.) CYSTOSCOPY LOCAL(.) CYSTOSCOPY LOCAL(.) Comments Last Modified By: Rosario BENÍTEZ, HALEYOR, Rosario BENÍTEZ, HALEYOR, Rosario EBNÍTEZ, HALEYOR, Haydee 09/29/22 Haydee 09/29/22 Haydee 09/29/22 11:10:42 11:10:42 11:10:42 Surgical Procedures FTURO Entry 1 Procedure Description Procedure CYSTOSCOPY LOCAL Modifiers . Surgeon Description CYSTOSCOPY WITH TRUS Primary Procedure Yes Primary Surgeon Deandra Rodriguez MD Start 09/29/22 10:54:00 Stop 09/29/22 11:12:00 Anesthesia Type Local Surgical Service Urology Wound Class 2 - Clean-Contaminated Last Modified By: Rosario BENÍTEZ, HALEYOR, Haydee 09/29/22 11:10:43 General Comments: 19f coude [...] Out Deandra Rodriguez MD, Verified (If Participants KATHRINE Ponce RN, Applicable) Leonardo Hubbard Jessica D Time Out [...] KATHRINE Ponce RN, Ruthann 09/29/22 11:13 Normal [facility] Main OR Preoperative Recordo n 09-29-2022 Main OR Preoperative Record Holding Area Document Type FTURO Summary Primary Physician: Deandra Rodriguez MD Finalized Date/Time: 09/29/22 10:48:21 Pt. Name: RICKEY GARCIA/Sex: 1945 Male Med Rec #: [id number] Physician: Deandra Rodriguez MD Financial #: [id number] Pt. Type: O Room/Bed: / Admit/Disch: 09/29/22 [...] No Pain Comment: na Skin Integrity Intact, [place], Warm, & Dry Vitals - EU Blood Pressure 136/102 Pulse 93 bpm Respirations 18 br/min SPO2 95 % Last Modified By: Samia Forte LPN 09/29/22 10:48:16 General Comments: temp:35.8 Finalized By: Samia Forte LPN Document Signatures Signed By: Samia Forte LPN 09/29/22 10:48 Normal [facility] Operative Reporton Operative Report Patient: RICKEY GARCIA Age: 76 years Sex: Male : 1945 Associated Diagnoses: None Author: Deandra Rodriguez MD Procedure Operative Information Details: Date/ Time: 09/29/2022 12:15:00. Pre-Op Dx: BPH with urinary obstruction (JLL58-PC N40.1, Discharge, Medical), Feeling of incomplete bladder emptying (XWP40-MH R39.14, Discharge, Medical), Urinary retention (UPH86-RY R33.9, Discharge, Medical). Post-Op Dx: Bladder stone (MKJ55-OK N21.0, Working, Medical), BPH with urinary obstruction (SNF23-JD N40.1, Discharge, Medical), Feeling of incomplete bladder emptying (YGI08-KU R39.14, Discharge, Medical), Urinary retention (VLF66-TA R33.9, Discharge, Medical). Anesthesia Type: Local. Procedure: [...] See separate Clinic Note for details. Normal [facility] Comment on above: Result Comment: Elec tronically Signed By: Michael SMITH, Deandra Smith\.br\Date and Time Signed: 09/29/22 12:20 EST Outpatient Surgery Discharge Instructionon 09-29-2022 Outpatient Surgery Discharge Instruction [address] [address] Patient Discharge Instructions PERSON INFORMATION Name: RICKEY GARCIA Date of : 1945 Current Date: 09/29/2022 11:34:13 PHYSICIANS Admitting Physician: Deandar Rodriguez MD Comment: Discharge Diagnosis: BPH with [...] Date You may receive a survey from [employer] asking you to rate your care experience. Your feedback is important and will help us understand what we do well and how we can improve the quality of care we provide to you, your loved ones and our community. It?s an honor to serve you. Thank you for choosing [facility] Normal [facility] Progress Note-Physicianon Progress Note-Physician Patient: RICKEY GARCIA [...] Plan Assessment and Plan: Diagnosis: Bladder stone (GBA53-BE N21.0, Working, Medical), BPH with urinary obstruction (JDT10-YX N40.1, Discharge, Medical), Feeling of incomplete bladder emptying (STB47-LF R39.14, Discharge, Medical), Urinary retention (AMP33-KZ R33.9, Discharge, Medical). 76 year old male [...] bring med list and get [facility] Comment on above: Result Comment: Elec tronically Signed By: Michael SMITH, Deandra Smith\.br\Date and Time Signed: 09/29/22 12:43 EST Pre-Certification Formon Pre-Certification Form [id number]#1.0 0CD:127 [facility] Pre-Certification Formon Pre-Certification Form [id number]#1.00 CD:127 [facility] Auth for Release of Medical Recordson 09-10-2022 Auth for Release of Medical Records [id number]#1.0 0CD:127 [facility] Formson 09-09-2022 Forms [id number]#1.0 0CD:127 Normal [facility] Ambulatory Visit Summaryon 0 09-08-2022 Ambulatory [...] Follow these instructions at home: ? Take qale-iox-wyemnae and prescription medicines only as told by [...] he (more content not included)... Normal [facility] Patient Educationon 09-08-19 Patient Education Urology [...] Follow these instructions at home: ? Take fdui-bhz-fttvvaa and prescription medicines only as told by [...] 10/19/2001 Document Revised: 06/25/2018 Document Reviewed: 08/14/2017 [employer] Patient Education ? [address] [employer] [facility] Pre-Certification Formon Pre-Certification Form [id number]#1. 00CD:127 Normal [facility] Urology Office/Clinic Noteon 09-08-2022 Urology Office/Clinic Note Chief Complaint Pt is here for urinary retention HPI Staff Rickey is a 76 y.o. male new patent here for follow up to [facility] 08/25/22 due to urinary retention, cath was placed with over 2200ml drained from bladder. Patient was started on Cipro at that time due to UTI. Pt states he is on a whole bunch of medication but currently did not bring a list with him/[facility] [place]. Dysuria: denies Incomplete bladder emptying: Has White [...] episode. COPD, former smoker. Goes to the [facility] in [place] for primary care, did not bring a list of medications with him today. Baby aspirin, no hx of stroke or heart attack. States if he has to see a specialist through the CT he has to travel to [place]. 1. Urinary retention (R33.9: Retention of urine, unspecified) Presented to [facility] ER on 08/25/22 for a 2-3 [...] UR years ago, White placed by the CT. Pt states he CIC in the past. [...] (N39.0: Urinary tract infection, site not specified) [facility]ACS 08/25/22 - Staphylococcus lugdunensis, tx'd with Cipro. [...] -Denies flank/back (more content not included)... Normal [facility] Comment on above: Result Comment: Elec [...] Trimethoprim/Sulfameth oxazole <=10 S F Normal [facility] Comment on above: Performed By: #### U RCX #### [facility] [address] [address] [address] Vahid Ornelas ER URINE PROFILEon 3 Bilirubin Ql (U) Negative Normal NEGATIVE [facility] Comment on above: Performed By: #### E NAMRATA SOTO #### [facility] [address] [address] [address] Vahid Ornelas Clarity (U) CLEAR Normal CLEAR [facility] Comment on above: Performed By: #### E NAMRATA SOTO #### [facility] [address] [address] [address] Vahid Ornelas Color (U) LT. YELLOW Normal YELLOW [facility] Comment on above: Performed By: #### RODERICK OTTORO #### [facility] [address] [place] [address] Dr. Vahid KU A micrscopic examination will be performed if indicated. Normal [facility] Comment on above: Performed By: #### RAYNA OTTOICRO #### [facility] [address] [place] [address] Dr. Vahid Ornelas Glucose Ql (U) Negative Normal NEGATIVE [facility] Comment on above: Performed By: #### RODERICK OTTORO #### [facility] [address] [place] [address] Dr. Vahid Ornelas Hemoglobin Ql (U) LARGE Abnormal NEGATIVE [facility] Comment on above: Performed By: #### ROEDRICK OTTORO #### [facility] [address] [place] [address] Dr. Vahid Ornelas Ketones Ql (U) Negative Normal NEGATIVE [facility] Comment on above: Performed By: #### RODERICK OTTORO #### [facility] [address] [place] [address] Dr. Vahid Ornelas LEUKOCYTES SMALL Abnormal NEGATIVE [facility] Comment on above: Performed By: #### RODERICK OTTORO #### [facility] [address] [place] [address] Dr. Vahid Ornelas Nitrite Ql (U) Negative Normal NEGATIVE [facility] Comment on above: Performed By: #### Lamberto SOTO UMICRO #### [facility] [address] [place] [address] Dr. Vahid Ornelas pH (U) 6.0 [pH] Normal 5-9 [facility] Comment on above: Performed By: #### RODERICK OTTORO #### [facility] [address] [place] [address] Dr. Vahid Ornelas SPEC GRAVITY >=1.030 Abnormal 1.005-<=1.02 5 [facility] Comment on above: Performed By: #### Lamberto SOTO UMICRO #### [facility] [address] [place] [address] Dr. Vahid Ornelas UA PROTEIN TRACE Normal NEGATIVE/ TRACE [facility] Comment on above: Performed By: #### E RUR, UMICRO #### [facility] [address] [place] [address] Dr. Vahid Ornelas UR MICRO IND INDICATED Normal [facility] Comment on above: Performed By: #### E RUR, UMICRO #### [facility] [address] [place] [address] Dr. Vahid Ornelas Urobilinogen Qn (U) 0.2 {Kt'U}/dL Normal 0.2 - 1. 0 [facility] Comment on above: Performed By: #### Lamberto SOTO UMICRO #### [facility] [address] [place] [address] Dr. Vahid Ornelas URINE MICROSCOPIC ONLYon BACTERIA MODERATE Abnormal NONE SEEN [facility] Comment on above: Performed By: #### Lamberto SOTO UMICRO #### [facility] [address] [place] [address] Dr. Vahid Ornelas Bacteria identified Cx Nom (U) INDICATED Normal [facility] Comment on above: Performed By: #### Lamberto SOTO UMICRO #### [facility] [address] [place] [address] Dr. Vahid Ornelas CA OX CRYSTALS RARE Normal [facility] Comment on above: Performed By: #### E RUR, UMICRO #### [facility] [address] [place] [address] Dr. Vahid Ornelas CAST NONE SEEN Normal NONE SEEN [facility] Comment on above: Performed By: #### E RUR, UMICRO #### [facility] [address] [place] [address] Dr. Vahid Ornelas Crystals LM Nom (Urine sed) SEEN Abnormal NONE SEEN [facility] Comment on above: Performed By: #### Lamberto RUR, UMICRO #### [facility] [address] [place] [address] Dr. Vahid Ornelas Epithelial cells LM Ql (Urine sed) FEW Abnormal NONE SEEN /RARE [facility] Comment on above: Performed By: #### NAMRATA OTTO #### [facility] [address] [place] [address] Dr. Vahid Ornelas MUCOUS NONE SEEN Normal NONE SEEN [facility] Comment on above: Performed By: #### NAMRATA OTTO #### [facility] [address] [place] [address] Dr. Vahid Ornelas RBC 20-50 Abnormal 0-2 [facility] Comment on above: Performed By: #### NAMRATA OTTO #### [facility] [address] [place] [address] Dr. Vahid Ornelas WBC 10-20 Abnormal NONE SEEN [facility] Comment on above: Performed By: #### NAMRATA OTTO #### [facility] [address] [place] [address] Dr. Vahid Ornelas CBC AUTO DIFFon 12-20-2021 BASO # 0.1 103/ul Normal 0.0-0.1 [facility] Comment on above: Performed By: #### C BC #### [facility] [address] [place] [address] Dr. Vahid Ornelas Basophils/100 WBC (Bld) 0.8 % Normal 0.2-2.0 [facility] Comment on above: Performed By: #### C BC #### [facility] [address] [place] [address] Dr. Vahid Ornelas EO # 0.3 103/ul Normal 0.0-0.7 [facility] Comment on above: Performed By: #### C BC #### [facility] [address] [place] [address] Dr. Vahid Ornelas Eosinophils/100 WBC (Bld) 3.5 % Normal 0.9-7.0 [facility] Comment on above: Performed By: #### C BC #### [facility] [address] [place] [address] Dr. Vahid Ornelas Erythrocyte distribution width (RBC) [Ratio] 12.5 % Normal 11.0-15.0 [facility] Comment on above: Performed By: #### C BC #### [facility] [address] [place] [address] Dr. Vahid Ornelas Hematocrit (Bld) [Volume fraction] 44.3 % Normal 42.0-54.0 [facility] Comment on above: Performed By: #### C BC #### [facility] [address] [place] [address] Dr. Vahid Ornelas Hemoglobin (Bld) [Mass/Vol] 15.0 g/dL Normal 14.0-18.0 [facility] Comment on above: Performed By: #### C BC #### [facility] [address] [place] [address] Dr. Vahid Ornelas IG # 0.08 10e3/ul Critically high 0.00-0.03 [facility] Comment on above: Performed By: #### C BC #### [facility] [address] [place] [address] Dr. Vahid Ornelas IG % 1.0 % Critically high 0.0-0.5 [facility] Comment on above: Performed By: #### C BC #### [facility] [address] [place] [address] Dr. Vahid Ornelas LYMPH # 1.7 103/ul Normal 1.2-3.8 [facility] Comment on above: Performed By: #### C BC #### [facility] [address] [place] [address] Dr. Vahid Ornelas Lymphocytes/100 WBC (Bld) 22.1 % Normal 20.5-60.0 [facility] Comment on above: Performed By: #### C BC #### [facility] [address] [place] [address] Dr. Vahid Ornelas MANUAL DIFF REQ NO Normal [facility] Comment on above: Performed By: #### C BC #### [facility] [address] [place] [address] Dr. Vahid Ornelas MCH (RBC) [Entitic mass] 34.2 pg Critically high 25.9-34.0 [facility] Comment on above: Performed By: #### C BC #### [facility] [address] [place] [address] Dr. Vahid Ornelas MCHC (RBC) [Mass/Vol] 33.9 g/dL Normal 29.9-35.2 [facility] Comment on above: Performed By: #### C BC #### [facility] [address] [place] [address] Dr. Vahid Ornelas MCV (RBC) [Entitic vol] 100.9 fL Critically high 80.0-94.0 [facility] Comment on above: Performed By: #### C BC #### [facility] [address] [place] [address] Dr. Vahid Ornelas MONO # 0.9 103/ul Critically high 0.3-0.8 [facility] Comment on above: Performed By: #### C BC #### [facility] [address] [place] [address] Dr. Vahid Ornelas Monocytes/100 WBC (Bld) 11.7 % Normal 1.7-12.0 [facility] Comment on above: Performed By: #### C BC #### [facility] [address] [place] [address] Dr. Vahid Ornelas NEUT # 4.7 103/ul Normal 1.4-6.5 [facility] Comment on above: Performed By: #### C BC #### [facility] [address] [place] [address] Dr. Vahid Ornelas Neutrophils/100 WBC (Bld) 60.9 % Normal 43.0-75.0 [facility] Comment on above: Performed By: #### C BC #### [facility] [address] [place] [address] Dr. Vahid Ornelas Platelet mean volume (Bld) [Entitic vol] 8.1 fL Critically low 9.5-13.5 [facility] Comment on above: Performed By: #### C BC #### [facility] [address] [place] [address] Dr. Vahid Ornelas PLT 281 103/ul Normal 150-450 [facility] Comment on above: Performed By: #### C BC #### [facility] [address] [place] [address] Dr. Vahid Ornelas RBC 4.39 106/ul Critically low 4.70-6.10 [facility] Comment on above: Performed By: #### C BC #### [facility] [address] [address] [address] Vahid Ornelas WBC 7.8 103/ul Normal 4.0-11.0 [facility] Comment on above: Performed By: #### C BC #### [facility] [address] [place] [address] Dr. Vahid Ornelas PROF 14(COMP METB)on 022 Albumin [Mass/Vol] 3.6 g/dL Normal 3.4-5.0 [facility] Comment on above: Performed By: #### C MP #### [facility] [address] [place] [address] Dr. Vahid Ornelas Albumin/Globulin [Mass ratio] 1.0 {ratio} Normal [facility] Comment on above: Performed By: #### C MP #### [facility] [address] [place] [address] Dr. Vahid Ornelas ALP [Catalytic activity/Vol] 142 U/L Critically high 46-116 [facility] Comment on above: Performed By: #### C MP #### [facility] [address] [place] [address] Dr. Vahid Ornelas ALT [Catalytic activity/Vol] 42 U/L Normal 16-63 [facility] Comment on above: Performed By: #### C MP #### [facility] [address] [place] [address] Dr. Vahid Ornelas Anion gap [Moles/Vol] 12.8 mmol/L Normal [facility] Comment on above: Performed By: #### C MP #### [facility] [address] [place] [address] Dr. Vahid Ornelas AST [Catalytic activity/Vol] 19 U/L Normal 15-37 [facility] Comment on above: Performed By: #### C MP #### [facility] [address] [address] [address] Vahid Ornelas Bilirubin [Mass/Vol] 0.4 mg/dL Normal 0.2-1.0 [facility] Comment on above: Performed By: #### C MP #### [facility] [address] [address] [address] Vahid Ornelas Calcium [Mass/Vol] 9.2 mg/dL Normal 8.5-10.1 [facility] Comment on above: Performed By: #### C MP #### [facility] [address] [address] [address] Vahid Ornelas Chloride [Moles/Vol] 99 mmol/L Normal 98-107 [facility] Comment on above: Performed By: #### C MP #### [facility] [address] [address] [address] Vahid Ornelas CO2 [Moles/Vol] 28.5 mmol/L Normal 21.0-32.0 [facility] Comment on above: Performed By: #### C MP #### [facility] [address] [address] [address] Vahid Ornelas Creatinine [Mass/Vol] 0.92 mg/dL Normal 0.70-1.30 [facility] Comment on above: Performed By: #### C MP #### [facility] [address] [address] [address] Vahid Ornelas EGFR-AF YEMENI >60 Normal >=60 [facility] Comment on above: Performed By: #### C MP #### [facility] [address] [address] [address] Vahid Ornelas EGFR-NON AF YEMENI >60 Normal >=60 [facility] Comment on above: Performed By: #### C MP #### [facility] [address] [place] [address] Dr. Vahid Ornelas Globulin (S) [Mass/Vol] 3.7 g/dL Normal [facility] Comment on above: Performed By: #### C MP #### [facility] [address] [address] [address] Vahid Ornelas Glucose [Mass/Vol] 116 mg/dL Critically high 74-106 [facility] Comment on above: Performed By: #### C MP #### [facility] [address] [address] [address] Vahid Ornelas Potassium [Moles/Vol] 3.3 mmol/L Critically low 3.5-5.1 [facility] Comment on above: Performed By: #### C MP #### [facility] [address] [address] [address] Vahid Ornelas Protein [Mass/Vol] 7.3 g/dL Normal 6.4-8.2 [facility] Comment on above: Performed By: #### C MP #### [facility] [address] [place] [address] Dr. Vahid Ornelas Sodium [Moles/Vol] 137 mmol/L Normal 136-145 [facility] Comment on above: Performed By: #### C MP #### [facility] [address] [address] [address] Vahid Ornelas Urea nitrogen [Mass/Vol] 16.0 mg/dL Normal 7.0-18.0 [facility] Comment on above: Performed By: #### C MP #### [facility] [address] [address] [address] Vahid Ornelas Urea nitrogen/Creatinine [Mass ratio] 17.4 mg/mg Normal [facility] Comment on above: Performed By: #### C MP #### [facility] [address] [address] [address] Vahid Ornelas Urine Cultureon 02-20-2021 Bacteria identified Cx Nom (U) ORGANISM: Staphylococcus lugdunensis (O:STALUG) [place] Count >100,000 Aerobic ROHAN Charge (PC45) --- [...] RESISTANT TO ALL B-LACTAM DRUGS. PERFORMED BY: [place] [address] PATHOLOGIST COUNTER SERVER ARIK KOLB M.D. [facility] Comment on above: Performed By: #### C UU #### [address] Coding Summary 02-11-2021 Coding Summary [facility] OozeulkfHZz6fZx+PGhlYW Q+JP9OOFRvD58kbMQoqW8C K6fGWF5XXGAALYGXNY5GCN 2caYI2QMogC8IbdvXm CkdenYUdTW09JZy9IBX5zN pbAUvcsR9vpVCkH8d4UnWi UK72aL98OXtcKSJzAqC2Fy ZpbjsgbWFy V9ngFpOizEKkExi+PHRhYm xlIHdpZHRoPScxMDAlJyBz hMxcSU4yKd8tLRKzGAGwcJ xhcHNlOiBj x6ytVTVqBAuhON7ayWlwD2 OpbWY0HYJpp2l5Eq77vMH+ YKWkZNU6eXtrKMcyo862Nk Oqe7hgRFC9 dCDcRHcjLLL6V62sd5I1MG OiTIMzYUJ9dQE3kH2kpXib eoakF0ZyzRUjSgZ8DKK9bG PhhU2oiHoj ussadU7wAkg+T70DXS3NQA QYLG6CIgx8C8NyNoevyMJ+ IA62MGGeQC39iJQbsQKpu4 umbQc3JiJx PIMbXIZ0lUnfFOetm6EsNK QiG95mbAZfy9C7OYYoxWeq yDQdZpQmoIV1oP0jTZogsf aqk0qsbtsk Rplvi9neiy84jK73M88pAO siRORmAHX5KEUxLEWpsXca ar9acC3zHv2+JLggp5ydd7 mzyAi1WaMh ZCNtvbAjjXooCTZ0y0WpBs 62H6DkaNfts2JbEbb7wd64 xUWya6U3jBI7ZEcuBXRyxE 2uWToxFdR4 GXNvAbRffA60dMRaCEqaUh 3lrPbaeJskOH1lBNSdjfdd TXLmjK6cBWKeuZYdxEtrLR 4wNTBpbjtm i494DjFoVCF7JUUffTKcL5 HriC8zRrPvQHZqSISbU3Da oDXbWBsgN291IInxWhZ5HA RnicJkK5Fz CDNtiHfkQkU9d3F7Ub3Dw3 MjewrsRYB0IXwzMPU6DhC3 CwTrYjP6B8GrHki9ISVxuD bwSD9yC4Ww VNSbiagkfxokrKL7AXYsEX CwhM62lLSkQMacYo0an9H4 c265LKMlGABxvB07Pm3zcG ogMTBwdCBU vA3wvxtze5opaoidOnWdIZ PcGWq6AFl4WFIzwBkrTeVz KOZ6SnA3GET9qQDtcC9mzB jovflwjP8v Oyc+V00yhO1mXTO3YVT5cn tlVBWgdcGzKD99CJ32H5Zp PjwvdGFibGU+PGRpdiBzdH tmIV1yYuGz u8grp5BzAAebZ1HzNHFqWC mwOiw0OOSbPQX0gFR7tJ0o PXZaUNzrx3N0wPX3D6Wtcl Bydb0sj2tz UKDnVHwfB71niZOav6L4HD PnyXW1KCWssAiqOfYrkX10 Oyc+ZSKviTaqm9EjSxpxt8 ylp5sqlVi7 KpDzRHGesnCntLpcIYW0q6 ZbWf01B74gCCugIMZyOLQx FAUcBJEweCsnxb4tqR9nQk 8+PGNvbCB3 nFK6zQ8uCXVyBzQ1IOvvT2 22BoJipQRsCzrwx5wrh2lc oHt6NcXkFLDaexFixQzcZD E8i1JpQs78 J28qZOwqCQDePNTlXVTxBS BjnLlxfn2beP1oFk5+PC9j c9opjc64qK25bGU+PHRkIH S4xNnbMVcx QPWsvZ0mSJthCpK7KIKzCs CmnD79fUKaJBdaDz6hsNoh hVdbYJ8mGLRqhhlry903Gb Exx3ohOKSc tLOyRZkaXDD6N84yo7L4SH RnQMDcUFD5pDZ5cV7vbMbs bjogbGVmdDsgdmVydGljYW bfCKetK206 IHRvcDsnPlBhdGllbnQgTm GjSAz7B4WmCjb6VUKavOgu EA2uiXRnQOxzDv6bvDudoS umDM5tWEVd aaosn263LxPlb6snFMJobM AtCEhrUFX8E06tb3R6EJAa XYWhVSO4vUM8gU3ugYgrtp ogbGVmdDsg jxGyiVklMQcqZAwkZ647RS RvcDsnPkJpcnRoIERhdGU6 FZ60UK74cSSck1C3uOL4C6 BhZGRpbmct hwiyiSR1UPSlYGLchG75Nu 1odVexQl8fIIIcPEG7TMOa fWHmM5TwcS8lGkYyYNPtUF DmK9FixEFr QRanT480ROmmUwO2TLOnel MpW7JnGUQprGbbQeG0g6G4 Ny4DY0D4ML35CJ52hXHlx7 U7wUX5K1To SAJfobnvbujgdOI1NJNgCV HgfB05Ii7baVafOb5zUMHc VKV9ENYwsYBbE8LawP2yHu AjMDAwMDAw U4SklFUpWWlnJ399GQblLk S8SILzueZwQ0IjUWMaaRag NzV8m9C9Ea9TXHu4MM97MU 26pFZaw5M9 uVH9F3FnYENmxwmdetcqqO R8LZHpMOFvdO90Xv6ktVgn Vz6mTHOoROJ2LSMqcTYmO9 KenG4aNeCq TFIgFOIdF7NeuKBcQNhbE4 86KZtkReL4UHLlneCyP6Et PGGpzGfzMoU7a5R0Qu3KFS DpXU29OOV8 lMM0LW23TS77N2VzUnjbtW FibGU+PHRhYmxlIHdpZHRo UHkyGXZfBpMdnKfrOO5sQm 9yZGVyLWNv dVasjWNjOkOii8wlOXEgST bkPR5naZxwA0MkgZL6XEBh o7w7Kk03P60xZ2AviSP+PG FuuGD1bNK6 bC9bVsPsQqQ5QSxnP444Py MprSMsUqyiz4znu2qgxGr4 MoV7XPOistPsnIwuPFU2y3 EyJa21Y92j IHdpZHRoPSIxNSUiIHZhbG jnxu1vjB7rZn9+PGNvbCB3 aKH7uJ5oVgIxSsT3ISrtH7 49InRvcCIv Tedaq9yqp9xtyLi3RzFrQH TyjsQhoRpkOXM2c5WiMs83 G5ZqaHulk5RiIqz0go41bM Uqz5H5iSL8 X6PvDCEqcvtjaUXjzXjdUI 9zUOKvugdgGRCifO2tHCNx G3u9JcXhVbL9KSonE6Llfp Z8NUFitJUc GMosRMK6B18wy4Q7GIRcJN JdXQP9pFK4gO2itWgffhon bGVmdDsgdmVydGljYWwtYW zaQ900RVCs pBeqMWUrqL9iEDXryGHqeA jwKP5mNGMrxeddPlfFJKWA XuCAMOEbGEWNATMYRN4yXD wvdGQ+PHRk VUO5sDqjZKyjKOVmbY0zSF HfK2k4AhTpDnI4RYgmM8Ss AKEdvvftLk31wH4fIkSqPw U1FSxnV4Kk vbL3YEFouOBaBErqEXI0Q3 7qn9V5FPZpBKIgBCK6rVJ5 dX1daCfspzwwcZWmmZzxei VydGljYWwt OWdxB984YYEoyDlwDmF0Fk W0XdO5EZr7I4BjCbr8ROFi hIzgQX4poOBrHXbgTg0yfK tayWeqSW5a XIHysvxsQVIpnO6fDZWbcH QccMzwXY6dUDJjvivke830 MaLoJRJ0OJFrdARjU6VjyB 9yOiAjMDAw DUZvE4SvdWRkSQeuQ535VJ uhOhY3ZKRnmnScK0PiLDTa eHirZtY1m0C9Em23DNGKLQ FyczwvdGQ+ CBIoSLR5pMmcNVmsEXUryR 0lZVDyF1b8SwNqOvY3EIhs A8SqXVOdyesbEb68lW2rNg HvBfV9JOtd T2BvwaA0YGSstRYpYQzvUV I1U11gv4S9CTKsVMBxBDE7 iUK5uV9maBuzjwunuETceS sgdmVydGlj KXgkFThkU242BNDxnPvjAe 0XDYH1L4QnCnb5ILHoeJpp JN7prKEmNRuuBd6nfPkfeD toDM8aMZFv zggzIAIuoU2fBGHwsNXaxX iuVV0bYPQbxjfzy812SzNe PMT7WJTujUYsU9NnhD7vBr AjMDAwMDAw U9DenJPvVXacF831BJiyIf J1FUUvzuMbO1NnLGTusPsl PfL8i7G3Ta6TCTuxcIF+PC 42bo64D4Tj MlwyKaz2LIJxHCX3mYD6pV 7gIGFkZRvgt6W3bOE2Y1Jr rhXkwv0ix8hlDXTbNBvpY3 6drKCdg0J3 CWTisEF8HEMopPrxUkUgsX 93Oyc+RFQspYgnv6OqYiao s6hfw1cjjUe7NmBrCOCxci FsaWduPSJ0 f8XfYj10N53wLTtmITPkZK OiHBEiPVAbxXrybp7imK3z Ii8+ZBBwzYR9dDY9uX8kLi TlJoZ9DTmc V003NcFrgVTlHitif7bnd0 iysRd1HdSpMQTxvxWgeCbi OQO9e3AaSc51X2ApzDamn7 FtIiy1kr93 uLChk5M2tFO5W3RfASKaay retSJmhDukAO8yWSFjrbeg CONuyU0sNTVlU3o9YqGnUv A7NIdiD8Br blF7LXWznZWnUCZcfQIVmK 6dxcrni1owzlbjMiStLDEm LXa4FKl9OMBnfItuQnJmNZ J1BrY5MCW9 oROyqF2unXpfvlxbdP4vRp c+YSy8j7wdfSPhSA5rgDC7 HM06NO02bPImn1L1dPU7O5 BhZGRpbmct nquwqRB0FVGiFSXnkV95Im 4nlEndBu9kZKJpMLB0GMGi mHSkY5ZvkL2fHgCqWJCqJT HhN3DrfVFw OJloL104TDowOzC9XOQifv FfN7KmVMAbrFxfGvG1g0A8 Rg3NAD85FP71IT09eDLca9 O2cQO9J9Xp YMMaybcjidlniAQ8KMBdVL KmyG01Rv5yfCofJw9jVNAb BYC9WSKezPVwC4FimF0wOf AjMDAwMDAw X4JjfRGmEJtvW916HBgkRd K0VHDicfSqJ0IpWPKntJlc XjK7d0L7Pb7ITf58IG32JI 07gELxg3G9 lEB2M0QcNCTzpvaisglyhX D0PKBoHLFvzN38He0eoMck Jw8oBXAxJVU0ZERovJNdG9 AglO8kXsGr WWBiCNNvV6KbzEBgRPhfB4 31EXhiLzU7MWKoboQpP9Bi KMFtmCkiKxP8c6A2Dm2EST dxfmk9M8Un PjwvdHI+KH06BICcVA82hI OrnZKaa5rtoTf3SeIoSRTc SSE1dOgaYElou7MpAKRfV3 7azJEpf8R2 IGN (more content not included)... [facility] Provider Orderson 02-11-2021 Provider Orders [id number] [id number] [facility] C Urineon 02-10-2021 C Urine Mixed skin, or urogenital marcie. Clinically insignificant [facility] Comment on above: Performed By: #### [id number] #### [facility] (DEFAULT) [address] [place] [address] Coding Summaryon 02-08-2021 Coding Summary [employer] 64 YcajddixVFd0gAc+PGhlYW Q+UL7AFBEsR04rgTVcvZ5J J1kYRS5REJWAUQPEPQ4AIT 1cpKD1HDvrU3PhsyYj XltuqGElUP73IOe3BWS9iF wmGHbzqO0phXVkR6o5GlHo XN76iB38PHzeKWZeBsP4Ug ZpbjsgbWFy J4ocHxQctAUwXsh+PHRhYm xlIHdpZHRoPScxMDAlJyBz bCykJG1yHu8yTIAyPJEdiM xhcHNlOiBj b3enJPAzRCzwRI0mkQwcL6 MycCX0SWXmw8o1Gd38hVB+ JZMsEVR8yPieIAatm555Nn Skv0qfQVL5 fBTnALhgSKT9K08sj3D0PN ZvMBIlIFY0kIE9uI8bfKhm hxxrB8QrsVYaGtL6AAH2rY PtdM4roTuy blxrjF1kTaz+Q59CQE6ZVJ FUAE8XWpb8J6ZfWmyknHT+ LK64LZXgGY56iMAddRBxs5 okjLk7HpCl EYRyZYA8zYttFApev3ZzXM GwP71cnMZtw8Q2KIOjjXkt uSOuLmCynIR0bG1kWTkifk cru4wobckr Qtsrc5xtey91aT94H14oTZ nrVOVmEUL3AJAgHUHdgWqj if9mvI8bXy2+PBvya4xxi0 fpgEy9VuCi ZNRaoaJlhMmeDCN5e3GyOv 43H3KmbOeiu1YpJps3nz32 rNHqo1K9bZG8UClmKIHivL 3aUGveTzV4 HZEvTeHebQ24sGIrUMunJd 3itJwbyCkmZB3fPPXuzsvs LBRzeB5yFECfkUMaeNyxAF 4wNTBpbjtm o524HsUkGJK5TYJuyYCyP1 LlgO9qGpDiKBYqFVGhK4Vu mNBoNPydK796HCwxDbX2FW LgwzAvD6Lt SIZlgNgyXgN2x0W5Wq9Zd4 CacakyJSJ6OGmvBCV7LhG0 EnSoRrZ5F8HnHdl3VABdzB hrWF8cI2Yc TXBqfwweppamrYE3AQAmBM NtzS20zHZqGSfkRf7jz6Q0 q738VSHcKWJhmR10Bz9fmR ogMTBwdCBU aQ9wfsfeq3ayswgzJxBnKA CwUXs6CBf2VUYekItlZbPo GSK2WrV0JQJ7iJMfmE3ubZ lgeniesY2u Oyc+S71kaF8dQNQ3NKB6vj oaGIPzuzLuSE85YB57N7Ew PjwvdGFibGU+PGRpdiBzdH cuQT1lXcUy y8vbt1QkIXieE1UgJWQhOJ rvPno4FZNmEJW1oZI0lC1z TRQyBCsdw4F6gTC8G3Lumh Nbig8im1ca YIJtTZdhR35vpJYig8H7IV AqjXD9OBVdgSoxDcYlhK99 Oyc+KGDobDmev5DnPxgzs5 myq2pqaKy0 UkUzTLKchbDwdGokIFR0t7 PnRy99U70rOSriPIMgENRn NJMlBAMppYywxx9xeK9rYd 8+PGNvbCB3 wSP0xC7cBYYiNsK7NBcoT0 50HkEkcJNaLeqoe3nst0zq pCn4EqNcFLWgejClxStzYS G5z1DwZn55 H07mTJbsXRYwEMWqHQQpKB CqwFkuzs4soX2hDo1+PC9j y3amqg63fG81rFM+PHRkIH A7wKwlZLug TFRurI7cXCxnDnW2LNKmHl RcwB91rKBaFQdzBa7ibLth vLuiIX9nCXHltwjyb926Kd Owh0nlLKKx oXGqXXmjOEU7G60mu1F4BC HrWQJrAZW6mSI2zH7ikKgu bjogbGVmdDsgdmVydGljYW gaZPypN128 IHRvcDsnPlBhdGllbnQgTm DyXGm4G3WnKra3IJIvlCds LT0bvQMpVHanHt6njVdksY esER5pXLZd znwzg601UaZgq3piZQCozC FkJXqlUAA2S87lx6T0NRRd CKGcRIP6rHB4sD9cxZtydn ogbGVmdDsg geRjpNjaTZxiGPnxN773HL RvcDsnPkJpcnRoIERhdGU6 QB47TL55mFYtf3I7fRG6M6 BhZGRpbmct sehuzXL1KDOwNCMxjH18Fy 9ofBzsBx0hQRWgLBT6GNNy hDUuG5PdjW8hBqRlVXBuBM LdY8ChlSAm FUoyM083GUapPtK8OTUzte UrY8AvEOEucPwvCgV8g1F4 Es9EW6R1GN16PN33zIQji0 K9qJV0E4Zv WBTeqxgiwxqieQI4RORiRP KfbI78Zw3ryVbeGc8lFCHv PMI2AQXgnJQeO9FocT7tKs AjMDAwMDAw D3NzxJYyCKvkB608BGmuLb J1WOSkgkNdR7RaPRIjoRfe FdR7m1I7Mh9GHPy1LA01VY 30dEDqa4C9 nCI3V3GhICQhjlijwddceN O7LYLcZBZwkW30Ay9nsMdd Uy7kQHGjOAY6IBHuaFMxH4 NypJ1gKuIt JNOyUYNbD0ZxnGHzHStrE4 86POqdTyE2ALNrtsInO0Dy HCIeqTytAvW8d0B0Bp1RAS EeYE66BFV8 rXF2PG18WD81U9LuGhfbgW FibGU+PHRhYmxlIHdpZHRo LFarCHEkJvQjeAtpHW6eVj 9yZGVyLWNv oAnkyAYbTeHex6hdXURkKU pzDW1ikFecQ8CefQG9UOZv m4u3Wr53J99gR1JskZU+PG SfmID3xFU9 kS2zIiUwYqB0VDsdY703Fa GagFHcXtkai2gxj1qenKi5 TuW5OJKdjmNvdOewFFC9t9 CbEf70J52u IHdpZHRoPSIxNSUiIHZhbG lnns7qhO1zUq3+PGNvbCB3 yDE3aF5xCpImPdN9QSzyM3 49InRvcCIv Wnxrx5mvq3emwVg0FtJlKD UrvdFkmQruCHS4b0PyYa87 L7BpiXgsq9EfVil4zh88sF Rqy3D4mDT7 Q4WeCFSibhousZThkRslOT 0zQKAxtzmdHUVmpY3wEIVm G9k5CuCrZjP1TAhcG6Llcy H0FKOutRNa LKrzKZD0W32nt5B7OQZvPH SmCOG4aTY3kP7dxEjdupkf bGVmdDsgdmVydGljYWwtYW lrB464NJHu wDkkPXLmbW7cJQXrwEXxdO ioRP8vGLTlzyexEpwALAGI HmHFEQJkXGUIEPVRIE5dPA wvdGQ+PHRk RIH7oVeoHAcvTQRucR1xTA DlA4r8OsRnUfZ6VBatS5Hr XUIfgcwnUi72aR1cSaNhFb G4PQxaW9Eg hjN0JCGpqJBtNWnyWTC1C6 2wc9M2YIJwGVNuVGI3pTJ1 dY2vcEsqjgflfPLenBaoop VydGljYWwt YQbuR402RKBnkPeyAwA3Ri Q0TxF4WTl1Z7CvKdf0UQXs qBocFP3tuPOvQBukQb9ynL dvhKmwSS6e GAGhwrhsYKFcuD4mWTDmtS RsdCguLE6gULNmvyulk692 JcKpFMS4ULDetYXuQ3IxcD 9yOiAjMDAw HFMtK2WwcVTlNTgiO733WZ eiYtO2OHYichAsA4QqVDYk xThaXnW8p7L7Sk35ISRJJJ FyczwvdGQ+ DRAcQOI5gReqKHnkEKCilN 1yAUSyO5r6FrTzJqE3DIua P9OgFNYpnqchSf14pN7qBj BjQrR8VMmt C7QkyiQ4MDXijKPyMEecUR U9U90uj3L8IVHfFGHwRMO0 qJW3tC9dfXqoitmneBSfhY sgdmVydGlj JYwcUHvnU840SEDzlZqvKh 7DBJL4J1AfBhb4ADJueWny IX7kwCOkWMqmHu9ndAwcuL qbVP2mBDUr zdasOGCyyN8zNLBgjVMgzA etWF9dNREbubvbk775XaSf XOJ9KYKgcIRcQ2QqjJ7qKf AjMDAwMDAw G0MoiKEhXTwuU370ZInaOw K2YTMxsiFqP0IfBBGukTev JyU5w9U5Ga1KETbwjMV+PC 87ny35S5Kp MgfgIml2SLKcVYS0pRT2uM 3mYBYwRGnzs4V8oGC2K8Bn nzRgoa9kk0hzGQNxICniO4 9dzBUgr4K7 AABilAU4DMIosRmgDqUgnF 93Oyc+LZMljYyva6ZhBbig e8zoi5gbaQv7JgIxWEVhql FsaWduPSJ0 z7BcJk82G23qLPjaFIAfAR WxUGXxIFNloRpvnv0ksH9c Ii8+WXWhkDR8fWD4lF3cWq MjVfM8VHhx K058BqRqxJKqZitck1lxp4 mltFz4BgOtHAHcmyCfwEmf QFH8r2IiGg20H3MmcHboa1 FiLin0cq98 wGYrd4W0jIK3G1HiKAAdzi jfmEMkcZjpFH9eIOIvjklt TVZzpG2uNHIdY1g1QvKcMy J6QKgtW7Qr oeV7KZKbaMUeUBBpmDBUwD 5djidog5sqstkeRjGbOQOl AVg5TRq0SQKnsNleRuXcUE M0NuJ9KZO7 yFSskJ5hlOacgsinpR5bSq c+QBn0l9puoYAjNS5caLQ0 YH37FR86fOJjz8D0rSE3I1 BhZGRpbmct wfforGV9WSHoHQBvwD47Et 7wfPqdUy3wKBDkHQJ2YXXa rCKrF4YhpN1mDlAgLDInQQ WcM9SdeYSp DFzdC437VNnbVpD3MWUuip JsK8DbMNBirCuwYlI5v8E6 Rv1TTK62GL54ZE08uAFzw3 J8nPJ6Y9Yi GZUyuighxwvrdPQ2OLSnCS DinX72Vc5hsHkxOi4nKJSo GHB4CNVzaFQsC7AqsQ1aUx AjMDAwMDAw P1RfiQFyXEnfQ798WKwoPl Q1SDEraiCoB6DvTOKihFdz ZxF0j3O7Ht2WYb20QS26JJ 75bTNou5L2 nFV0P3VhWPBhbdfwmdfcrJ V2QIBvSOWaiG97Nh2pdJag Zk9hSMXhNKG4LSIbsMIlM6 KnoZ1iEwTh BTXvDXEkW3HysJKtPNhtG6 58QEqxIgU0RDOhviQmF3Zj DAPxcHjkMkX6r2D8Wk9XFR phwwt3M4Hs PjwvdHI+NL56KQGlET12mH QodRMiz2pfrDf8VfDzZIFf UUO7uRdeAUppn3ExGZOvP8 8sjSDid1V5 IGN (more content not included)... Normal [facility] Provider Orderson 02-07-2021 Provider Orders [id number]#1.0 0OTGTIFF Normal [facility] .Auto Diff 102-06-2021 Auto [place] % 12 % Normal 08-07 [facility] Comment on above: Performed By: #### 7 [id number] #### [facility] (DEFAULT) [address] [place] [address] Baso Abs# 0.0 x10 Normal 0.0-0.2 [facility] Comment on above: Performed By: #### 7 [id number], [id number] #### [facility] (DEFAULT) [address] [place] [address] Basophils/100 WBC (Bld) 0.3 % Normal 0.2-2.0 [facility] Comment on above: Performed By: #### 7 [id number], [id number] #### [facility] (DEFAULT) [address] [place] [address] Eos Abs# 0.5 x10 High 0.0-0.4 [facility] Comment on above: Performed By: #### 7 [id number], [id number], [id number], [id number] #### [facility] (DEFAULT) [address] [place] [address] Eosinophils/100 WBC (Bld) 6.0 % High 0.9-4.0 [facility] Comment on above: Performed By: #### 7 [id number], [id number], [id number], [id number] #### [facility] (DEFAULT) [address] [place] [address] Lymph Abs# 1.8 x10 Normal 1.3-2.9 [facility] Comment on above: Performed By: #### 7 [id number], [id number], [id number] #### [facility] (DEFAULT) [address] [place] [address] Lymphocytes/100 WBC (Bld) 21 % Normal 14-48 [facility] Comment on above: Performed By: #### 7 [id number], [id number], [id number], [id number], [id number] #### [facility] (DEFAULT) [address] [place] [address] [place] Abs# 1.1 x10 High 0.0-0.8 [facility] Comment on above: Performed By: #### 7 [id number], [id number], [id number], [id number], [id number] #### [facility] (DEFAULT) [address] [place] [address] Neut Abs# 5.3 x10 Normal 1.5-9.2 [facility] Comment on above: Performed By: #### 7 [id number], [id number], [id number], [id number], [id number] #### [facility] (DEFAULT) [address] [place] [address] Neutrophils/100 WBC (Bld) 60 % Normal 44-88 [facility] Comment on above: Performed By: #### 7 264172, 2964706, [id number], [id number], [id number] #### [facility] (DEFAULT) [address] [place] [address] CBC w/ Auto Diffon 1 Erythrocyte distribution width (RBC) [Ratio] 13.1 % Normal 11.5-15.0 [facility] Comment on above: Performed By: #### 7 620593, 8640706, [id number], [id number], [id number] #### [facility] (DEFAULT) [address] [place] [address] Hematocrit (Bld) [Volume fraction] 43.1 % Normal 34.8-51.9 [facility] Comment on above: Performed By: #### 7 769254, 2971356, 877845183, [id number], [id number] #### [facility] (DEFAULT) [address] [place] [address] Hemoglobin (Bld) [Mass/Vol] 14.7 g/dL Normal 11.8-17.7 [facility] Comment on above: Performed By: #### 7 892469, 7332664, 524069310, [id number], [id number] #### [facility] (DEFAULT) [address] [place] [address] Instr WBC 8.7 x10 Invalid Interpretation Code [facility] Comment on above: Performed By: #### 7 383021, 5091792, [id number], [id number], [id number] #### [facility] (DEFAULT) [address] [place] [address] Man Diff? Auto Normal [facility] Comment on above: Performed By: #### 7 874764, 7083455, 771187643, [id number], [id number] #### [facility] (DEFAULT) [address] [place] [address] MCH (RBC) [Entitic mass] 34 pg Normal 24-34 [facility] Comment on above: Performed By: #### 7 333931, 7667739, 588637291, [id number], [id number] #### [facility] (DEFAULT) [address] [place] [address] MCHC (RBC) [Mass/Vol] 34 g/dL Normal 26-[address] [facility] Comment on above: Performed By: #### 7 614950, 2356758, 880538399, 8130635778, 87007570 #### [facility] (DEFAULT) [address] [place] [address] MCV (RBC) [Entitic vol] 99 fL Normal 81-100 [facility] Comment on above: Performed By: #### 7 703750, 2163284, 133947380, [id number], 63046040 #### [facility] (DEFAULT) [address] [place] [address] Platelet 286 x10 Normal 138-427 [facility] Comment on above: Performed By: #### 7 027441, 8313916, 621413373, 8021055037, 83979979 #### [facility] (DEFAULT) [address] [place] [address] Platelet mean volume (Bld) [Entitic vol] 8.3 fL Normal 6.3-10.2 [facility] Comment on above: Performed By: #### 7 785907, 5415083, 459361791, 6965305377, 92587588 #### [facility] (DEFAULT) [address] [place] [address] RBC 4.37 x10 Normal 3.70-5.30 [facility] Comment on above: Performed By: #### 7 192218, 4131591, 165351872, [id number], 06826570 #### [facility] (DEFAULT) [address] [place] [address] WBC 8.7 x10 Normal 3.5-10.5 [facility] Comment on above: Performed By: #### 7 811590, 4405517, 707070909, [id number], 01284175 #### [facility] (DEFAULT) [address] [place] [address] Standardon 02-06-2021 eGFR Non AA >60 Invalid Interpretation Code [facility] Comment on above: Performed By: #### 7 014737, 3844041, [id number], [id number], [id number] #### [facility] (DEFAULT) [address] [place] [address] eGFR AA >60 Invalid Interpretation Code [facility] Comment on above: Result Comment: Critical Care Specialist noe Kidney disease could be indicated at eGFRs of less than 60 ml/min/1.73m2. Kidney Failure is indicated at less than 15 ml/min/1.73m2 Performed By: #### 7 856987, 2331787, 108249741, 8049123742, 10657074 #### [facility] (DEFAULT) [address] [place] [address]77 Albumin [Mass/Vol] 4.4 g/dL Normal 3.5-5.0 [facility] Comment on above: Performed By: #### 7 030717, 0332307, 239163722, 3508638471, 74333618 #### [facility] (DEFAULT) [address] [place] [address] 28514 Albumin/Globulin [Mass ratio] 1.6 {ratio} Normal 1.4-2.6 [facility] Comment on above: Performed By: #### 7 806167, 2017853, 564797564, [id number], 12177559 #### [facility] (DEFAULT) [address] [place] [address] Alk Phos 107 IU/L High 32-91 [facility] Comment on above: Performed By: #### 7 860232, 5834185, 499628287, [id number], 79396035 #### [facility] (DEFAULT) [address] [place] [address] ALT [Catalytic activity/Vol] 16.0 U/L Low 17.0-63.0 [facility] Comment on above: Performed By: #### 7 927861, 2650281, 680952062, 8060795049, 56253184 #### [facility] (DEFAULT) [address] [place] [address] Anion gap [Moles/Vol] 17.0 mmol/L Normal 5.0-19.0 [facility] Comment on above: Performed By: #### 7 814274, 7482078, 824269431, 8093489099, 24012544 #### [facility] (DEFAULT) [address] [place] [address] 04068 AST [Catalytic activity/Vol] 16 U/L Normal 15-41 [facility] Comment on above: Performed By: #### 7 214739, 6077251, 701946597, 3011094214, 59180237 #### [facility] (DEFAULT) [address] [place] [address] Bili Total 0.7 mg/dL Normal 0.3-1.2 [facility] Comment on above: Performed By: #### 7 402738, 2214672, 819974325, 8158906041, 95333035 #### [facility] (DEFAULT) [address] [place] [address] 26364 Calcium [Mass/Vol] 9.6 mg/dL Normal 8.9-10.3 [facility] Comment on above: Performed By: #### 7 951901, 4079871, 030128954, 8459447763, 94201566 #### [facility] (DEFAULT) [address] [place] [address] 59619 Chloride [Moles/Vol] 101 mmol/L Normal 101-111 [facility] Comment on above: Performed By: #### 7 603354, 6577025, 179258468, 9151480766, 97987922 #### [facility] (DEFAULT) [address] [place] [address] CO2 [Moles/Vol] 25 mmol/L Normal 21-32 [facility] Comment on above: Performed By: #### 7 356172, 0683707, 128216640, 9582773276, 64271579 #### [facility] (DEFAULT) [address] [place] [address] 20773 Creatinine [Mass/Vol] 0.87 mg/dL Low 0.90-1.[address] [facility] Comment on above: Performed By: #### 7 969694, 9984503, 848971353, 6046910472, 28048702 #### [facility] (DEFAULT) [address] [place] [address] 26309 Globulin (S) [Mass/Vol] 2.7 g/dL Normal 1.5-4.3 [facility] Comment on above: Performed By: #### 7 913416, 6027545, 984050574, 6076439580, 33660168 #### [facility] (DEFAULT) [address] [place] [address] 24813 Glucose [Mass/Vol] 124.0 mg/dL High 74.0-118.0 [facility] Comment on above: Performed By: #### 7 964996, 1389000, 475810364, 8100522175, 29626899 #### [facility] (DEFAULT) [address] [place] [address] 75574 Osmolality 279 mOsm/L Invalid Interpretation Code [facility] Comment on above: Performed By: #### 7 115444, 8353676, 106871305, 0954747354, 01310856 #### [facility] (DEFAULT) [address] [place] [address] 07834 Potassium [Moles/Vol] 4.1 mmol/L Normal 3.6-5.[address] [facility] Comment on above: Performed By: #### 7 871272, 1554381, 589489494, 9153164317, 30813813 #### [facility] (DEFAULT) [address] [place] [address] 76099 Protein [Mass/Vol] 7.1 g/dL Normal 6.5-8.1 [facility] Comment on above: Performed By: #### 7 520013, 3097725, 586826277, 6602640232, 07012733 #### [facility] (DEFAULT) [address] [place] [address] 53374 Sodium [Moles/Vol] 139.0 mmol/L Normal 136.0-144.[address] [facility] Comment on above: Performed By: #### 7 054366, 3650605, 651946194, 2325041172, 94898328 #### [facility] (DEFAULT) [address] [place] [address] 64185 Urea nitrogen [Mass/Vol] 13 mg/dL Normal 8-26 [facility] Comment on above: Performed By: #### 7 602237, 8554978, 769112692, 0621528485, 32777750 #### [facility] (DEFAULT) [address] [place] [address] 07101 Urea nitrogen/Creatinine [Mass ratio] 15.0 mg/mg Normal 4.6-16.2 [facility] Comment on above: Performed By: #### 7 051507, 6099061, 257292156, 3335240150, 46600166 #### [facility] (DEFAULT) [address] [place] [address] 78253 PSA Screenon 07-14-2021 PSA Screen 2.30 ng/mL Normal 0.00-4.00 [facility] Comment on above: Result Comment: The concentration [...] to confirm baseline values. Current Methodology: Itzel Gay [employer] PSA Performed By: #### 7 610495, 0467433, 177748308, [id number], 77948652 #### [facility] (DEFAULT) [address] [place] [address] 69682 TSH w/ Reflex to FT4on 02-06 TSH Qn 2.15 m[IU]/L Normal 0.45-5.33 [facility] Comment on above: Result Comment: Gene ral Population (males and non- females, aged 21-88) 0.45 - 5.33 Females, 1st Trimester 0.05 - 3.70 Females, 2nd Trimester 0.31 - 4.35 Females, 3rd Trimester 0.41 - 5.18 Performed By: #### 7 921457, 7120374, 803949399, 8440330038, 40748333 #### [facility] (DEFAULT) [address] [place] [address] 05367 UA Standardon 02-06-2021 Breakpoint UA [facility] Comment on above: Performed By: #### 1 [id number] #### [facility] (DEFAULT) [address] [place] [address] 97573 Color (U) Yellow [facility] Comment on above: Performed By: #### 1 [id number] #### [facility] (DEFAULT) [address] [place] [address] 19591 Glucose (U) [Mass/Vol] Negative [facility] Comment on above: Performed By: #### 1 [id number] #### [facility] (DEFAULT) [address] [place] [address] 83046 Ketones Ql (U) Negative [facility] Comment on above: Performed By: #### 1 [id number] #### [facility] (DEFAULT) [address] [place] [address] 40721 UA Bilirubin Negative Normal [facility] Comment on above: Performed By: #### 1 [id number] #### [facility] (DEFAULT) [address] [place] [address] 53173 UA Blood LARGE Abnormal NEGATIVE [facility] Comment on above: Performed By: #### 1 [id number] #### [facility] (DEFAULT) [address] [place] [address] 02990 UA Clarity SL CLOUDY Abnormal CLEAR [facility] Comment on above: Performed By: #### 1 [id number] #### [facility] (DEFAULT) [address] [place] [address] 20914 UA Leuk Est MODERATE Abnormal NEGATIVE [facility] Comment on above: Performed By: #### 1 [id number] #### [facility] (DEFAULT) [address] [place] [address] UA Nitrite Negative Normal [facility] Comment on above: Performed By: #### 1 [id number] #### [facility] (DEFAULT) [address] [place] [address] UA pH 5.5 Normal 5-8 [facility] Comment on above: Performed By: #### 1 [id number] #### [facility] (DEFAULT) [address] [place] [address] 46544 UA Protein Negative Normal [facility] Comment on above: Performed By: #### 1 [id number] #### [facility] (DEFAULT) [address] [place] [address] 64107 UA Spec Grav 1.020 Normal 1.001-1.035 [facility] Comment on above: Performed By: #### 1 [id number] #### [facility] (DEFAULT) [address] [place] [address] 88728 UA Urobilinogen 0.2 mg/dL Normal 0.2-1.0 [facility] Comment on above: Performed By: #### 1 [id number] #### [facility] (DEFAULT) [address] [place] [address] Urine Source Clean Catch [facility] Comment on above: Performed By: #### 1 [id number] #### [facility] (DEFAULT) [address] [place] [address] XR Chest 2 Viewson 1 XR Chest 2 Views EXAM: CHEST 2 [...] MD Mondragon Wincha 02/06/21 8:03 pm Technologist: [facility] Vital Signs Date Time Vital Sign Value Performing Clinician Facility 08-05-2023 09:50-0500 Blood Pressure Location Deandra Lue [facility] 08-05-2023 09:50-0500 Diastolic blood pressure 78 mm[Hg] Deandra Lue [facility] 08-05-2023 09:50-0500 Systolic blood pressure 128 mm[Hg] Deandra Lue [facility] 07-22-2023 08:09-0500 Blood Pressure Location Deandra Lue [facility] 07-22-2023 08:09-0500 Body temperature 97.16 [degF] Deandra Lue [facility] 07-22-2023 08:09-0500 Diastolic blood pressure 78 mm[Hg] Deandra Lue [facility] 07-22-2023 08:09-0500 Heart rate 74 /min Deandra Lue [facility] 07-22-2023 08:09-0500 Systolic blood pressure 118 mm[Hg] Deandra Lue [facility] 11-18-2022 15:12-0400 Blood Pressure Location YESENIA DAIM [facility] 11-18-2022 15:12-0400 Diastolic blood pressure 78 mm[Hg] YESENIA DAMI [facility] 11-18-2022 15:12-0400 Heart rate 68 /min YESENIA DAMI [facility] 11-18-2022 15:12-0400 Respiratory rate 16 /min YESENIA DAMI [facility] 11-18-2022 15:12-0400 Systolic blood pressure 132 mm[Hg] YESENIA DAMI [facility] 10-28-2022 13:42-0400 Heart rate 77 /min Deandra Lue [facility] 10-28-2022 13:42-0400 SaO2% (BldA) [Mass fraction] 95 % Deandra Lue [facility] 10-28-2022 13:42-0400 Respiratory rate 16 /min Deandra Lue [facility] 10-28-2022 13:41-0400 Body temperature 98.06 [degF] Deandra Lue [facility] 10-28-2022 13:41-0400 Diastolic blood pressure 83 mm[Hg] Deandra Lue [facility] 10-28-2022 13:41-0400 Mean blood pressure 110 mm[Hg] Deandra Lue [facility] 10-28-2022 13:41-0400 Systolic blood pressure 165 mm[Hg] Deandra Lue [facility] 10-28-2022 12:12-0400 Heart rate 68 /min Deandra Lue [facility] 10-28-2022 12:12-0400 SaO2% (BldA) [Mass fraction] 93 % Deandra Lue [facility] 10-28-2022 12:11-0400 Respiratory rate 18 /min Deandra Lue [facility] 10-28-2022 12:10-0400 Diastolic blood pressure 88 mm[Hg] Deandra Lue [facility] 10-28-2022 12:10-0400 Mean blood pressure 109 mm[Hg] Deandra Lue [facility] 10-28-2022 12:10-0400 Systolic blood pressure 150 mm[Hg] Deandra Lue [facility] 10-28-2022 12:10-0400 Body temperature 98.06 [degF] Denadra Lue [facility] 10-28-2022 12:00-0400 Body temperature 98.6 [degF] Deandra Lue [facility] 10-28-2022 12:00-0400 Diastolic blood pressure 93 mm[Hg] Deandra Lue [facility] 04-04-2023 12:00-0400 Heart rate 71 /min Deandra Lue [facility] 10-28-2022 12:00-0400 Respiratory rate 11 /min Deandra Lue [facility] 10-28-2022 12:00-0400 Systolic blood pressure 153 mm[Hg] Deandra Lue [facility] 10-28-2022 11:55-0400 Blood Pressure Location Deandra Lue [facility] 10-28-2022 11:55-0400 Mean blood pressure 113 mm[Hg] Deandra Lue [facility] 10-28-2022 11:55-0400 Respiratory rate 16 /min Deandra Lue [facility] 10-28-2022 11:40-0400 Mean blood pressure 108 mm[Hg] Deandra Lue [facility] 10-28-2022 11:40-0400 Respiratory rate 19 /min Deandra Lue [facility] 10-28-2022 11:10-0400 Body temperature 97.7 [degF] Deandra Lue [facility] 10-28-2022 11:05-0400 Respiratory rate 8 /min Deandra Lue [facility] 10-28-2022 08:35-0400 Mean blood pressure 102 mm[Hg] Deandra Lue [facility] 10-28-2022 08:35-0400 Heart rate 78 /min Deandra Lue [facility] 10-28-2022 08:33-0400 Body temperature 98.24 [degF] Deandra Lue [facility] 10-15-2022 12:32-0400 Diastolic blood pressure 82 mm[Hg] Deandra Lue [facility] 10-15-2022 12:32-0400 Heart rate 74 /min Deandra Lue [facility] 10-15-2022 12:32-0400 Mean blood pressure 100 mm[Hg] Deandra Lue [facility] 10-15-2022 12:32-0400 Systolic blood pressure 134 mm[Hg] Deandra Lue [facility] 09-08-2022 13:28-0500 Blood Pressure Location Deandra Lue [facility] 09-08-2022 13:28-0500 Diastolic blood pressure 83 mm[Hg] Deandra Lue [facility] 09-08-2022 13:28-0500 Heart rate 81 /min Deandra Lue [facility] 09-08-2022 13:28-0500 Systolic blood pressure 135 mm[Hg] Deandra Lue [facility] 11-21-2021 11:10-0400 Body height 187.96 cm Janice Arellano Other [employer] [employer] Other 10-31-2021 12:30-0400 Body height 187.96 cm Janice Arellano Other [facility] [employer] Other 10-31-2021 12:30-0400 Body mass index (BMI) [Ratio] 25.16 kg/m2 Janice Arellano Other [facility] Other 10-31-2021 12:30-0400 Body temperature 97.3 [degF] Janice Arellano Other [facility] Other 10-31-2021 12:30-0400 Body weight 88.91 kg Janice Arellano Other [facility] Other 10-31-2021 12:30-0400 Diastolic blood pressure 73 mm[Hg] Janice Arellano Other [facility] Other 10-31-2021 12:30-0400 Respiratory rate 18 /min Janice Arellano Other [facility] Other 10-31-2021 12:30-0400 SaO2% (BldA) [Mass fraction] 97 % Janice Arellano Other [facility] Other 10-31-2021 12:30-0400 Systolic blood pressure 137 mm[Hg] Janice Arellano Other [facility] Other Encounters Encounter Date Encounter Type Care Provider Facility Start: 02-17-2024 ambulatory Deandra Rodriguez Facility:[facility] Start: 09-16-2023 ambulatory YESENIA Hogan ty:[facility] Start: 08-05-2023 End: 08-06-2023 ambulatory Deandra Rodriguez Facility:[facility] Start: 08-05-2023 End: 08-05-2023 Patient encounter procedure Deandra Rodriguez [facility] [place] Start: 08-04-2023 End: 08-04-2023 ambulatory SHAIKH DG Not Available Start: 07-28-2023 ambulatory YESENIA Hogan ty:[facility] Start: 07-22-2023 End: 07-23-2023 ambulatory Deandra Koehlerlamberto Facility:[facility] Start: 07-22-2023 End: 07-22-2023 Patient encounter procedure Deandra BabsCarla Koehlerlamberto [facility] [place] Start: 07-08-2023 End: 07-09-2023 ambulatory Deandra Rodriguez Facility:[facility] Start: 06-23-2023 End: 06-24-2023 ambulatory YESENIA Orantes DAMI Facility:[facility] Start: 06-23-2023 End: 06-23-2023 Patient encounter procedure [facility] MUKHERJEERY [facility] Start: 05-26-2023 End: 05-27-2023 ambulatory Steve ROBISON Facility:[facility] Start: 05-01-2023 End: 05-02-2023 ambulatory Steve ROBISON Facility:[facility] Start: 11-18-2022 End: 11-19-2022 ambulatory YESENIATRAVIS OLMAX Facility:[facility] Start: 11-18-2022 End: 11-18-2022 Patient encounter procedure YESENIA LOMAX [facility] [place] [facility] Start: 11-07-2022 End: 11-08-2022 ambulatory MAGED ANDRADE Facility:[facility] Start: 11-07-2022 End: 11-07-2022 Patient encounter procedure MAGED ANDRADE [facility] [place] [facility] Start: 10-30-2022 End: 10-31-2022 ambulatory Deandra BabsCarla Koehlerlamberto Facility:[facility] Start: 10-30-2022 End: 10-30-2022 Patient encounter procedure Deandra Rodriguez [facility] Steve Start: 10-28-2022 End: 10-28-2022 ambulatory Deandra M. Lue Facility:[facility] Start: 10-28-2022 End: 10-28-2022 Admission to same day surgery center Deandra Brice. Lue [facility] Start: 10-15-2022 End: 10-16-2022 ambulatory Deandra M. Lue Facility:[facility] Start: 10-15-2022 End: 10-15-2022 Patient encounter procedure Deandra M. Lue [facility] Start: 10-15-2022 ambulatory Facility:[id number] Start: 09-29-2022 End: 09-30-2022 ambulatory Deandra M. Lue Facility:[facility] Start: 09-16-2022 ambulatory Deandra Lue [facility] Start: 09-08-2022 End: 09-09-2022 ambulatory Deandra M. Lue Facility:[facility] [place] Start: 09-08-2022 End: 09-08-2022 Patient encounter procedure Deandra M. Lue [facility] Start: 08-25-2022 End: 08-25-2022 ambulatory CHRISTIANA DIA Facility:[facility] Start: 12-20-2021 End: 12-20-[address] JERAMY PHIPPS Facility:[facility] Start: 11-21-2021 End: 11-21-2021 ambulatory Janice Arellano Other [facility] Other Start: 11-21-2021 Office outpatient visit 15 minutes Janice Arellano [facility] Start: 10-31-2021 End: 10-31-2021 ambulatory Janice Arellano Other [employer] Other Start: 10-31-2021 Office outpatient visit 15 minutes Janice Arellano [facility] Start: 10-31-2021 Telephone encounter Maged Alvarez yomaira [facility] Procedures Date Procedure Procedure Detail Performing Clinician Start: 10-28-2022 Iola operation, litholapaxy YESENIATRAVIS LOMAX Start: 10-28-2022 Lithotripsy Deandra Lue Start: 10-28-2022 Transurethral insert ion of prostatic urethral lift implant YESENIATRAVIS LOMAX Start: 09-29-2022 Cystoscopy YESENIA Vazquez SCHMIDT Start: 09-29-2022 Ultrasonography by transrectal approach YESENIA DAMI Start: 09-29-2022 Urodynamic studies ABRAHAM GAMBLE DAMI Colonoscopy Deandra Lue Payers Date Payer Category Payer Unknown [id number] 2022 Unknown [id number] 1958 Medicare [id number] 1945 Unknown [id number] 2.16.84 0.1.328276.3.579.2.593 1945 Unknown [id number] 2.16.84 0.1.980427.3.579.2.593 1945 Unknown [id number] 2.16. 840.1.211440.3.579.2.356 1945 Unknown [id number] 2.16.84 0.1.994660.3.579.2.1259 1945 Unknown [id number] 2.16.8 40.1.503424.3.579.2.727 1945 Unknown [id number] 2.16.8 40.1.694670.3.579.2.727 1946 Unknown [id number] 2.16.8 40.1.913923.3.579.2.727 1946 Unknown [id number] 2.16.8 40.1.907095.3.579.2.72 1946 Unknown [id number] 2.16.8 40.1.011898.3.579.2 1946 Unknown [id number] 2.16.8 40.1.841582.3.579.2. 1946 Unknown [id number] 2.16.8 40.1.474591.3.579.2 1946 Unknown [id number] 2.16.8 40.1.692870.3.579.2 1946 Unknown [id number] 2.16.8 40.1.179628.3.579.2 1946 Unknown [id number] 2.16.8 40.1.024387.3.579.2 1946 Unknown [id number] 2.16.8 40.1.484780.3.579.2 1946 Unknown [id number] 2.16.8 40.1.613917.3.579.2 1946 Unknown [id number] 2.16.8 40.1.435798.3.579.2 1946 Unknown [id number] 2.16.8 40.1.849418.3.579.2 1946 Unknown [id number] 2.16.8 40.1.200291.3.579.2 1945 Unknown [id number] 2.16.8 40.1.332865.3.579.272 Medicare [id number] .16. [id number] Social History Date Type Detail Facility Sex Assigned At [facility] Start: 09-08-2022 End: 05-01-2023 Tobacco smoking status Ex-smoker (finding) [facility] Start: 07-22-2023 End: 08-05-2023 Tobacco smoking status Never [facility] Medical Equipment Procedure Code Equipment Code Equipment Origin al Text Equipment Identifier Dates CYSTOSCOPY Lue M D, Deandra M. 10/28/22 [...] 08-05-2023 Functional Status N/A [facility] 07-22-2023 Functional Status N/A [facility] 11-18-2022 Functional Status N/A [facility] 10-15-2022 Functional Status No [facility] 09-08-2022 Functional Status N/A [facility] Clinical Notes 10-31-2021 to 08-05-2023 Note Date [...] and water are not available, use hand phlebotomy technician. 2.Clean your penis with soap and water. [...] reusable catheter in a small bathroom. Take vxdg-mip-lxrkemj and prescription medicines only as told by [...] provider. Document Revised: 05/19/2022 Document Reviewed: 05/19/2022 [employer] Patient Education 2022 [employer]. Follow Up Care 07/22/2023 08:40:54 With:Michael SMITH, DIVINE Naranjo, URO Address: [address] [place] [address] [phone] When: Unknown Comments:6 mos [facility] 07-22-2023 Hospital Discharge instructions Patient Education 07/22/2023 [...] urethra. Follow these instructions at home: Take fcik-cjr-hiipmrz and prescription medicines only as told by [...] provider. Document Revised: 01/29/2022 Document Reviewed: 01/29/2022 [employer] Patient Education 2022 [employer]. Follow Up Care 07/08/2023 11:23:53 With:Michael SMITH, DIVINE Naranjo, URO Address: When:Within 2 Week(s) Comments:w/PVR and Voiding Diary [facility] 11-18-2022 Hospital Discharge instructions Patient Education 11/18/2022 [...] Follow these instructions at home: Medicines Take dwlv-woi-slkrdsx and prescription medicines only as told by [...] provider. Document Revised: 04/03/2021 Document Reviewed: 04/03/2021 Elsevier Patient Education 2022 [employer]. 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 6. Keep the drainage bag below [...] facility personnel to use a Coude (pronounced coordinate measuring equipment operator-day) tipped catheter. Follow Up Care 09/30/2022 12:31:12 With:Deandra Rodriguez Address: [address] [place] [address] [phone] Business (1) [facility] [place] [address] [address] [phone] Business (1) When: Unknown Comments:Office to call for followup appointment in 2 days for white removal and voiding trial and clean intermittent cath teaching [facility] 10-28-2022 Evaluation + Plan note Extrac claudine from: Title:CSB post op Author:Lev Muniz MD Date:10/28/22 Plan Transfer/Discharge: Transfer/Discharge Discharge when meets criteria ( To home ). 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 Bladder stone (DPU47-CD N21.0, Discharge, Medical). Diagnosis BPH with urinary obstruction ([id number] N40.1, Discharge, Medical). Bladder stone ([id number] N21.0, Discharge, Medical). Counseled: Patient, Family. Extracted from: Title:ISRRAEL NORRIS Author:Lev Muniz MD Date:10/28/22 Plan [place] [employer]hesi[employer] (ASA) physical status classification: Class II. Anesthetic Preoperative Plan: Anesthesia General. Diagnostic Tests Pending * Calculi Analysis Urinary 10/28/22 [facility]03-23-2023 Note [id number]:[address] [place] [address] 10-15-2022 [id number]:[address] [place], [place] [address]03-06-2023 Note [id number]:[address] [place] [address] 09-29-2022 NoteCystoscopy ? Voiding after the procedure: [...] if you have a fever over 100 degrees.[facility] 09-08-2022 Hospital Discharge instructions Patient Education 09/08/2022 [...] complications. Follow these instructions at home: Take feev-ptk-afqsihe and prescription medicines only as told by [...] 10/19/2001 Document Revised: 06/25/2018 Document Reviewed: 08/14/2017 [employer] Patient Education 2019 [employer]. Follow Up Care 08/26/2022 14:25:12 With:Michael SMITH, DIVINE Naranjo, URO Address: When: Unknown [facility] 04-28-2022 Evaluation note* Encounter Date Diagnosis Assessment [...] verbalized understanding and agreement with treatment plan [facility] Other 04-07-2022 Evaluation note* Encounter Date Diagnosis Assessment Notes [...] follow up with PCP or return to sooner if symptoms worsen despite treatment, or if he begins experiencing increased redness, warmth, swelling, or pain of affected area. Pt verbalized understanding and agreement with tx plan Oct, Other Contact dermatitis home care material was printed [facility] Other Evaluation + Plan note Future Appointments Appointment Date:09/09/2022 10:15:00 AM Scheduled Provider: Location:[facility] Appointment Type:Urology CALL PAT FT Appointment Date:09/09/2022 10:45:00 AM Scheduled Provider: Location:[facility] Appointment Type:Urology CALL PAT FT Appointment Date:09/15/2022 08:00:00 AM Scheduled Provider: Location:[facility] Appointment Type:Urology FT Appointment Date:09/15/2022 09:00:00 AM Scheduled Provider: Location:[facility] Appointment Type:Urology FT [facility] Evaluation + Plan note Future Appointments Appointment Date:10/28/2022 11:25:00 AM Scheduled Provider: Location:[facility] Future Appointments Appointment Date:07/08/2023 10:00:00 AM Scheduled Provider:Deandra Rodriguez MD Location:[facility] Appointment Type:URO Office Visit Appointment Date:07/28/2023 01:00:00 PM Scheduled Provider: Location:[facility] Appointment Type:URO Nurse Visit [facility] evaluation + Plan note Future Appointments Appointment Date:08/05/2023 09:45:00 AM Scheduled Provider:Deandra Rodriguez MD Location:[facility] Appointment Type:URO Office Visit [facility] evaluation + Plan note Future Appointments Appointment Date:02/17/2024 10:45:00 AM Scheduled Provider:Deandra Rodriguez MD Location:[facility] Appointment Type:URO Office Visit [facility] evaluation noteNo [facility] [employer] Other Hisotfy general Narrative - Reported* Type Description Date Medical History rheumatoid arthritis Medical History ROCIO (noncompliant with CPAP ther apy) Medical History COPD Medical History Insomnia Medical History Hypertension Medical History Kidney Stones Medical History Multiple Renal Cysts ([facility]) Medical History Urinary Retention (requiring int ermittent self-cath) Surgical History cholecystectomy [facility] Other Hospital course Narrative No data available for this section [facility] Hospital Discharge instructions No data available for this section [facility] No data available for this section [facility] Summary Purpose Family History No Family History Records FoundNo Family History Records FoundNo Family History Records FoundNo Family History Records Found No data available for this section No data available for this section No Family History Records Found No data available for this section No Family History Records Found Advance Directives No Advanced Directives Records FoundNo [...] section and content) DATE CREATED AUTHOR 02/13/2021 [facility] DATE CREATED AUTHOR AUTHOR'S ORGANIZ ATION 08/18/2021 [facility] DATE CREATED AUTHOR AUTHOR'S ORGANIZ ATION [facility]/[address] [facility] DATE CREATED AUTHOR AUTHOR'S ORGANIZ ATION 11/02/2022 [facility] DATE CREATED AUTHOR AUTHOR'S ORGANIZ ATION 08/05/2023 [facility] EPIC DATE CREATED AUTHOR AUTHOR'S ORGANIZ ATION 09/04/2023 [facility] REASON FOR VISIT (unrecogniz ed section and content) RASH ON ARMNo InformationRAS H Patient Care team informatio n (unrecognized section and content) Personnel Name: MAGED ANDRADE DO Address: Address: [address] [place], [place] [address] Personnel Name: MAGED ANDRADE DO Address: Address: [address] Personnel Name: MAGED ANDRADE DO Address: Address: [address] Personnel Name: MAGED ANDRADE DO Address: Address: [address] Personnel Name: MAGED ANDRADE DO Address: Address: [address] Personnel Name: MAGED ANDRADE DO Address: Address[address] Personnel Name: MAGED ANDRADE DO Address: Address: [address] Personnel Name: MAGED ANDRADE DO Address: Address: [address] Personnel Name: MAGED ANDRADE DO Address: Address: [facility] [address] FOR RECORDS PERTAINING TO PATIENTS WHO ARE [...] BE BASED ON THE PRIMARY CLINICAL RECORDS. [facility] [employer] provides no warranty or guarantee of the accuracy or completeness of information in this document.
[2023-09-13 10:57] VITALS: O2SAT 97
--- NOTE | 2023-09-13 11:13 | ED_ITS ---
HPI - Male Genitourinary General Chief complaint: Urogenital-Male Stated complaint: THINKS CATHETER IS CAUSING INFECTION Time Seen by Provider: 09/13/23 10:46 Source: patient Mode of arrival: walk-in History of Present Illness HPI Narrative: 77-year-old male presented to the emergency department for possible urinary tract infection. He has an indwelling catheter that he states he has had for a month. He has an appointment in 3 days with a urologist. He has had some discomfort and a burning feeling. No fever back pain or vomiting. He has had the symptoms for the last day or 2. Related Data Previous Rx's Medication Instructions Recorded cephalexin 500 mg capsule 500 mg PO TID 7 days #21 caps 09/13/23 Allergies Allergy/AdvReac Type Severity Reaction Status Date / Time No Known Drug Allergies Allergy Verified 06/10/23 11:16 Review of Systems ROS Narrative A ten point review of systems is negative except as noted above. PFSH PFSH Social History Smoking status: Former smoker Exam Narrative Exam Narrative: Nurses note and vital signs reviewed and patient is not hypoxic. General: The patient appears well and in no apparent distress. Patient is resting comfortably on cart. Skin: Warm, dry, no pallor noted. There is no rash noted. Head: Normocephalic, atraumatic Eye: Normal conjunctiva, no drainage Ears, Nose, Mouth, and Throat: oral mucosa is moist. Nares patent. Cardiovascular: Regular Rate and Rhythm Respiratory: Patient is in no distress, no accessory muscle use, lungs are clear to auscultation, no wheezing, rales or rhonchi Back: non-tender, no CVA tenderness bilaterally to percussion. GI: Soft and nontender : White catheter in place with sediment in the urine bag. Musculoskeletal: The patient has no evidence of calf tenderness, no pitting edema, symmetrical pulses noted bilaterally Neurological: A&O, normal speech Psychiatric: Cooperative Constitutional Vital Signs, click to edit/add: Last Vital Signs Temp 97.9 F 09/13/23 10:48 Pulse 91 H 09/13/23 10:48 Resp 22 09/13/23 10:48 BP 154/102 H 09/13/23 10:48 Pulse Ox 97 09/13/23 10:57 O2 Del Method Nasal Cannula 09/13/23 10:57 Course Vital Signs Vital signs: Vital Signs Temperature 97.9 F 09/13/23 10:48 Pulse Rate 91 H 09/13/23 10:48 Respiratory Rate 22 09/13/23 10:48 Blood Pressure 154/102 H 09/13/23 10:48 Pulse Oximetry 96 09/13/23 10:48 Oxygen Delivery Method Room Air 09/13/23 10:48 Temperature 97.9 F 09/13/23 10:48 Pulse Rate 91 H 09/13/23 10:48 Respiratory Rate 22 09/13/23 10:48 Blood Pressure 154/102 H 09/13/23 10:48 Pulse Oximetry 97 09/13/23 10:57 Oxygen Delivery Method Nasal Cannula 09/13/23 10:57 MDM - Male Genitourinary MDM Narrative Medical decision making narrative: It was determined that his White catheter was not draining. He had over 1100 mL on the bladder scan. The old catheter was removed and a new one placed and he felt much better. 5-10 white cells and 5-10 red cells are in his urine and he is prescribed Keflex and a urine culture is ordered. He has a urology appointment in 3 days that he will keep. Treatment diagnosis and follow-up were discussed with the patient. Differential Diagnosis Differential diagnosis: Likely urinary tract infection and acute retention of urine Lab Data Attestation: I reviewed the patient's lab results. Labs: Lab Results 09/13/23 09/13/23 Range/Units 11:05 12:10 WBC 10.4 (4.0-11.0) 10^3/uL RBC 4.23 L (4.70-6.10) 10^6/uL Hgb 14.2 (14.0-18.0) g/dL Hct 41.2 L (42.0-54.0) % MCV 97.4 H (80.0-94.0) fL MCH 33.6 (25.9-34.0) pg MCHC 34.5 (29.9-35.2) g/dL RDW 12.5 (11.0-15.0) % Plt Count 252 (150-450) 10^3/uL MPV 8.5 L (9.5-13.5) fL Neut % (Auto) 69.0 (43.0-75.0) % Lymph % (Auto) 14.4 L (20.5-60.0) % [place] % (Auto) 10.5 (1.7-12.0) % Eos % (Auto) 4.8 (0.9-7.0) % Baso % (Auto) 0.8 (0.2-2.0) % Neut # (Auto) 7.1 H (1.4-6.5) 10^3/uL Lymph # (Auto) 1.5 (1.2-3.8) 10^3/uL [place] # (Auto) 1.1 H (0.3-0.8) 10^3/uL Eos # (Auto) 0.5 (0.0-0.7) 10^3/uL Baso # (Auto) 0.1 (0.0-0.1) 10^3/uL Abs Immat Gran (auto) 0.05 H (0.00-0.03) 10^3/uL Imm/Tot Granulo (auto) 0.5 (0.0-0.5) % Sodium 143 (136-145) mmol/L Potassium 3.5 (3.5-5.1) mmol/L Chloride 104 (98-107) mmol/L Carbon Dioxide 27.4 (21.0-32.0) mmol/L Anion Gap 15.1 BUN 13.0 (7.0-18.0) mg/dL Creatinine 0.96 (0.70-1.30) mg/dL Est GFR ( Amer) >60 (>=60) Est GFR (Non-Af Amer) >60 (>=60) BUN/Creatinine Ratio 13.5 Glucose 138 H (74-106) mg/dL Calcium 9.2 (8.5-10.1) mg/dL Urine Color Lt. yellow (YELLOW) Urine Clarity Clear (CLEAR) Urine pH 7.5 (5.0-9.0) Ur Specific [place] 1.025 (1.005-1.025) Urine Protein 30 A (NEG/TRACE) mg/dL Urine Glucose (UA) Negative (NEGATIVE) mg/dL Urine Ketones Negative (NEGATIVE) mg/dL Urine Occult Blood Small A (NEGATIVE) Urine Nitrite Positive A (NEGATIVE) Urine Bilirubin Negative (NEGATIVE) Urine Urobilinogen 0.2 (0.2-1.0) EU/dL Ur Leukocyte Esterase Small A (NEGATIVE) Urine RBC 5-10 A (0-2) #/HPF Urine WBC 5-10 A (NONE SEEN) #/HPF Ur Squamous Epith Cells Rare (NONE/RARE) #/LPF Urine Crystals Seen A (None Seen) #/HPF Triple Phos Crystals Many Amorphous Sediment Few Urine Bacteria Moderate A (NONE SEEN) #/HPF Urine Casts None seen (NONE SEEN) #/LPF Urine Mucus None seen (NONE SEEN) Ur Culture Indicated? Already ordered Discharge Plan Discharge Chief Complaint: Urogenital-Male Clinical Impression: White catheter problem, Acute urinary retention Patient Disposition: Home, Self-Care Time of Disposition Decision: 12:53 Condition: Good Mode of Transportation: Private Vehicle Prescriptions / Home Meds: New cephalexin 500 mg capsule 500 mg PO TID 7 Days Qty: 21 0RF Instructions: Urinary Retention in Men (ED), White Catheter Placement and Care (ED) Stand Alone Forms: Portal Instructions Referrals: Physician,Non-Staff, MD [Primary Care Provider] - 1 week
[2023-09-13 11:15] LABS: Basophils Absolute Auto 0.1 10^3/uL (0.0-0.1); Basophils Percent Auto 0.8 % (0.2-2.0); Eosinophils Absolute Auto 0.5 10^3/uL (0.0-0.7); Eosinophils Percent Auto 4.8 % (0.9-7.0); Hematocrit 41.2 % (42.0-54.0); Hemoglobin 14.2 g/dL (14.0-18.0); Immature Granulocytes Abs Auto 0.05 10^3/uL (0.00-0.03); Immature Granulocytes Pct Auto 0.5 % (0.0-0.5); Lymphocytes Absolute Auto 1.5 10^3/uL (1.2-3.8); Lymphocytes Percent Auto 14.4 % (20.5-60.0); Mean Corpuscular HGB Conc 34.5 g/dL (29.9-35.2); Mean Corpuscular Hemoglobin 33.6 pg (25.9-34.0); Mean Corpuscular Volume 97.4 fL (80.0-94.0); Mean Platelet Volume 8.5 fL (9.5-13.5); Monocytes Absolute Auto 1.1 10^3/uL (0.3-0.8); Monocytes Percent Auto 10.5 % (1.7-12.0); Neutrophils Absolute Auto 7.1 10^3/uL (1.4-6.5); Platelet Count 252 10^3/uL (150-450); Red Blood Count 4.23 10^6/uL (4.70-6.10); Red Cell Distribution Width 12.5 % (11.0-15.0); White Blood Count 10.4 10^3/uL (4.0-11.0)
[2023-09-13 11:21] LABS: Anion Gap 15.1; BUN Creatinine Ratio 13.5; Calcium 9.2 mg/dL (8.5-10.1); Carbon Dioxide 27.4 mmol/L (21.0-32.0); Chloride 104 mmol/L (98-107); Estimated GFR (African America >60 (>=60); Estimated GFR (Non-African Ame >60 (>=60); Glucose 138 mg/dL (74-106); Potassium 3.5 mmol/L (3.5-5.1); Sodium 143 mmol/L (136-145)
[2023-09-13 12:20] LABS: Bilirubin Urine NEGATIVE (NEGATIVE); Blood Urine SMALL (NEGATIVE); Clarity Urine CLEAR (CLEAR); Color Urine LT. YELLOW (YELLOW); Glucose Urine UA NEGATIVE (NEGATIVE); Ketones Urine NEGATIVE (NEGATIVE); Leukocyte Esterase Urine SMALL (NEGATIVE); Nitrite Urine POSITIVE (NEGATIVE); Protein Urine 30 mg/dL (NEG/TRACE); Specific Gravity Urine 1.025 (1.005-1.025); Urobilinogen Urine 0.2 EU/dL (0.2-1.0); pH Urine 7.5 (5.0-9.0)
[2023-09-13 12:26] LABS: Bacteria Urine MODERATE #/HPF (NONE SEEN)
[2023-09-13 12:28] LABS: Mucus Urine NONE SEEN (NONE SEEN); Squamous Epithelial Cell Urine RARE #/LPF (NONE/RARE)
[2023-09-13 12:29] LABS: Amorphous Sediment Urine FEW; Cast Seen? NONE SEEN #/LPF (NONE SEEN); Crystals Seen? Seen #/HPF (None Seen); Triple Phosphate Crystal Urine MANY; Urine Culture Indicated ALREADY ORDERED
== END 2023-09-13 13:22 | disposition home or self-care (01) ==
PROVIDERS: Emergency Provider Emergency Medicine
DX: T83.091A Other mechanical complication of indwelling urethral catheter, initial encounter (principal); R33.9 Retention of urine, unspecified; Z87.891 Personal history of nicotine dependence
CPT/HCPCS: 36415; 51702; 80048; 81001; 85025; 87086; 87150; 87186; 99283

== ENCOUNTER 2023-10-31 11:11 | Observation (INO) | payer OTHER, SELFPAY ==
[2023-10-31 11:17] VITALS: BP 140/103; PULSE 87; TEMP 36.6; O2SAT 97; BMI 26.4
--- OUTSIDE RECORDS SUMMARY | 2023-10-31 11:18 | XMS_ITS | CCD ---
Author Organization [facility] Care Team Providers Care Supervisor Joiners Name Role Phone Janice Arellano Unavailable Maged Andrade Unavailable CHRISTIANA DIA Consulting Unavailable EDWARDO WALKER Admitting Unavailable EDWARDO WALKER Attending Unavailable [facility] DR BONILLA Primary Care Unavailable [facility], DR JERAMY Singh Admitting Unavailable DESIRE, DR JERAMY Singh Attending Unavailable DESIRE, DR JERAMY Singh Consulting Unavailable MAGED ANDRADE Primary Care Physician MAGED ANDRADE Primary Care Physician [phone] DULCE MARIA DE SOUZA Attending Unavailable Lue, Deandra MCarla Admitting Unavailable Lue, Deandra MCarla Referring Unavailable Lue, Deandra MCarla Attending Unavailable Lue, Deandra MCarla Admitting Unavailable Lue, Deandra MCarla Referring Unavailable Lue, Deandra MCarla Attending Unavailable Lue, Deandra MCarla Referring Unavailable Lue, Deandra MCarla Attending Unavailable Lue, Deandra MCarla Admitting Unavailable Lue, Deandra MCarla Attending Unavailable DULCE MARIA DE SOUZA Attending Unavailable Lue, Deandra MCarla Attending Unavailable DULCE MARIA DE SOUZA Attending Unavailable Steve ROBISON Attending Unavailable Lue, Deandra MCarla Attending Unavailable Steve ROBISON Attending Unavailable DULCE MARIA DE SOUZA Attending Unavailable MAGED ANDRADE Attending Unavailable Lue, Deandra MCarla Attending Unavailable Lue, Deandra MCarla Attending Unavailable SHAIKH CONTE Attending Unavailable SHAIKH CONTE Attending Unavailable Allergies Allergy Classification Reported Allergen(s) Allergy Type Date of Onset Reaction(s) Facility (1 source) No Known Medication Allergies; Translations: [No Known Medication Allergies] Propensity to adverse reactions (disorder) [facility] Medications Current Medications Medication Drug Class(es) Dates Sig (Normalized) Sig (Original) [id number] 200 actuat albuterol 0.09 mg/actuat metered dose inhaler (3 sources) beta2-Adrenergic Agonist take 1 puff(s) by inhalation every four hours as needed ProAir HFA 108 (90 Base) MCG/ACT 1 puff as needed Inhalation every 4 hrs Active aspirin 81 mg oral capsule (12 sources) Platelet Aggregation Inhibitor, Nonsteroidal Anti-inflammatory Drug [...] Active calcium carbonate 1250 mg oral tablet (9 sources) Start: calcium 500 mg tablets 1,250 mg = 1 tab(s), Oral, BID, Refills(s) 0, Prophylaxis Start Date: 10/15/22 Status: Ordered cephalexin 500 mg oral capsule (4 sources) Cephalosporin Antibacterial Start: 023 cephalexin 500 [...] a day Active duloxetine 60 mg Cap-DR (9 sources) Start: 023 take 2 capsules by mouth once daily duloxetine 60 mg Cap-DR 120 mg, Oral, Daily, Refills(s) 0, Depression Start Date: 10/15/22 Status: Ordered finasteride 5 mg oral tablet (12 sources) 5-alpha Reductase Inhibitor Start: 023 take 1 tablet by mouth once daily finasteride 5 mg Tab 5 mg = 1 tab(s), Oral, Daily, Refills(s) 0, Urinary discomfort Start Date: 10/15/22 Status: Ordered take 1 tablet by chintan th every twenty-four hours Finasteride 5 MG 1 tablet Orally Once a day Active hydroCHLOROthiazide 25 mg oral tablet (12 sources) Thiazide Diuretic Start: 10-15-2022 hydrochlorothiazide 25 mg Tab 12.5 mg = 0.5 tab(s), Oral, Daily, Refills(s) 0, High blood pressure Start Date: 10/15/22 Status: Ordered take 0.5 tablet by mouth once da aubrey hydroCHLOROthiazide 25 MG 1/2 tab Orally Once a day Active hydroxychloroquine sulfate 200 mg oral tablet (12 sources) Antimalarial, Antirheumatic Agent Start: 10-15-2022 take 1 tablet by mouth twice daily hydroxychloroquine 200 mg Tab 200 mg = 1 tab(s), Oral, BID, Refills(s) 0, Arthritis Start Date: 10/15/22 Status: Ordered take 1 tablet by mouth twice roger ly Hydroxychloroquine Sulfate 200 MG 1 tab Orally bid Active lamoTRIgine 150 mg oral tablet (12 sources) Mood Stabilizer, Anti-epileptic Agent Start: 10-15-2022 [...] day Active leflunomide 20 mg oral tablet (12 sources) Antirheumatic Agent Start: 10-15-2022 take 1 tablet by mouth once daily leflunomide 20 mg Tab 20 mg = 1 tab(s), Oral, Daily, Refills(s) 0, Arthritis Start Date: 10/15/22 Status: Ordered take 1 tablet by chintan th every twenty-four hours Leflunomide 20 MG 1 tablet Orally Once a day Active Multivitamin preparation (9 sources) Start: 10-15-2022 multivitamin See Instructions, Refill(s) [...] day(s), # 2 cap(s), Refills(s) 0, Pharmacy: [id number], 186, cm, 10/15/22 12:53:00 EDT, Height/Length Dosing, [...] Oct, Active rOPINIRole 1 mg oral tablet (12 sources) Nonergot Dopamine Agonist Start: 10-15-2022 take 2 tablets by mouth twice daily ropinirole 1 mg Tab 2 mg = 2 tab(s), Oral, BID, Refills(s) 0, Other (see comment) Start Date: 10/15/22 Status: Ordered take 1 tablet by chintan once daily at bedtime rOPINIRole HCl 1 MG 1 tablet 1 to 3 hour s before bedtime Orally 4x day Active sertraline 50 mg oral tablet (12 sources) Serotonin Reuptake Inhibitor Start: 10-15-2022 sertraline 50 mg Tab 25 mg = 0.5 tab(s), Oral, Daily, Refills(s) 0, Depression Start Date: 10/15/22 Status: Ordered take 0.5 tablet by mouth once da aubrey Sertraline HCl 50 MG 1/2 tab Orally Once a day Active tamsulosin hydrochloride 0.4 mg oral capsule (12 sources) alpha-Adrenergic Christophe Start: 10-15-2022 take 1 capsule by mouth once daily tamsulosin 0.4 mg Cap 0.4 mg = 1 cap(s), Oral, Daily, Refills(s) 0, Urinary discomfort Start Date: 10/15/22 Status: Ordered take 1 capsule by [facility] every twenty-four hours Tamsulosin HCl 0.4 MG 1 capsule Orally Once a day Active traZODone hydrochloride 100 mg oral tablet (12 sources) Serotonin Reuptake Inhibitor Start: 10-15-2022 take [...] hydrochloride 240 mg extended release oral capsule (9 sources) Calcium Channel Christophe Start: 10-15-2022 take [...] Ordered potassium chloride 10 meq oral tablet (12 sources) Start: 10-15-2022 take 1 tablet by [...] specified anxiety disorders] Chronic Biliary tract disease (10 sources) Gallstone 09-08-2022 Episodic Calculus of urinary tract (20 sources) Kidney stone; Translations: [Calculus of kidney] Onset: 10-28-2022 09-08-2022 Episodic Chronic obstructive pulmonary disease and bronchiectasis (13 sources) Pulmonary emphysema; Translations: [Other emphysema] 09-08-2022 Chronic Essential hypertension (13 sources) Essential hypertension; Translations: [Essential (primary) hypertension] 09-08-2022 Chronic Genitourinary symptoms and ill-defined conditions (20 sources) Retention of urine, unspecified; Translations: [Retention of urine] Onset: 08-25-2022 Episodic Glaucoma (10 sources) Glaucoma 09-08-2022 Chronic Hyperplasia of prostate (16 sources) Benign prostatic hyperplasia with lower urinary tract symptoms; Translations: [Benign prostatic hypertrophy with outflow obstruction] Onset: 08-26-2022 Chronic Mood disorders (10 sources) Depressive disorder 09-08-2022 Chronic Osteoarthritis (10 sources) Arthritis 09-08-2022 Chronic Other diseases of kidney and ureters (1 source) Urinary tract obstruction; Translations: [Other obstructive and reflux uropathy] Onset: 10-28-2022 Episodic Other hereditary and degenerative nervous system conditions (9 sources) Restless legs 10-15-2022 Chronic Residual codes; unclassified (3 sources) Obstructive sleep apnea syndrome; Translations: [Obstructive sleep apnea (adult) (pediatric)] Chronic Rheumatoid arthritis and related disease (4 sources) Rheumatoid arthritis; Translations: [Rheumatoid arthritis, unspecified] Onset: 12-24-2021 Chronic Substance-related disorders (9 sources) Smoker 10-15-2022 Chronic Comment on above: Added secondary to d ocumentation in Social History. Unclassified (10 sources) Finding of sensation of bladder 09-08-2022 [...] Test Name Value Interpretation Reference Range Facility ED Note-Physicianon 09-17-19 ED Note-Physician [id number] 0TIFF [facility] Retail - Clinical Noteon Retail - Clinical Note [id number]#1.0 0TIFF [facility] Ambulatory Visit Summaryon 0 09-16-2023 Ambulatory Visit Summary RICKEY GARCIA :1945 Visit Date:09/16/2023 Ambulatory Visit Instructions Your Diagnosis Urinary retention BPH with urinary obstruction Your Care Team Attending Physician - DULCE MARIA DE SOUZA PA-C Primary Care Physician - MAGED ANDRADE [...] (09/29/2022), Colonoscopy. Discharge Vitals Heart Rate (Peripheral) 86 Blood Pressure 108/83 Height 185 cm Height 73 in Weight 91.5 kg Weight 201.3 lb BMI 26.73 What to do next Scheduled Follow-Up Appointments Thursday 10:45 AM EDT With: Michael SMITH, Deandra Smith Where: [facility] Patient Educationon 09-16-19 Patient Education Urology Clean Intermittent Catheterization, Male [...] and water are not available, use hand station operator. 2. Clean your penis with soap and [...] catheter in a small bathroom. ? Take hqnz-rwi-foabeyv and prescription medicines only as told by your he (more content not included)... Normal [facility] Urology Office/Clinic Noteon 09-16-2023 Urology Office/Clinic Note Chief Complaint Follow up to ER visit [facility] HPI Staff Pt is here today to discuss starting CIC again. Pt was seen at [facility] on 09/13/23 cath was replaced due to not draining, thinks cath is causing infection. Pt currently has cath. Pt was given Keflex 500mg TID x7 days. Pt stated before cath his volumes were between 200-400cc every 6 hours Previous DX: Urinary Retention, Bacteriuria, BPH & HX of Kidney Stones *Tamsulosin 0.4mg qd and Finasteride 5mg qd. [facility] checks PSA S/p UroLift/Cystolitholapa xy 10/28/22. Dysuria: pt states he is having bladder spasms every hour and pain at tip of penis Incomplete bladder emptying: yes pt has cath Hematuria: denies visible blood in bag Frequency: denies Urgency: denies Nocturia: denies Stream: denies Leaking: denies Post void dripping: denies Wearing pads/ Depends: denies Urge incontinence: denies Stress incontinence: denies Incontinence without Sensory Awareness: denies Abdominal pain: denies Flank pain: denies Sexual complaints: denies History of Present Illness staff HPI reviewed and agree. Tests Reviewed: Reviewed Review of Systems PHQ Score Initial Depression Screen Score: 0 SCORE no fever, chills, malaise, myalgia. no rash/lesions. no chest pain, palpitations, or SOB. no abdominal pain, nausea, vomiting. no unilateral calf swelling, redness, pain Physical Exam Vitals & Measurements HR: 86(Peripheral) BP: 108/83 HT: 73 in HT: 185 cm WT: 91.5 kg WT: 201.3 lb BMI: 26.73 General: nontoxic, NAD Mouth: moist mucosa Lungs: normal respiratory effort Cardio: regular rate, good distal perfusion Abdomen: nondistended, no suprapubic distention or tenderness, no CVA tenderness Neurologic: Grossly normal Skin: No rashes or suspicious lesions Assessment/Plan 1. Urinary retention (R33.9: Retention of urine, unspecified) S/p UroLift/Cystolitholapa xy 10/28/22. Did CIC in the past, stopped due to feeling he did not need to. [facility] ER 04/28/23 due to inability to urinate. Drained at least 1400mL with White catheter. Kidney function was preserved at that time. [1] Resumed CIC 07/08/23 [facility] ER 08/07/23 due to inability to pass cath x3-4 days. >500cc retained. white placed. [facility] ER 09/13/23 due to cath not draining well. Indwelling cath was replaced and was given Keflex 500 mg TID x 7 days. UCx >100k K. oxytoca No sample provided for UA today, pt currently has indwelling white. Discussed pros and cons of returning to CIC vs keeping indwelling white. Pt strongly prefers CIC and I feel this is the best for him to retrain his bladder. Educated pt on proper CIC technique to help insert cath past prostate. Pt prefers 14 coude for CIC from samples provided previously. Does not do well w the straight tips. The pt's anatomy is such that a straight tip catheter is ineffective in passing through the urethra, and a curved tipped cath is required to conform to the pt's anatomy. The pt also has an enlarged prostate gland, creating an obstructing that requires a coude tipped catheter. -Restart CIC q6hr with 14 Fr coude. Written script will be faxed. -If pt were to have any difficulties with CIC in the future, he knows he can call the office to try to be fit in so he can avoid the ED. Has f/u with Dr. Rodriguez scheduled for 02/17/24, or sooner if needed. Pt understands and agrees with plan. 2. BPH with urinary obstruction (N40.1: Benign prostatic hyperplasia with lower urinary tract symptoms) Hx long standing history of recurrent urinary retention, catheter dependent for over 3 months after 2L urinary retention and failing multiple voiding trials. [1] S/p UroLift/Cystolitholapa xy 10/28/22. Taking Tamsulosin 0.4 mg qd and Finasteride 5 mg qd. Total time spent reviewing previous notes/results/external documents, preparing the chart, conducting the encounter with the patient and family, ordering tests/medications, and documenting the encounter was 30 minutes. Follow-up With When Contact Information DAMI RASMUSSEN, DULC EMARIA Orantes, URL [address] [facility] [place] [address] Additional Instructions: Has f/u with Dr. Rodriguez scheduled for 02/17/24 Patient Education Clean Intermittent Catheterization, Male Documentation recorded by the scriblamberto Trejo accurately reflects the services(s) I performed and decisions made by me. Authenticated by Dulce Maria De Souza PA-C on 09/16/2023 16:28:44. Pina Estrada, personally scribed for CHRISTIANA Street on 09/16/2023 11:10:07. . Problem List/Past Medical History Ongoing Arthritis Bacteriuria BPH with urinary obstruction COPD (chronic obstructive pulmonary disease) Depression Feeling of incomplete bladder emptying Gall stone Glaucoma History of kidney stones HTN (hypertension) Kidney stones Smoker Urinary retention UTI symptoms Historical No qualifying data Procedure/Surgical History Cystoscopic litholapaxy (10/28/2022), Transurethral insertion (more content not included)... [facility] Comment on above: Result Comment: Elec tronically Signed By: DULCE MARIA DE SOUZA PA-C\.br\Date and Time Signed: 09/16/23 16:29 EST\.br\Electronically Co-Signed By: Pina Trejo\.br\Date and Time Co-Signed: 09/16/23 11:10 EST IntraOperative Documentson 0 09-03-2023 IntraOperative Documents [id number] 0TIFF [facility] ED Note-Physicianon 08-13-19 ED Note-Physician [id number]#1.0 0TIFF [facility] Lab Reportson 08-13-2023 Lab Reports [id number] TIFF [facility] Ambulatory Visit Summaryon 0 08-05-2023 Ambulatory Visit Summary RICKEY GARCIA :1945 Visit Date:08/05/2023 Ambulatory Visit Instructions Your Diagnosis Urinary retention Bacteriuria BPH with urinary obstruction History of kidney stones Your Care Team Attending Physician - Michael SMITH, Deandra Smith Primary Care Physician - MAGED [...] SMITH, Deandra Smith Where: [facility] Patient Educationon 08-05-19 Patient Education [...] and water are not available, use hand station operator. 2. Clean your penis with soap and [...] catheter in a small bathroom. ? Take lgka-syj-ttgkgrg and prescription medicines only as told by your he (more content not included)... Normal [facility] Urology Office/Clinic Noteon 08-05-2023 Urology Office/Clinic Note [...] phone, sister in person. [place] Baby aspirin, no hx of stroke or heart attack. States if he has to see a specialist through [place] he has to travel to [place]. 1. Urinary retention (R33.9: Retention of urine, unspecified) S/p UroLift/Cystolitholapa xy 10/28/22. Did CIC in the past, stopped due to feeling he did not need to. States lowest volume he had was 180mL when self-cathing. [facility] ER 04/28/23 due to inability to [...] take a year. [facility] Risks/benefits discussed. -Cont CIC q6h. Pt using [...] tx'd with Keflex Possible UTI 06/10/23 at [facility] ER visit, tx'd with Keflex. Pt [...] reevaluate ou (more content not included)... Normal [facility] Comment on above: Result Comment: Elec tronically Signed By: Deandra Rodriguez MD\.br\Date and Time Signed: 08/05/23 15:00 EST\.br\Electronically Co-Signed By: Shahla Shelley\.br\Date and Time Co-Signed: 08/05/23 10:45 EST [place] 07-24-2023 Screens [id number]. 00TIFF [facility] Screens [id number] 0TIFF [facility] Ambulatory Visit Summaryon 1 09-22-2022 Ambulatory Visit Summary RICKEY GARCIA :1945 Visit Date:07/22/2023 Ambulatory Visit Instructions Your [...] Follow-Up Appointments Thursday 9:45 AM EST With: Michael SMITH, Deandra Smith Where: [facility] Patient Educationon 07-22-20 Patient Education Urology Benign Prostatic Hyperplasia Benign [...] Follow these instructions at home: ? Take heif-ffj-lcpvhax and prescription medicines only as told by [...] the medicine (more content not included)... Normal [facility] Urology Office/Clinic Noteon 07-22-2023 Urology Office/Clinic Note [...] retention 4-6 wks later. [place], did not bring a list of medications with him today. Baby aspirin, no hx of stroke or heart attack. States if he has to see a specialist through [place] he has to travel to [place]. 1. Urinary retention (R33.9: Retention of urine, unspecified) S/p UroLift/Cystolitholapa xy 10/28/22. Did CIC in the past, stopped about 4-6 weeks ago due feeling he did not need to. States lowest volume he had was 180mL when self-cathing. Presented to [facility] ER 04/28/23 due to inability to [...] Keflex. Advised pt to complete abx course. [facility] ER 06/10/23 - CC: brownish colored [...] urinary retentio (more content not included)... Normal [facility] Comment on above: Result Comment: Elec tronically Signed By: Deandra Rodriguez MD\.br\Date and Time Signed: 07/22/23 09:00 EST\.br\Electronically Co-Signed By: Anastasia Rowell\.br\Date and Time Co-Signed: 07/22/23 08:37 EST ED Note-Physicianon 07-10-20 ED Note-Physician [id number] 0TIFF [facility] Lab Reportson 07-10-2023 Lab Reports [id number] 0TIFF [facility] Ambulatory Visit Summaryon 1 09-08-2022 Ambulatory [...] Thursday 8:15 AM EST With: Michael SMITH, Deandar Smith Where: [facility] Patient Educationon 07-08-20 Patient Education [...] and water are not available, use hand station operator. 2. Clean your penis with soap and [...] catheter in a small bathroom. ? Take yxjf-cny-ddzrfgi and prescription medicines only as told by your he (more content not included)... 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 Pt had initially presented to [facility] as a new pt, due to Urinary [...] is here today to follow up to [facility] ER 06/10/23 CC: brownish colored urine [...] retention 4-6 wks later. [place], did not bring a list of medications with him today. Baby aspirin, no hx of stroke or heart attack. States if he has to see a specialist through [place] has to travel to [place]. 1. Urinary retention (R33.9: Retention of urine, unspecified) S/p UroLift/Cystolitholapa xy 10/28/22. Did CIC in the past, stopped about 4-6 weeks ago due feeling he did not need to. States lowest volume he had was 180mL when self-cathing. Presented to [facility] ER 04/28/23 due to inability to [...] is here today to follow up to [facility] ER 06/10/23 - CC: brownish colored urine, +C&S Sent home with Keflex therapy. He did take all this, no problems with this, no pain or burning, blood in bag, noticed this morning. Has been asx during positive cultures. Discussed difference between colonization vs UTI. Advised pt that when he has a catheter placed, he will always have bacteria (more content not included)... [facility] Comment on above: Result Comment: Elec tronically Signed By: Michael SMITH, Deandra Smith\.br\Date and Time Signed: 07/08/23 11:33 EST\.br\Electronically Co-Signed By: Anastasia Rowell\.br\Date and Time Co-Signed: 07/08/23 11:11 EST Ambulatory Visit Summaryon 1 Ambulatory Visit Summary RICKEY GARCIA :1945 Visit Date:05/26/2023 Ambulatory Visit Instructions Your Care Team Attending Physician - ENRIQUETA SMITH, Steve Singh Primary Care Physician - MAGED ANDRADE DO [...] 1:00 PM EST Where: [facility] Patient Correspondenceon Patient Correspondence [id number] 0TIFF [facility] Ambulatory Visit Summaryon 1 Ambulatory Visit Summary RICKEY GARCIA :1945 Visit Date:05/01/2023 Ambulatory Visit Instructions Your Diagnosis Urinary retention Urinary tract infection BPH with urinary obstruction History of kidney stones Your Care Team Attending Physician - Steve ROBISON MD Primary Care Physician - MGAED ANDRADE DO This Is Your Medications List [...] 1:00 PM EDT Where: [facility] ED Note-Physicianon 05-01-20 ED Note-Physician [id number] 0TIFF Normal [place] Patient Educationon 05-01-20 Patient Education Urology Indwelling [...] provider. Document Revised: 03/12/2022 Document Reviewed: 03/12/2022 [employer] Patient Education ? 2022 [employer] Indwelling Urinary Catheter Insertion, Care After [...] po (more content not included)... Normal [place] [facility] Urology Office/Clinic Noteon 05-01-2023 Urology Office/Clinic Note Chief Complaint ER follow up *Urinary Retention HPI Staff Follow up to [facility] ER 04/28/23 CC: difficulty urinating Catheter [...] had was 180mL when self-cathing. Presented to [facility] ER 04/28/23 due to inability to [...] Information Michael SMITH, Deandra Smith, URL, [facility] [address], [place] [address] [phone] Additional Instructions: 1 month cath change Patient [...] mg tablets, (more content not included)... Normal [facility] Comment on above: Result Comment: Elec tronically Signed By: Steve ROBISON MD\.br\Date and Time Signed: 05/01/23 11:07 EDT\.br\Electronically Co-Signed By: Shahla Shelley.br\Date and Time Co-Signed: 05/01/23 11:05 EDT ED Note-Physicianon 04-29-20 ED Note-Physician [id number] 0CD:[id number] [facility] Ambulatory Visit Summaryon 0 11-18-2022 Ambulatory Visit Summary RICKEY GARCIA :1945 Visit Date:11/18/2022 Ambulatory Visit Instructions Your Diagnosis Urinary retention Tests Performed Urnls Dip Stick Auto w/o Microscopy POC 25490 Your Care Team Attending Physician - DAMI RASMUSSEN, DULCE MARIA Orantes Primary Care Physician - MAGED ANDRADE DO [...] Urnls Dip Stick Auto w/o Microscopy POC 30491 (11/18/2022) Bilirubin Urine Dipstick - Negative Blood Urine Dipstick - Negative Glucose Urine Dipstick - Negative Ketones Urine Dipstick - Negative Leukocytes Urine Dipstick - 1+ Small Nitrite Urine Dipstick - Positive Protein Urine Dipstick - Negative Specific [place] Urine Dipstick - 1.025 Urine Appearance Urine [...] surgery, probl (more content not included)... Normal [facility] Patient Educationon 04-25-20 23 Patient Education Urology Acute Urinary Retention, [...] these instructions at home: Medicines ? Take pmud-sxc-cwdlckp and prescription medicines only as told by [...] provider. Document Revised: 04/03/2021 Document Reviewed: 04/03/2021 [employer] Patient Education ? 2022 [employer] Steph [facility] Urology Office/Clinic Noteon 11-18-2022 Urology Office/Clinic Note [...] during attempts to void. XR Ab 10/28/22 [facility] [place] A catheter overlies the lower pelvis, [...] E&M of Est. Patient Low 20-29 Min 91389 Influenza immunization status assessed 1030F Measure Post Void residual urine and/or bladder capacity by US- non-imaging 47533 Most recent diastolic blood pressure <80 mm Hg 3078F Patient screen for fall risk: no falls in last year or 1 fall with no injury in last year 1101F Systolic BP 130-139 mm Hg (Most Recent) 3075F Urnls Dip Stick Auto w/o Microscopy POC 17953 Total time spent reviewing previous notes/results/external documents, [...] mg Tab, (more content not included)... Normal [facility] Comment on above: Result Comment: Elec tronically Signed By: DULCE MARIA DE SOUZA PA-C\.br\Date and Time Signed: 11/18/22 15:58 EDT [...] Smoker Urinary retention Urinary tract infection Normal [facility] IntraOperative Documentson 0 11-04-2022 IntraOperative Documents [id number]#1. 00CD:127 Normal [facility] Postoperative Documentson Postoperative Documents [id number]#1.0 0CD:127 Normal [facility] Calculus Analysison 11-04-19 23 Calcium hydrogen phosphate dihydrate (Stone) [Mass fraction] 5 % Invalid Interpretation Code [facility] Comment on above: Performed By: #### 1 [id number] #### [facility] [address] [place] [address] Calcium oxalate dihydrate Infrared spectroscopy (Stone) [Mass fraction] 20 % Invalid Interpretation Code [facility] Comment on above: Performed By: #### 1 [id number] #### [facility] [address] [place] [address] Calcium oxalate monohydrate (Stone) [Mass fraction] 75 % Invalid Interpretation Code [facility] Comment on above: Performed By: #### 1 [id number] #### [facility] [address] [place] [address] Color (Stone) Duran Invalid Interpretation Code [facility] Comment on above: Performed By: #### 1 [id number] #### [facility] [address] [place] [address] Composition Comment Invalid Interpretation Code [facility] Comment on above: Result Comment: Perc entage (Represents the % composition) Performed By: #### 1 [id number] #### [facility] [address] [place] [address] Disclaimer: Comment Invalid Interpretation Code [facility] Comment on above: Result Comment: This test was developed and its performance characteristics determined by [facility]. It has not been cleared or approved by the Food and Drug Administration. Performed at: [facility] Stone Analysis [address] [place] [address] [address] [place], [place] [id number] [phone] PhD Alvarez Mccoy Performed By: #### 1 [id number] #### [facility] [address] [place] [address] Laboratory comment Good (Report) Comment Invalid Interpretation Code [facility] Comment on above: Result Comment: Tessa louis questions regarding Calculi Analysis contact [facility] at: [phone]. Performed By: #### 1 [id number] #### [facility] [address] [place] [address] Please Note: Comment Invalid Interpretation Code [facility] Comment on above: Result Comment: Calc maciej report will follow via computer, mail or quantity surveyor delivery. Performed By: #### 1 [id number] #### [facility] [address] [place] [address] Size (Stone) [Entitic vol] 7x13 Invalid Interpretation Code [facility] Comment on above: Result Comment: Mult iple pieces received. Dimensions of the largest piece reported. Performed By: #### 1 [id number] #### [facility] [address] [place] [address] Specimen source subject Nom Comment Invalid Interpretation Code [facility] Comment on above: Result Comment: Urin jasiel Bladder Performed By: #### 1 [id number] #### [facility] [address] [place] [address] Stone Photo Comment Invalid Interpretation Code [facility] Comment on above: Result Comment: Phot ograph will follow under a separate cover Performed By: #### 1 [id number] #### [facility] [address] [place] [address] Weight (Stone) 1188 mg Invalid Interpretation Code [facility] Comment on above: Performed By: #### 1 [id number] #### [facility] [address] [place] [address] Coding Summary.on 10-31-2022 Coding Summary. CD:[id number] Ww +PGhlYWQ+FE0JWZPoQ71av GMvhU7uB5VKMYrPXwwtZUQ HSDkKOfGjsyDfXL4vrPWgW XJu IC8+MR0cAXUdFiaaqSNkx1 B6hRL3J81vno9iROqtjNG4 TXYpQmUdgvzfu1zzyGv2HX cuNmluOyBt ZOJfiZ29LQZ4yR32Kd08bC AsiRPcu0akdIy2TpAbKEBg MQR4rVhaNVbol2QzEEZvL0 0qkWJho9T3 NQXvyPgwsPGpViExlVC2yD 7hBCgzstpma8htorxzPgo9 nj57xALkt0O1mQT8A0Zsns S3WMTocMPx HyuxjPNBhE5yefaua8nejn aaIvTrXYIaQEl5NSe4OKFe hIqjQaUxIG78RJX0CZBexr IpM5AbTMPn iApvGmA5h8K5Ad6DZ2WOPu otE2RXXRYHHHbspZZ+PC90 nc28S7ZhPkjoVcj6AYPlCX A3gWP1zM5s NVBzLMoas9H9fAF5G7Wihs Fjzo8my8phVHEnEYohM70r uPZqh3J2USXehMV5EBHkaY hnLiSjiU55 Oyc+XFSvxSxpj8HrXfppa0 wfs1gxrHf4VqfzFYNtntLu mRozMHK8u0YgLo1sRISbsK S3qKO4wT6t HaPpKbC6NFibC492BzIbjM IjQlguT73oQ4PgoAY+PHRy Myb4MSVshJcmIE2aO1AhJM RpbmctbGVm bWgwRG5oHQYhyhrdXYEisU 2bSKZbF7y4FiMgTsU6LJyu E3AfOPVdtqyzSe56sS2lSx GyScW3STib B9CpshU1BMYjzNSyBGeyRW E0O39ps8O2KCLoLRTdPIC0 eBR1aX5fvItqmrfgwWEkoS sgdmVydGlj RWmpYOxsA749HPEhpUfvUu NvZGluZyBEYXRlOiAgMDQv MDcvMjAyMzwvdGQ+PHRkIH Y1mAzlKYQn eDNzKPgoEz1jsRupjRxfAG 1sSUDyuxfhNUNflM7iTWAz eZMtdUunGV0bHYXlazrqk8 71ZwXyTMW0 JPPcjVZlH0VbyW2uNiKnQV YhQBYmS6HtwXWsALilF884 TVchJwP1WPPtuqFaG2EeGU FsaWduOiB0 t7S5Tk8Ku9RymwhfF2HzcZ SjDpXkAdtcVDi0G9LmWrjm dHI+EZ16THNkVB32UTt8MX C6eDcjRJbx SAIyO3VulY1kOfIbJVYlIW RkOyc+PHRhYmxlIHdpZHRo BMgyEJYtSmHtdXnmJG5uWy 9yZGVyLWNv wXpbeVQwRxYjl5ggQZMsWW prIG7gdHumG3CjdAL1BUIj w8k5Uc36Y33hW3SqnDM+PG ZaiXE8wJX6 rV9nNjSaCeB3EKmtX473Fg YboGMuShrrv9uvs5iszXq8 BdB9TKFoazOctZciZUF6n7 GtIk26M95w IHdpZHRoPSIxNSUiIHZhbG mewb4ncO3lNu4+PGNvbCB3 iHS5cL6dGhHuYtI1FYicC3 49InRvcCIv Fwdmv4mvr2szsXh1HuQaJC KjoxUvoKwyYUR0g8CzSl12 E6FcsBnwu7KyTss4ms33eK Jfb1O1iBE1 Z2DtVCClqcpybDZlgMerEA 1wCTFtnmxvLQSsdE5pRPBx J8q0JnVdCiG5VSjoG3Pzdm H5LZPllRSe EMWqiXNKoU4tdqfta9xtvj ykGvByVXYgNJo3ERr2VVRj hPosEuTqFYH3IzJ8FTQ7iO SnkS9zgZmc tlxayT0gKvr+OLL8yLYbkJ OQVC5dOvqmuKP+PHRkIHN0 lYlsPIovHTLanV4wVHTfS7 r9CpVfFzW7 ILxtB5KufbN4JZAatSIwLZ KodKPGrR3tblmli1qfzxtl MzGaQLXgJOw7NSr9AFOvqP duOiBsZWZ0 XiZ2MDR2zAOiqD7kkHwjqw bamK0yJuo+QmlydGggRGF0 FIo1P8MuPpc5JZYoyAcjAM 0ncGFkZGlu Ek6rzYfjdPckCR9tEVBcbp xcr735NaEno9tqYWIgcNNf EIvfBRG6I57lj4Q7BZNqJW NoWOO1bVX2 hF3vvBplacnqrVPflMjhpz PgtUoaEUlpGYaxM200KODw vKxnKaSqLMr1O5SrYuv7EX NlhUqhWE4p cRIhMYrvSi1gpSpvcVxqQR 5iGJBtojzar563HxRwe0uf LFKcbKOsTBrqNFF6D27yv3 V3IQNfBBSv JBU4sII9mQ1kmJuykkcxhW VmdDsgdmVydGljYWwtYWxp X415HYDczYgyUcMjtEl7N6 LmRjp7PTFr vUpoJQ4muHXwBZbmEg5alS ypvQcyWB5pPNFuemhlw094 NsAzi0pyBFKqaCSzXUhxQO W6P23if4Q5 SCTjRVQtSVJ7wYU4rJ4zrX lnbjogbGVmdDsgdmVydGlj PDrvPXosM202SQCceWmaTd BhdGllbnQg KVguYWz0K7WiEqkzqAW+PC 46TYDxJU29iTWldDRjc7xa wTz7NhHxDOTqKVZ3tAapRM gbr8YwOAQa B45dtSTpx0W6OEXdhQeupS YdFrBakDQ9iC7aUHzlvwag e1fpuarhQvnve6hmwr79sM 45Q57iHRbb ZHRoPSIzMCUiIHZhbGlnbj 9fgJ2pJn8+SOYtvCR7dFV3 wN1uYZCjLqE9DFkqY334Yu RvcCIvPjxj v2xbf7ahqKn6UpN0UISmpc MxvLacEKY2k7DgTe88A17z IHdpZHRoPSIyMCUiIHZhbG tftw9ezM0r Ii8+SLOmyRE6jDB4lW7vYf LhWuM5KVxoM666NpZjmCAe WvqvA48cW8UxzTF+PHRyPj w4XXTgiOru MS2qrADpHAsuFt8pWYR2Ie ByAqBlHGcqA2JxZDPbhgfr egjdnKL2UOUcHWJkxP12Rt 9udDogMTBw hISLxU1rbbsxf8tfrmnjKz BzEUSgYEd6NXq1NYZumUyb DxLeSLX2OmM8NDR5lREoxU 1hbGlnbjog eB8sG9IuUJSuflnaWh02gC 4aDiMuUbJ7IVahNqy+TEFV KxODLFQSOEuqT8DZLJqKGq OTWC64AM03 fQVat3U5wCX7G9CxCXGfbt tgflhyhAB3IYEmDQDeyV68 vMHuRFcpEx4qm4P7t575LB XqOGMdbU34 Wm4lmPelKVVkuWPChJ6xvn dtc9skleqoAnRvSSVwOWd6 PMe1RIZagWnfHxHnZPL5Xf J3VTQ2cQVg uL3cvPhlbjvysG4vLfv+MD AyEavpQKf6InhrySM+PHRk CMY3sRvcLHoaQUUhlG7gBV BkO5i9JyYt RdH9MZgzH7LiOLIlamipIj 64kU9nPcEsUoG9FWaiM1Vd inS5YKGvzOUwZAzyDBD8R9 6hn3Z2JXDr CMGfTHP6mIC8oD5geFfiwz ogbGVmdDsgdmVydGljYWwt ZSvoF379YXYhlGnqOsw8BG yaOWIgMQ78 MQ69vLNsp3T4rHO5V8HgEP LviqvctmyodXI5RVVnNXEt eF33rIHzNPgyRa7lq4E0b6 06IDAuMDUw vW35Ci9qxDxnWTGahRMJnP 0ywpkxn2ipdsbzUqOrMWIz LOi5NCf3ZDSlsLxbKwSnTX B9ZqY9FVZ8 uBGpxW9bqXlmyznviX5rYf c+TWFsZTwvdGQ+PHRkIHN0 wCroLBmyRWVjfA7mVFYrD6 k6HeAiHiO8 GHcwA7LkFXMljojcDg99gA 1bHvZiJqI3LLflY7MrthR2 RGXijFGfOQduZCD1Z38js5 G7OGJxZDKs NAW8rCY6sY4apVzllshyhH VmdDsgdmVydGljYWwtYWxp S982VTRhrXtmSuHqEyUhBI BvjwxhW7Ma INTYAQuzI0WwE4VmjVieqI Q+CE54ml44J3GmXykoEgr2 OJBoBNQ7eKD6wU0hJKVnOJ xit5Q6aFE7 Z1VajfLtct8by9zfITDeBD bpV80jyPMcx7T1JHZlaQT2 RHTmaIwlXiBwnP20Uli+PG UxgSliw2Fh Hymal5hrq9sixKy6MuGlIT WdcxNrbKowFPA3z8LnTu72 G35yHXurNDFsMGGvJOJzCN TdiXvasl1t oD5eFl2+BBBmjTI3eCR8hK 2iMwYdPdN0OKdlF792MrIx rXFkIchkp7gnd8mryXs8Od IwJSIgdmFs gHdmBLV3o2IlMk02U7HgyY coc6BiCsj6wh07rIAks4R8 oPE9J7SuAZHlwnpxyMAmoI yePQ4kDVCe rizjGAEsqJ3pJAVzD0e9Eu EnLsZ6HMgpS3KtesM9JNCp ePBbDSPrpHBLrV0zyrhea9 xvcjogIzAw XUXuBPi9OEz0HTDykMgbIv UfHOD0UrR2SJR7oSFuvN7o gKzsqdnwxM6rRsl+UGh5c2 nkqTQoXJ4s eUB9LL42FL10jUUas2U8nX Y9B7KgKEAzvyuggwfimPE8 IVMxCEFqpY58Uu8dlUxiIi 5yFQLaLRJ9 AFIxqZNoG9LfvW4bZuYeAC NzZLChJ1HqsUXbKNlwM840 JUhcXkY5JMPqbdNeY3VvQM FsaWduOiB0 c3C5Ls0BKJ85DD72KJ21dW Bzg3F9iKD7O3QzYVWidvsd ewnyyIE4CTHlMCYuxP33Aw 6rkNetIx1g CSMcJMN9RTDpiYXpC9NnqV 6zAuQeAOOqHXMyJ2ThiMAa SZlqG287LBquVfG1TMZxhi YmH0BwQHSh lUuiTqS1h1I9Rt0DYc92WK 49DK66mSQxp2B2iTW0F9Mo DEPidtyxgxtluWX0RZBbJW GogW50Qz3v yAnoAr2sMZGhDMJ3EKRdlA JoW4YdaD1oQfVlSOGdLKFh W0VlsHQdAFsgA564IAhgFl O9ETAissHq V5IuNMAcjUbcMgB7c1X4Vf 8HDIvylzn5D3NwHwarvHK+ FO22OKRdOR51aMNlqAFfq9 uylJf3EcAn MCUnIHN0 (more content not included)... Normal [facility] Main OR Intraoperative Recor don 10-30-2022 Main OR Intraoperative Record IntraOp Document Type FT Summary Primary Physician: Deandra Rodriguez MD Finalized Date/Time: 10/30/22 13:00:09 Pt. Name: RICKEY GARCIA/Sex: 1945 Male Med Rec #: [id number] Physician: Deandra Rodriguez MD Financial #: [id number] Pt. Type: A Room/Bed: AS10 Admit/Disch: 10/28/22 08:00:59 - 10/28/22 13:45:00 Institution: [...] Bert York RN, Wilma Mcleod Role Performed It Disaster Recovery Manager - Primary Bending Shed Worker Staff - Other Time In 10/28/22 09:51:00 10/28/22 09:51:00 10/28/22 10:55:00 Time Out 10/28/22 11:00:00 10/28/22 11:00:00 10/28/22 11:06:00 Procedure CYSTOSCOPY(.), CYSTOSCOPY(.), CYSTOSCOPY(.), CYSTOSCOPY W/ HOMIUM CYSTOSCOPY W/ HOMIUM CYSTOSCOPY W/ HOMIUM LASER(.) LASER(.) LASER(.) Comments RN RELIEF FOR SPOOL TENDER AND ROOM TURNOVER Last Modified By: Aviva Joya RN, RN, Aviva Nguyen RN 10/28/22 11:09:19 10/28/22 11:09:19 10/28/22 11:09:19 Entry 7 Case Attendee Angel Navarro Role Performed Scrub - Primary Time In 10/28/22 09:51:00 Time Out 10/28/22 11:06:00 Procedure CYSTOSCOPY(.), CYSTOSCOPY W/ HOMIUM LASER(.) Comments ORIENTATION Last Modified By: Zaynab Putnam CST 10/30/22 12:52:22 General Comments: LEISA DEGROOT - UROLIFT REP. JEYSON ROCHEchild welfare social worker Protocols FT Pre-Care Text: Implements protective measures [...] Antibiotic Yes Time Out Lev Muniz MD Given Participants S., Michael SMITH, Trung Naranjo [...] Same (more content not included)... [facility] Consent for Anesthesiaon Consent for Anesthesia [id number]#1.0 0CD:127 [facility] Discharge Instructionson Discharge Instructions [id number]#1.0 0CD:127 [facility] H&P Updateon 10-29-2022 H&P Update [id number]#1.0 0CD:127 [facility] IntraOperative Documentson 0 10-29-2022 IntraOperative Documents [id number]#1.0 0CD:127 [facility] IntraOperative Documents [id number]#1.0 0CD:127 [facility] Preoperative Documentson Preoperative Documents [id number]#1.0 0CD:127 Normal [facility] Consent for Procedure/Surger yon 10-28-2022 Consent for Procedure/Surgery [id number]#1. 00CD:127 Normal [facility] Consent for Treatmenton Consent for Treatment [id number]#1.0 0CD:127 Normal [facility] Inpatient Patient Summaryon 10-28-2022 Inpatient Patient Summary [place] [id number] [facility] Clinical Discharge Instructions PERSON INFORMATION Name: RICKEY GARCIA [facility]#:[id number] PHYSICIANS Admitting Physician: Deandra Rodriguez MD Attending Physician: Deandra Rodriguez MD PCP: MAGED ANDRADE DO Discharge Diagnosis: BPH with urinary obstruction; Bladder stone; Other obstructive and reflux uropathy Comment: PATIENT EDUCATION INFORMATION Instructions: White Catheter Care, Male-[facility] (Custom); Post Op Patient Instructions - FT (CUSTOM); EU - Urolift Discharge Instructions (Custom) Medication Leaflets: Follow up: With: Address: When: Deandra Rodriguez [address] [place] [phone] Business (1) [address] [place] [address] [place], [address] [address] [phone] Business (1) Comments: Office to call for followup appointment in 2 days for white removal and voiding trial and clean intermittent cath teaching MEDICATION LIST New Medications [id number], [address] [place], [place] [id number], [phone] nitrofurantoin (Macrobid 100 mg Cap) 1 Capsules [...] Capsules By Mouth every day. Comment: Normal [facility] Main OR PACU I Recordon Main OR PACU I Record PACU Phase I Docum ent Type FT Summary Primary Physician: Deandra Rodriguez MD Finalized Date/Time: 10/28/22 12:52:42 Pt. Name: RICKEY GACRIA Hernandez Boland/Sex: 1945 Male Med Rec #: [id number] Physician: Deandra Rodriguez MD Financial #: [id number] Pt. Type: A Room/Bed: AS10/ Admit/Disch: 10/28/22 08:00:59 - Institution: Case Times [...] By: Angela Wills RN 10/28/22 12:52 Normal [facility] Main OR PACU II Recordon Main OR PACU II Record PACU Phase II Document Type FT Summary Primary Physician: Deandra Rodriguez MD Finalized Date/Time: 10/28/22 13:55:54 Pt. Name: EDYKERRIRICKEY Valiente D.O.B./Sex: 1945 Male Med Rec #: [id number] Physician: Deandra Rodriguez MD Financial #: [id number] Pt. Type: A Room/Bed: [facility]/ Admit/Disch: 10/28/22 08:00:59 - Institution: Case Times [...] Signatures Signed By: Stevenson Ruggiero 10/28/22 13:55 Normal [facility] Main OR Preoperative Recordo n 10-28-2022 Main OR Preoperative Record PreOp Document Type FT Summary Primary Physician: Deandra Rodriguez MD Finalized Date/Time: 10/28/22 10:26:28 Pt. Name: RICKEY GARCIA /Sex: 1945 Male Med Rec #: [id number] Physician: Deandra Rodriguez MD Financial #: [id number] Pt. Type: A Room/Bed: [facility]/ Admit/Disch: 10/28/22 08:00:59 - Institution: Case Times [...] By: Aviva Joya RN 10/28/22 10:26 Normal [facility] Monitor Recordon 10-28-2022 Monitor Record [id number]#1. 00CD:127 Normal [facility] Operative Reporton 3 Operative Report Patient: RICKEY [...] We began the procedure using a 22.5 Telugu rigid cystoscope, 30 degree lens, and inserted [...] midline and (more content not included)... Normal [facility] Comment on above: Result Comment: Elec tronically Signed By: Deandra Rodriguez MD\.br\Date and Time Signed: 10/28/22 11:36 EDT Outpatient Surgery Discharge Instructionon 10-28-2022 Outpatient Surgery Discharge Instruction [place] [id number] Patient Discharge Instructions PERSON INFORMATION Name: RICKEY [...] Address: When: Deandra Rodriguez [address] [place] [phone] Business (1) [facility] Jean-Paul Arguello[address] [address] [phone] Business (1) Comments: Office to call for [...] to serve you. Thank you for choosing [facility] HERE ARE THE MEDICATION CHANGES THAT OCCURRED DURING YOUR HOSPITAL STAY New Medications [id number], [address] [place], [place] [id number], [phone] nitrofurantoin (Macrobid 100 mg Cap) 1 Capsules [...] tube s (more content not included)... Normal [facility] Patient Education - Texton 0 10-28-2022 Patient [...] cotton underwear to absorb moisture and keep drier and pulverizer tender. 6. Keep the drainage bag below the [...] You m (more content not included)... Normal [facility] Progress Note-Physicianon Progress Note-Physician Patient: RICKEY GARCIA Age: 76 years Sex: Male : 1945 Associated Diagnoses: None Author: Cristy SMITH, Lev Carter Postoperative Information Postoperative disposition: Postoperative disposition: To PACU. Optimetrix number: Optimetrix number [id number]. Anesthetic utilized: General. Physical Examination Vital Signs [...] criteria ( To home ). [facility] Comment on above: Result Comment: Elec [...] list: All Problems Arthritis / SNOMED CT 5972570 / Confirmed BPH with urinary obstruction / SNOMED CT 8165653669 / Confirmed COPD (chronic obstructive pulmonary disease) / SNOMED CT 58738006 / Confirmed Depression / SNOMED CT 04939229 / Confirmed Feeling of incomplete bladder emptying / SNOMED CT 823784023 / Confirmed Gall stone / SNOMED CT 284203543 / Confirmed Glaucoma / SNOMED CT 57369904 / Confirmed HTN (hypertension) / SNOMED CT 7972436441 / Confirmed Kidney stones / SNOMED CT 037554531 / Confirmed Restless legs syndrome (RLS) / SNOMED CT 40723177 / Confirmed Smoker / SNOMED CT 542990588 / Confirmed Added secondary to documentation in Social History. Urinary retention / SNOMED CT 816166047 / Confirmed Urinary tract infection / SNOMED CT 937617397 / Confirmed, Active Problems (13) Arthritis BPH [...] in all extremities. Gastrointestinal: Soft, Non-tender. Plan [place] [employer]esthesi[employer] (ASA) physical status classification: Class II. Anesthetic Preoperative Plan: Anesthesia General. Normal [facility] Comment on above: Result Comment: Elec tronically [...] = 0 DAP = 0 Normal [facility] Coding Summary.on 10-21-2022 Coding Summary. CD:[id number] Ww +PGhlYWQ+WK7ECPAbG03xh DCurH0kR4FQDLkIWkbhDIV SNBjAJxEbuuFoRZ3toATpL XJu IC8+PN9bGGYbAjgduXHab6 U6rVQ9M28akm4kHDnwwRK3 HHTnEbOmczqfr0nzkYy3NE cuNmluOyBt OWGduR15IVU4zG94Vt94gX TiiDEta7rryDy6MwJeSZUk ETD5zUycJAkas0NlSZWjI6 7xzAMfm9B4 JBIbaNhywHGaXkBlxED5uV 4fOAtptxwdx1jinexpLuc8 ty49xDBlf6K4sDX0W0Vdwz O6HOUtnRXq EwudqMPBsZ0ijzyfa3adbp fvFxMaQJVpUSj2MIj3QPAd oIjbIsZkFT51RMS4YHHdqt IkO0FoJMXd mFirAcO9q2R7Tk3BS2QSPy irC1UYABZDEBbyiFR+PC90 ek48Z7QyKsosFqp9HCTjNP E6wNU8vI2s CZVoYZpmm8T7hNS8U3Agay Rakt3xv9ajFYTkKHygB72z uXHha3H9NASxqLA1LCTmaB hkAdXvvZ38 Oyc+YHKthUorr4KmSeoxm3 qmk8tuvKc2MxtdSXJtzvEj jEkqFYJ8k6MdYv7iWQCswP K2uWI2eU1u YbMkVaU8PAztW358ObDrqJ YqTtyaZ29lW7YyaNF+PHRy Ele2JWVlbVjwVU2zF5EwEZ RpbmctbGVm mBgrKM9rJGLjdtahPYRzhV 8jJLCrR5o9LiKbSoE9ZNnq Y6DaEQHtllsdEf45sX0eAl PeLuZ6LWpw G3IiytM8BIIktHJkXKobNG I9F26gn9E9GFFlXWElIXX6 bDQ8iT6snPfdbrodxLPxxH sgdmVydGlj ZEjwNEtfE175LDIkbHtzPo NvZGluZyBEYXRlOiAgMDMv MjgvMjAyMzwvdGQ+PHRkIH L1gIpfHMKt oLWmECujOp3ceWistAmzFC 2xUVUgusefWMThtA4mODIi xTArnUbhMT5pIQMmnbbuh0 92KtWxAZG1 IERqhTYwL8SnhT6mXbNoEM YpYVCaU4NvqHTzYRvnN553 QRxxVcB0UHDjcbAaT9SjTX FsaWduOiB0 j2E6Py2Bp8ApwnreR2IycK ZnUjCeOqigMSu0V4SaYymm dHI+LI05HXVpFO84UVy6HV L2jOrhQNxy MNXxU9BdxK3xGxCpYUAmSX RkOyc+PHRhYmxlIHdpZHRo MQpaJIYwEgRgaUqzAZ7eWc 9yZGVyLWNv uBfqgCEcJmArq2lpBRSfRS nkTB8fxCveA9IzeWC6DFKi r0z0Fo65I38iG4NakCZ+PG JxcPG8qHI1 xG4aChNzUeN0SAzsW547Pv HqoPElFcihk6icu6yuhNu2 ZiE8TXPsjsNxgTdsDBP5w5 MfNi21K24v IHdpZHRoPSIxNSUiIHZhbG jcud8zsO1zEi8+PGNvbCB3 pTN7lQ8tThPpMsI3IMpdM4 49InRvcCIv Ijxhb7nfz5xofFy8IhEiRO ThowDewUimDCS8b8TfKi56 E0BhxZenj3XjXjg3jh95cM Rby2X3gLW7 Q0XwBIRinufknFMpkEdbYS 4bMIHmynabQSUjxV7hZFGd D5i7WfItShL5VRzhL2Bsvh U0EQDweBYa GECusPIYoW2gzegaj5kfgb fpEbFjQABgEDo5LWc5LMLj tSxoYaGgEDQ2KzE4IIN4kP CgjT3jsSrg qxzhzH6vWqh+QXY0hKKgbI GWMH1eQauwkYA+PHRkIHN0 cWgkJYuyAGWvmV9rJTXiR9 n2YcNsDxO2 OTumH3AeowU8JQUxzTPcWI AkiZMRdG8zxgobo8vucbhq WgTgIGIvOFv7UUl6IDOawS duOiBsZWZ0 GcA9FFH2nBGzoL9kzGwqqs hoeG6kJuz+QmlydGggRGF0 MVs2L1PtJiu3DBYbiQvzJR 0ncGFkZGlu Ba9ivIxzeMjhDL1lOGSdnh cmm121WkLrt5sfQLDbaSOa AEayCGN0K41nu5X3UTZnET BpPRB0tNQ8 fC8gfXvobsdztWDmxDidln BfcZbyUVylRVajS422NOLf eZwuLyEaJJc8S2BvOgf1GL AijYztXP8b rZNdZGixVj8saFjmrOkhON 1dNBMudoopa762EsUqh0tr PIAkfJOpKUxlVRX2J68gy0 P5BQEtJWDe OWR0jQV4jQ6zvNjznruchP VmdDsgdmVydGljYWwtYWxp J341BHPjiNdhKcCraSv4A3 UoOhs0UKQy zNkhDS9jkYIzXBbgLl7wkU vgeXrcGP3yJUTwgsavc984 MnZfn5ssQPCvoLNrWAayIG E8M17ks8L6 NBGgIAZvIIK1mEG3eM3vbJ lnbjogbGVmdDsgdmVydGlj LZwbEIjnX108PPGzeYgdQx BhdGllbnQg LLnoAHq7H5RqMtzpwTC+PC 73ZTFhEO15vSEtgJRhx5xu bCs4ObLuZOBkTCH9pYtrDA ylz0GqWAPa O27skEAgq3B6FHDhsNykaC SaGaDscIK1eM0dELdethak v6drbxruNyldb7uoak30sC 03C85pDQwr ZHRoPSIzMCUiIHZhbGlnbj 4anI1yPw5+KGJkwCS2eIG6 hD8jQKDjHwY8TDfxS535Fe RvcCIvPjxj p0slu1ewvGr4SoA8CQVirz HugExoCBA0i3YhUb31I41n IHdpZHRoPSIyMCUiIHZhbG qnti9qrK6r Ii8+VDStrKZ6xXZ7gC6dVs VoOgC4EAnvC055ItVeqWUi HeceY16sK7BzoLH+PHRyPj g7KZSayAas JH2buRDhCObnKy3pZUM8Lb ItDyAtBTauA9UdGOQnxxnk vrhytBN1DJNgKHWxeC48Sb 9udDogMTBw bSSKtO8oguqkx8jbfltoPs BiKGCpCTn4NQb9RTIjfLee GqNkQGE5MbZ6CNU4vMThvT 1hbGlnbjog yQ8dV1UyEPZdoxzaUg09nU 6uWbSmOvX5BHmqMfq+TEFV MbPWGOKOZPbmC4XODAbBPu ZWSL22NQ40 rKTxe6Y5xTB3H8TuWJEaqu fgntoxhAW6PXZuSBDsoU95 uBJgAFkdKi7py3L2u053OL QwVSErfW04 Cd7zwOrmCYWzrLUFiZ9mpp pur2gzygplBtMcMQNpTOa7 KKn4DVBvrCgxLpDcAHR0Gs B4SUB7uSFm zI8sxDummwfvtC0bPiu+MD EdFcdoSSe3AamrdFH+PHRk ELQ7kGpxBDltVJEssY8eNA UjB7u9EfLu IwS5DDveX5AbZCYtwwalOa 43dN3tVqTkAyD7BEnzM4Po upW2VEJaaDMuHKxrNST0W0 5ko8Z1LGEa JYXsSFM3gQN5oK5dkSzlum ogbGVmdDsgdmVydGljYWwt NLeqW721ASBoeYseUjz2HG dbAGRlTC07 ZR40uHKkl6N4lUI3X8KsYT WbsfcmdsdsmXU6DPScNNUw mL75aECpCKwsXu7wc9E6u4 06IDAuMDUw wU77Wq4xxQogGUNaqTXMsL 9zdcoep8ibtfyiBdLiQPDy BZe9IGt7NCWueGdsPnNdVX C3TbO9SVB3 oBUrhH7xbHpdrdgtvE8vEn c+TWFsZTwvdGQ+PHRkIHN0 iCfgKPknLAWpkP8hPQUwB6 d6RiEcTlZ2 UQybZ5TsXLLqebguKs09rU 7lWcYbJgB9EBteZ4QxevJ6 JVQynNZyANcoGVH3U78po7 I4WPRsUMVe PPZ5yFU2oL6xxZpahjwbwZ VmdDsgdmVydGljYWwtYWxp K466RSKzzPnnFo87uKThhN yamwG1I8Vg PjwvdHI+QT04AKJqBO95vT YdpSSjd5lkeQo5RpTaKSLh JBN5iXhwVXfmh9JlPUOcO4 8xbUSsl4K7 ZIZheXsorSCxPaQlgBH8jC 4wUSsypkozx7euqxltKcsw v3wesy89eY57K21yUYkpRZ RoPSIzMCUi QYZsxGynbx0zoE8mRe7+PG YonRZ8lEQ8iA9rLkGjKzV2 TEcaU217FaJfrOQgUsups9 jnx7mvcPt6 LhFvQGZxlxEvjOhnIBV5s0 VaXj34T24qCLqkQRAmKIIi WIGjFKRvnYgfis6jzQ9tCb 8+IL5md1zw cy14tP78oJS+UJWjFVI3rG jeTKdcVMZseY0oFXgiMdX0 CQRaWwCxjZ90eFWcUInaOm 1yaWdodDog HC1qIAGoobpll304EkHjf1 ifLQGemCOqUOqvRQD7M72s u0O7JUKwOAYaGXV0lQS3oE 1hbGlnbjog bGVmdDsgdmVydGljYWwtYW gwI730JRGyrEzgEaQscEJy L8uihaHUXV9fApiplDV+PH QnIAF3wUoz NZypPNPvlF4qRNTxM2y9Da AmIdG4UIvkU5YdehT6NJFf bEOsGCHyzXEQbF6tsycfv0 xvcjogIzAw EWDkOBb1DAz8ONZoyJysLe NrGYN4WcY3XGI4sHEdcA0f dPcmeeoliJ5aSea+RklOOj wvdGQ+PHRk CKR3zHdvDMjiHDOmmH4zBS LiP4h8KcWkOuN8VPjoD3Up zvD4TZFnpWGgRYKfiZWTfT 6mllalx5rx kabuRdZsCPYgXHd3CHd6VD KfwVibAyWpJVT8EpR4YGB3 uZEawI8hiSnphwqetK6fLu c+TVJOOjwv dGQ+KUWaNYD1dRytGJgkJM KjnL7uKBBkK5d8NnIsUlV0 YVotR6CgisS7LREzjBVwOB HgoLYAfP7d gntat6vxbsawJiOnLKCiPM k0UCl2UWVjnGpvLjMzXGT6 WyS9NYL4lCCgrR6fhRjxji tnlP4vPnq+ GQD0RSG0KM07KZ79G9AlZc wvdGFibGU+PHRhYmxlIHdp ZHRoPScxMDAlJyBzdHlsZT 4pGm3hVPZe LWNvbGxh (more content not included)... Normal [facility] Transfer Inon 10-17-2022 Transfer In [id number]#1.00 CD:127 Normal [facility] Transfer In [id number]#1.0 0CD:127 Normal [facility] Transfer In [id number]#1.0 0CD:127 Normal [facility] Auto Diffon 10-15-2022 Basophils/100 WBC (Bld) 0.6 % Normal 0.0-2.0 [facility] Comment on above: Order Comment: Order Added by Discern Expert. Performed By: #### 2 [id number] ####[facility] [id number] [place] [address] Basophils/Leukocytes Auto (Bld) [Pure # fraction] 0.1 E9/L Normal 0.0-0.2 [facility] Comment on above: Order Comment: Order Added by Discern Expert. Performed By: #### 2 [id number] ####[id number] [place] [address] Eosinophils/100 WBC (Bld) 9.1 % High 0.0-8.0 [facility] Comment on above: Order Comment: Order Added by Discern Expert. Performed By: #### 2 [id number] [id number], 01620200, 3119970, 98056623 ####[address] [place] [address] Eosinophils/Leukocyte s Auto (Bld) [Pure # fraction] 0.7 E9/L High 0.0-0.5 [facility] Comment on above: Order Comment: Order Added by Discern Expert. Performed By: #### 2 710028, 3929070, 79573641, 8303801, 16643455 ####[address] [address] Lymphocytes/100 WBC (Bld) 15.5 % Normal 14.0-50.0 [facility] Comment on above: Order Comment: Order Added by Discern Expert. Performed By: #### 2 942873, 0682239, 76014951, 8822793, 65758693 ####[address] [place] [address] Lymphocytes/Leukocyte s Auto (Bld) [Pure # fraction] 1.3 E9/L Normal 1.0-4.0 [facility] Comment on above: Order Comment: Order Added by Discern Expert. Performed By: #### 2 396972, 6709956, 09139767, 5026718, 71047283 ####[facility] [address] [place] [address] Monocytes/100 WBC (Bld) 9.2 % Normal 4.0-14.0 [facility] Comment on above: Order Comment: Order Added by Discern Expert. Performed By: #### 2 096553, 1419216, 90683093, 0275809, 74953688 ####[address] [place] [address] Monocytes/Leukocytes Auto (Bld) [Pure # fraction] 0.8 E9/L Normal 0.2-1.0 [facility] Comment on above: Order Comment: Order Added by Discern Expert. Performed By: #### 2 307698, 3117287, 37283850, 5336645, 67931652 ####[address] [address] Neutrophils/100 WBC (Bld) 65.6 % Normal 36.0-75.0 [facility] Comment on above: Order Comment: Order Added by Discern Expert. Performed By: #### 2 053532, 4712445, 93903200, 6438306, 91112726 ####[address] [address] Neutrophils/Leukocyte s Auto (Bld) [Pure # fraction] 5.4 E9/L Normal 2.0-7.5 [facility] Comment on above: Order Comment: Order Added by Discern Expert. Performed By: #### 2 232370, 4954961, 36431413, 8787599, 95435640 ####[address] [place] [address] BMPon 10-15-2022 Anion gap [Moles/Vol] 10 mmol/L Normal 6-16 [facility] Comment on above: Performed By: #### 2 653481, 0511313, 97591757, 2065689, 63315110 ####[address] [address] Calcium [Mass/Vol] 9.5 mg/dL Normal 8.9-11.1 [facility] Comment on above: Performed By: #### 2 703138, 0367479, 86457083, 3070777, 48151839 ####[facility] [address] [place] [address] Chloride [Moles/Vol] 103 mmol/L Normal 101-111 [facility] Comment on above: Performed By: #### 2 491129, 2848723, 19513874, 4198898, 86752404 ####[facility] [address] [place] [address] CO2 [Moles/Vol] 30 mmol/L Normal 21-31 [facility] Comment on above: Performed By: #### 2 530253, 5751102, 30606302, 6970653, 92311705 ####[facility] [address] [place] [address] Creatinine [Mass/Vol] 0.9 mg/dL Normal 0.5-1.3 [facility] Comment on above: Performed By: #### 2 803558, 2326865, 89843583, 3997460, 46796554 ####[facility] [address] [place] [address] Glucose [Mass/Vol] 144 mg/dL Normal 55-199 [facility] Comment on above: Result Comment: If t his glucose result represents a fasting glucose, interpretation should refer to the following reference range: 55-99 mg/dL Performed By: #### 2 155379, 9063264, 56302894, 9410956, 02736535 ####[facility] [address] [place] [address] Potassium [Moles/Vol] 3.6 mmol/L Normal 3.5-5.3 [facility] Comment on above: Performed By: #### 2 182135, 3114893, 11874479, 8202073, 62219851 ####[facility] [address] [place] [address] Sodium [Moles/Vol] 139 mmol/L Normal 135-145 [facility] Comment on above: Performed By: #### 2 022408, 4738342, 78951297, 5574613, 87989970 ####[facility] [address] [place] [address] Urea nitrogen [Mass/Vol] 18 mg/dL Normal 5-21 [facility] Comment on above: Performed By: #### 2 025633, 5873207, 64420078, 1122308, 60418577 ####[facility] [address] [place] [address] Urea nitrogen/Creatinine [Mass ratio] 20 No Units Normal 10-20 [facility] Comment on above: Performed By: #### 2 425805, 9956075, 35989652, 0763403, 70281274 ####[facility] [address] [place] [address] CBC w/ Auto Diffon 3 Erythrocyte distribution width (RBC) [Ratio] 13.6 % Normal 10.9-14.2 [facility] Comment on above: Performed By: #### 2 080794, 1542445, 15434543, 5568368, 43074740 ####[facility] [address] [place] [address] Hematocrit (Bld) [Volume fraction] 42.3 % Normal 37.7-49.0 [facility] Comment on above: Performed By: #### 2 150792, 2279351, 01069763, 3925587, 89855114 ####[facility] [address] [place] [address] Hemoglobin (Bld) [Mass/Vol] 14.1 g/dL Normal 13.5-17.5 [facility] Comment on above: Performed By: #### 2 818304, 8669955, 74908985, 8001287, 05941335 ####[facility] [address] [place] [address] MCH (RBC) [Entitic mass] 33.6 pg Normal 27.0-34.0 [facility] Comment on above: Performed By: #### 2 064600, 0684869, 79471932, 7979898, 99442852 ####[facility] [address] [place] [address] MCHC (RBC) [Mass/Vol] 33.3 g/dL Normal 31.4-36.0 [facility] Comment on above: Performed By: #### 2 727449, 5958156, 83888150, 7526441, 81297847 ####[address] [address] MCV (RBC) [Entitic vol] 100.8 fL High 80.0-100.0 [facility] Comment on above: Performed By: #### 2 749042, 7648873, 84238471, 5873859, 81620428 ####[address] [address] Platelet mean volume (Bld) [Entitic vol] 6.9 fL Normal 6.4-10.8 [facility] Comment on above: Performed By: #### 2 136734, 4381185, 49125725, 9173412, 73715426 ####[address] [address] Platelets (Bld) [#/Vol] 310.0 E9/L Normal 150.0-500.0 [facility] Comment on above: Performed By: #### 2 273561, 8324257, 52733608, 0313218, 35858740 ####[address] [address] RBC (Bld) [#/Vol] 4.2 E12/L Low 4.3-5.9 [facility] Comment on above: Performed By: #### 2 611358, 1973889, 45638296, 4024126, 27610515 ####[address] [address] WBC corrected for nucl RBC Auto (Bld) [#/Vol] 8.2 E9/L Normal 4.0-11.0 [facility] Comment on above: Performed By: #### 2 652559, 5668435, 21702243, 2584009, 39859985 ####[facility] [address] [place] [address] CHEMISTRYOrdered By: SYSTEM SYSTEM on 10-15-2022 Anion [...] rate/Area] mL/min/1.73 m2 Normal >=59mL/min/1 .73 m2 [facility] Chem S GFR/1.73 sq M.predicted among non-blacks MDRD (S/P/Bld) [Vol rate/Area] mL/min/1.73 m2 Normal >=59mL/min/1 .73 m2 [facility] Chem S Glucose [Mass/Vol] 144 mg/dL Normal [...] Treatmenton 09-25 Consent for Treatment [id number]#1.0 0CD:127 Normal [facility] HEMATOLOGYOrdered By: SYSTEM SYSTEM on 10-15-2022 Basophils/100 [...] 33.3 g/dL Normal 31.4 - 36.0 gm/dL [facility] HemeAutoSS MCV (RBC) [Entitic vol] 100.8 fL High 80.0 - 100.0 fL [facility] HemeAutoSS Platelet mean volume (Bld) [Entitic vol] 6.9 fL Normal 6.4 - 10.8 fL [facility] HemeAutoSS Platelets (Bld) [#/Vol] 310.0 E9/L Normal 150.0 - 500.0 E9/L [facility] HemeAutoSS RBC (Bld) [#/Vol] 4.2 E12/L Low 4.3 - 5.9 E12/L [facility] HemeAutoSS WBC corrected for nucl RBC Auto (Bld) [#/Vol] 8.2 E9/L Normal 4.0 - 11.0 E9/L [facility] HemeAutoSS PT & PTTon 10-15-2022 aPTT Coag (PPP) [Time] 33.7 second(s) Normal 25.1-36.5 [facility] Comment on above: Result Comment: Para meter [...] the same coagulation reagent and instrumentation as [facility]. Currently there are no coagulation studies available worldwide for children to 14 days, and no normal ranges. Heparin therapeutic range (represented by Anti-Factor Xa activity of 0.2 - 0.4 U/mL) corresponds to PTT of 56.6 - 109.0 sec. Performed By: #### 2 771660, 1296455, 34538708, 1479253, 20939372 ####[facility] [address] [place] [address] INR Coag (PPP) [Relative time] 1.0 {INR} Invalid Interpretation Code [facility] Comment on above: Result Comment: INR results are specifically intended to assess patients stabilized on long-term Anticoagulation therapy suggested INR?s ?Less Intensive Anticoagulation? 2.0 ? 3.0 Conventional Range 3.0 ? 4.5 Performed By: #### 2 967066, 4038931, 24599829, 4001346, 26478879 ####[facility] [address] [place] [address] PT Coag (PPP) [Time] 10.6 second(s) Normal 9.4-12.5 [facility] Comment on above: Result Comment: 15 d [...] the same coagulation reagent and instrumentation as [facility]. Currently there are no coagulation studies available worldwide for children to 14 days, and no normal ranges. Performed By: #### 2 740733, 7066049, 93668720, 5754046, 98554304 ####[facility] [address] [place] [address] XR Chest 2 Viewson 3 XR Chest [...] mGy = n/a DAP = n/a Normal [facility] eGFRon 10-15-2022 GFR/1.73 sq M.predicted among blacks MDRD (S/P/Bld) [Vol rate/Area] mL/min/{1.73_m2} Normal >=59 [facility] Comment on above: Order Comment: Order added by Discern Expert. Result Comment: eGFR is race adjusted. AA=. Performed By: #### 2 431384, 4688441, 59459701, 2001205, 24190776 ####[facility] [address] [place] [address] GFR/1.73 sq M.predicted among non-blacks MDRD (S/P/Bld) [Vol rate/Area] mL/min/{1.73_m2} Normal >=59 [facility] Comment on above: Order Comment: Order added by Discern Expert. Result Comment: Quill Picking Machine Operator noe kidney disease could be indicated at eGFR's of less than 60 mL/min/1.73m2. Kidney failure is indicated at less than 15 mL/min/1.73m2. Performed By: #### 2 937770, 4681975, 61717256, 4973559, 49588306 ####[facility] [address] [place] [address] Coding Summary.on 09-30-2022 Coding Summary. CD:[id number] Gh 0bWw+PGhlYWQ+ZR5NOMJiL 77idZYolD3YM8yERY9ZTXD DWINDCD6OTJ0vqFY8RElaA 2VybiAv CxcefMHnOE49NYb6VCK8fX juZBdiqM3gkNKdV6l2PdDo ZI15sV32CFfzSLGcUqO5Jn ZpbjsgbWFy L1ghNgOkuRCuZjx+PHRhYm xlIHdpZHRoPScxMDAlJyBz dQzyFJ1yMh4yPOSfULDfbN xhcHNlOiBj b3laQUZyTCwaDL3dyVekR7 BeeHO8HYPig5s1Cy25fUC+ JPBtCZQ4rYsgAMjbs802Fv Wia7bkTUT5 lNAoEQefUVX7P15aw1K8XQ NpTLSzPZI7fYK4mJ6ykHej bjkeQ9JtbKMgTaB7LTX7oG NsnU5tmAph ctvvzG7vOgn+R17XEK0XYS FBBA7JBzo6K5YwOcapkBK+ IZ90RTRuDU40bSOyrZGhg7 cxbLz5EsEw GNJxLWJ1jYxqZTzpo2HcIT LlQ50hfXIga1I0BMSacKeg eYFwLhPzcOU2vA1cXQdcrn fbg0nwppru Xjxfd5tbvc43tK42Z72uVH wyRMXxPVV0CAHbSMHkvSde yk8upV9oKv9+SAksa1eln9 kuqRh7HkFn NWCfevDlxJbcKIM7k5TcIf 40T4ZqcBtrw1GwBrr7ek19 wWPou3Y7tSI2XKifZNWztX 0iZDpoZoI2 YRZkEdZevB59aXEbCRenSv 5cnBoumUgoQX7kEREzvips NWTycZ3hRNOtqLVjnIwzFV 4wNTBpbjtm n018UiNsYOQ1WTWihLPyI8 XviN0wYdKgPNOeXCYtW7Gm iNCwCBntF841WKsfWaC6FO YpfqWxC4Ec MPEhyOyrIvI0d0K3Bv7Ur0 WlutzuTXA8VLvwXASpHfE8 IlPkUwZ2M5EjQsv6LCEbwB nsFG4xE7Li ZTZbxzdqdxmswFQ0WEPgSA FzzR77lVHlDUdmLy5ea2W0 a585BTLuLYWvkQ46Uf9utH ogMTBwdCBU uA8ltbkmg7ggbaemAgYsIA YaPVc7XIo6XLDcoSreHxQx ZBQ6EfQ1WEC7jFOmpR6gqE zmpsjviJ8a Oyc+T66qrY2uGFB7RKO1zk tmFXOpbjNmTC74LD57S9Mv PjwvdGFibGU+PGRpdiBzdH jhGM7sYcFc p2nbs0MgJQdkW5SdOSSwRK msKrh3YPShKZR1gBB7oP0h SJMuEWork7M7mFR7M8Zzua Cqgm4hx9hn GOAmLTlqU17szZIrk5K4VZ BbpXI8AHRodIexMrYytF52 Oyc+GNUrnTdbq9ApPswvd3 lmv2oliCc1 BiStVSQhrcFcaDtcUBC6c3 ZjHs48N55uHRyoQJMpMKSy JZPvFPNxsMsqwo3poK1hJb 8+PGNvbCB3 yBU7tA3yGFQlObJ2XVetI9 36MtBbvHRgKqixn3pse8jd rEa8FvYpHULnciHobPmqQM W5k1DsSw93 R02cZUtpRBQrROMjKHGtIV NesErxjj9dmV1dZk0+PC9j j4kxho73nI34sRB+PHRkIH K4kGvhVPhm JXNvoS5jYBrxCvO7IKXvKl TtvO04yPSnBFhcIk8raZge rFngCH4oASPemoeeh113Vp Heq5yrSVYg zHJwLGwbCXF0M08hi1N4KD YcUPSpGDB7jYY0fH3odTko bjogbGVmdDsgdmVydGljYW nvYNigQ409 IHRvcDsnPlBhdGllbnQgTm LaVEa5J0GdMhz8CGPjzMiv QK2ydHLtMWscDn7tgMxsbH lfID2tTJDt erfse155YvGiu7peVDHlkL QsBOeuAYD6N26em5M1HOGh AARnGCH2nPH7lM3nlLhmqu ogbGVmdDsg ocUxjMtkJOupSBucW118ZP RvcDsnPkJpcnRoIERhdGU6 HN80OC60jOHib6Z5kBA4S9 BhZGRpbmct agkpuED3XWZfVINexR85Mu 0eaNnvPw2bEBUkAAG3LQJj iSKwM2CloY6yQcWaGDCtOO DnR6RmzZKn ZBezM943QChhXcP7NHObrr FcB6TpQTIlqVmyDwP8w9H1 Om3GR7L6RY34HS53nMFdz5 X3pXP9J0Fe VYJubzdbimrniTP5LNEbYV BzrK81Uc5qdOmyTz8rQRUq OFZ5ZEGlkSErU2HttI6sTl AjMDAwMDAw M9VdgMMvDJkqI796PKzaJk R2AOSfjtNaQ8JzABQiqNlv TbE3w2D0Lg3LQCd6SH16HO 56cDVcg3L5 pEA3M7UaYZUuvyoydnnncH E5XSLtTEYkjT88Ws8ekRwm Ui9bAQOtHHQ0VRXvlCZzU8 PckS9vFsMy IREtRAQxD3QnrAUuYOgkV4 78AWsvQsY1WPKmrbAgP6Or YLPywEeyCwV6k1Y4Lg7MQM MtSG12OYD9 dGT5TL16FO74B7FqYyjtlK FibGU+PHRhYmxlIHdpZHRo FFckLZBdCxPlaYcoWU3vGe 9yZGVyLWNv gNwutEYqGrTul8cqLJNbNV hsYB5vlXbiU4YrzZV6EPDw z3s5Fh04C36mT3ZgxUJ+PG LnrFA1wSU1 tY3lDqScYyI1LMmlA757Df VnsQLdUrheh9wwu4ywwTi9 NcE3WYYwfgGpeOjwJKR2k6 QgDy03N73y IHdpZHRoPSIxNSUiIHZhbG achg4kaO9tCo9+PGNvbCB3 mYJ1fY9tKaFzOaI5VPveZ7 49InRvcCIv Rjckk9zad6nthUf1NyMoAV ReqhArtFccZNJ5m1IqAb20 K9OfgDcwi9IaHuy1py80lJ Gga6A4cAX7 M4WvMMPptzdyvJEfvGxgQS 4jAFUuqkqmXJXktW6vHTJf L8l3NtJqRzI4CFxxV6Krmg Q2FQYefRUj PWrjWQZ3Z18wc8D7HJBrKP AlMMK7sSB9bR3tiGjktiav bGVmdDsgdmVydGljYWwtYW hkV856GQAu hSioEEIcgV8iSNYbuYXaeW oqBL9dXQEuuzykWipTAXFP XpMJDQHfEEKUREWWOT7zOP wvdGQ+PHRk FYK3fZkqCBivEVMctF3qYQ ZyX7o3UgTgHqK5WLcfK0Ua IJZtsyesFk11zA3iJkTuQo A5JPuyM1Bj leC6WXHdbFMjWQnqAPG6L4 0dc2O7CGQvBRCtJDQ0vAO5 kS6goPdqwbfbpREbcYxcnw VydGljYWwt PAudL593ZYBjtErjXxO6Bq S7XkP7SFk3B5XtDks5XLVv tJvfFP4uxWPjPDpsFn3ieE doaAasGR3f CARdtwalIGLrqQ1tOEEueY YbvPyhMG4pSBFivfnrq748 QtKaNVR4VEJemHJbR0KfcO 9yOiAjMDAw RRHgD6XeeQWgGQwtJ620QL xeFtV5RRGtskYjF0GoKYIh vKdhDtK2o9O5Oh77HLNOJF FyczwvdGQ+ ENRlFMN0fTtxZPunFQXknY 5eLHStM4t6BvSrUrF7VBqt F8GkKPVkpyncWq33yC7uMq UiCsN3EWwu L9FaytE3OCVneFXiFFdcQI E2F72at4W7CHKfBLCoGSK8 bGY5vS4gtAfmylrknJRpeW sgdmVydGlj HOnoREkdL954YORnpYnxWp 9vuJA2Z3QgRns4FVAnzTlb ZN5ylMFsAUcaOb6fqMutqC buVY9sSHHs grhiZHLrcF6cTDKemCVnoU zpKO4aNOOcbrfoa285UiMr GIT9CFUfcMMvV7RqvW1wCt AjMDAwMDAw Z4UljHDrCXaaK457OVloYw Y0ZRQepoOuG3IyQVVdpSzo PhU9j9L4Wt2VcCQuNPMrVW 58SH33CG25 H9QqWzmdoGYtjYK+PHRhYm xlIHdpZHRoPScxMDAlJyBz hKgySJ7sGl2hJQSzDAUyxN xhcHNlOiBj l5dcPMXjDRalBO3hpUyfO1 WljUV8UWBlq8i4Qp87T10v P1ZypXQ+VYInnHJ3fCM5yZ 8vYuPtWzI7 DMeoJ822GgSlyUJhYjphh1 lod5dgpUc6OnHaUZPisrVn qFefMZD2y9MuEc60L73eWC dpZHRoPSIy YMTeZPMstRfvdc8rjO2dVs 8+ODBsjOP4gAR5jY5qShLz XjD0VLlcL441RqOfmCQnYl oxG66jT1Xa dXA+BMYgHsy0QNGhwWgcZW 4xcGJnTVvpSa8gRVW4MgCh PySeJPonK7GwOMKgwpxsze ygeJI6SBRf QVYvrQ79Bf2sjEumGq1cXS RpQFA9IZQmcSFyY0KaoH8w LnDuJWPwWFNjH8SrkCDrWG wuG149CLmu MnR0JWRdzxBgZ5QvISXlwX tvExV2q9A2Qc7TuLevrXYr DX2iVjGlCMm2H4FaBva8SI XemDplJR6j zKHgPUgrMw9nlWtuyXkvED 1dCWQqftppu734FfXvv5ut ZAShtGUjYJwwZMO6D95cn0 K1QRKjCRJb LCW2kDR6dM0ptKiesoezzE VmdDsgdmVydGljYWwtYWxp Q922ZWPfgOkqOqGLXwy8G7 UgSsb6BVBo cCeyLD0giGCrRJdeAx0rfH gozVesEF9fRINlvrleg806 GeFhq3kxSUOwwBSoGWvvGY H4Z20dc8B7 XBNqMRVhQYE4pTJ9oL0yjX lnbjogbGVmdDsgdmVydGlj VHafMMeyL546VUGveMgvQb 5KOlz2D6Dr Hrg9DAPndYxiFU6khAKuFJ nlCu7hjEjcnRehWN4vBBOa castw314UbBys5edETBetF QgVGltZXM7 F05cc4N2ICWtMJGkCYB4sP T7yJ0xtWbebjuwmOVjcNso zsYfiXgnRIgbOBklG049WY RvcDsnPlBh eWVyOjwvdGQ+PC38kq46Z5 QuEeqgPln1UYIyOJA7iPT1 yI0oYJHmKOret8E5pZS3H7 SskzKmvf1u b2xs (more content not included)... Normal [facility] Patient Correspondenceon Patient Correspondence [id number]#1.0 0CD:127 Normal [facility] Consent for Procedure/Surger yon 09-29-2022 Consent for Procedure/Surgery [id number]#1. 00CD:127 Normal [facility] Consent for Treatmenton Consent for Treatment [id number]#1.0 0CD:127 Normal [facility] Inpatient Patient Summaryon 09-29-2022 Inpatient Patient Summary [place] [address] Clinical Summary Person Information Name: RICKEY GARCIA Age: 76 Years : 1945 Sex: Male PCP: MAGED ANDRADE DO Marital Status: Race: White Ethnicity: Non- or Language: Spanish Visit Id: Visit Reason: FEELING OF INCOMPLETE BLADDER EMPTYING BPH WITH LUTZ AND URINARY RETENTION Speciality: Acuity: Enc Type: Outpatient Med Service: Surgery Arrival: 09/29/2022 08:51:30 Discharge: Dispo Type: Address: [address] [place] [address] [id number] Provider Notes: Diagnosis: BPH with urinary obstruction; [...] - Cystoscopy Discharge Instructions (CUSTOM) [facility] IntraOperative Documentson 0 09-29-2022 IntraOperative Documents [id number]#1. 00CD:127 [facility] IntraOperative Documents [id number]#1. 00CD:127 [facility] Main OR Intraoperative Recor don 09-29-2022 Main OR Intraoperative Record IntraOp Document Type FTURO Summary Primary Physician: Deandra Rodriguez MD Finalized Date/Time: 09/29/22 11:13:54 Pt. Name: RICKEY GARCIA/Sex: 1945 Male Med Rec #: [id number] Physician: Deandra Rodriguez MD Financial #: [id number] Pt. Type: O Room/Bed: / Admit/Disch: 09/29/22 08:51:30 - Institution: Case Times FTURO Entry 1 Patient Times In Room 09/29/22 10:45:00 Out Room 09/29/22 11:18:00 Procedure Times Start 09/29/22 10:54:00 Stop 09/29/22 11:12:00 Anesthesia Times Last Modified By: Rosario BENÍTEZ, Haydee CHISHOLM 09/29/22 11:10:40 Case Attendance FTURO Entry 1 Entry 2 Entry 3 Case Attendee Michael SMITH, Deandra Ponce RN, CNOR, Neeru Patterson Role Performed Surgeon - Primary It Disaster Recovery Manager - Primary Scrub - Primary Time In 09/29/22 10:45:00 09/29/22 10:45:00 09/29/22 10:45:00 Time Out 09/29/22 11:18:00 09/29/22 11:18:00 09/29/22 11:18:00 Procedure CYSTOSCOPY LOCAL(.) CYSTOSCOPY LOCAL(.) CYSTOSCOPY LOCAL(.) Comments Last Modified By: Rosario RN, CNOR, Rosario RN, CNOR, Rosario RN, HALEYOR, Haydee 09/29/22 Haydee 09/29/22 Haydee 09/29/22 11:10:42 11:10:42 11:10:42 Surgical Procedures FTURO Entry 1 Procedure Description Procedure CYSTOSCOPY LOCAL Modifiers . Surgeon Description CYSTOSCOPY WITH TRUS Primary Procedure Yes Primary Surgeon Michael SMITH, Deandra Smith Start 09/29/22 10:54:00 Stop 09/29/22 11:12:00 Anesthesia [...] Rodriguez MD, Verified (If Participants Rosario BENÍTEZ, KATHRINE, Applicable) Leonardo Hubbard Jessica D Time Out [...] KATHRINE Ponce RN, Ruthann 09/29/22 11:13 Normal [facility] Main OR Preoperative Recordo n 09-29-2022 Main OR Preoperative Record Holding Area Document Type FTURO Summary Primary Physician: Deandra Rodriguez MD Finalized Date/Time: 09/29/22 10:48:21 Pt. Name: LEON GARCIACELINA Ng D.O.B./Sex: 1945 Male Med Rec #: [id number] Physician: Deandra Rodriguez MD Financial #: [id number] Pt. Type: O Room/Bed: / Admit/Disch: 09/29/22 [...] No Pain Comment: na Skin Integrity Intact, Snelling, Warm, & Dry Vitals - EU Blood Pressure 136/102 Pulse 93 bpm Respirations 18 br/min SPO2 95 % Last Modified By: Samia Forte LPN 09/29/22 10:48:16 General Comments: temp:35.8 Finalized By: Samia Forte LPN Document Signatures Signed By: Samia Forte LPN 09/29/22 10:48 Normal [facility] Operative Reporton Operative Report Patient: RICKEY GARCIA Age: 76 years Sex: Male : 1945 Associated Diagnoses: None Author: Deandra Rodriguez MD Procedure Operative Information Details: Date/ Time: 09/29/2022 12:15:00. Pre-Op Dx: BPH with urinary obstruction (VXH20-CV N40.1, Discharge, Medical), Feeling of incomplete bladder emptying (JIS67-IY R39.14, Discharge, Medical), Urinary retention (VRF52-IU R33.9, Discharge, Medical). Post-Op Dx: Bladder stone (ZOH15-UL N21.0, Working, Medical), BPH with urinary obstruction (PYS08-IT N40.1, Discharge, Medical), Feeling of incomplete bladder emptying (RWQ65-YX R39.14, Discharge, Medical), Urinary retention (DUH37-JO R33.9, Discharge, Medical). Anesthesia Type: Local. Procedure: [...] See separate Clinic Note for details. Normal [facility] Comment on above: Result Comment: Elec tronically Signed By: Michael SMITH, Deandra Smith\.br\Date and Time Signed: 09/29/22 12:20 EST Outpatient Surgery Discharge Instructionon 03-06-2023 Outpatient Surgery Discharge Instruction [place] [id number] Patient Discharge Instructions PERSON INFORMATION Name: RICKEY [...] Date You may receive a survey from [facility] asking you to rate your care experience. Your feedback is important and will help us understand what we do well and how we can improve the quality of care we provide to you, your loved ones and our community. It?s an honor to serve you. Thank you for choosing [facility] Normal [facility] Progress Note-Physicianon Progress Note-Physician Patient: RICKEY GARCIA Age: 76 years Sex: Male : 1945 Associated Diagnoses: None Author: Deandra Rodriguez MD Health Status Allergies: Allergic Reactions (Selected) No [...] Plan Assessment and Plan: Diagnosis: Bladder stone ([id number]-WO N21.0, Working, Medical), BPH with urinary obstruction (RDM15-EL N40.1, Discharge, Medical), Feeling of incomplete bladder emptying (EIL00-TM R39.14, Discharge, Medical), Urinary retention (DPR96-SY R33.9, Discharge, Medical). 76 year old male [...] bring med list and get [facility] Normal [facility] Comment on above: Result Comment: Elec tronically Signed By: Michael SMITH, Deandra Dumont.br\Date and Time Signed: 09/29/22 12:43 EST CULTURE URINEon 08-30-2022 CULTURE URINE Isolate [...] Trimethoprim/Sulfameth oxazole <=10 S F Normal [facility] Comment on above: Performed By: #### U RCX #### [facility] [address] [address] [address] Vahid SR URINE PROFILEon 3 Bilirubin Ql (U) Negative Normal NEGATIVE [facility] Comment on above: Performed By: #### E RUR, UMICRO #### [facility] [address] [place] [address] Dr. Vahid Ornelas Clarity (U) CLEAR Normal CLEAR [facility] Comment on above: Performed By: #### E RUR UMICRO #### [facility] [address] [place] [address] Dr. Vahid Ornelas Color (U) LT. YELLOW Normal YELLOW [facility] Comment on above: Performed By: #### E RUR UMICRO #### [facility] [address] [place] [address] Dr. Vahid KU A micrscopic examination will be performed if indicated. Normal [facility] Comment on above: Performed By: #### E RUR UMICRO #### [facility] [address] [place] [address] Dr. Vahid Ornelas Glucose Ql (U) Negative Normal NEGATIVE [facility] Comment on above: Performed By: #### Lamberto RUR UMICRO #### [facility] [address] [place] [address] Dr. Vahid Ornelas Hemoglobin Ql (U) LARGE Abnormal NEGATIVE [facility] Comment on above: Performed By: #### E RUR, UMICRO #### [facility] [address] [address] [address] Vahid Ornelas Ketones Ql (U) Negative Normal NEGATIVE [facility] Comment on above: Performed By: #### E RUR UMICRO #### [facility] [address] [place] [address] Dr. Vahid Ornelas LEUKOCYTES SMALL Abnormal NEGATIVE [facility] Comment on above: Performed By: #### E RUR UMICRO #### [facility] [address] [place] [address] Dr. Vahid Ornelas Nitrite Ql (U) Negative Normal NEGATIVE [facility] Comment on above: Performed By: #### NAMRATA OTTO #### [facility] [address] [place] [address] Dr. Vahid Ornelas pH (U) 6.0 [pH] Normal 5-9 [facility] Comment on above: Performed By: #### NAMRATA OTTO #### [facility] [address] [place] [address] Dr. Vahid Ornelas SPEC GRAVITY >=1.030 Abnormal 1.005-<=1.02 5 [facility] Comment on above: Performed By: #### NAMRATA OTTO #### [facility] [address] [place] [address] Dr. Vahid Ornelas UA PROTEIN TRACE Normal NEGATIVE/ TRACE [facility] Comment on above: Performed By: #### NAMRATA OTTO #### [facility] [address] [place] [address] Dr. Vahid Ornelas UR MICRO IND INDICATED Normal [facility] Comment on above: Performed By: #### NAMRATA OTTO #### [facility] [address] [place] [address] Dr. Vahid Ornelas Urobilinogen Qn (U) 0.2 {Kt'U}/dL Normal 0.2 - 1. 0 [facility] Comment on above: Performed By: #### RODERICK OTTORO #### [facility] [address] [place] [address] Dr. Vahid Ornelas URINE MICROSCOPIC ONLYon BACTERIA MODERATE Abnormal NONE SEEN [facility] Comment on above: Performed By: #### RODERICK OTTORO #### [facility] [address] [place] [address] Dr. Vahid Ornelas Bacteria identified Cx Nom (U) INDICATED Normal [facility] Comment on above: Performed By: #### NAMRATA OTTO #### [facility] [address] [place] [address] Dr. Vahid Ornelas CA OX CRYSTALS RARE Normal [facility] Comment on above: Performed By: #### E RUR, UMICRO #### [facility] [address] [place] [address] Dr. Vahid Ornelas CAST NONE SEEN Normal NONE SEEN [facility] Comment on above: Performed By: #### E RUR, UMICRO #### [facility] [address] [place] [address] Dr. Vahid Ornelas Crystals LM Nom (Urine sed) SEEN Abnormal NONE SEEN [facility] Comment on above: Performed By: #### E RUR, UMICRO #### [facility] [address] [place] [address] Dr. Vahid Ornelas Epithelial cells LM Ql (Urine sed) FEW Abnormal NONE SEEN /RARE [facility] Comment on above: Performed By: #### Lamberto RUFrancisco, UMICRO #### [facility] [address] [place] [address] Dr. Vahid Ornelas MUCOUS NONE SEEN Normal NONE SEEN [facility] Comment on above: Performed By: #### Lamberto SOTO, UMICRO #### [facility] [address] [place] [address] Dr. Vahid Ornelas RBC 20-50 Abnormal 0-2 [facility] Comment on above: Performed By: #### Lamberto SOTO, UMICRO #### [facility] [address] [place] [address] Dr. Vahid Ornelas WBC 10-20 Abnormal NONE SEEN [facility] Comment on above: Performed By: #### Lamberto SOTO, UMICRO #### [facility] [address] [place] [address] Dr. Vahid Ornelas CBC AUTO DIFFon 12-20-2021 BASO # 0.1 103/ul Normal 0.0-0.1 [facility] Comment on above: Performed By: #### C BC #### [facility] [address] [place] [address] Dr. Vahid Ornelas Basophils/100 WBC (Bld) 0.8 % Normal 0.2-2.0 [facility] Comment on above: Performed By: #### C BC #### [facility] [address] [place] [address] Dr. Vahid Ornelas EO # 0.3 103/ul Normal 0.0-0.7 [facility] Comment on above: Performed By: #### C BC #### [facility] [address] [place] [address] Dr. Vahid Ornelas Eosinophils/100 WBC (Bld) 3.5 % Normal 0.9-7.0 [facility] Comment on above: Performed By: #### C BC #### [facility] [address] [place] [address] Dr. Vahid Ornelas Erythrocyte distribution width (RBC) [Ratio] 12.5 % Normal 11.0-15.0 [facility] Comment on above: Performed By: #### C BC #### [facility] [address] [place] [address] Dr. Vahid Ornelas Hematocrit (Bld) [Volume fraction] 44.3 % Normal 42.0-54.0 [facility] Comment on above: Performed By: #### C BC #### [facility] [address] [place] [address] Dr. Vahid Ornelas Hemoglobin (Bld) [Mass/Vol] 15.0 g/dL Normal 14.0-18.0 [facility] Comment on above: Performed By: #### C BC #### [facility] [address] [place] [address] Dr. Vahid Ornelas IG # 0.08 10e3/ul Critically high 0.00-0.03 [facility] Comment on above: Performed By: #### C BC #### [facility] [address] [place] [address] Dr. Vahid Ornelas IG % 1.0 % Critically high 0.0-0.5 [facility] Comment on above: Performed By: #### C BC #### [facility] [address] [place] [address] Dr. Vahid Ornelas LYMPH # 1.7 103/ul Normal 1.2-3.8 [facility] Comment on above: Performed By: #### C BC #### [facility] [address] [address] [address] Vahid Ornelas Lymphocytes/100 WBC (Bld) 22.1 % Normal 20.5-60.0 [facility] Comment on above: Performed By: #### C BC #### [facility] [address] [place] [address] Dr. Vahid Ornelas MANUAL DIFF REQ NO Normal [facility] Comment on above: Performed By: #### C BC #### [facility] [address] [place] [address] Dr. Vahid Ornelas MCH (RBC) [Entitic mass] 34.2 pg Critically high 25.9-34.0 [facility] Comment on above: Performed By: #### C BC #### [facility] [address] [place] [address] Dr. Vahid Ornelas MCHC (RBC) [Mass/Vol] 33.9 g/dL Normal 29.9-35.2 [facility] Comment on above: Performed By: #### C BC #### [facility] [address] [place] [address] Dr. Vahid Ornelas MCV (RBC) [Entitic vol] 100.9 fL Critically high 80.0-94.0 [facility] Comment on above: Performed By: #### C BC #### [facility] [address] [place] [address] Dr. Vahid Ornelas MONO # 0.9 103/ul Critically high 0.3-0.8 [facility] Comment on above: Performed By: #### C BC #### [facility] [address] [place] [address] Dr. Vahid Ornelas Monocytes/100 WBC (Bld) 11.7 % Normal 1.7-12.0 [facility] Comment on above: Performed By: #### C BC #### [facility] [address] [place] [address] Dr. Vahid Ornelas NEUT # 4.7 103/ul Normal 1.4-6.5 [facility] Comment on above: Performed By: #### C BC #### [facility] [address] [address] [address] Vahid Ornelas Neutrophils/100 WBC (Bld) 60.9 % Normal 43.0-75.0 [facility] Comment on above: Performed By: #### C BC #### [facility] [address] [address] [address] Vahid Ornelas Platelet mean volume (Bld) [Entitic vol] 8.1 fL Critically low 9.5-13.5 [facility] Comment on above: Performed By: #### C BC #### [facility] [address] [address] [address] Vahid Ornelas PLT 281 103/ul Normal 150-450 [facility] Comment on above: Performed By: #### C BC #### [facility] [address] [place] [address] Dr. Vahid Ornelas RBC 4.39 106/ul Critically low 4.70-6.10 [facility] Comment on above: Performed By: #### C BC #### [facility] [address] [place] [address] Dr. Vahid Ornelas WBC 7.8 103/ul Normal 4.0-11.0 [facility] Comment on above: Performed By: #### C BC #### [facility] [address] [place] [address] Dr. Vahid Ornelas PROF 14(COMP METB)on 022 Albumin [Mass/Vol] 3.6 g/dL Normal 3.4-5.0 [facility] Comment on above: Performed By: #### C MP #### [facility] [address] [place] [address] Dr. Vahid Ornelas Albumin/Globulin [Mass ratio] 1.0 {ratio} Normal [facility] Comment on above: Performed By: #### C MP #### [facility] [address] [place] [address] Dr. Vahid Ornelas ALP [Catalytic activity/Vol] 142 U/L Critically high 46-116 [facility] Comment on above: Performed By: #### C MP #### [facility] [address] [address] [address] Vahid Ornelas ALT [Catalytic activity/Vol] 42 U/L Normal 16-63 [facility] Comment on above: Performed By: #### C MP #### [facility] [address] [place] [address] Dr. Vahid Ornelas Anion gap [Moles/Vol] 12.8 mmol/L Normal [facility] Comment on above: Performed By: #### C MP #### [facility] [address] [address] [address] Vahid Ornelas AST [Catalytic activity/Vol] 19 U/L Normal 15-37 [facility] Comment on above: Performed By: #### C MP #### [facility] [address] [address] [address] Vahid Ornelas Bilirubin [Mass/Vol] 0.4 mg/dL Normal 0.2-1.0 [facility] Comment on above: Performed By: #### C MP #### [facility] [address] [place] [address] Dr. Vahid Ornelas Calcium [Mass/Vol] 9.2 mg/dL Normal 8.5-10.1 [facility] Comment on above: Performed By: #### C MP #### [facility] [address] [place] [address] Dr. Vahid Ornelas Chloride [Moles/Vol] 99 mmol/L Normal 98-107 [facility] Comment on above: Performed By: #### C MP #### [facility] [address] [address] [address] Vahid Ornelas CO2 [Moles/Vol] 28.5 mmol/L Normal 21.0-32.0 [facility] Comment on above: Performed By: #### C MP #### [facility] [address] [place] [address] Dr. Vahid Ornelas Creatinine [Mass/Vol] 0.92 mg/dL Normal 0.70-1.30 [facility] Comment on above: Performed By: #### C MP #### [facility] [address] [place] [address] Dr. Vahid Ornelas EGFR-AF SALVADOREAN >60 Normal >=60 [facility] Comment on above: Performed By: #### C MP #### [facility] [address] [address] [address] Vahid Ornelas EGFR-NON AF SALVADOREAN >60 Normal >=60 [facility] Comment on above: Performed By: #### C MP #### [facility] [address] [address] [address] Vahid Ornelas Globulin (S) [Mass/Vol] 3.7 g/dL Normal [facility] Comment on above: Performed By: #### C MP #### [facility] [address] [address] [address] Vahid Ornelas Glucose [Mass/Vol] 116 mg/dL Critically high 74-106 [facility] Comment on above: Performed By: #### C MP #### [facility] [address] [address] [address] Vahid Ornelas Potassium [Moles/Vol] 3.3 mmol/L Critically low 3.5-5.1 [facility] Comment on above: Performed By: #### C MP #### [facility] [address] [address] [address] Vahid Ornelas Protein [Mass/Vol] 7.3 g/dL Normal 6.4-8.2 [facility] Comment on above: Performed By: #### C MP #### [facility] [address] [address] [address] Vahid Ornelas Sodium [Moles/Vol] 137 mmol/L Normal 136-145 [facility] Comment on above: Performed By: #### C MP #### [facility] [address] [address] [address] Vahid Ornelas Urea nitrogen [Mass/Vol] 16.0 mg/dL Normal 7.0-18.0 [facility] Comment on above: Performed By: #### C MP #### [facility] [address] [address] [address] Vahid Ornelas Urea nitrogen/Creatinine [Mass ratio] 17.4 mg/mg Normal [facility] Comment on above: Performed By: #### C MP #### [facility] [address] [place] [address] Dr. Vhaid Ornelas Urine Cultureon 02-20-2021 Bacteria identified Cx Nom (U) ORGANISM: Staphylococcus lugdunensis (O:STALUG) [place] Count >100,000 Aerobic ROHAN Charge (PC45) --- [...] RESISTANT TO ALL B-LACTAM DRUGS. PERFORMED BY: [place] [address] PATHOLOGIST [employer]AK[employer] ADJUSTER ARIK KOLB M.D. [facility] Comment on above: Performed By: #### C UU #### [address] Coding Summaryon 02-11-2021 Coding Summary [facility] LjmztfvlMWp5cPv+PGhlYW Q+UD7FHEUxR28nyZTuoF4G K9eZFA7YBYZKUWIGBV0WDN 0ikQP5ZSvcT8HrvnRg HgpnrPMuKK49ANh7HNI3fD mdTCogfY7ypAQoT2d3HqDx LB81xI01YHprNCCxHeJ0Qh ZpbjsgbWFy X9sjRtPnhPPhLhq+PHRhYm xlIHdpZHRoPScxMDAlJyBz fRmaWX2eJf5kXLJrBZPnrI xhcHNlOiBj r4jmGJUfRAdyRI3ndRnfR8 DngZQ3VIKdj2p4Rm89eGA+ ICCwLTC1aEsiCHgdo413Fg Zya0mbOTV5 kBXcHSacWZB1K71ga5P8OT AjOFCwPSI8pGO8jX4vbHsy wmohK1ThcCSwFbM0BLN4kR MieX4nzWhw qfjflK4aPjv+F91DEJ3LOJ KTGI5CRtc8S4HsZpuczOK+ ME41DPUqTQ48iXFawJPkb7 iokDt3DgPs ZSArHOL3gTikGJygu0RwKL QpT70ywSMce8N9ZSRivVjy uAKaIoLhtMR0wH2lOLconm gci2qvxfuv Bkqpu1ywui34qY95W85qDN kbZKBeEHL9XQGcTWNbsMso ny7odW9yVt8+EKwbl7lvx9 whlJd0IuHr KZHzmpJgbGgoHMH1p0MoUl 53B9UeqQvjz0EuGco0mm13 zVXzk9J5mLR7KLouEMAwtW 0lLWhmGxG6 XKMqMtBkqU68iGGkWJjnOs 8ugHhwzXhmUV1cKFElwrpq XKWzwB0zNSPkgRCqnIlqNA 4wNTBpbjtm v603KpPeIEW2FHNhwVCuR4 OoaB8kAwFkRCCyNRIqS2Xu xETsHXbbP243XMndLfC7IL IjfiKkT5Yi WKOxuXnyTsY6w4L4Fo9Kc3 WlxomoRSB9NZaoUOR2PhO0 TpNwGwX7X4DpGqi9ILWqvS blCX8iT3Qr GVVeovolpxebmCB9CJEzJN OvlA34zKZxUInjVa8ng3V2 q715GRPhEGNynX66Gl8tuA ogMTBwdCBU uY6fwakcb8mpaocnFxIyEM XbAPf2JYz7TRYjiXqsUeUj SWM2QfR0KZE7oVRywN5hfW mjlacdpF7r Oyc+B68nxB4qWWW6OCF8ke dpFIKavkUmBQ16GC43H7Pg PjwvdGFibGU+PGRpdiBzdH yfZG2lFgRe z6axq6IxRJkyW5DpSLWtHS vfVwd4SMDjIQH8tSI6zQ4b FWQgXCphq1E9kVX4E2Lzip Ndvt8cw0yy VSFwJJedH24pxNSpg6A4HT XyhCJ6MFMaqMevEqGcvL33 Oyc+FHTgqWveg8AsRctsj3 jht5ojkAq1 SfSsVYEutiCmeBqcOXS0b0 MoDc00M87hRGshGGSzIVPu VTYxFYUayOryxw2hzO2qQv 8+PGNvbCB3 uWJ8uG3zHSUwDqD0RCjhR6 74GpGmwCXgHnqeo0buw7bf lDd0TwEcRDZeebNasMpaWX N9a4LfCd67 L16fYLyqVCNqTHMxTKJjND PhwXuisc0gmI2mVt4+PC9j w2fxxf23hH06jDG+PHRkIH Y7hYykOEue XYVlgP9mALmzNxQ9BJFpKb DssD81bPFxRMujLw2blAgt jIwiDY6xYHQejreqm522Qn Xkx7dsWEQr gSVuMTmcNMU1C86ln7T6KS UyHMBeKHT0aGR8nC3vrFkp bjogbGVmdDsgdmVydGljYW jaOImnD397 IHRvcDsnPlBhdGllbnQgTm VkQYj9S4BhNsk9VLIoiXzv BK0eyPKgOYbdVu3ngDvlmQ rcLQ6hMAMt lgupm798UfFxs4ycSPLyhT KrJYmiSXH7H72rl7M7ITLg ACTyUJM7jFM2aD0ywBewuv ogbGVmdDsg uuReoNexMExoESsyZ196XW RvcDsnPkJpcnRoIERhdGU6 SU25VZ81jCHwe2J5sKK1S4 BhZGRpbmct yiafpIE3MPOcKTSfqZ63Gp 7ceGiqEl5fCCGyYRS1WIZf mNYsY3ChmB2kRwAtTFNyWO VgV3QymHOu FSskM087GPkzFeP5QESmyi TkT9IzKOIncQcfQsN5h8Z5 Yk0CD7V8OY00OD77dVJde6 A8bTU8X8Iu FXFjadvinsyerVA0WDEeHG LsgQ16Hr8jsJylQi6sEODd HVH2NLUyoCArZ2OxtX1qUr AjMDAwMDAw Y2XllXHjMHglY435ZLtuWw D2UTXkcnQiK5LlHZAxoSsq BcH1w4L2Yp6PYCe6EN58CQ 89aYEem9E5 hWO2M6CwTGNmynoqeasacL S7AQRfTMYhuE43Nb2eyKky Kx9vFKBcLHO7LMIvkMDhE7 DieN8tYjMm BEUvAZZrG8BapCUbZMkuP4 99FOglKnQ3KLXqbiZyK5Rr VOYenMedCyL8s7U0Mm0UCS WqDP07RWS5 dPE8AD23BO82F8RlAstizT FibGU+PHRhYmxlIHdpZHRo PXybCOSwFcHihOehTU5zJz 9yZGVyLWNv zQvavLJjHkCcb4vyVDLzJB rcBH0kuTgtM4XspRT4WWDt s6f1Mg12E25pP4CzbBS+PG FvmEI9vWN9 rB9iXgCkJqX1KBkdR023Qd QreNMaKnjbd3noy0ojgIb8 TiD0ACHebzAbtYznWGT1w6 VmSk34N85k IHdpZHRoPSIxNSUiIHZhbG bbib8qcC5jAv8+PGNvbCB3 iBP0qP9sOpKrHsX5BKxdX0 49InRvcCIv Lbxzw7ugu6vdrTt1CpCuON CttiLcgWpoQBE8c5ViFj39 I2KyoTeqt0JeSls8cy46eD Bha4R1vVX1 A2CrVMOainfeiCIgjIadXA 1zGLOwpknjBUThcU7xUJKc V2k0OgTjYuR4HUukC4Cuui A9ESAvzURs ZHedOEG3A69be7X0MQImCS YkPMC0eTX9mL5noLhaezbk bGVmdDsgdmVydGljYWwtYW xcD945AQQb dTanUQNkbU2kAIAooJCufO teUT7xAPKfjjeoKuqSBKMM MzYAAZHcKUHWUNVDVE0sEW wvdGQ+PHRk HQI5zUmdLBgoVHBlrS8sMA WfL1n7QwLjSkI9XVtvX9Ta PERnvtcoCq80eO8eVqRkWc R9QVntG3Fi mgG1REYevPJyGGenDZB1X9 6uj7L5WWEqJNRcTCZ3sNK8 mY2snDkorevuxITmmHtxqo VydGljYWwt GPntJ376AUXiiFqgWyX9Gc G6NoC1LUd8O1FuKft0IDWd gOljWH1jzRFrYGrlUe5srW xetQzqTI2l IPLptivlHVUnaO2uXXBtkC AkwAohTR5oFSAdhgjty027 ArCkBNE8MVNzkNSmX4LyfB 9yOiAjMDAw UQNxP2HxjROuOWavN027MP djYuY4MAVhdyYwY1IoAOJp fZmiVaZ8t7W1Xk23SRDJRH FyczwvdGQ+ UODhUMR1sJvaBUosMEHcgV 0aBKMoR9o1ImTqAgV5NBgm V8CgJVMzrpczDr74xK0hVr GaDvC6QIjc R5YvmjY0IPTfhCMsOXitEO K8P01iz5R3KGPgXFPkMGL3 sMM1oS0agDgcjilguBDvcG sgdmVydGlj DCtgTKnbI521QGGusFxnWt 4YAHZ7Q5DdSew1RXTvnDdl YR6qhBXiHBdhTg8qsXcbpL csVL5dLJOs fszkMFAtlI2dMPJpdPGkzA ubBQ0rXMHwssiri090BkSr AAC9MIBgtAMiB1NsiO3nOa AjMDAwMDAw M7JdnOAcQFszE895REmaOg R1TUSyerXzG2ChXVFftTax GiL9m9L0Zy3ENCkueMC+PC 84nv60K2Wh XfmmInw9MZFjAQP2zAR0iR 7qSZWpTQzhe2V8zIF4C6Yp atFccw3pe3oyACCyTIeuR7 0qjZPyt4C3 PYFdvIL3HQRykBfwBbPazZ 93Oyc+TRXmvHjes4AkMssb p0kwv7jvbCf4TnVkDVLsiu FsaWduPSJ0 a4FzQp65S05pLMfyHHJqVU HdTGUsJOTaiRderk2yrR5a Ii8+SUOkgWE4dXH4xZ2zHg YwFcV7DPds A743DjQviRRaKydhb8ccb6 ftlAy3TuVwMQIbwsVbyNhr IJE4g8CjBc79S4MlrXymg4 CtBeb2hd59 yQTjk2C5gST8U8TzQGExww ppfLFuaNkyDH5lFBXmiiae IYQthX0jQYXhJ2n3MmPbCz L4RWdsQ1Fy aiO3GLUysJDeGOFiaFMHhD 9iqrcyv6dtfrzuVuNeBAQm PJv0RBp7XKForIflQiBgGG N3KsM1KWW6 ySSwvT6qsJgnewfwdU7iVm c+GFx6r7glqTDkDO8lbHH1 LN74MQ89eTZdl8I6tYA8N4 BhZGRpbmct qmkslZZ1GAAiFKOmeY35Oy 8suCjeHz8eJOCeXGV8GMFc uUWtB1RgpL8qUyCyXJUmES VpX8NbmGNr GLygU208FVvmVbT2UBWjif QcB5RyPKAezUjmDdZ3y0P0 Cx1OJJ84XW79HP73wHIoy7 F9zLR7S6Rj AOEglbhwsglzyDL3QZDuKI BvrE81Xa2uqKrvZp2hFNCe EGS2NDFkmLVvD2VpyD3dHk AjMDAwMDAw S0RorJVmCVipC490GMjlKu O0LTImsbYzQ9SxKBWokGei MpX2i5L8Fj4MTl12FY20UQ 07mWOuf0O2 zWN0A6ScLWNnajguztcxfX R3CKMuTPZhjL19Sa8ktCnd Bj5zYYQeBQP8NEUwgHHvP3 LavX9qOrQn XZSdXYRvS5GyxNDqCUgbY6 28EXkxBiQ1ZDWawuSoQ6Kk RJQfpGedDpU0o2D2Bo1XFY lhzpl4N8Bl PjwvdHI+JN85DQQvIK37jE FeuCBlm8glfZw5HkMwICMm YCH5nMvcYUphg4CvCDApV8 0vjHBrf4U6 IGN (more content not included)... [facility] Provider Orderson 02-11-2021 Provider Orders [id number] [facility] C Urineon 02-10-2021 C Urine Mixed skin, or urogenital marcie. Clinically insignificant [facility] Comment on above: Performed By: #### [id number] #### [facility] (DEFAULT) [address] [id number] Coding Summaryon 02-08-2021 Coding Summary [employer] 64 NjfcfsfbQMy3bKz+PGhlYW Q+QS9CPSMtT54fsUDviE7A L1mFGX1XZYOWGKVTDC8UPO 9uxNF0UEkaI8EyweNl GynudEIzMN68UAz4KAU8jE swMVzwwN2luUKdD3y1WlWz MZ53aX94KMxsTUMhZeL2Ur ZpbjsgbWFy F1yoQyNjoAEdZnb+PHRhYm xlIHdpZHRoPScxMDAlJyBz nWqxHU2jDx0dXAOzZMSzpQ xhcHNlOiBj g5tpRXObOMrgAN8gtXnyP3 VbfGT8QQQaz5w4Dv30yNA+ MXEbQRG9yXbsVDfvp719Lk Qvj4oiXAR5 yYOnXTanBAU1J09gi9V2RB OpGXXuESY0ePD6wR8ymYhz ntuoR1OipIIhZeA5NFM7iY PntC5ndFwj qjoaxI1eQue+L35QYI6EST EABG4HEas0V3ZqZumggGL+ QA62HLZiZS68tKWtaKHkj1 ketBt2IvRb HNGyMBH4eNrfGGfzq7YgPT HvL57ggDOxe2E6IATgdZmu uEFyQpYqkCO8tG9qUTyalv cuq6przekx Yhllv0rsec65uY39W59xAA faLOHmRWX8JUNqODJkaBnj jr2bhE1uJa5+UOmnv0lzf7 wawVk1ZwQb MAYmjyTxaTdoZEO1x7ZeQh 91N8FkaRpdc8NjFmr4az38 rULbs4D4rOL0TQuvFVBlkG 8cEIofZfE9 GMKdEtWzsL99iUIxKWkkBk 0dyAkgmOeiVY0tQZNfbzuy OHTdpO9xJVOudTOrzFlfQS 4wNTBpbjtm f817HdEvLOT9XQWejGYbL2 VxeR5fAxFjUDGyXHRnB2Mn eNDiVNrsH337TGadAuY1ZW WqxgAwY5Uf TZGkdXwmQiR8d9E8Fp6Qc4 RbqxvmMCP0XHzpCCH0EbX3 InWvBsO1S8MnNhi0VROwsF xhEN1cQ2Wy TMYpwrjndovyfJQ5BZBvCB IhgH72eUEnFIrmEs7vg9D3 x530ZCRhVPDkeO84Ui6efR ogMTBwdCBU qG6eokjsy6svehwsSqBzOZ BcBWq4DAg7MHBttGspQpOj GHU6KrV5GLP4rLZvrL9qeO vvadweyF3q Oyc+X60kyK3uJSS6LLN4ur kuWAQgggXhFG27ZB48Y0Ar PjwvdGFibGU+PGRpdiBzdH xrDD2xFiWg c4zas0WeBOqaU1RpBTUuMV ydHhw7DOSbOJG5iCX7dR0c PUAyEGxmj8G8mUD8H9Sdmf Irlp3pt8xf RHNfCBawA27wcICxa7I8WJ IrjCV5BAKluYfwWnQiwK57 Oyc+OJSakSiyb6WyKtfdm9 jgt7osoNp6 XvWlPVHotpUnoTmmFRG3h2 CaJx10N71tAOvmJXLkPJEz BBKeAOCvdVwtwi1voO2dIv 8+PGNvbCB3 fVV8jR7uXSKtOoC3BClfG1 92YyGjxXDmIjrca2bfx5gq iHr5ZcWxGPPmfxRnzGrfUG T8i5EfIr95 B15hGNdcWIBlWJFyIOTvKM FzvTcbfn3xtF0iTb3+PC9j l5odrp26wZ49mLO+PHRkIH L2sBazXZhk QEOexI7iGVoiPfX3WVJkLx QemN43sLRiHCfnVm4osPdg aXcnAD5pTKPhkoykp475Lq Qfp7bcFIVx pFXlXFesNRX6C95at7F0VB YfCYNmMQA9iUB0xP7epQkd bjogbGVmdDsgdmVydGljYW aaKSotZ590 IHRvcDsnPlBhdGllbnQgTm NfBLe4G2UaRvg0GNKwvAbs QT9xaGYtGCmuLg5loXsgyP onAV5qCPSx bfuzy923QlBhq5qaGTDcqW WlVVwdVAS4R69ru0T1XWBe YFWkRMS9dQY0tU5vlRlrhw ogbGVmdDsg lcBtrLzqUAraWZagU278RN RvcDsnPkJpcnRoIERhdGU6 IV31OS58cBVsb0H6xDD0W7 BhZGRpbmct djyteNG0JOOjHFEknL43Yl 4eeUzwLo5hONRxQAB8ITTt sBShG0EhmV5sGzZqDOTkPK VzY4AwzKFn DCunI245RCsvLjV9JPWhjn MdM3RvUVQjsYafZxC0m1A4 Wc0AH9C4UU93AG09gMRft8 Z1lZQ2G7Cj RMBfpkntvvbxnXW7PPRfQO GqmV27At5wtTsbLh2bNMCi TNW6HCFagYZgP6BlyV5pWr AjMDAwMDAw F1HszCWjGByzR444HSeaTi Y1NJQuqnUtO0KiOJMgfRyi TbY6k2D3Ct7PSTy1EY06DA 29sZYro4A0 lYM0T9FeFHGilfyjlplnwG W3FIOhYYVzdZ61Kj1qlPgr Xx8fBBFxPTF3RCFujRDdU9 WudE7xCaGo WUEhLUWyI9UjbKKfZWkbA5 22NUljOfO5WKZcatFeA2Yh CGHgvKawOoA8a4T0Qu5DUU BnWG95CSB6 eWB2IN34PW19X7LtHqqvsW FibGU+PHRhYmxlIHdpZHRo RJemVWZmJkZfkIviGS5fVf 9yZGVyLWNv xVyhkXTpFiYke7xdIQMlIS wvYB4viLfzV2KekVK9YHXb k5k2Hx83H21xP7GaoYT+PG QuvYU8dCZ7 sJ4vHuJxVnI2BSjvN606Xc FsyFTbLqeae9hzb2hfwKg4 LmS6YWUpnkEwfMqiSTK3o6 QtSh27M30p IHdpZHRoPSIxNSUiIHZhbG tyyu9luS5bXg7+PGNvbCB3 zTM7yL2vJoXvZyC7KXkzM9 49InRvcCIv Wiqre0xpp0bgnWn4UiNiSH PbfyCfaBqmOVW9o7VoGx26 H4LflDzox5BlLqj2bu59mK Ewh8V5wSM1 M5DnHZGsgxetmHVwpDicXF 9bNRMdtaubMWLbqC2pWOPd O0l2CvAuWjU6KSgvP7Cpay R7MQCasPQs XLvrNHC0K80jn3W8OEOlZX QqEMV0cBY6wA5irNxwyxnb bGVmdDsgdmVydGljYWwtYW igP247GYLh mOrhNVImnE1dEKWagYNycV yoNN7nLCApqvotCpoFXXWM ZlDLUUMxROXWZAEWQZ3nXS wvdGQ+PHRk MAO6lTtiAFtuLRPcnR7lFR VnN3a8XtYmRyV1MHnsS3Qs VRBbgfjwKn35sZ8uTuUiGj P3JCqgG7Es vsU2THMeuRLvKOlnGVD0L0 0jz2Z8UZOnWHVmIHA6uSB5 dI9shPsbvwsexIPtgMrzom VydGljYWwt CTbuF839HBCgoLqfDmY1Lq E6DuA7AYy3R8AqMkz9UQVr jEizHQ4dyYWiNOazCy0tmS qhgOstRW7w EPQiijeyLOVgxT7wKFAheF YuuFudGV0jYFPibmmcu936 PlNyOPB1PIGjiRSjB6PbjR 9yOiAjMDAw ICAeZ8GejQWoUWmhJ882CV mpZcV2QKLbtaGnU0DtKVGl lCwqZhV8u3N1Qb01WAXFAN FyczwvdGQ+ XLXlLRB3rIuuZSyrQHXcvS 3nXHWjA5v6FnYpWhI4TZhs O5MuVPSouykzIy80uD7sQv CeKnA4XLdb H0KybeP0VAIwqSDlKSjlBE R5R31wz7X0FFOrCPIiOHT4 lIA0zM5egOrhophjeSGofU sgdmVydGlj JArrZVtpH675VRXiqDrkQv 4KJVA6C9UqUnl3OJBamVhs EO1opWJeZKiiKs4fxToiuE nkPK4cZPUt bhtqZUPzbD1eXCMddOAguA seWE0xOWCrtbocr187AtHt IWD9WQSshAPuK9RheA1eBz AjMDAwMDAw C1WjtMMwAKfuV501HAzbAq E3OIIvixJiU0AxHQEbpBvp CfM3o1P0Nn5AOTzafLZ+PC 73jk71Q4Ru DjgcYce1AVItTWG9kUG3eH 8uMBFrAXusr2T6vBG7V4Vd uhNmxh3fo2upXZDfQKtiH9 1fzWBnz9L7 TYHdcAA8EFKelLwtAdHsyG 93Oyc+UMXpbQadc9WxCwgr r0uaq7ajfBz2MzIlCNUyvz FsaWduPSJ0 s9HqHa09F12qEDerGWOiQQ WvWGNuQDYucQtrtf4ikI3b Ii8+XUUexOC1bLX9dR5cOk QeBxS6JXfo A478ZiWqiKYiSrwtt9who9 ipdSf0UtTjKWFaepUgzFvr XYO3f3WbSk07D1CwmZlxb0 KuPjd3sv54 bJUlw3R1mEB0G8ZvZKLish ftqKUeoHtdMP1yCHRdqrui HDBesW4qLSSrN7i8AqAoRs X6YFubN0Dl lpM6AOMjoSLyTTDptSAToL 8hpqfna3qqcdffHrOxSPSy GBh8YYz3KQCbqCnhYjTkQN Y1MvR5ZAX5 qMRmoO1nfHvcxtvqnN5dPg c+JKf7o4mmiVPwTZ2okSZ1 IQ14FT81wGGyk2X8vGK9A0 BhZGRpbmct qrzwuSC6LOYyMYCseC90Fe 8jkPlcRc6nWEBlYYY5SNVk tSDbI6UcaA3zVgGkFIIgDD FbO1TuzVAy KLpvU852BUtqCbW6FXTdse NcQ3MmOTKfvWcsLzI9h2H1 Sj5RPF77UF06VX41aLQip5 T1jEA4U1Op ONPtmjhpmhroxYA7WJHiFD WklX15Nd7ttJanQj8tQJWh RLQ6TQXuyKMsA1XkcV9fAd AjMDAwMDAw R3TosBFmQTksD342QPacFi D8NBMsonThK3OaZTHksEux OnA9s2L3Yj6QVp68GU45WA 30nKCwp1A1 hOO5K9QfPWIqdxyesoxduY V9RYNbPRQvqN47Ea3owQdk Pr9tRKEvZAA5CQJgjZLvX9 BabJ3wUgSh UPXrFVXfE7ThpYUqFAyzZ8 74BEbkQgV2EVOxgcQtN8Hu DVCojRceRhI7b2W2Bh6TZC cqxsn8F1Wm PjwvdHI+RB11TCWyMX95eV LizJLjo2bvjSm3PqCuPKHw ZQA6tGvuZTwfe3GcKTLeO4 1moOJmb1U9 IGN (more content not included)... Normal [facility] Provider Orderson 02-07-2021 Provider Orders [id number]#1.0 0OTGTIFF [facility] .Auto Diff 102-06-2021 Auto [place] % 12 % Normal 08-07 [facility] Comment on above: Performed By: #### 7 [id number] #### [facility] (DEFAULT) [address] [place] [address] Baso Abs# 0.0 x10 Normal 0.0-0.2 [facility] Comment on above: Performed By: #### 7 [id number] #### [facility] (DEFAULT) [address] [place] [address] Basophils/100 WBC (Bld) 0.3 % Normal 0.2-2.0 [facility] Comment on above: Performed By: #### 7 [id number] #### [facility] (DEFAULT) [address] [place] [address] Eos Abs# 0.5 x10 High 0.0-0.4 [facility] Comment on above: Performed By: #### 7 [id number] #### [facility] (DEFAULT) [address] [place] [address] Eosinophils/100 WBC (Bld) 6.0 % High 0.9-4.0 [facility] Comment on above: Performed By: #### 7 [id number] #### [facility] (DEFAULT) [address] [place] [address] 37893 Lymph Abs# 1.8 x10 Normal 1.3-2.9 [facility] Comment on above: Performed By: #### 7 000362, 5889062, [id number], [id number], [id number] #### [facility] (DEFAULT) [address] [place] [address] 85733 Lymphocytes/100 WBC (Bld) 21 % Normal 14-48 [facility] Comment on above: Performed By: #### 7 176411, 4235799, [id number], [id number], [id number] #### [facility] (DEFAULT) [address] [place] [address] 55843 Mccurtain Abs# 1.1 x10 High 0.0-0.8 [facility] Comment on above: Performed By: #### 7 717026, 8396010, 293694902, [id number], [id number] #### [facility] (DEFAULT) [address] [place] [address] 87382 Neut Abs# 5.3 x10 Normal 1.5-9.2 [facility] Comment on above: Performed By: #### 7 603705, 9535290, 911740756, [id number], 34395591 #### [facility] (DEFAULT) [address] [place] [address] 43517 Neutrophils/100 WBC (Bld) 60 % Normal 44-88 [facility] Comment on above: Performed By: #### 7 854822, 0317388, 248280727, [id number], 78616600 #### [facility] (DEFAULT) [address] [place] [address] CBC w/ Auto Diffon 1 Erythrocyte distribution width (RBC) [Ratio] 13.1 % Normal 11.5-15.0 [facility] Comment on above: Performed By: #### 7 950135, 3477875, 846971418, 5308401167, [id number] #### [facility] (DEFAULT) [address] [place] [address] Hematocrit (Bld) [Volume fraction] 43.1 % Normal 34.8-51.9 [facility] Comment on above: Performed By: #### 7 062646, 1369332, 359395226, 1349510679, 68755502 #### [facility] (DEFAULT) [address] [place] [address] Hemoglobin (Bld) [Mass/Vol] 14.7 g/dL Normal 11.8-17.7 [facility] Comment on above: Performed By: #### 7 244943, 4916485, 438163561, [id number], 77945111 #### [facility] (DEFAULT) [address] [place] [address] Instr WBC 8.7 x10 Invalid Interpretation Code [facility] Comment on above: Performed By: #### 7 110933, 1890440, 585896610, [id number], [id number] #### [facility] (DEFAULT) [address] [place] [address] Man Diff? Auto Normal [facility] Comment on above: Performed By: #### 7 800300, 4834047, 343179196, [id number], [id number] #### [facility] (DEFAULT) [address] [place] [address] MCH (RBC) [Entitic mass] 34 pg Normal 24-34 [facility] Comment on above: Performed By: #### 7 096180, 1854852, 124810946, [id number], [id number] #### [facility] (DEFAULT) [address] [place] [address] 36951 MCHC (RBC) [Mass/Vol] 34 g/dL Normal 26-37 [facility] Comment on above: Performed By: #### 7 173590, 1642342, 676391269, 2953246640, 35041886 #### [facility] (DEFAULT) [address] [place] [address] 90250 MCV (RBC) [Entitic vol] 99 fL Normal 81-100 [facility] Comment on above: Performed By: #### 7 799186, 2916934, 851121161, 9509331917, 95083022 #### [facility] (DEFAULT) [address] [place] [address] Platelet 286 x10 Normal 138-427 [facility] Comment on above: Performed By: #### 7 172527, 8108256, 930531763, [id number], 85669172 #### [facility] (DEFAULT) [address] [place] [address] Platelet mean volume (Bld) [Entitic vol] 8.3 fL Normal 6.3-10.2 [facility] Comment on above: Performed By: #### 7 683002, 2304568, 900906224, [id number], 51195586 #### [facility] (DEFAULT) [address] [place] [address] 95461 RBC 4.37 x10 Normal 3.70-5.30 [facility] Comment on above: Performed By: #### 7 623603, 7804259, 361734134, 3780139901, 55866895 #### [facility] (DEFAULT) [address] [place] [address] 32733 WBC 8.7 x10 Normal 3.5-10.5 [facility] Comment on above: Performed By: #### 7 568366, 0672894, 334224467, 4656476887, 44236326 #### [facility] (DEFAULT) [address] [place] [address] 59506 CMP Standardon 02-06-2021 eGFR Non AA >60 Invalid Interpretation Code [facility] Comment on above: Performed By: #### 7 513297, 1312501, 272661839, [id number], 19390457 #### [facility] (DEFAULT) [address] [place] [address] 01609 eGFR AA >60 Invalid Interpretation Code [facility] Comment on above: Result Comment: [employer] Operator noe Kidney disease could be indicated at eGFRs of less than 60 ml/min/1.73m2. Kidney Failure is indicated at less than 15 ml/min/1.73m2 Performed By: #### 7 748638, 5432232, 391174271, 9432664292, 56893450 #### [facility] (DEFAULT) [address] [place] [address] 03501 Albumin [Mass/Vol] 4.4 g/dL Normal 3.5-5.0 [facility] Comment on above: Performed By: #### 7 124253, 5500704, 408304209, 4175798670, 65878380 #### [facility] (DEFAULT) [address] [place] [address] Albumin/Globulin [Mass ratio] 1.6 {ratio} Normal 1.4-2.6 [facility] Comment on above: Performed By: #### 7 898115, 4575687, 393850115, 3864432794, 52875454 #### [facility] (DEFAULT) [address] [place] [address] 52890 Alk Phos 107 IU/L High 32-91 [facility] Comment on above: Performed By: #### 7 867285, 4842031, 603351030, 2764894550, 82539331 #### [facility] (DEFAULT) [address] [place] [address] 95076 ALT [Catalytic activity/Vol] 16.0 U/L Low 17.0-63.0 [facility] Comment on above: Performed By: #### 7 205130, 6975077, 022853416, 4865258943, 49665005 #### [facility] (DEFAULT) [address] [place] [address] 20805 Anion gap [Moles/Vol] 17.0 mmol/L Normal 5.0-19.0 [facility] Comment on above: Performed By: #### 7 640324, 8706121, 390557166, 2544891581, 45185466 #### [facility] (DEFAULT) [address] [place] [address] 56447 AST [Catalytic activity/Vol] 16 U/L Normal 15-41 [facility] Comment on above: Performed By: #### 7 915693, 8430009, 382760557, 9678482842, 35129091 #### [facility] (DEFAULT) [address] [place] [address] 79431 Bili Total 0.7 mg/dL Normal 0.3-1.2 [facility] Comment on above: Performed By: #### 7 246179, 7277863, 476673528, 4580612106, 33569359 #### [facility] (DEFAULT) [address] [place] [address] 49272 Calcium [Mass/Vol] 9.6 mg/dL Normal 8.9-10.3 [facility] Comment on above: Performed By: #### 7 529092, 5721835, 059263694, 1642463340, 36790588 #### [facility] (DEFAULT) [address] [place] [address] 41653 Chloride [Moles/Vol] 101 mmol/L Normal 101-111 [facility] Comment on above: Performed By: #### 7 255969, 4413533, 752132527, 9394028479, 77853853 #### [facility] (DEFAULT) [address] [place] [address] 60170 CO2 [Moles/Vol] 25 mmol/L Normal 21-32 [facility] Comment on above: Performed By: #### 7 201851, 3568167, 754955462, 4837300863, 62653035 #### [facility] (DEFAULT) [address] [place] [address] 92943 Creatinine [Mass/Vol] 0.87 mg/dL Low 0.90-1.30 [facility] Comment on above: Performed By: #### 7 916103, 2777728, 559366888, 2534471698, 80165949 #### [facility] (DEFAULT) [address] [place] [address] 76822 Globulin (S) [Mass/Vol] 2.7 g/dL Normal 1.5-4.3 [facility] Comment on above: Performed By: #### 7 969969, 9731427, 727659796, 3449892893, 94189625 #### [facility] (DEFAULT) [address] [place] [address] 79579 Glucose [Mass/Vol] 124.0 mg/dL High 74.0-118.0 [facility] Comment on above: Performed By: #### 7 729642, 6913541, 039797998, 2020805291, 72680457 #### [facility] (DEFAULT) [address] [place] [address] 42057 Osmolality 279 mOsm/L Invalid Interpretation Code [facility] Comment on above: Performed By: #### 7 937020, 6899691, 068655955, 4957217980, 90493141 #### [facility] (DEFAULT) [address] [place] [address] 81912 Potassium [Moles/Vol] 4.1 mmol/L Normal 3.6-5.1 [facility] Comment on above: Performed By: #### 7 986324, 1821509, 386280685, 9462619552, 29980414 #### [facility] (DEFAULT) [address] [place] [address] 92518 Protein [Mass/Vol] 7.1 g/dL Normal 6.5-8.1 [facility] Comment on above: Performed By: #### 7 956159, 2814051, 808642431, 1935955759, 43679860 #### [facility] (DEFAULT) [address] [place] [address] 20728 Sodium [Moles/Vol] 139.0 mmol/L Normal 136.0-144.0 [facility] Comment on above: Performed By: #### 7 245737, 5880508, 798734093, 7772588175, 12027095 #### [facility] (DEFAULT) [address] [place] [address] 31669 Urea nitrogen [Mass/Vol] 13 mg/dL Normal 8-26 [facility] Comment on above: Performed By: #### 7 359628, 5184893, 932246837, 2636976407, 86800513 #### [facility] (DEFAULT) [address] [place] [address] 32915 Urea nitrogen/Creatinine [Mass ratio] 15.0 mg/mg Normal 4.6-16.2 [facility] Comment on above: Performed By: #### 7 241189, 6934674, 828982839, 6732291422, 90211120 #### [facility] (DEFAULT) [address] [place] [address] 52114 PSA Screenon 02-06-2021 PSA Screen 2.30 ng/mL Normal 0.00-4.00 [facility] Comment on above: Result Comment: The concentration [...] Gay [employer] PSA Performed By: #### 7 796943, 4018107, 634975401, 6294943317, 61531061 #### [facility] (DEFAULT) [address] [place] [address] 34408 TSH w/ Reflex to FT4on 02-06 TSH Qn 2.15 m[IU]/L Normal 0.45-5.33 [facility] Comment on above: Result Comment: Gene ral Population (males and non- females, aged 21-88) 0.45 - 5.33 Females, 1st Trimester 0.05 - 3.70 Females, 2nd Trimester 0.31 - 4.35 Females, 3rd Trimester 0.41 - 5.18 Performed By: #### 7 745357, 2422315, 460789537, 5772740319, 27137246 #### [facility] (DEFAULT) [address] [place] [address] 37128 UA Standardon 02-06-2021 Breakpoint UA Normal [facility] Comment on above: Performed By: #### 1 [id number] #### [facility] (DEFAULT) [address] [place] [address] 55885 Color (U) Yellow Normal [facility] Comment on above: Performed By: #### 1 [id number] #### [facility] (DEFAULT) [address] [place] [address] 05256 Glucose (U) [Mass/Vol] Negative Normal [facility] Comment on above: Performed By: #### 1 [id number] #### [facility] (DEFAULT) [address] [place] [address] 74109 Ketones Ql (U) Negative Normal [facility] Comment on above: Performed By: #### 1 [id number] #### [facility] (DEFAULT) [address] [place] [address] 44390 UA Bilirubin Negative Normal [facility] Comment on above: Performed By: #### 1 [id number] #### [facility] (DEFAULT) [address] [place] [address] 28724 UA Blood LARGE Abnormal NEGATIVE [facility] Comment on above: Performed By: #### 1 [id number] #### [facility] (DEFAULT) [address] [place] [address] 21614 UA Clarity SL CLOUDY Abnormal CLEAR [facility] Comment on above: Performed By: #### 1 [id number] #### [facility] (DEFAULT) [address] [place] [address] 47678 UA Leuk Est MODERATE Abnormal NEGATIVE [facility] Comment on above: Performed By: #### 1 [id number] #### [facility] (DEFAULT) [address] [place] [address] 06509 UA Nitrite Negative Normal NEGATIVE [facility] Comment on above: Performed By: #### 1 [id number] #### [facility] (DEFAULT) [address] [place] [address] 51390 UA pH 5.5 Normal 5-8 [facility] Comment on above: Performed By: #### 1 [id number] #### [facility] (DEFAULT) [address] [place] [address] 00587 UA Protein Negative Normal NEGATIVE [facility] Comment on above: Performed By: #### 1 [id number] #### [facility] (DEFAULT) [address] [place] [address] UA Spec Grav 1.020 Normal 1.001-1.035 [facility] Comment on above: Performed By: #### 1 [id number] #### [facility] (DEFAULT) [address] [place] [address] UA Urobilinogen 0.2 mg/dL Normal 0.2-1.0 [facility] Comment on above: Performed By: #### 1 [id number] #### [facility] (DEFAULT) [address] [place] [address] 33954 Urine Source Clean Catch [facility] Comment on above: Performed By: #### 1 [id number] #### [facility] (DEFAULT) [address] [place] [address] 86552 XR Chest 2 Viewson XR Chest 2 [...] Time Vital Sign Value Performing Clinician Facility 09-16-2023 10:42-0500 Blood Pressure Location DULCE MARIA DAMI [facility] 09-16-2023 10:42-0500 Diastolic blood pressure 83 mm[Hg] DULCE MARIA DE SOUZA [facility] 09-16-2023 10:42-0500 Heart rate 86 /min DULCE MARIA DE SOUZA [facility] 09-16-2023 10:42-0500 Systolic blood pressure 108 mm[Hg] DULCE MARIA DAMI [facility] 08-05-2023 09:50-0500 Blood Pressure Location Deandra Lue [facility] 08-05-2023 09:50-0500 Diastolic blood pressure 78 mm[Hg] Deandra Lue [facility] 08-05-2023 09:50-0500 Systolic blood pressure 128 mm[Hg] Deandra Lue [facility] 07-22-2023 08:09-0500 Blood Pressure Location Deandra Lue [facility] 07-22-2023 08:09-0500 Body temperature 97.16 [degF] Deandra Lue [facility] 07-22-2023 08:09-0500 Diastolic blood pressure 78 mm[Hg] Deandra Lue [facility] 07-22-2023 08:09-0500 Heart rate 74 /min Deandra Lue [facility] 07-22-2023 08:09-0500 Systolic blood pressure 118 mm[Hg] Deandra Lue [facility] 11-18-2022 15:12-0400 Blood Pressure Location DULCE MARIA MUKHERJEERY [facility] 11-18-2022 15:12-0400 Diastolic blood pressure 78 mm[Hg] DULCE MARIA DAMI [facility] 11-18-2022 15:12-0400 Heart rate 68 /min DULCE MARIA DAMI [facility] 11-18-2022 15:12-0400 Respiratory rate 16 /min DULCE MARIA DAMI [facility] 11-18-2022 15:12-0400 Systolic blood pressure 132 mm[Hg] DULCE MARIA DAMI [facility] 10-28-2022 13:42-0400 Heart rate 77 /min Deandra Lue [facility] 10-28-2022 13:42-0400 SaO2% (BldA) [Mass fraction] 95 % Deandra Lue [facility] 10-28-2022 13:42-0400 Respiratory rate 16 /min Deandra Lue [facility] 10-28-2022 13:41-0400 Body temperature 98.06 [degF] Deandra Lue [facility] 10-28-2022 13:41-0400 Diastolic blood pressure 83 mm[Hg] Deandra Lue [facility] 10-28-2022 13:41-0400 Mean blood pressure 110 mm[Hg] Deandra Lue [facility] 10-28-2022 13:41-0400 Systolic blood pressure 165 mm[Hg] Deandra Lue [facility] 10-28-2022 12:12-0400 Heart rate 68 /min Deandra Lue [facility] 10-28-2022 12:12-0400 SaO2% (BldA) [Mass fraction] 93 % Deandra Lue [facility] 10-28-2022 12:11-0400 Respiratory rate 18 /min Deandra Lue [facility] 10-28-2022 12:10-0400 Diastolic blood pressure 88 mm[Hg] Deandra Lue [facility] 10-28-2022 12:10-0400 Mean blood pressure 109 mm[Hg] Deandra Lue [facility] 10-28-2022 12:10-0400 Systolic blood pressure 150 mm[Hg] Deandra Lue [facility] 10-28-2022 12:10-0400 Body temperature 98.06 [degF] Deandra Lue [facility] 10-28-2022 12:00-0400 Body temperature 98.6 [degF] Deandra Lue [facility] 10-28-2022 12:00-0400 Diastolic blood pressure 93 mm[Hg] Deandra Lue [facility] 10-28-2022 12:00-0400 Heart rate 71 /min Deandra Lue [facility] 10-28-2022 12:00-0400 Respiratory rate 11 /min Deandra Lue [facility] 10-28-2022 12:00-0400 Systolic blood pressure 153 mm[Hg] Deandra Lue [facility] 10-28-2022 11:55-0400 Blood Pressure Location Deandra Lue [facility] 10-28-2022 11:55-0400 Mean blood pressure 113 mm[Hg] Deandra Lue [facility] 10-28-2022 11:55-0400 Respiratory rate 16 /min Deandra Lue [facility] 10-28-2022 11:40-0400 Mean blood pressure 108 mm[Hg] Deandra Lue [facility] 10-28-2022 11:40-0400 Respiratory rate 19 /min Deandra Lue [facility] 10-28-2022 11:10-0400 Body temperature 97.7 [degF] Deandra Lue [facility] 10-28-2022 11:05-0400 Respiratory rate 8 /min Deandra Lue [facility] 10-28-2022 08:35-0400 Mean blood pressure 102 mm[Hg] Deandra Lue [facility] 10-28-2022 08:35-0400 Heart rate 78 /min Deandra Lue [facility] 10-28-2022 08:33-0400 Body temperature 98.24 [degF] Deandra Lue [facility] 10-15-2022 12:32-0400 Diastolic blood pressure 82 mm[Hg] Deandra Lue [facility] 10-15-2022 12:32-0400 Heart rate 74 /min Deandra Lue [facility] 10-15-2022 12:32-0400 Mean blood pressure 100 mm[Hg] Deandra Lue [facility] 10-15-2022 12:32-0400 Systolic blood pressure 134 mm[Hg] Deandra Lue [facility] 09-08-2022 13:28-0500 Blood Pressure Location Deandra Lue [facility] 09-08-2022 13:28-0500 Diastolic blood pressure 83 mm[Hg] Deandra Lue [facility] 09-08-2022 13:28-0500 Heart rate 81 /min Deandra Lue [facility] 09-08-2022 13:28-0500 Systolic blood pressure 135 mm[Hg] Deandra Lue [facility] 11-21-2021 11:10-0400 Body height 187.96 cm Janice Arellano Other [email or web address] [facility] [employer] Other 10-31-2021 12:30-0400 Body height 187.96 cm Janice Arellano Other [email or web address] [facility] [employer] Other 10-31-2021 12:30-0400 Body mass index (BMI) [Ratio] 25.16 kg/m2 Janice Arellano Other [employer] Other 10-31-2021 12:30-0400 Body temperature 97.3 [degF] Janice Arellano Other [employer] Other 10-31-2021 12:30-0400 Body weight 88.91 kg Janice Arellano Other [employer] Other 10-31-2021 12:30-0400 Diastolic blood pressure 73 mm[Hg] Janice Arellano Other [employer] Other 10-31-2021 12:30-0400 Respiratory rate 18 /min Janice Arellano Other [employer] Other 10-31-2021 12:30-0400 SaO2% (BldA) [Mass fraction] 97 % Janice Hinojosaler Other [employer] Other 10-31-2021 12:30-0400 Systolic blood pressure 137 mm[Hg] Janice Arellano Other [employer] Other Encounters Encounter Date Encounter Type Care Provider Facility Start: 10-08-2023 End: 10-08-2023 ambulatory BOOTHE FAWWAD Not Available Start: 09-16-2023 End: 09-17-2023 ambulatory DULCE MARIA DE SOUZA Facility:[facility] Start: 09-16-2023 End: 09-16-2023 Patient encounter procedure DULCE MARIA DE SOUZA [facility] Start: 08-05-2023 End: 08-06-2023 ambulatory Deandra Koehlere Facility:[facility] Start: 08-05-2023 End: 08-05-2023 Patient encounter procedure Deandra Rodriguez [facility] Start: 08-04-2023 End: 08-04-2023 ambulatory SHAIKH CHAYOD Not Available Start: 07-28-2023 ambulatory DULCE MARIA DE SOUZA Facili ty:[facility] Start: 07-22-2023 End: 07-23-2023 ambulatory Deandra M. Lue Facility:[facility] Start: 07-22-2023 End: 07-22-2023 Patient encounter procedure Deandra Koehlere [facility] Start: 07-08-2023 End: 07-09-2023 ambulatory Deandra M. Lue Facility:[employer] [facility] Start: 06-23-2023 End: 06-24-2023 ambulatory DULCE MARIA Lamberto DE SOUZA Facility:[facility] Start: 06-23-2023 End: 06-23-2023 Patient encounter procedure DULCE MARIA DE SOUZA [facility] Start: 05-26-2023 End: 05-27-2023 ambulatory Steve ROBISON Facility:[facility] Start: 05-01-2023 End: 05-02-2023 ambulatory Steve ROBISON Facility:[facility] Start: 11-18-2022 End: 11-19-2022 ambulatory DULCE MARIA DE SOUZA Facility:[facility] Start: 11-18-2022 End: 11-18-2022 Patient encounter procedure DULCE MARIA DE SOUZA [facility] Start: 11-07-2022 End: 11-08-2022 ambulatory MAGED GUERRAKERLINE Facility: [facility] Start: 11-07-2022 End: 11-07-2022 Patient encounter procedure [facility] Start: 10-30-2022 End: 10-31-2022 ambulatory Deandra Rodriguez Facility[facility] Start: 10-30-2022 End: 10-30-2022 Patient encounter procedure Deandra Rodriguez [facility] Start: 10-28-2022 End: 10-28-2022 ambulatory Deandra Rodriguez Facility:[facility] Start: 10-28-2022 End: 10-28-2022 Admission to same day surgery center Deandra Rodriguez [facility] Start: 10-15-2022 End: 10-16-2022 ambulatory Deandra Rodriguez Facility:[facility] Start: 10-15-2022 End: 10-15-2022 Patient encounter procedure Deandra Rodriguez [facility] Start: 10-15-2022 ambulatory Facility:[id number] Start: 09-29-2022 End: 09-30-2022 ambulatory Deandra Rodriguez Facility:[facility] Start: 09-08-2022 End: 09-08-2022 Patient encounter procedure Deandra Rodriguez [facility] Start: 08-25-2022 End: 08-25-2022 ambulatory CHRISTIANA DIA Facility:[facility] Start: 12-20-2021 End: 12-20-[address] JERAMY PHIPPS Facility:[facility] Start: 11-21-2021 End: 11-21-2021 ambulatory Janice Arellano Other [employer] Other Start: 11-21-2021 Office outpatient visit 15 minutes Janice Arellano [facility] Start: 10-31-2021 End: 10-31-2021 ambulatory Janice Arellano Other [employer] Other Start: 10-31-2021 Office outpatient visit 15 minutes Janice Arellano [facility] Start: 10-31-2021 Telephone encounter Maged Alvarez i [facility] Procedures Date Procedure Procedure Detail Performing Clinician Start: 10-28-2022 [place] operation, litholapaxy DULCE MARIA DE SOUZA Start: 10-28-2022 Lithotripsy Deandra Rodriguez Start: 10-28-2022 Transurethral insert ion of prostatic urethral lift implant DULCE MARIA DE SOUZA Start: 09-29-2022 Cystoscopy DULCE MARIA SCHMIDT Start: 09-29-2022 Ultrasonography by transrectal approach DULCE MARIA DE SOUZA Start: 09-29-2022 Urodynamic studies ABRAHAM DE SOUZA Colonoscopy Deandra Rodriguez Plan of Treatment Date Care Activity Detail Author Start: 02-17-2024 ambulatory Ambulatory Facility:[facility] Payers Date Payer Category Payer Unknown [id number] 2022 Unknown [id number] 1958 Medicare [id number] 1945 Unknown [id number] 2.16.84 [id number] 1945 Unknown [id number] 2.16.84 [id number] 1945 Unknown [id number] 2.16. [id number] 1945 Unknown [id number] 2.16.8 [id number] 1946 Unknown [id number] 2.16.8 40.1.159837.3.579.2.727 1946 Unknown [id number] 2.16.8 40.1.024809.3.579.2.727 1946 Unknown [id number] 2.16.8 40.1.945205.3.579.2.727 1946 Unknown [id number] 2.16.8 [id number] 1946 Unknown [id number] 2.16.8 40.1.141822.3.579.2.727 1946 Unknown [id number] 2.16.8 40.1.306713.3.579.2.727 1946 Unknown [id number] 2.16.8 40.1.454413.3.579.2.727 1946 Unknown [id number] 2.16.8 [id number] 1945 Unknown [id number] 2.16.8 40.1.265590.3.579.2.727 1945 Unknown [id number] 2.16.8 40.1.312039.3.579.2.727 1945 Unknown [id number] 2.16.8 40.1.332754.3.579.2.727 1945 Unknown [id number] 2.16.8 40.1.879145.3.579.2.727 1945 Unknown [id number] 2.16.8 40.1.383376.3.579.2.727 1945 Unknown [id number] 2.16.8 40.1.944968.3.579.2.727 1945 Unknown [id number] 2.16.84 0.1.097626.3.579.2.1259 1945 Unknown [id number] 2.16.84 0.1.948028.3.579.2.1259 Medicare [id number] 2.16. [id number] Social History Date Type Detail Facility Sex Assigned At [facility] Start: 09-08-2022 End: 05-01-2023 Tobacco smoking status Ex-smoker (finding) [facility] Start: 07-22-2023 End: 08-05-2023 Tobacco smoking status Never [facility] Start: 09-16-2023 Tobacco smoking status Smoker (findi ng) [facility] Medical Equipment Procedure Code Equipment Code [...] 10-28-2022 Functional Status Date Assessment Result Facility 09-16-2023 Functional Status N/A [facility] 08-05-2023 Functional Status N/A [facility] 07-22-2023 Functional Status N/A [facility] 11-18-2022 Functional Status N/A [facility] 10-15-2022 Functional Status No [facility] 09-08-2022 Functional Status N/A [facility] [place] Clinical Notes 10-31-2021 to 09-16-2023 Note Date & Type Note Facility 09-16-2023 Hospital Discharge instructions Patient Education 09/16/2023 10:55:21 Clean Intermittent Catheterization, Male Clean Intermittent Catheterization, [...] and water are not available, use hand station operator. 2.Clean your penis with soap and water. [...] reusable catheter in a small bathroom. Take zgio-uwe-enbdrza and prescription medicines only as told by [...] provider. Document Revised: 05/19/2022 Document Reviewed: 05/19/2022 [employer] Patient Education 2022 [employer] Follow Up Care 08/19/2023 12:56:54 With:DULCE MARIA DE SOUZA PA-C, URL Address: [address] [place] [address] When: Unknown [facility] Steve 08-05-2023 Hospital Discharge instructions Patient Education 08/05/2023 [...] and water are not available, use hand station operator. 2.Clean your penis with soap and water. [...] reusable catheter in a small bathroom. Take zmol-idh-vhkwocu and prescription medicines only as told by [...] provider. Document Revised: 05/19/2022 Document Reviewed: 05/19/2022 [employer] Patient Education 2022 [employer]. Follow Up Care 07/22/2023 08:40:54 With:Michael SMITH, DIVINE Naranjo, URO Address[address] [place] [place] [address] [phone] When: Unknown Comments:6 mos [facility] 07-22-2023 Hospital Discharge instructions Patient [...] urethra. Follow these instructions at home: Take kupz-rny-htakjiu and prescription medicines only as told by [...] provider. Document Revised: 01/29/2022 Document Reviewed: 01/29/2022 [employer] Patient Education 2022 [employer]. Follow Up Care 07/08/2023 11:23:53 With:Michael SMITH, Deandra Smith, URL, URO Address: When:Within 2 Week(s) Comments:w/PVR and Voiding Diary [facility] 11-18-2022 Hospital Discharge instructions Patient [...] Follow these instructions at home: Medicines Take zjbt-lvj-xjwqkfk and prescription medicines only as told by [...] Document Reviewed: 04/03/2021 Else[employer] Patient Education 2022 [employer] [facility] 10-28-2022 Hospital Discharge instructions Patient Education 10/28/2022 12:08:15 White Catheter Care, Male-[facility] (Custom) White Catheter Care, Male A White [...] cotton underwear to absorb moisture and keep drier and pulverizer tender. 6. Keep the drainage bag below the [...] facility personnel to use a Coude (pronounced cook box filler-day) tipped catheter. Follow Up Care 09/30/2022 12:31:12 With:Deandra Rodriguez Address: [address] [place] [place] [phone] Business (1) [facility] [place], [address] [address] [phone] Business (1) When: Unknown Comments:Office to call for followup appointment in 2 days for white removal and voiding trial and clean intermittent cath teaching [facility] 10-28-2022 Evaluation + Plan note Extrac claudine from: Title:CSB post op Author:eLv Muniz MD Date:10/28/22 Plan Transfer/Discharge: Transfer/Discharge Discharge when meets criteria ( To home ). 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 Bladder stone (GMI78-GP N21.0, Discharge, Medical). Diagnosis BPH with urinary obstruction (YKK32-DO N40.1, Discharge, Medical). Bladder stone (SMN59-IB N21.0, Discharge, Medical). Counseled: Patient, Family. Extracted from: Title:CSB GA Author:Lev Muniz MD Date:10/28/22 Plan [place] [employer] Anesthesiologists (ASA) physical status classification: Class II. Anesthetic Preoperative Plan: Anesthesia General. Diagnostic Tests Pending * Calculi Analysis Urinary 10/28/22 [facility]03-23-2023 Note [id number]:[address] [place] [address] 10-15-2022 [id number]:[address] [place], [place] [address]03-06-2023 Note [id number]:[address] [place] [address] 09-29-2022 NoteCystoscopy ? Voiding after the procedure: [...] if you have a fever over 100 degrees.[facility] 09-08-2022 Hospital Discharge instructions Patient Education 09/08/2022 [...] complications. Follow these instructions at home: Take grwr-vga-nhkngmj and prescription medicines only as told by [...] 10/19/2001 Document Revised: 06/25/2018 Document Reviewed: 08/14/2017 [employer] Patient Education 2020 [employer]. Follow Up Care 08/26/2022 14:25:12 With:Michael SMITH, DIVINE Naranjo, URO Address: When: Unknown [facility] 04-28-2022 Evaluation note* Encounter Date Diagnosis Assessment [...] verbalized understanding and agreement with treatment plan [facility] Other 04-07-2022 Evaluation note* Encounter Date Diagnosis [...] Contact dermatitis home care material was printed [employer] Other Evaluation + Plan note Future Appointments Appointment Date:09/09/2022 10:15:00 AM Scheduled Provider: Location:[facility] Appointment Type:Urology CALL PAT FT Appointment Date:09/09/2022 10:45:00 AM Scheduled Provider: Location:[facility] Appointment Type:Urology CALL PAT FT Appointment Date:09/15/2022 08:00:00 AM Scheduled Provider: Location:[facility] Appointment Type:Urology FT Appointment Date:09/15/2022 09:00:00 AM Scheduled Provider: Location:[facility] Appointment Type:Urology FT [facility] Evaluation + Plan note Future Appointments Appointment Date:10/28/2022 11:25:00 AM Scheduled Provider: Location:[facility] App[facility]ments Appointment Date:07/08/2023 10:00:00 AM Scheduled Provider:Deandra Rodriguez MD Location:[facility] Appointment Type:URO Office Visit Appointment Date:07/28/2023 01:00:00 PM Scheduled Provider: Location:[facility] Appointment Type:URO Nurse Visit [facility] evaluation + Plan note Future Appointments Appointment Date:08/05/2023 09:45:00 AM Scheduled Provider:Deandra Rodriguez MD Location:[facility] Appointment Type:URO Office Visit [facility] evaluation + Plan note Future Appointments Appointment Date:02/17/2024 10:45:00 AM Scheduled Provider:Deandra Rodriguez MD Location:[facility] Appointment Type:URO Office Visit [facility] evaluation noteNo [facility] [address] Discoveries Other History general Narrative - Reported* Type Description Date Medical History rheumatoid arthritis Medical History ROCIO (noncompliant with CPAP ther apy) Medical History COPD Medical History Insomnia Medical History Hypertension Medical History Kidney Stones Medical History Multiple Renal Cysts [facility]) Medical History Urinary Retention (requiring int ermittent self-cath) Surgical History cholecystectomy [facility] K94 Discoveries Other Hospital course Narrative No data available for this section [facility] [place] Hospital Discharge instructions No data available for this section [facility] No data available for this section [facility] [place] Summary Purpose Family History No Family History Records FoundNo Family History Records FoundNo Family History Records FoundNo Family History Records Found No data available for this section No data available for this section No data available for this section No data available for this section No Family History Records FoundNo Family History Records Found Advance Directives No [...] section and content) DATE CREATED AUTHOR 02/13/2021 [facility] DATE CREATED AUTHOR AUTHOR'S ORGANIZ ATION 08/18/2021 [facility] DATE CREATED AUTHOR AUTHOR'S ORGANIZ ATION 08/30/2022 [facility] DATE CREATED AUTHOR AUTHOR'S ORGANIZ ATION 11/02/2022 [facility] DATE CREATED AUTHOR AUTHOR'S ORGANIZ ATION 09/23/2023 [facility] DATE CREATED AUTHOR AUTHOR'S ORGANIZ ATION 10/09/2023 [facility] Specialists EPIC REASON FOR VISIT (unrecogniz ed section and content) RASH ON ARMNo InformationRAS H Patient Care team informatio n (unrecognized section and content) Personnel Name: MAGED ANDRADE DO Address: Address: [address] Personnel Name: MAGED ANDRADE DO Address: Address: [address] Personnel Name: MAGED ANDRADE DO Address: Address: [address] Personnel Name: MAGED ANDRADE DO Address: Address: [address] Personnel Name: MAGED ANDRADE DO Address: Address: [address] Personnel Name: MAGED ANDRADE DO Address: Address: [address] Personnel Name: MAGED ANDRADE DO Address: Address: [address] Personnel Name: MAGED ANDRADE DO Address: Address: [address] Personnel Name: MAGED ANDRADE DO Address: Address: [address] Personnel Name: MAGED ANDRADE DO Address: Address: [address] [place] [address] FOR RECORDS PERTAINING TO PATIENTS WHO ARE [...] BE BASED ON THE PRIMARY CLINICAL RECORDS. [employer] [facility]. provides no warranty or guarantee of the accuracy or completeness of information in this document.
--- NOTE | 2023-10-31 11:54 | ED_ITS ---
HPI HPI - General Adult General Chief complaint: Shortness of Breath/Dyspnea Stated complaint: PROBLEMS CATHING Time Seen by Provider: 10/31/23 11:47 Source: patient Mode of arrival: walk-in Limitations: no limitations History of Present Illness HPI narrative: This patient is here with a family member for several complaints. When he thinks about he has been sick for 3 to 4 days with less energy and decreased fluid and food intake and decreased urinary output. 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 He is not known to have any prostate cancer. He says been a cath today he had hardly any urine output. He has not really had diarrhea. He has not been on any antibiotics does not have any chest pain or shortness of breath he just has fatigability that he normally does not have. He has had UTIs in the past. Related Data Home Medications ?Medication ?Instructions ?Recorded ?Confirmed aspirin 81 mg tablet,delayed 81 mg PO DAILY 10/31/23 10/31/23 release duloxetine PO 10/31/23 finasteride .ROUTE 10/31/23 hydroxychloroquine PO 10/31/23 lamotrigine .ROUTE 10/31/23 losartan 100 1 tab PO DAILY 10/31/23 10/31/23 mg-hydrochlorothiazide 12.5 mg tablet potassium chloride .ROUTE 10/31/23 ropinirole .ROUTE 10/31/23 tamsulosin PO 10/31/23 trazodone .ROUTE 10/31/23 Previous Rx's ?Medication ?Instructions ?Recorded cephalexin 500 mg capsule 500 mg PO TID 7 days #21 caps 09/13/23 Allergies Allergy/AdvReac Type Severity Reaction Status Date / Time No Known Drug Allergies Allergy Verified 06/10/23 11:16 Opioid HPI Opioid Management Most Recent Opioid Data: Last Pain Scale 3 09/13/23 10:57 PFSH PFSH Social History Smoking status: Former smoker Exam Narrative Exam Narrative: Awake alert vital signs are noted. He is not clammy pallor or diaphoretic. He has no respiratory distress and his pulse oximetry is 97% no cough or congestion. Neurological cognition mental status and history ability is excellent. Movement of the trunk torso or extremities appears to be normal. Constitutional Vital Signs, click to edit/add: Last Vital Signs Temp 97.9 F 10/31/23 11:17 Pulse 87 10/31/23 11:17 Resp 20 10/31/23 11:17 BP 140/103 H 10/31/23 11:17 Pulse Ox 97 10/31/23 11:17 O2 Del Method Room Air 10/31/23 11:17 Course Vital Signs Vital signs: Vital Signs Temperature 97.9 F 10/31/23 11:17 Pulse Rate 87 10/31/23 11:17 Respiratory Rate 20 10/31/23 11:17 Blood Pressure 140/103 H 10/31/23 11:17 Pulse Oximetry 97 10/31/23 11:17 Oxygen Delivery Method Room Air 10/31/23 11:17 Temperature 97.9 F 10/31/23 11:17 Pulse Rate 87 10/31/23 11:17 Respiratory Rate 20 10/31/23 11:17 Blood Pressure 140/103 H 10/31/23 11:17 Pulse Oximetry 97 10/31/23 11:17 Oxygen Delivery Method Room Air 10/31/23 11:17 Medical Decision Making MDM Narrative Medical decision making narrative: This patient does have some viral symptomatology but because he self catheterizes himself it is also very likely area of infection. This patient's urinalysis here obtained by catheterization shows greater than 100 WBCs with bacteria. His lactate level is also elevated. He does not have hypotension or tachycardia. He has felt bad for several days. I have suggested hospitalization and he is agreeable. I also spoke to the hospitalist. We will start him on antibiotics. Discharge Plan Discharge Chief Complaint: Shortness of Breath/Dyspnea Clinical Impression: Urinary tract infection Patient Disposition: Admitted as Observation Time of Disposition Decision: 15:10 Prescriptions / Home Meds: No Action cephalexin 500 mg capsule 500 mg PO TID 7 Days Qty: 21 0RF duloxetine PO losartan-hydrochlorothiazide 100-12.5 mg tablet 1 tab PO DAILY tamsulosin PO lamotrigine .ROUTE hydroxychloroquine [Plaquenil] PO trazodone .ROUTE ropinirole .ROUTE aspirin 81 mg tablet,delayed release (DR/EC) 81 mg PO DAILY potassium chloride .ROUTE finasteride .ROUTE Print Language: Estonian Referrals: Physician,Non-Staff, MD [Primary Care Provider] - 1 week
--- NOTE | 2023-10-31 11:55 | ECG_ITS ---
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
--- NOTE | 2023-10-31 11:55 | XR_ITS ---
The [address] [address] Patient Name: MARVIN GARCIA MRN: [id number] date: 1945 Sex: M Assigned Patient Location: ER Current Patient Location: ER Accession/Order Number: [id number] Exam Date: 10/31/2023 12:03 Report Date: 10/31/2023 13:48 At the request of: MARVIN MARMOLEJO Procedure: XR chest 1V EXAM: XR chest 1V 10/31/2023. COMPARISON STUDY: PA and lateral chest 02/06/2021. FINDINGS: Upright AP chest image was obtained. HISTORY: Weak. XR/XR chest 1V IMPRESSION: 1. Cardiomediastinal contours are stable. 2. Old healed fracture deformities involving the right mid clavicle and multiple right-sided ribs again identified. 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 No acute osseous change suspected. 3. No new dense consolidation, effusion, edema, failure, or pneumothorax noted. Electronically authenticated by: STEW LABOY Date: 10/31/2023 13:48
[2023-10-31 12:33] LABS: Basophils Percent Auto 0.4 % (0.2-2.0); Eosinophils Absolute Auto 0.1 10^3/uL (0.0-0.7); Eosinophils Percent Auto 1.3 % (0.9-7.0); Hematocrit 39.3 % (42.0-54.0); Hemoglobin 13.4 g/dL (14.0-18.0); Immature Granulocytes Abs Auto 0.04 10^3/uL (0.00-0.03); Immature Granulocytes Pct Auto 0.4 % (0.0-0.5); Lymphocytes Absolute Auto 1.5 10^3/uL (1.2-3.8); Lymphocytes Percent Auto 15.6 % (20.5-60.0); Mean Corpuscular HGB Conc 34.1 g/dL (29.9-35.2); Mean Corpuscular Hemoglobin 33.6 pg (25.9-34.0); Mean Corpuscular Volume 98.5 fL (80.0-94.0); Monocytes Absolute Auto 1.5 10^3/uL (0.3-0.8); Monocytes Percent Auto 15.4 % (1.7-12.0); Neutrophils Absolute Auto 6.5 10^3/uL (1.4-6.5); Neutrophils Percent Auto 66.9 % (43.0-75.0); Platelet Count 216 10^3/uL (150-450); Red Blood Count 3.99 10^6/uL (4.70-6.10); Red Cell Distribution Width 12.3 % (11.0-15.0); White Blood Count 9.7 10^3/uL (4.0-11.0)
[2023-10-31 12:43] LABS: Influenza Virus A Antigen Negative; Influenza Virus B Antigen Negative; Internal Control Within Normal Limits; SARS-CoV-2 Ag NEGATIVE (NEGATIVE)
[2023-10-31 12:48] LABS: Alanine Aminotransferase 18 U/L (16-63); Albumin Globulin Ratio 0.6; Albumin Level 2.6 g/dL (3.4-5.0); Alkaline Phosphatase 126 U/L (46-116); Anion Gap 14.3; Aspartate Amino Transferase 18 U/L (15-37); BUN Creatinine Ratio 14.4; Bilirubin Total 0.7 mg/dL (0.2-1.0); Calcium 9.6 mg/dL (8.5-10.1); Carbon Dioxide 24.9 mmol/L (21.0-32.0); Chloride 103 mmol/L (98-107); Estimated GFR (African America >60 (>=60); Estimated GFR (Non-African Ame >60 (>=60); Globulin 4.1 g/dL; Glucose 122 mg/dL (74-106); Potassium 3.2 mmol/L (3.5-5.1); Sodium 139 mmol/L (136-145); Total Protein 6.7 g/dL (6.4-8.2)
[2023-10-31] MEDS: 0.9 % SODIUM CHLORIDE 1,000 ML 999 ML IV (12:50)
[2023-10-31 12:55] LABS: Thyroid Stimulating Hormone 3.035 uIU/mL (0.358-3.740); Troponin I High Sensitivity 8.8 pg/mL (4.0-76.1)
[2023-10-31 13:02] LABS: Lactate/Lactic Acid 2.4 mmol/L (0.4-2.0)
[2023-10-31 14:11] LABS: Bilirubin Urine NEGATIVE (NEGATIVE); Blood Urine MODERATE (NEGATIVE); Clarity Urine CLEAR (CLEAR); Color Urine LT. YELLOW (YELLOW); Glucose Urine UA NEGATIVE (NEGATIVE); Ketones Urine NEGATIVE (NEGATIVE); Leukocyte Esterase Urine MODERATE (NEGATIVE); Nitrite Urine POSITIVE (NEGATIVE); Protein Urine 30 mg/dL (NEG/TRACE); Specific Gravity Urine >=1.030 (1.005-1.025); Urobilinogen Urine 0.2 EU/dL (0.2-1.0)
[2023-10-31 14:26] LABS: Urine Microscopic Indicated YES
[2023-10-31 14:31] LABS: Bacteria Urine LARGE #/HPF (NONE SEEN); Mucus Urine NONE SEEN (NONE SEEN); Squamous Epithelial Cell Urine FEW #/LPF (NONE/RARE); WBC Urine >100 #/HPF (NONE SEEN)
[2023-10-31 14:32] LABS: Urine Culture Indicated YES
[2023-10-31] MEDS: LEVOFLOXACIN IN DEXTROSE 5 % 500 MG/100 ML PIGGYBACK 100 MG IV (15:39)
[2023-10-31 16:03] LABS: Lactate/Lactic Acid 1.1 mmol/L (0.4-2.0)
[2023-10-31 16:19] VITALS: BP 143/90; PULSE 70; TEMP 37; O2SAT 97
--- OUTSIDE RECORDS SUMMARY | 2023-10-31 16:43 | XMS_ITS | CCD ---
Author Organization [facility] Providers Care Coo & Co Founder Name Role Phone Jaince Arellano Unavailable Maged Andrade Unavailable CHRISTIANA DIA Consulting Unavailable EDWARDO WALKER Admitting Unavailable EDWARDO WALKER Attending Unavailable [facility] [place], DR BONILLA Primary Care Unavailable DESIRE, DR JERAMY Singh Admitting Unavailable DESIRE, DR JERAMY Singh Attending Unavailable DESIRE, DR JERAMY Singh Consulting Unavailable MAGED ANDRADE Primary Care Physician [phone] MAGED ANDRADE Primary Care Physician [phone] DULCE MARIA DE SOUZA Attending Unavailable Lue, Deandra MCarla Admitting Unavailable Lue, Deandra MCarla Referring Unavailable Lue, Deandra MCarla Attending Unavailable Lue, Deandra MCarla Admitting Unavailable Lue, Deandra MCarla Referring Unavailable Lue, Edandra MCarla Attending Unavailable Lue, Deandra MCarla Referring [...] Medication Allergies] Propensity to adverse reactions (disorder) [facility] Repository Medications Current Medications Medication Drug Class(es) Dates Sig (Normalized) Sig (Original) [id number] 200 actuat albuterol 0.09 mg/actuat metered dose [...] # 2 cap(s), Refills(s) 0, Pharmacy: [id number], 186, cm, 10/15/22 12:53:00 EDT, Height/Length Dosing, [...] 10/15/22 Status: Ordered take 1 capsule by [facility] every twenty-four hours Tamsulosin HCl 0.4 MG [...] Range Facility ED Note-Physicianon 09-17-19 ED Note-Physician [id number]#1.0 0TIFF [facility] Retail - Clinical Noteon Retail - Clinical Note [id number]#1.0 0TIFF [facility] Ambulatory Visit Summaryon 0 09-16-2023 Ambulatory [...] SMITH, Deandra Smith Where: [facility] Patient Educationon 09-16-19 Patient Education [...] and water are not available, 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 2. Clean your penis with soap and [...] catheter in a small bathroom. ? Take pipl-doh-guaevul and prescription medicines only as told by your he (more content not included)... Normal [facility] Urology Office/Clinic Noteon 09-16-2023 Urology Office/Clinic Note Chief Complaint Follow up to ER visit [facility] HPI Staff Pt is here today to discuss starting CIC again. Pt was seen at [facility] on 09/13/23 cath was replaced due [...] to feeling he did not need to. [facility] ER 04/28/23 due to inability to urinate. Drained at least 1400mL with White catheter. Kidney function was preserved at that time. [1] Resumed CIC 07/08/23 [facility] ER 08/07/23 due to inability to pass cath x3-4 days. >500cc retained. white placed. [facility] ER 09/13/23 due to cath not [...] Follow-up With When Contact Information DAMI RASMUSSEN, DULCE MARIA Orantes, URL [address] [facility] [place] [address] Additional Instructions: Has f/u with Dr. Rodriguez [...] (10/28/2022), Transurethral insertion (more content not included)... [facility] Comment on above: Result Comment: Elec tronically Signed By: DULCE MARIA DE SOUZA PA-C\.br\Date and Time Signed: 09/16/23 16:29 EST\.br\Electronically Co-Signed By: Pina Trejo\.br\Date and Time Co-Signed: 09/16/23 11:10 EST IntraOperative Documentson 0 09-03-2023 IntraOperative Documents [id number]#1.0 0TIFF [facility] ED Note-Physicianon 08-13-19 ED Note-Physician [id number]#1.0 0TIFF [facility] Lab Reportson 08-13-2023 Lab Reports [id number]#1.00 TIFF [facility] Ambulatory Visit Summaryon 0 08-05-2023 Ambulatory [...] SMITH, Deandra Smith Where: [facility] Patient Educationon 08-05-19 Patient Education [...] and water are not available, 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 2. Clean your penis with soap and [...] catheter in a small bathroom. ? Take lrzp-jer-rqdaakt and prescription medicines only as told by your he (more content not included)... Normal [facility] Urology Office/Clinic Noteon 08-05-2023 Urology Office/Clinic [...] phone, sister in person. [place] [facility] [place] for primary care Baby aspirin, no hx of stroke or heart attack. States if he has to see a specialist through the [place] he has to travel to [place]. 1. Urinary retention (R33.9: Retention of urine, unspecified) S/p UroLift/Cystolitholapa xy 10/28/22. Did CIC in the past, stopped due to feeling he did not need to. States lowest volume he had was 180mL when self-cathing. [facility] ER 04/28/23 due to inability to [...] take a year. [facility] Risks/benefits discussed. -Cont CIC q6h. [...] tx'd with Keflex Possible UTI 06/10/23 at [facility] ER visit, tx'd with Keflex. Pt [...] reevaluate ou (more content not included)... Normal [facility] Comment on above: Result Comment: Elec tronically Signed By: Deandra Rodriguez MD\.br\Date and Time Signed: 08/05/23 15:00 EST\.br\Electronically Co-Signed By: Shahla Shelley\.br\Date and Time Co-Signed: 08/05/23 10:45 EST [place] 07-24-2023 Screens [id number]#1. 00TIFF [facility] Screens [id number]#1.0 0TIFF [facility] Ambulatory Visit Summaryon 1 09-22-2022 Ambulatory [...] SMITH, Deandra Smith Where: [facility] Patient Educationon 07-22-20 Patient Education [...] Follow these instructions at home: ? Take cyyt-bsn-tgaowsr and prescription medicines only as told by [...] the medicine (more content not included)... Normal [facility] Urology Office/Clinic Noteon 07-22-2023 Urology Office/Clinic [...] retention 4-6 wks later. [place] for primary care, did not bring a list of medications with him today. Baby aspirin, no hx of stroke or heart attack. States if he has to see a specialist through the [place] he has to travel to [place]. 1. Urinary retention (R33.9: Retention of urine, unspecified) S/p UroLift/Cystolitholapa xy 10/28/22. Did CIC in the past, stopped about 4-6 weeks ago due feeling he did not need to. States lowest volume he had was 180mL when self-cathing. Presented to [facility] ER 04/28/23 due to inability to [...] Keflex. Advised pt to complete abx course. [facility] ER 06/10/23 - CC: brownish colored [...] urinary retentio (more content not included)... Normal [facility] Comment on above: Result Comment: Elec tronically Signed By: Deandra Rodriguez MD\.br\Date and Time Signed: 07/22/23 09:00 EST\.br\Electronically Co-Signed By: Anastasia Rowell\.br\Date and Time Co-Signed: 07/22/23 08:37 EST ED Note-Physicianon 07-10-20 ED Note-Physician [id number]#1.0 0TIFF [facility] Lab Reportson 07-10-2023 Lab Reports [id number]#1.0 0TIFF [facility] Ambulatory Visit Summaryon 1 09-08-2022 Ambulatory [...] SMITH, Deandra Smith Where: [facility] Patient Educationon 07-08-20 Patient Education [...] and water are not available, 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 2. Clean your penis with soap and [...] catheter in a small bathroom. ? Take iluu-jxk-trwkxho and prescription medicines only as told by your he (more content not included)... 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 Pt had initially presented to [facility] as a new pt, due to [...] is here today to follow up to [facility] ER 06/10/23 CC: brownish colored urine [...] retention 4-6 wks later. [place] for primary care, did not bring a list of medications with him today. Baby aspirin, no hx of stroke or heart attack. States if he has to see a specialist through the [place] he has to travel to [place]. 1. Urinary retention (R33.9: Retention of urine, unspecified) S/p UroLift/Cystolitholapa xy 10/28/22. Did CIC in the past, stopped about 4-6 weeks ago due feeling he did not need to. States lowest volume he had was 180mL when self-cathing. Presented to [facility] ER 04/28/23 due to inability to [...] is here today to follow up to [facility] ER 06/10/23 - CC: brownish colored urine, +C&S Sent home with Keflex therapy. He did take all this, no problems with this, no pain or burning, blood in bag, noticed this morning. Has been asx during positive cultures. Discussed difference between colonization vs UTI. Advised pt that when he has a catheter placed, he will always have bacteria (more content not included)... [facility] Comment on above: Result Comment: Elec [...] 1:00 PM EST Where: [facility] Patient Correspondenceon Patient Correspondence [id number]#1.0 0TIFF [facility] Ambulatory Visit Summaryon 1 Ambulatory Visit [...] 1:00 PM EDT Where: [facility] ED Note-Physicianon 05-01-20 ED Note-Physician [id number]#1.0 0TIFF Normal [facility] Patient Educationon 05-01-20 Patient Education [...] provider. Document Revised: 03/12/2022 Document Reviewed: 03/12/2022 [employer] Patient Education ? 2022 [employer] Indwelling Urinary Catheter Insertion, Care After [...] po (more content not included)... Normal [facility] Urology Office/Clinic Noteon 05-01-2023 Urology Office/Clinic Note Chief Complaint ER follow up *Urinary Retention HPI Staff Follow up to [facility] ER 04/28/23 CC: difficulty urinating Catheter [...] had was 180mL when self-cathing. Presented to [facility] ER 04/28/23 due to inability to [...] Information Michael SMITH, Deandra Smith, URL, [facility] [address], [place] [phone] Additional Instructions: 1 month cath change Patient [...] mg tablets, (more content not included)... Normal [facility] Comment on above: Result Comment: Elec tronically Signed By: Steve ROBISON MD\.br\Date and Time Signed: 05/01/23 11:07 EDT\.br\Electronically Co-Signed By: Shahla Shelley.br\Date and Time Co-Signed: 05/01/23 11:05 EDT ED Note-Physicianon 04-29-20 ED Note-Physician [id number]#1.0 0CD:127 [facility] Ambulatory Visit Summaryon 0 11-18-2022 Ambulatory Visit Summary RICKEY GARCIA :1945 Visit Date:11/18/2022 Ambulatory Visit Instructions Your Diagnosis Urinary retention Tests Performed Urnls Dip Stick Auto w/o Microscopy POC 20170 Your Care Team Attending Physician - DAMI [...] Urnls Dip Stick Auto w/o Microscopy POC 04982 (11/18/2022) Bilirubin Urine Dipstick - Negative Blood Urine Dipstick - Negative Glucose Urine Dipstick - Negative Ketones Urine Dipstick - Negative Leukocytes Urine Dipstick - 1+ Small Nitrite Urine Dipstick - Positive Protein Urine Dipstick - Negative Specific [place] Urine Dipstick - 1.025 Urine Appearance Urine [...] surgery, probl (more content not included)... Normal [facility] Patient Educationon 04-25-20 23 Patient Education Urology [...] these instructions at home: Medicines ? Take whrw-rro-aymzjrw and prescription medicines only as told by [...] provider. Document Revised: 04/03/2021 Document Reviewed: 04/03/2021 [employer] Patient Education ? 2022 [employer] Steph [facility] Urology Office/Clinic Noteon 11-18-2022 Urology Office/Clinic [...] during attempts to void. XR Ab 10/28/22 [facility] - A catheter overlies the lower pelvis, [...] E&M of Est. Patient Low 20-29 Min 54476 Influenza immunization status assessed 1030F Measure Post Void residual urine and/or bladder capacity by US- non-imaging 93474 Most recent diastolic blood pressure <80 mm Hg 3078F Patient screen for fall risk: no falls in last year or 1 fall with no injury in last year 1101F Systolic BP 130-139 mm Hg (Most Recent) 3075F Urnls Dip Stick Auto w/o Microscopy POC 49551 Total time spent reviewing previous notes/results/external documents, [...] mg Tab, (more content not included)... Normal [facility] Comment on [...] Smoker Urinary retention Urinary tract infection Normal [facility] IntraOperative Documentson 0 11-04-2022 IntraOperative Documents [id number]#1. 00CD:127 Normal [facility] Postoperative Documentson Postoperative Documents [id number]#1.0 0CD:127 Normal [facility] Calculus Analysison 11-04-19 23 Calcium hydrogen phosphate dihydrate (Stone) [Mass fraction] 5 % Invalid Interpretation Code [facility] Comment on above: Performed By: #### 1 [id number] #### [facility] Laboratory [address] [place] [address] Calcium oxalate dihydrate Infrared spectroscopy (Stone) [Mass fraction] 20 % Invalid Interpretation Code [facility] Comment on above: Performed By: #### 1 [id number] #### [facility] [address] [place] [address] Calcium oxalate monohydrate (Stone) [Mass fraction] 75 % Invalid Interpretation Code [facility] Comment on above: Performed By: #### 1 [id number] #### [facility] [address] [place] [address] Color (Stone) Duran Invalid Interpretation Code [facility] Comment on above: Performed By: #### 1 [id number] #### [facility] [address] [place] [address] Composition Comment Invalid Interpretation Code [facility] Comment on above: Result Comment: Perc entage (Represents the % composition) Performed By: #### 1 [id number] #### [facility] [address] [place] [address] Disclaimer: Comment Invalid Interpretation Code [facility] Comment on above: Result Comment: This test was developed and its performance characteristics determined by [facility]. It has not been cleared or approved by the Food and Drug Administration. Performed at: [facility] [address] [place] [address] [place], [place] [id number] PhD Alvarez Mccoy Performed By: #### 1 [id number] #### [facility] [address] [place] [address] Laboratory comment Good (Report) Comment Invalid Interpretation Code [facility] Comment on above: Result Comment: Tessa louis questions regarding Calculi Analysis contact [facility] at: [phone]. Performed By: #### 1 [id number] #### [facility] [address] [place] [address] Please Note: Comment Invalid Interpretation Code [facility] Comment on above: Result Comment: Calc maciej report will follow via computer, mail or chainstitch sewing machine operator delivery. Performed By: #### 1 [id number] #### [facility] [address] [place] [address] Size (Stone) [Entitic vol] 7x13 Invalid Interpretation Code [facility] Comment on above: Result Comment: Mult iple pieces received. Dimensions of the largest piece reported. Performed By: #### 1 [id number] #### [facility] [address] [place] [address] Specimen source subject Nom Comment Invalid Interpretation Code [facility] Comment on above: Result Comment: Urin jasiel Bladder Performed By: #### 1 [id number] #### [facility] [address] [place] [address] Stone Photo Comment Invalid Interpretation Code [facility] Comment on above: Result Comment: Phot ograph will follow under a separate cover Performed By: #### 1 [id number] #### [facility] [address] [place] [address] Weight (Stone) 1188 mg Invalid Interpretation Code [facility] Comment on above: Performed By: #### 1 [id number] #### [facility] [address] [place] [address] Coding Summary.on 10-31-2022 Coding Summary. CD:[id number] Ww +PGhlYWQ+HZ8JBIBrG23ls PClpI8wV8XFTYpTMmmeTFZ GRDzYFsNbosXxYP1hnEMxV XJu IC8+KL8pCKJfXcrvoXLsq1 R5gKD8P22oqc9cXOsxkTT9 HZLwNvOqmqetg2xriXu2KI cuNmluOyBt AVNbvT65DIN8xM68Ef66qM LhkNTll4rhkEl5WrDwZRLq TPC2eNwyKFjth5ApGJJmZ2 8lhIDzn1W3 MABtgZctnTXdYaImiKI4aC 3yRTtwsqkxf8ztzbnkWcb6 dl02iNXse7S4oHF9E5Kxcs Q7DEUwwRVn TwvntNSJtE7vatksw5asnj dzWtHqCWNhULt0OPu4RXZb gEjhGpHiCD78ZGZ2XRReyt ZbW9HtHGHp mTbsEdP4b0P1Qf5OG4KYHd mfX1TEEJNPDZzcgLU+PC90 ke11T6GaNiduAgn3NETlZT Y0wVH2uV2m SXMcOLppf8X5kDN1D9Kgtl Lska7nd3keOIVdMZyrS45x iJXyp2V7CCXawEA6GWAhkC bbDaYrdB12 Oyc+DYPgyBpxl1QkFuwoh4 bjp8wfpUd5AcyfRIOkuwBm eYnvXEB4l2EeCi4eYIEizS V7nXS7wI0v KqPiKcQ7SCqmW726FbMwqG OzFhdvH50hR7IjiQL+PHRy Ams5EKSyjWsnLS8iP2XeNE RpbmctbGVm mUxwFF7zMBVhkxnxFFUxcM 6pIBSwT8o9YvXcLbI2CFat J1XfZEIcaxqaFv78nK8fVw KqPxI6ATvb D4CnztK0YAPpiKUuLIskAL G9U72sn9U7ZGNdNJUtOBN0 bWJ2iG1rsZuwevlsiYZwnM sgdmVydGlj UUpaFInzM245AXAzzNieKb NvZGluZyBEYXRlOiAgMDQv MDcvMjAyMzwvdGQ+PHRkIH P3cCaoFVVo gQDaUEpiVd6riHdxuHjwBN 5eIXVfvwyrMXYixV4qBSXt sVPkwLblCA8oOYDagjnus0 61VgBpKRE2 OUXnyMBuT7EekO6vVhQjAN HmJCDdN4RhdAPlQBuvO505 ROjiEkY3OFXyeiDvS1CyDY FsaWduOiB0 k5I5Rh8Vk4EzsybfL9SfnN OeCmAuCzmpBUr2Q4DhGbgx dHI+FH80ITJoIJ69NCq9ZL T6aBpcQTpi GHNkW6NzdZ7dFyFmXHGsDM RkOyc+PHRhYmxlIHdpZHRo LObjZVPxSyJgcDsjKB6mEw 9yZGVyLWNv eUkxzTIlTkWzc5xjTSMhTS rqSR3kuWilD2XbpWX5CFTr d9p5Oi65S75yS7QadTR+PG SekAH5gNX2 aI5uLbAwPwW3DJjeD116Su DreDLzVtlzc4swh6fhwYo1 IkR1KHVzryTenUlvBSO5z7 CoOe35N81k IHdpZHRoPSIxNSUiIHZhbG cxxf2ykW6tSi9+PGNvbCB3 aIN2nI1jOrUnKaN3WKmjT6 49InRvcCIv Fabmo3adp4gfkEd6UxQxLK GyxdRfsWgiCZI0g8WjUh41 T5NgeCrzf0MhMpg5gz60rZ Xyg7C8tFU1 T0KrBZVdfqdofETbmDnpQB 5aLPHaxtwmBMChmG8kNLBl R6f3OuYeXiG0JUexQ3Nlvt U3ZPHhsHDj FQKgcYTLfU1txuujy7mlsk ygWkJmFLPfYAk6QWt6BPCh wGkcPcMlMYL3KrN7GYJ0pN XicD0eaMyj cmuldK3pEyx+ART9mZCjzW RZOG5fGzjghKZ+PHRkIHN0 kWitQSaeSOXlnC8dTTZmU8 v8PvLaDpP7 VWxqM4OwdzY4TOKedKQrWR TajFNHgB9ydmppj1rusokc ZeKwSWAkVDl3ETl2NNGucP duOiBsZWZ0 DjI0SIQ7aGDoxY3hpKinde eqoI7yVfo+QmlydGggRGF0 ARl5D7YxHcs1SKJgzFssFX 0ncGFkZGlu Ed4rbAesvSpzJU4jCJLnag svt295LtWps9gnVFTacZNl ECmgKJQ9W85iw8W6VFGgSI YkTKM3uZN9 zZ2ujDkejtnpzPOhnEdepk HvsAgeBUcrOMatJ011OFYh xEcuOoPvZDa7V7BtAzz1GO VflHjhKX8y wKRiARopDs2vhArrkQdcPZ 5jWPWsdiowk331TsApu5gb ESIinCLxCMcpXJJ2D47jd8 J6YNWiKZFe KOU2vOH8uI0zcSzyzrmklX VmdDsgdmVydGljYWwtYWxp L304RAXkqKnvKlBskBg0W3 IsBec2DUUf fDysJJ9elUKsOTwyNj2xkJ fziCweRB3hGTVfipmii076 NdXsl6raACHyuKQnYFspJC P3T94rr8Y2 AZFoQYWbLUL2gKB7cA2nzV lnbjogbGVmdDsgdmVydGlj MZjkVJqxT362PRMuhBolIs BhdGllbnQg MCemBWq8I2FpFviukIR+PC 72REEaMO64bAQzhKXtj3ti sFu9QvEwYYXqXTR0wXmpGK rew6BmGELy J88djIKhs9N3BLFydKqigL WzOrSuoTF5yE0eJIkcqdbe y8zmqjfvRumdn4jrei18yN 50N68fBYua ZHRoPSIzMCUiIHZhbGlnbj 1hpA1oVs3+EVBqqJR2rRJ4 sB4dRJUuQiN4YZaeH086Jn RvcCIvPjxj j5znw4bqaUh8QkT4RZUkbx HhbSjpSZZ0j4ZnRh92T23l IHdpZHRoPSIyMCUiIHZhbG ypau5anZ2b Ii8+FPKmdAT0bAP1aE4lXw SqEzX2GNceQ533LgRznZRw BfpwW34iE3LmqEV+PHRyPj b3WVRfoQjc DA2gcWGfBDbtSf2hCAM7Ul SeWvRzASgpH3CrLCKnyqtk qqddpQJ5QZRrPSKjeX99Qx 9udDogMTBw sLEGdE6dpfswl7wrvjiiJg HmOOHlUZx1DFz0NWMonStx UxVpDEO6WtS5ZKZ8xTOhzE 1hbGlnbjog xL4rC7SrOATdlfsiFi53uR 8eAvIdQtJ1SAblBwc+TEFV DmEWHHQZPYcfF5MXJXkDGc XGLJ07WO63 sYJfq6L9gCU5E3McXLNbgr jfmdlxpFL6PVYyIYXwtR61 dVRqGJzvMj8ou4G2b751NR PeTJYshR92 Hz7iiMhwCMBpwHKKwT5cxf vgf7guubfzRaZiLMKnSJa8 CCj1PBOrtDczIhZgREF3Ve U9XZJ2hDDt cM7vcAiypjqfhS4gXvr+MD QuCfhuLAd1KvjlmSH+PHRk QGZ5rOqjHSkqNKSgwO0tAR RvD9r4LbOm NsQ2OVfmD2SfJHLypizaAo 87hM8nJcBzBkR0ZBchK7Aj abS8DDOrdTFgOYczKUV8R7 0yt6B0KIOr ZGMsESN7vTZ5eE1auRcacr ogbGVmdDsgdmVydGljYWwt XWulK452RZTirMjgNtk7LC fxCMYcMA77 ZJ11mGJtr5G7uVW2T6RoOD IszwneijueuFP5IPFbNBLe jI61oCQtETrvQl7rw3B6y7 06IDAuMDUw zP06Mk4mzInsRGLgtSABpJ 0dsmkrs2nwyhfbYrHoTFQi AJa3NEm8PCFktNzxLtPkMT E3WrQ8APD3 dWVfbA9jfTinedtxaP0mKl c+TWFsZTwvdGQ+PHRkIHN0 mBcyWCeeUGGdzA9jRIMoP9 h4AfPtKlY7 XYruB7KrCJNydfolBz43mI 7zOgKeWpG0EBbbU4HmxoL8 RIOxnMZfOGnuCHM4Z44zc2 K5SQRlFDYu GUT7vAD6aQ4vnLoapxirbW VmdDsgdmVydGljYWwtYWxp B634LBTegHrmNoIjDcXrOF EadcwpJ9Kh QVDAQNyrL2YlZ0HvrNfdbO Q+PC34kt76R6GkEiubPee0 RAEgSAR2rGJ9rD0mTEBaJA vxg5C0cKW6 E7RdwtZmyx3bm2exFKXmAX rdA03seVAdb9N7OBGryUA1 JNXmnGcuSnOfyM59Car+PG YaxFfxe8Fz Gevht9fgz1kfzDa2EnStBW ZrguCijFrdQHY8o4FnQz67 Y07vGJyrELTjVZLbKJLnEO DnkMxoct8b rL5oGj0+SELosHN2zZY0bF 7bAgWrHmX8NYnzJ534JoTt cSEgSmriz0fhw1eziTk2Ib IwJSIgdmFs nQhxSEE4x8XiCt25K1AokE bny7SfNxh9uo24eVGhq3C4 gWM7V6GhINRmanhjpRXfoR pjPL8uCTVf dxqgSKXkhC2fTPCjP8n1Ma TvQwW3SNvhU3YyvlS2PAXu cXDdDXPriNIMfJ7lguskt8 xvcjogIzAw KZUoLIo5TZv1NIOgmIspIi FyFMQ9ZkV1RPF9nBEdbI3j hHtzzwdlrX4pWvb+UGh5c2 uoxJXqNB2m aRD8OV70ZF10aRPle5R8qQ N4K4JzMJGxqgfjvuljxPQ6 YDWyIKHejY47Wb7qlKepCa 1kZAOlRWI5 RYJznBOpB9WrhU2lTpWyWJ YcDSPiZ0EtlINpVFluE664 MOltTzQ7HILduhQbK2MgOT FsaWduOiB0 k8N2Pu5SUX44AZ90KV75kO Qjn4I4uPY1I8BmCMCpdsnh otoodOM1NFGcVFEcmG10Ml 4feRavGn0q QXQqLIU7ZGRcjMHrZ6IenI 7aKiTcTJWsPJWiF2EqgTFr GTjyA230CBakOnM9QMXpbi FwN2SxPYHn wTplMoF0g3O8Cf4HRy13MP 94EU07gTEqi7O0sGR0Y7Lp DMDacjqqzifbtDT6GZVcUN LpoM61Wd2g tIwdEk3jSKGdOYM8OEIbrY WdG5OniM7wYvClDFSwTSOy F6EgcORrAZgmW233WOyiCe B1MXLlvrNm B9LnDGHklVfnStB7w8T2Rc 0MVKuqvuk3U6NoNhvawQN+ GO90UPJnLL56sKZsaDXql6 vukJz9EhYo MCUnIHN0 (more content not included)... Normal [facility] Main OR Intraoperative Recor don 10-30-2022 Main OR Intraoperative Record IntraOp Document Type FT Summary Primary Physician: Deandra Rodriguez MD Finalized Date/Time: 10/30/22 13:00:09 Pt. Name: RICKEY GARCIA/Sex: 1945 Male Med Rec #: [id number] Physician: Deandra Rodriguez MD Financial #: [id number] Pt. Type: A Room/Bed: AS10 Admit/Disch: 10/28/22 [...] Bert York RN, Wilma Mcleod Role Performed [employer] - Primary Flyer Repairer Staff - Other Time In 10/28/22 09:51:00 10/28/22 09:51:00 10/28/22 10:55:00 Time Out 10/28/22 11:00:00 10/28/22 11:00:00 10/28/22 11:06:00 Procedure CYSTOSCOPY(.), CYSTOSCOPY(.), CYSTOSCOPY(.), CYSTOSCOPY W/ HOMIUM CYSTOSCOPY W/ HOMIUM CYSTOSCOPY W/ HOMIUM LASER(.) LASER(.) LASER(.) Comments RN RELIEF FOR MECHANICAL RESEARCH ENGINEER AND ROOM TURNOVER Last Modified By: Aviva Joya RN, RN, Aviva Nguyen RN 10/28/22 11:09:19 10/28/22 11:09:19 10/28/22 11:09:19 Entry 7 Case Attendee Angel Navarro Role Performed Scrub - Primary Time In 10/28/22 09:51:00 Time Out 10/28/22 11:06:00 Procedure CYSTOSCOPY(.), CYSTOSCOPY W/ HOMIUM LASER(.) Comments ORIENTATION Last Modified By: Zaynab Putnam CST 10/30/22 12:52:22 General Comments: LEISA DEGROOT - UROLIFT REP. JEYSON ROCHEdinkey driver Protocols FT Pre-Care Text: Implements protective measures [...] AND Postop Same (more content not included)... [facility] Consent for Anesthesiaon Consent for Anesthesia [id number]#1.0 0CD:127 [facility] Discharge Instructionson Discharge Instructions [id number]#1.0 0CD:127 [facility] H&P Updateon 10-29-2022 H&P Update [id number]#1.0 0CD:127 [facility] IntraOperative Documentson 0 10-29-2022 IntraOperative Documents [id number]#1.0 0CD:127 [facility] IntraOperative Documents [id number]#1.0 0CD:127 [facility] Preoperative Documentson Preoperative Documents [id number]#1.0 0CD:127 Normal [facility] Consent for Procedure/Surger yon 10-28-2022 Consent for Procedure/Surgery [id number]#1. 00CD:127 Normal [facility] Consent for Treatmenton Consent for Treatment [id number]#1.0 0CD:127 Normal [facility] Inpatient Patient Summaryon 10-28-2022 Inpatient Patient Summary [place] [id number] [facility] Clinical Discharge Instructions PERSON INFORMATION Name: RICKEY GARCIA [facility]#:[id number] PHYSICIANS Admitting Physician: Deandra Rodriguez MD Attending Physician: Deandra Rodriguez MD PCP: MAGED ANDRADE DO Discharge Diagnosis: BPH with urinary obstruction; Bladder stone; Other obstructive and reflux uropathy Comment: PATIENT EDUCATION INFORMATION Instructions: White Catheter Care, Male-[facility] (Custom); Post Op Patient Instructions - FT (CUSTOM); EU - Urolift Discharge Instructions (Custom) Medication Leaflets: Follow up: With: Address: When: Deandra Rodriguez [address] [place] [address] [phone] Business (1) [address] [place] [address] [place], [address] [address] [phone] Business (1) Comments: Office to call for followup appointment in 2 days for white removal and voiding trial and clean intermittent cath teaching MEDICATION LIST New Medications [id number], [address], [place] [id number], [phone] nitrofurantoin (Macrobid 100 mg Cap) 1 Capsules [...] Capsules By Mouth every day. Comment: Normal [facility] Main OR PACU I Recordon Main OR PACU I Record PACU Phase I Docum ent Type FT Summary Primary Physician: Deandra Rodriguez MD Finalized Date/Time: 10/28/22 12:52:42 Pt. Name: RICKEY GARCIA Hernandez Boland/Sex: 1945 Male Med Rec #: [id number] Physician: Deandra Rodriguez MD Financial #: [id number] Pt. Type: A Room/Bed: AS10/ Admit/Disch: 10/28/22 [...] By: Angela Wills RN 10/28/22 12:52 Normal [facility] Main OR PACU II Recordon Main OR PACU II Record PACU Phase II Document Type FT Summary Primary Physician: Deandra Rodriguez MD Finalized Date/Time: 10/28/22 13:55:54 Pt. Name: EDYKERRIRICKEY Valiente D.O.B./Sex: 1945 Male Med Rec #: [id number] Physician: Deandra Rodriguez MD Financial #: [id number] Pt. Type: A Room/Bed: [facility]/ Admit/Disch: 10/28/22 08:00:59 - Institution: Case [...] Signed By: Stevenson Ruggiero 10/28/22 13:55 Normal [facility] Main OR Preoperative Recordo n 10-28-2022 Main OR Preoperative Record PreOp Document Type FT Summary Primary Physician: Deandra Rodriguez MD Finalized Date/Time: 10/28/22 10:26:28 Pt. Name: RICKEY GARCIA /Sex: 1945 Male Med Rec #: [id number] Physician: Deandra Rodriguez MD Financial #: [id number] Pt. Type: A Room/Bed: [facility]/ Admit/Disch: 10/28/22 08:00:59 - Institution: Case Times [...] By: Aviva Joya RN 10/28/22 10:26 Normal [facility] Monitor Recordon 10-28-2022 Monitor Record [id number]#1. 00CD:127 Normal [facility] Operative Reporton 3 Operative Report Patient: [...] We began the procedure using a 22.5 Sami rigid cystoscope, 30 degree lens, and inserted [...] midline and (more content not included)... Normal [facility] Comment on above: Result Comment: Elec tronically Signed By: Deandra Rodriguez MD\.br\Date and Time Signed: 10/28/22 11:36 EDT Outpatient Surgery Discharge Instructionon 10-28-2022 Outpatient Surgery Discharge Instruction [place] [id number] Patient Discharge Instructions PERSON INFORMATION Name: RICKEY [...] Address: When: Deandra Rodriguez [address] [place] [address] [phone] Business (1) [facility] Jean-Paul Arguello[address] [address] [phone] Business (1) Comments: Office to call for [...] to serve you. Thank you for choosing [facility] HERE ARE THE MEDICATION CHANGES THAT OCCURRED DURING YOUR HOSPITAL STAY New Medications [id number], [address], [place] [id number], [phone] nitrofurantoin (Macrobid 100 mg Cap) 1 Capsules [...] tube s (more content not included)... Normal [facility] Patient Education - Texton 0 10-28-2022 [...] cotton underwear to absorb moisture and keep skin fitter. 6. Keep the drainage bag below the [...] You m (more content not included)... Normal [facility] Progress Note-Physicianon Progress Note-Physician Patient: RICKEY GARCIA Age: 76 years Sex: Male : 1945 Associated Diagnoses: None Author: Cristy SMITH, Lev Carter Postoperative Information Postoperative disposition: Postoperative disposition: To PACU. Optimetrix number: Optimetrix number [id number]. Anesthetic utilized: General. Physical Examination Vital Signs [...] when meets criteria ( To home ). 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 Urinary retention / SNOMED CT 349131073 / Confirmed Urinary tract infection / SNOMED CT 629193726 / Confirmed, Active Problems (13) Arthritis BPH [...] in all extremities. Gastrointestinal: Soft, Non-tender. Plan [employer] [employer]esthesi[employer] (ASA) physical status classification: Class II. Anesthetic Preoperative Plan: Anesthesia General. Normal [facility] Comment on [...] = 0 DAP = 0 Normal [facility] Coding Summary.on 10-21-2022 Coding Summary. CD:[id number] Ww +PGhlYWQ+EO4ITCVcE82cy TVfxS5xZ9CMXEtZBsnuCBV GARxRKjFepqAvEL8foJLsV XJu IC8+AW7rDMCiFhezlHMdz0 F7hOP6K21zpd8lNFhuaKA7 KZNaZvVtthddl6nsfHv2LJ cuNmluOyBt MUSykO66MFA3eU96Pi00jB HzfVDqz8hnzSh4ZuWeGIYx FHA2tRljMMjlz7UqSMZrA7 0haPEfz4S9 ULCbkQxaiRAnTzNiaFF7nO 9zRVuoiyjhw2vwhstoHwf2 wc90bEQgv8K6rJR0P7Tyjb N6EYEwcWUt MjeqmVUBcC4wctvqp0jtoe utYyQpTTQrZTy5ZJi6GNHc jDlwKsNcPG78ANB3OLCprz JuD8NgBBHh gHwkIvJ8b6Q7Gm4MI6XKWt gqZ0XTYEKHMJkdeGK+PC90 zo26E7SfWxhkPdq0NDIbMX D2fSP8lV5l LKZeZLsgj8F2iWS8I4Awus Otyc3go2mxRBNeQNiaT22a uQRim0O4JJYfoZT8SLAtuW lvWsVeiE17 Oyc+NEPjyPepo4XxIuxna8 wax2upzEu8FwxgWFDgwhGo zJqmHTO6x1MfQo6bFTUdmI E4xNZ1pE6a LwPcMdA4WWsoI094KsKiiV FbFsxkW00xZ3GyyXJ+PHRy Nip8OGIuaZtvAG5oF3IvED RpbmctbGVm gBxsHD2wOHZegcnhVNMvtR 6qPYYoZ5r2EaYiBmJ2VJvd U7GqXPXxgihjFm51gP9pZc HjDjA7QStf D4VyqdY9UVQthYXiTCksLC V3E48xv2N7RVOsEWJrRZH8 hHN7qV4nyRbrroiwoESfkJ sgdmVydGlj NRidBGbzK663FZUtcGpgUb NvZGluZyBEYXRlOiAgMDMv MjgvMjAyMzwvdGQ+PHRkIH A1hYyyKIIo cDOoRYcuYv1jaSxpaGejPJ 4sSCPvzlljQQWbnT4qLJCt aJRaiFowMP2eEXMcswwka5 68GoEnHKH1 JJGsyGGnI5EtrZ1fCdWlUC HeAOIfB1AodYOeMSdtN027 EPvcWmS5YSOvyiExA0GpTY FsaWduOiB0 i9B2Qs2Oi5BjcopoF3TjyV RuVxXmSuowHFy4Z8OkOenp dHI+IO92WPSuEL36DHx5BY E6uHufOEeb KELcD1KbtR2fMwGmHZAnYS RkOyc+PHRhYmxlIHdpZHRo URbjDITuZyCsdZlmFT8vMi 9yZGVyLWNv iJnexFWbQjNha2kfCRVrAH pxNB4wtVmhC1PyoGE2CYCj p7p4Wd50Q99wM7PiuHR+PG MdbJJ2vFP6 bG4zWhFjKzH9GEbwX167Vv JolADtXeqzt3gjd1pxmHf5 JyI5QMMljxEgcPvtYZZ3w7 IkKq02J24q IHdpZHRoPSIxNSUiIHZhbG kmqg9bmZ2qQo8+PGNvbCB3 mMC1jC5aCjZdFfL7PIlcK3 49InRvcCIv Sxpmr7vtu0ehaCc4VaVhMN LujdMakMqgWMW9u8QpZq55 R6JpfHcei6AiZrj1bu07rM Rcd8P3sQH9 Q8DoIQEqviegtMZyhQuzQJ 4bIDJdiwajVAGytG8mIFYu P7y2LuJkDqT5ZDqrV3Xmgi E6OGIayZPq REKdbWOBbK6hdqqrj5tkna ckOyPcBUHjRBz3HUm8WLHd xImfGiWsBJX1PdU6FKS4hZ KiiW1sxJov pnbbaT6wVjs+OLS6oKMnrE ROZE8iRkoltXY+PHRkIHN0 aDkqKVgzOMYnjL7hJNYbP3 d1VoKhTzD9 INweB0MktqL9REUwaVFnMM SogXPOoW9iyrmjo7evkzze ZjWoNWWlOVz1TOb5ASBprT duOiBsZWZ0 SxC0UDL3kKZooS4qqZjajt wseM8rKlv+QmlydGggRGF0 JEt0O2FlBti1QVNqtSjdSJ 0ncGFkZGlu Uq7erRpteQmvPY2rUUEnjc myw818FnYra2hlHQAquCMb BDblLBH1J62kc7T9QLTaEM IzACR6iPZ3 oK8dfIdrtqmuiRGdzAieoc GtwDvtGMviCQdcK241NZLd uDhnAxMvPMg3Z8UzMbq3TI TtxEsySG5a pPCfQPomLj4jdElhgNiqRE 4dKSOspppsf219TxYgp3ya WCUavQUzLAsxSAZ5S29ox9 Z6BGLqPWUe VGT2cAE0wK5ywZamkhiviP VmdDsgdmVydGljYWwtYWxp U666GHLyjLkqEfMotIy3O9 CyYrd9YVRr uAsfGR1qfIKpUPxyCe7sjU nzbCfwUK5gGOMrhnczw949 IjNub5zlEKHgsDAbTIxjFH A3V81va5C0 YWAiOFNkXQB4yRO2qD5puS lnbjogbGVmdDsgdmVydGlj DYzkDLqxP399KYNnoCfgRg BhdGllbnQg HOwqGOc7L4PrMyogpDY+PC 25INUzQS78yNCtdRXbd3oi cLe8FdBeEYAyKXX9sOrvKP sdz8NbZINx S51mmACjj9F3WQCtuQppyA PbYuSptOG1qJ7kCIowbebj k6huxibcCwffw3obrp56pH 21F30aETwx ZHRoPSIzMCUiIHZhbGlnbj 3dfL5oHo7+KOUnaLO9kCU5 bC2gHGMpBjG1EFvqQ299Pk RvcCIvPjxj i0ctq1towCy2AyO9QBExak SssLfyAJE4o7BjWe94T49q IHdpZHRoPSIyMCUiIHZhbG bvob0ocA1v Ii8+VCBmnOR1qNS7fN3jDe QfTdM8CWyoF950EnVhjMBk BkrwZ18hP1HcyCJ+PHRyPj c5CDYpeUfs AG0slFPzKMyuKr6yOAO1Ou XgJtNbNHjmW3EdHVAzftyd yotrmRB2VVIjGXAlvQ09Vk 9udDogMTBw nALWlF2mexybt3mvytfiMu KgFEPlFOu6PMr7PIKqzKjp WnHuMQK2QfT5ZAQ6eVNdlU 1hbGlnbjog hO5bS7LgQFBwtfmqCa82uV 4aKxFhBcO4OGtaBcq+TEFV LlWXROOXOXxaQ9TTBMnPUa APEV80RG55 mTXaa7C0uNJ8Z7KuDMSrwf kvossoxFY5PQQbCKUokD25 nFQzMYvdTn3ed9E3h784AJ QeNDDizC49 Ua8thBgvFYZpuPQCqA3fsy owf3abttihDoLfWIMoRUy3 NTw9FFEsqJivYaFcTFS4Av H8DCV1gHJf cM7iuHrvswgskS7wTip+MD LcHzzpTNx3TgvjaKZ+PHRk ARP6cBmoXDbaDYMctH4nLQ DuR4i9DrHg MlC8NZecD1OfJQFkghwlEi 23yA5tXhGhAoE2UIjpG1Vt mcW1OVOceLBjNJnxOMS0S1 8kn2S5WJRw NIVpMGB9tDQ6vU9rbGatfe ogbGVmdDsgdmVydGljYWwt CYpqL493SFKpiGtaCon0ZA wpHILaAZ86 AF94gXHhe1S8dLA6U8JoNR GkozgyuvvaxDI8EADhARTn bQ23mWEqAUwfIz6rr2Y1o2 06IDAuMDUw sA28Ek3hxEurLFRbpAQJvC 1anuoil8lkmpjjOxFqZKYv SFv0CLp3OEAbcFntKyLnET D9BwG7YRE3 fZLutV4gtGnfkypwiE1cIh c+TWFsZTwvdGQ+PHRkIHN0 qLouRWtaDTBwkE4hIKSfE7 t0ScMaJrJ6 VXfoQ6FkKRMliwbuIi47yV 6tEcTlQnV9YBxqY0BcebL0 QVEioXKwNLieHPJ3F34wo3 B1UETfSVZa TAK7wNJ8nM2tjFfhhousxS VmdDsgdmVydGljYWwtYWxp G851JXFirOxnLc46vHPmyU rtbtM4H2Yl PjwvdHI+EU44FNLcJJ37pA XtzSKtr9gbbHp1EhPiQOIk BWO5xQznTNwwz2MsOBOgN7 4vyYMxj8T2 JPXpfPwogGCqCnKowAL1zT 2zPQbjfsnvp4hiewczGmnv h6ssrg34zF61W79dEOrqXM RoPSIzMCUi TZReqZajug7baL5tBk8+PG IugUQ3sRY7nZ3tJeJiRbB6 BVuzN183RaAbkLVhXqemd7 zrv5umgRt6 EiFqKNXzziCpcUtgPGX1q5 PyHy98B13eYLtbZISoNPGc RPVaLKHqgRewbf1nzK1kJu 8+VZ7qd9bt lw46eM40aCZ+FXQaUHH4wS hzPYhrDIJhaL2aNZgiHoX9 GPFwDbSqwE27gVRcITwrDd 1yaWdodDog WR2dHHMpoznrk519LwWio5 xnOQUosCVdNGtkUVW2H43u y5D9XAJxDNWgTHX2qYB0dO 1hbGlnbjog bGVmdDsgdmVydGljYWwtYW qiQ233DYLliYjmJuVcuJXl S3jdrzXZRT4lEnjfjUF+PH BvJSZ3qJsc OPfqEOHuvB7mIEUhK4g3Ic TqYqU8GYysL5EwisX8CSEv rBEqDMLwsPTIgP1mnuwhe0 xvcjogIzAw JBLtHBo1ZJs6DLMklEczQb CjPBP0AiE8PVB0hIMyzN4m kBcsmzmpyZ3bXuv+RklOOj wvdGQ+PHRk MDA1iRfoEXadQQQumO2hKJ QbL6c6QlScDfM4VNoaF7Bc ajU2OPSnjJViRQDzkDARjD 2eliymf7lg tjklSdChAOAsYLb6EJt4XA KvoOvvYoBmXJP3SgW1JOM1 oVKcaX6ntWrmgsbhjW5oGl c+TVJOOjwv dGQ+FDRjHXM6fGpkBWjcAA ZnmT9wLEEsP6o0VwHlWpG2 HFadJ5BallE3OBLpbMSmFD HbnAEYpF6o tnpdd5sviufiCsBmXIZsWO b7NTu7PHAyuOwmDnPgGGV7 EgH8YUQ4eAUfpT4qmCacin xjxD3uUtt+ JIR6WGQ3ZY94GR60W0FzKl wvdGFibGU+PHRhYmxlIHdp ZHRoPScxMDAlJyBzdHlsZT 3fXv5mYVOj LWNvbGxh (more content not included)... Normal [facility] Transfer Inon 10-17-2022 Transfer In [id number]#[id number] CD:127 Normal [facility] Transfer In [id number]#1.0 0CD:127 Normal [facility] Transfer In [id number]#1.0 0CD:127 Normal [facility] Auto Diffon 10-15-2022 Basophils/100 WBC (Bld) 0.6 % Normal 0.0-2.0 [facility] Comment on above: Order Comment: Order Added by Discern Expert. Performed By: #### 2 939217, 5913027, 43050183, 1365255, 02505222 ####[facility] [address] [place] [address] Basophils/Leukocytes Auto (Bld) [Pure # fraction] 0.1 E9/L Normal 0.0-0.2 [facility] Comment on above: Order Comment: Order Added by Discern Expert. Performed By: #### 2 002747, 4086063, 84519879, 8230804, 60350388 ####[place] [address] [place] [address] Eosinophils/100 WBC (Bld) 9.1 % High 0.0-8.0 [facility] Comment on above: Order Comment: Order Added by Discern Expert. Performed By: #### 2 130837, 0051517, 97984328, 7046919, 10300421 ####[place] [address] [place] [address] Eosinophils/Leukocyte s Auto (Bld) [Pure # fraction] 0.7 E9/L High 0.0-0.5 [facility] Comment on above: Order Comment: Order Added by Discern Expert. Performed By: #### 2 193686, 4021520, 45559095, 0746142, 14245857 ####[address] [address] Lymphocytes/100 WBC (Bld) 15.5 % Normal 14.0-50.0 [facility] Comment on above: Order Comment: Order Added by Discern Expert. Performed By: #### 2 299911, 0600703, 34846409, 2708603, 20900617 ####[place] [address] [place] [address] Lymphocytes/Leukocyte s Auto (Bld) [Pure # fraction] 1.3 E9/L Normal 1.0-4.0 [facility] Comment on above: Order Comment: Order Added by Discern Expert. Performed By: #### 2 373367, 8744277, 35013263, 9228028, 78058829 ####[facility] [address] [place] [address] Monocytes/100 WBC (Bld) 9.2 % Normal 4.0-14.0 [facility] Comment on above: Order Comment: Order Added by Discern Expert. Performed By: #### 2 721563, 2696827, 01329406, 3404347, 73613939 ####[place] [address] [place] [address] Monocytes/Leukocytes Auto (Bld) [Pure # fraction] 0.8 E9/L Normal 0.2-1.0 [facility] Comment on above: Order Comment: Order Added by Discern Expert. Performed By: #### 2 130351, 7423631, 41088441, 9379787, 96538295 ####[address] [address] Neutrophils/100 WBC (Bld) 65.6 % Normal 36.0-75.0 [facility] Comment on above: Order Comment: Order Added by Discern Expert. Performed By: #### 2 718814, 6894623, 35206774, 7235648, 88802091 ####[address] [address] Neutrophils/Leukocyte s Auto (Bld) [Pure # fraction] 5.4 E9/L Normal 2.0-7.5 [facility] Comment on above: Order Comment: Order Added by Discern Expert. Performed By: #### 2 888931, 0582342, 96727673, 3503787, 18393569 ####[place] [address] [place] [address] BMPon 10-15-2022 Anion gap [Moles/Vol] 10 mmol/L Normal 6-16 [facility] Comment on above: Performed By: #### 2 582996, 5384731, 02519819, 4237273, 95401278 ####[address] [address] Calcium [Mass/Vol] 9.5 mg/dL Normal 8.9-11.1 [facility] Comment on above: Performed By: #### 2 653323, 3500135, 42350133, 2262930, 72754086 ####[facility] [address] [place] [address] Chloride [Moles/Vol] 103 mmol/L Normal 101-111 [facility] Comment on above: Performed By: #### 2 150268, 7250852, 22859070, 5205754, 72385291 ####[facility] [address] [place] [address] CO2 [Moles/Vol] 30 mmol/L Normal 21-31 [facility] Comment on above: Performed By: #### 2 461805, 3893188, 88926668, 2290754, 14899631 ####[facility] [address] [place] [address] Creatinine [Mass/Vol] 0.9 mg/dL Normal 0.5-1.3 [facility] Comment on above: Performed By: #### 2 702676, 0624517, 19924797, 5632261, 87041441 ####[facility] [address] [place] [address] Glucose [Mass/Vol] 144 mg/dL Normal 55-199 [facility] Comment on above: Result Comment: If t his glucose result represents a fasting glucose, interpretation should refer to the following reference range: 55-99 mg/dL Performed By: #### 2 626195, 4010530, 17782097, 2319047, 27760383 ####[facility] [address] [facility] [place] [address] Potassium [Moles/Vol] 3.6 mmol/L Normal 3.5-5.3 [facility] Comment on above: Performed By: #### 2 072104, 4709666, 20094944, 3937854, 82931668 ####[facility] [address] [place] [address] Sodium [Moles/Vol] 139 mmol/L Normal 135-145 [facility] Comment on above: Performed By: #### 2 105478, 5892340, 38822309, 0439420, 91237218 ####[facility] [address] [place] [address] Urea nitrogen [Mass/Vol] 18 mg/dL Normal 5-21 [facility] Comment on above: Performed By: #### 2 430480, 8912269, 75959252, 3778045, 76380281 ####[facility] [address] [place] [address] Urea nitrogen/Creatinine [Mass ratio] 20 No Units Normal 10-20 [facility] Comment on above: Performed By: #### 2 098429, 3948432, 18577851, 8487017, 95467099 ####[facility] [address] [place] [address] CBC w/ Auto Diffon 3 Erythrocyte distribution width (RBC) [Ratio] 13.6 % Normal 10.9-14.2 [facility] Comment on above: Performed By: #### 2 974528, 2890579, 24531029, 0648276, 98565079 ####[facility] [address] [place] [address] Hematocrit (Bld) [Volume fraction] 42.3 % Normal 37.7-49.0 [facility] Comment on above: Performed By: #### 2 694748, 5195935, 15338144, 1503024, 08894074 ####[facility] [address] [place] [address] Hemoglobin (Bld) [Mass/Vol] 14.1 g/dL Normal 13.5-17.5 [facility] Comment on above: Performed By: #### 2 299502, 1940190, 61607935, 0036100, 88867696 ####[facility] [address] [place] [address] MCH (RBC) [Entitic mass] 33.6 pg Normal 27.0-34.0 [facility] Comment on above: Performed By: #### 2 652810, 2979864, 72652667, 7082875, 39882782 ####[facility] [address] [place] [address] MCHC (RBC) [Mass/Vol] 33.3 g/dL Normal 31.4-36.0 [facility] Comment on above: Performed By: #### 2 764089, 0170408, 33923312, 5618577, 32939642 ####[address] [address] MCV (RBC) [Entitic vol] 100.8 fL High 80.0-100.0 [facility] Comment on above: Performed By: #### 2 535603, 2377785, 78040278, 7941192, 52115817 ####[address] [address] Platelet mean volume (Bld) [Entitic vol] 6.9 fL Normal 6.4-10.8 [facility] Comment on above: Performed By: #### 2 051182, 8821195, 72777616, 1765478, 97452144 ####[address] [address] Platelets (Bld) [#/Vol] 310.0 E9/L Normal 150.0-500.0 [facility] Comment on above: Performed By: #### 2 407223, 2917133, 28021939, 7375831, 80592874 ####[address] [address] RBC (Bld) [#/Vol] 4.2 E12/L Low 4.3-5.9 [facility] Comment on above: Performed By: #### 2 455872, 0198820, 09097759, 1726950, 39733470 ####[address] [address] WBC corrected for nucl RBC Auto (Bld) [#/Vol] 8.2 E9/L Normal 4.0-11.0 [facility] Comment on above: Performed By: #### 2 950841, 4315356, 23220546, 6134640, 80171995 ####[facility] [address] [place] [address] CHEMISTRYOrdered By: SYSTEM SYSTEM on 10-15-2022 Anion [...] rate/Area] mL/min/1.73 m2 Normal >=59mL/min/1 .73 m2 [facility] Chem S GFR/1.73 sq M.predicted among non-blacks MDRD (S/P/Bld) [Vol rate/Area] mL/min/1.73 m2 Normal >=59mL/min/1 .73 m2 [facility] Chem S Glucose [Mass/Vol] 144 mg/dL Normal [...] Treatmenton 09-25 Consent for Treatment [id number] [id number] 0CD:127 Normal [facility] HEMATOLOGYOrdered By: SYSTEM SYSTEM on 10-15-2022 [...] Coag (PPP) [Time] 33.7 second(s) Normal 25.1-36.5 [facility] Comment on above: Result Comment: Para [...] the same coagulation reagent and instrumentation as [facility]. Currently there are no coagulation studies available worldwide for children to 14 days, and no normal ranges. Heparin therapeutic range (represented by Anti-Factor Xa activity of 0.2 - 0.4 U/mL) corresponds to PTT of 56.6 - 109.0 sec. Performed By: #### 2 064236, 8065241, [id number], [id number], [id number] ####[facility] [address] [place] [address] INR Coag (PPP) [Relative time] 1.0 {INR} Invalid Interpretation Code [facility] Comment on above: Result Comment: INR results are specifically intended to assess patients stabilized on long-term Anticoagulation therapy suggested INR?s ?Less Intensive Anticoagulation? 2.0 ? 3.0 Conventional Range 3.0 ? 4.5 Performed By: #### 2 [id number], [id number], [id number], [id number], [id number] ####[facility] [address] [place] [address] PT Coag (PPP) [Time] 10.6 second(s) Normal 9.4-12.5 [facility] Comment on above: Result Comment: 15 [...] the same coagulation reagent and instrumentation as [facility]. Currently there are no coagulation studies available worldwide for children to 14 days, and no normal ranges. Performed By: #### 2 [id number], [id number], [id number], [id number], [id number] ####[facility] [address] [place] [address] XR Chest 2 Viewson 3 XR Chest [...] mGy = n/a DAP = n/a Normal [facility] eGFRon 10-15-2022 GFR/1.73 sq M.predicted among blacks MDRD (S/P/Bld) [Vol rate/Area] mL/min/{1.73_m2} Normal >=59 [facility] Comment on above: Order Comment: Order added by Discern Expert. Result Comment: eGFR is race adjusted. AA=. Performed By: #### 2 [id number], [id number], [id number], [id number], [id number] ####[facility] [address] [place] [address] GFR/1.73 sq M.predicted among non-blacks MDRD (S/P/Bld) [Vol rate/Area] mL/min/{1.73_m2} Normal >=59 [facility] Comment on above: Order Comment: Order added by Discern Expert. Result Comment: Patient Resource Coordinator noe kidney disease could be indicated at eGFR's of less than 60 mL/min/1.73m2. Kidney failure is indicated at less than 15 mL/min/1.73m2. Performed By: #### 2 [id number], [id number], [id number], [id number], [id number] ####[facility] [address] [place] [address] Coding Summary.on 09-30-2022 Coding Summary. CD:[id number] Gh 0bWw+PGhlYWQ+VI7SLKRsW 00pbDCkrZ5KX1rHZO1CZUW ITBYRLI2YRM6zgDI3NGlhJ 2VybiAv ZudzfXNqPR80CZu3KGT3xS uiOHgabL1bcXKwA9o9HoEo BO30vM63EZmeOEOdFlB2Cu ZpbjsgbWFy E9ymWyAkeCZeWpr+PHRhYm xlIHdpZHRoPScxMDAlJyBz wNnbKX2aHj9eJIPeJLEzjK xhcHNlOiBj i9dtGOFgLKchXE2nrXmhL7 TzzLM1CEOlx4l9Xj72rEG+ NBHaMDF0fDcuISoza698Ii Bmz1dfDSY5 fVEfSJeiVJL0Y12bz2K8JR CqPCOqIQT8iUK5sS9ziBml axrsE4DnjGCpUrK5VBQ7zP SyiM5qfRlc vbvotI1bLsr+V70SSW4AVR GQZW6MQtl6S4UsMwizlXA+ ZW93VBMoYX13kJZsqGEhj4 tlkBh4GfIt DPZkYMU9iVdkNMzej3RcGE MeH39tbRBak3H8LMOiaVrr jFHzMgAorKA4uN6nYBhtvx dol9gkcvff Qhuto6dkqm25qO09C58iRX doYFUfWDR1QTIsLTXzyZuq yd9nqO4nJa2+WOgio8pjs6 eexOf7AzSw YBMhcuHtkLquGVT0s1ChJz 65K1CykWkin2HoEho2fs43 kNDpn2E1bZV5CWtdKSZlkT 7rEZukOaJ3 ZXLiGrEpnS56cBQuCFpvMh 4cjSuneNqxIE2wRUWlkxpf NNPuiK8lEHSlkWCwtAziZY 4wNTBpbjtm v820KcIgSRB8XIKjyULqJ5 ZmxK0mWhJyDHQgUGIyO4Us oTIkIHnyL874KCphGwK0HM OrlfTtG9Vg JOQehJitPnQ1w7J9Zi2Qk0 PgnfzdGUU3WXhbZYOoQyS0 AzTkFwS5U7WlLmo8NZZkfC uzQV3lV8Qb SOFpbcexdxtdcPQ3GYHlSK HsfL28cMCcPPyqSv9dr8Y2 c486DUQwDLCjgQ17Kn9avI ogMTBwdCBU pV8nlencr0yiejykXjCcXW IjJVw5VXe9OAIvrVavJdBb LOW0ZnM7JEY4kCBaoI0trZ eidgfhlL7z Oyc+J99cuR8rGIU9XFZ2kj xbUFLrulCvYG87NA15J7Lw PjwvdGFibGU+PGRpdiBzdH rbIF1lWxNl p8paq8EuKElbO8QbENGsAT nbKkx1KVXpSCK1kAL2zT9y QLJkYZxlz6Q0qGE7Q6Qsih Zoch3gh7qh LABzZKmcV82vcGUjc8W9XY StpOQ5XIRjqUkqRnIzvC81 Oyc+PPZzqQzoh3IqCzmbu9 nll3cpnLk7 CoHoLIKgzvEuqZrpIVT9a8 QaXe10K07tOJlwTSBnQBJd SLMkSBWlsXsxsy8vzS3gKe 8+PGNvbCB3 nHE3eO6wOYGpJfU0SSjhR3 15VjVglMZrNobez5sfm7pn fXa8MfOyRLUedcUztLcdAC A2b5KhVp14 U48aGOimHSOiCOCvCSPeDJ GuaUwbbu0shH6zUz2+PC9j k6nqpl51oN13tUX+PHRkIH Z9yWdcKDgl NXDgeB3jKKelTlR5LXHeAn OvhP34iSCkIMgcXb7pjTky uEeiVK2vFEBkqesbd940Nn Bev0jmVOJf kKQwJHxwEDX2E78qy7Y7CD UkOAPjUEG1zKK0qR5ydUow bjogbGVmdDsgdmVydGljYW leLOmwN908 IHRvcDsnPlBhdGllbnQgTm PmRTm4N3NvWbe5LBOfcKvk LB9jxQTxCDbeFz4tjFxejQ yyGI3kBPZu edelx191UxIns5nnHTZupH ZhMSmoELM5L35mt4D6NEBr FRKzMPB4sPB9nA7dgHbzta ogbGVmdDsg suXycOsaMViaHFtzR758MG RvcDsnPkJpcnRoIERhdGU6 FF27HG94fTVue5U0uRM7J1 BhZGRpbmct kkcueNW6ESVyXCTjtG83Ne 8vaHdsYe8xRJWrBPK7LYAf mVObN2DvmR2rYcPoJSXzED ExU7OglNUb WPkfR205TTdsVlH9SCQrbt OcR8MuKMTkeYdlMrE1g8Q0 Mq4GJ8A8AT86OE71dNGgc3 S1kVM2X2Vs CYIbnbhjgwbprNT6BNFxHC WgjT66Fr8doDeiKm1qDCUu JVK3LBKawZHrK6MwgQ4zQk AjMDAwMDAw O9XquCUhKMzdD435XEcqFb S1RPIaatEaA0LqDRYpkGoo PyP6s8R7Kn2AQZp0JV04JH 45cSKmf9N5 zPJ9L2KzLQKjzgmxsdajbX R9AVQySQWupG00Rj8zkJax Bh5nUXFmQWF5YHAkoXEuC8 EhcH3yJbTz RJXvBXIwW4WlsSZdQKubD5 72LYjhMmF6EQGkrbJjI4Ni VMGguNnqMuA0p3X3Gb5ZLB OdZK12OZT5 zZD6YM23AM96A5CjJyribQ FibGU+PHRhYmxlIHdpZHRo ISawZOQdSdQzaOpiUE4mXr 9yZGVyLWNv mJwqqMZuTkFdz7usMXKhIA wsOH4mgMjbX5ThuMU8WKPg v6y1Cx21S12eB6NvaBI+PG PmuHA2xTN9 sM9mUxDvVlC0QXywN936Yd IbgNEbAzarj8dfu0lxqAq1 ToM6SECsdrYhvTwhLMF8p2 NqZf85F84t IHdpZHRoPSIxNSUiIHZhbG ysgy2pvN2dTu7+PGNvbCB3 lTQ1gM6qCvOvEcB4PEasO9 49InRvcCIv Addvs7ulf4mywNb4MmTgWT AdvaOmsSvoGWS3b8NtFc35 T8RkaEiww7MpQdu1yc30pV Tis9S6sNJ3 J0HcAELoqedfzDPooYcnHQ 1hGVOndzxiENWetT1jPUJg M3b8DyMuSbN1OEowU2Kyka D8JEUxbWJw CKbqGYI3Q77vy0X8AIYyYZ UxCYL4zHH6nB9wpBhokqlz bGVmdDsgdmVydGljYWwtYW nfL036MEAn zMprCLMdvS3bFVNdqOVdcZ rhRG0cNBZwgyseIduIXYTI GuQRDCPtBOGLYXYMYE1kFV wvdGQ+PHRk JFR6eDueATpiLRIftP8rZV HmO4p8FeTlNpK6GRnrV4Eu AULjxzvvZe88jH9kWiQbUi F9EIzeM9Jq psY2IFFeyEKsTDxxUGB0E4 7wp3C5IJGnQZEjRNX9eGD8 mS6daQumvtgjnBYrhWipoe VydGljYWwt BSjvI719HNLozAmpBhT2Qb T1KfB4YUk1X4TcLjx1PUSd xOicCP1mkEEyUKcwKv7htX jizPsvKE4e JHWiujtvNLNenD4uSWLhiK TzuYevAV1lAUIjnwprp899 RqUlWSU6TGXhrSUdW1FyhP 9yOiAjMDAw SKEaK9KmyGPcXFcwS570VG bsLzL0KSCemrPfG9QiGKJk bUniKfU0v7U5Jw41CLCXUJ FyczwvdGQ+ SQMeKMD0sGlqBOfpMEUtuH 5fSTFcJ3i6NmTmJfZ4RZhn R8ZxRDIivmjhUa54zZ9iVc SdAzD8USip E6YwqeU5BLKcnRJuEZepMV T2K88df6F9LBZfQZBlOHK1 yCZ8lS1hrSgvilbryTIhaX sgdmVydGlj IQgxGGdzM089KORrmMstBg 6hhJE1O9YbCeg6YMQjxYpc ZU5rsGZbBEinBv0zcDsanV wfKK0qCPVj gojqDNYzhQ9pNILvjRMlqF abTO2xRQScmvdqy459NsAz PXQ8CBPijIPjD7CcsM5mHv AjMDAwMDAw O2DtlJDtLPpdT489LAdxJh S8KKJrduEyI8PtONOruTwd IeH1u2O1Tl2UvOHzSNFvZD 45QK37TS83 L1DqBhnkxTUqhFB+PHRhYm xlIHdpZHRoPScxMDAlJyBz vNsiJQ6kGc2jDLBlQOAenH xhcHNlOiBj s9uuLPDsKAclSU6ygCjbX1 OwyWH4KTDva0s0Lc46T38m B7WnzVZ+YOSzdNB6qEL6oN 9fHnXkWwZ1 SVvuX711XeFpvSZxLpago9 faj4ntoRe2JvLgAPXpzrIx tQzmUVV7e8GbIa81A62kWQ dpZHRoPSIy HRAfVXFtmPmlpj3jpL9iNd 8+MNOoiWS8eHS9pX7nQnJi CcO7GDtoH638RwJjjWSmHw riS37pQ2Gt dXA+ALGeXqr3LQCflNuoWT 5qjTVjXUkmGh2xLPG1CdZr OmGuJTiwZ5CzXYFctbsutc ohhVA6BYAh NOMpdV75Qy0dvSouZm7nIO UbDRA9IYHnbJYfG3IgqF5h UaTmWJYiQCUlW1BruKZlGH bxN818OFwa GiO0RAQkbwQuT3IuPEQbvI qmXwU5g4V8Cl7YsHiecPPs AX3wTzIfNJd7Y2WqEvo6WD RmvZxsFZ3b zOFiSBrtHs2pgVxglRpuZF 0hVGYffqnzo550NpVxi7hz AKNtvHNnJKiiGPH0X54oi6 L3JWJwNJJg XQW1yTY4zM4klJlpoxzacT VmdDsgdmVydGljYWwtYWxp T866OBUguCdzQzIWSpv1P2 FxYdv0ZIOc nRplVO2oxTRfXImfKe3bgZ fdnJytCX8eXMEcqznnx751 TrDne1rjCNAltLYjGQigZI N8J29no2V7 JBViDBVdRLZ8oEG5hJ5xvY lnbjogbGVmdDsgdmVydGlj PUldXYfqL054VPHlmUvqCh 0XXtt4T3Ws Vaa8SCJcqBsmJV1gfCRaEJ frSj2oxYzmnGbfXY0qFEEe sjqfz912FvZiy3zsRFNngJ QgVGltZXM7 B85xk9T5TXMlJUHnFUX9hO H4xS0oeRwlgcbvyYPioCfx uvXgvXyoRIioRSghI134LW RvcDsnPlBh eWVyOjwvdGQ+XH56zo25R6 WvVkmkIow8VZChQLD5xGZ7 xR1eGLAwQWaqk1V2uFA2V0 UkgeIfpg7q b2xs (more content not included)... Normal [facility] Patient Correspondenceon Patient Correspondence [id number]#[id number] 0CD:127 Normal [facility] Consent for Procedure/Surger yon 09-29-2022 Consent for Procedure/Surgery [id number]#1. 00CD:127 Normal [facility] Consent for Treatmenton Consent for Treatment [id number]#[id number] 0CD:127 Normal [facility] Inpatient Patient Summaryon 09-29-2022 Inpatient Patient Summary [place] [id number] Clinical Summary Person Information Name: RICKEY GARCIA Age: 76 Years : 1945 Sex: Male PCP: MAGED ANDRADE DO Marital Status: Race: White Ethnicity: Non- or Language: Urdu Visit Id: Visit Reason: FEELING OF INCOMPLETE BLADDER EMPTYING BPH WITH LUTZ AND URINARY RETENTION Speciality: Acuity: Enc Type: Outpatient Med Service: Surgery Arrival: 09/29/2022 08:51:30 Discharge: Dispo Type: Address: [address] [place] [phone] Provider Notes: Diagnosis: BPH with urinary obstruction; [...] Information: EU - Cystoscopy Discharge Instructions (CUSTOM) [facility] IntraOperative Documentson 0 09-29-2022 IntraOperative Documents [id number]#1. 00CD:127 [facility] IntraOperative Documents [id number]#1. 00CD:127 [facility] Main OR Intraoperative Recor don 09-29-2022 Main OR Intraoperative Record IntraOp Document Type FTURO Summary Primary Physician: Deandra Rodriguez MD Finalized Date/Time: 09/29/22 11:13:54 Pt. Name: RICKEY GARCAI/Sex: 1945 Male Med Rec #: [id number] Physician: Deandra Rodriguez MD Financial #: [id number] Pt. Type: O Room/Bed: / Admit/Disch: 09/29/22 [...] Neeru Patterson Role Performed Surgeon - Primary [employer] - Primary Scrub - Primary Time In [...] KATHRINE Ponce RN, Ruthann 09/29/22 11:13 Normal [facility] Main OR Preoperative Recordo n 09-29-2022 Main OR Preoperative Record Holding Area Document Type FTURO Summary Primary Physician: Deandra Rodriguez MD Finalized Date/Time: 09/29/22 10:48:21 Pt. Name: LEON GARCIACELINA Ng D.O.B./Sex: 1945 Male Med Rec #: [id number] Physician: Deandra Rodriguez MD Financial #: [id number] Pt. Type: O Room/Bed: / Admit/Disch: 09/29/22 [...] No Pain Comment: na Skin Integrity Intact, House, Warm, & Dry Vitals - EU Blood Pressure 136/102 Pulse 93 bpm Respirations 18 br/min SPO2 95 % Last Modified By: Samia Forte LPN 09/29/22 10:48:16 General Comments: temp:35.8 Finalized By: Samia Forte LPN Document Signatures Signed By: Samia Forte LPN 09/29/22 10:48 Normal [facility] Operative Reporton Operative Report Patient: RICKEY GARCIA Age: 76 years Sex: Male : 1945 Associated Diagnoses: None Author: Deandra Rodriguez MD Procedure Operative Information Details: Date/ Time: 09/29/2022 12:15:00. 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 Post-Op Dx: Bladder stone (JXM60-IS N21.0, Working, Medical), BPH with urinary obstruction (DWR88-KL N40.1, Discharge, Medical), Feeling of incomplete bladder emptying (TPR71-OC R39.14, Discharge, Medical), Urinary retention (SNR56-OT R33.9, Discharge, Medical). Anesthesia Type: Local. Procedure: [...] See separate Clinic Note for details. Normal [facility] Comment on above: Result Comment: Elec tronically Signed By: Michael SMITH, Deandra Smith\.br\Date and Time Signed: 09/29/22 12:20 EST Outpatient Surgery Discharge Instructionon 03-06-2023 Outpatient Surgery Discharge Instruction [place] [id number] Patient Discharge Instructions PERSON INFORMATION Name: RICKEY [...] to serve you. Thank you for choosing [facility] Normal [facility] Progress Note-Physicianon Progress Note-Physician Patient: RICKEY [...] Plan Assessment and Plan: Diagnosis: Bladder stone (PAC16-ZD N21.0, Working, Medical), BPH with urinary obstruction (DQT95-US N40.1, Discharge, Medical), Feeling of incomplete bladder emptying (BRV66-AQ R39.14, Discharge, Medical), Urinary retention (TTI67-EH R33.9, Discharge, Medical). 76 year old male [...] med list and get [facility] records Normal [facility] Comment on [...] Trimethoprim/Sulfameth oxazole <=10 S F Normal [facility] Comment on above: Performed By: #### U RCX #### [facility] [address] [address] [address] Vahid SR URINE PROFILEon 3 Bilirubin Ql (U) Negative Normal NEGATIVE [facility] Comment on above: Performed By: #### E RUR, UMICRO #### [facility] [address] [place] [address] Dr. Vahid Ornelas Clarity (U) CLEAR Normal CLEAR [facility] Comment on above: Performed By: #### E RUR UMICRO #### [facility] [address] [place] [address] Dr. Vahid Ornelas Color (U) LT. YELLOW Normal YELLOW [facility] Comment on above: Performed By: #### E RUR UMICRO #### [facility] [address] [place] [address] Dr. Vahid KU A micrscopic examination will be performed if indicated. Normal [facility] Comment on above: Performed By: #### E RUR UMICRO #### [facility] [address] [place] [address] Dr. Vahid Ornelas Glucose Ql (U) Negative Normal NEGATIVE [facility] Comment on above: Performed By: #### Lamberto RUR UMICRO #### [facility] [address] [place] [address] Dr. Vahid Ornelas Hemoglobin Ql (U) LARGE Abnormal NEGATIVE [facility] Comment on above: Performed By: #### E RUR, UMICRO #### [facility] [address] [address] [address] Vahid Ornelas Ketones Ql (U) Negative Normal NEGATIVE [facility] Comment on above: Performed By: #### E RUR UMICRO #### [facility] [address] [place] [address] Dr. Vahid Ornelas LEUKOCYTES SMALL Abnormal NEGATIVE [facility] Comment on above: Performed By: #### E RUR UMICRO #### [facility] [address] [place] [address] Dr. Vahid Ornelas Nitrite Ql (U) Negative Normal NEGATIVE [facility] Comment on above: Performed By: #### NAMRATA OTTO #### [facility] [address] [place] [address] Dr. Vahid Ornelas pH (U) 6.0 [pH] Normal 5-9 [facility] Comment on above: Performed By: #### NAMRATA OTTO #### [facility] [address] [place] [address] Dr. Vahid Ornelas SPEC GRAVITY >=1.030 Abnormal 1.005-<=1.02 5 [facility] Comment on above: Performed By: #### NAMRATA OTTO #### [facility] [address] [place] [address] Dr. Vahid Ornelas UA PROTEIN TRACE Normal NEGATIVE/ TRACE [facility] Comment on above: Performed By: #### NAMRATA OTTO #### [facility] [address] [place] [address] Dr. Vahid Ornelas UR MICRO IND INDICATED Normal [facility] Comment on above: Performed By: #### NAMRATA OTTO #### [facility] [address] [place] [address] Dr. Vahid Ornelas Urobilinogen Qn (U) 0.2 {Kt'U}/dL Normal 0.2 - 1. 0 [facility] Comment on above: Performed By: #### RODERICK OTTORO #### [facility] [address] [place] [address] Dr. Vahid Ornelas URINE MICROSCOPIC ONLYon BACTERIA MODERATE Abnormal NONE SEEN [facility] Comment on above: Performed By: #### RODERICK TOTORO #### [facility] [address] [place] [address] Dr. Vahid Ornelas Bacteria identified Cx Nom (U) INDICATED Normal [facility] Comment on above: Performed By: #### NAMRATA OTTO #### [facility] [address] [place] [address] Dr. Vahid Ornelas CA OX CRYSTALS RARE Normal [facility] Comment on above: Performed By: #### E RUR, UMICRO #### [facility] [address] [place] [address] Dr. Vahid Ornelas CAST NONE SEEN Normal NONE SEEN [facility] Comment on above: Performed By: #### E RUR, UMICRO #### [facility] [address] [place] [address] Dr. Vahid Ornelas Crystals LM Nom (Urine sed) SEEN Abnormal NONE SEEN [facility] Comment on above: Performed By: #### E RUR, UMICRO #### [facility] [address] [place] [address] Dr. Vahid Ornelas Epithelial cells LM Ql (Urine sed) FEW Abnormal NONE SEEN /RARE [facility] Comment on above: Performed By: #### Lamberto RUFrancisco, UMICRO #### [facility] [address] [place] [address] Dr. Vahid Ornelas MUCOUS NONE SEEN Normal NONE SEEN [facility] Comment on above: Performed By: #### Lamberto SOTO, UMICRO #### [facility] [address] [place] [address] Dr. Vahid Ornelas RBC 20-50 Abnormal 0-2 [facility] Comment on above: Performed By: #### Lamberto SOTO, UMICRO #### [facility] [address] [place] [address] Dr. Vahid Ornelas WBC 10-20 Abnormal NONE SEEN [facility] Comment on above: Performed By: #### Lamberto SOTO, UMICRO #### [facility] [address] [place] [address] Dr. Vahid Ornelas CBC AUTO DIFFon 12-20-2021 BASO # 0.1 103/ul Normal 0.0-0.1 [facility] Comment on above: Performed By: #### C BC #### [facility] [address] [place] [address] Dr. Vahid Ornelas Basophils/100 WBC (Bld) 0.8 % Normal 0.2-2.0 [facility] Comment on above: Performed By: #### C BC #### [facility] [address] [place] [address] Dr. Vahid Ornelas EO # 0.3 103/ul Normal 0.0-0.7 [facility] Comment on above: Performed By: #### C BC #### [facility] [address] [place] [address] Dr. Vahid Ornelas Eosinophils/100 WBC (Bld) 3.5 % Normal 0.9-7.0 [facility] Comment on above: Performed By: #### C BC #### [facility] [address] [place] [address] Dr. Vahid Ornelas Erythrocyte distribution width (RBC) [Ratio] 12.5 % Normal 11.0-15.0 [facility] Comment on above: Performed By: #### C BC #### [facility] [address] [place] [address] Dr. Vahid Ornelas Hematocrit (Bld) [Volume fraction] 44.3 % Normal 42.0-54.0 [facility] Comment on above: Performed By: #### C BC #### [facility] [address] [place] [address] Dr. Vahid Ornelas Hemoglobin (Bld) [Mass/Vol] 15.0 g/dL Normal 14.0-18.0 [facility] Comment on above: Performed By: #### C BC #### [facility] [address] [place] [address] Dr. Vahid Ornelas IG # 0.08 10e3/ul Critically high 0.00-0.03 [facility] Comment on above: Performed By: #### C BC #### [facility] [address] [place] [address] Dr. Vahid Ornelas IG % 1.0 % Critically high 0.0-0.5 [facility] Comment on above: Performed By: #### C BC #### [facility] [address] [place] [address] Dr. Vahid Ornelas LYMPH # 1.7 103/ul Normal 1.2-3.8 [facility] Comment on above: Performed By: #### C BC #### [facility] [address] [address] [address] Vahid Ornelas Lymphocytes/100 WBC (Bld) 22.1 % Normal 20.5-60.0 [facility] Comment on above: Performed By: #### C BC #### [facility] [address] [place] [address] Dr. Vahid Ornelas MANUAL DIFF REQ NO Normal [facility] Comment on above: Performed By: #### C BC #### [facility] [address] [place] [address] Dr. Vahid Ornelas MCH (RBC) [Entitic mass] 34.2 pg Critically high 25.9-34.0 [facility] Comment on above: Performed By: #### C BC #### [facility] [address] [place] [address] Dr. Vahid Ornelas MCHC (RBC) [Mass/Vol] 33.9 g/dL Normal 29.9-35.2 [facility] Comment on above: Performed By: #### C BC #### [facility] [address] [place] [address] Dr. Vahid Ornelas MCV (RBC) [Entitic vol] 100.9 fL Critically high 80.0-94.0 [facility] Comment on above: Performed By: #### C BC #### [facility] [address] [place] [address] Dr. Vahid Ornelas MONO # 0.9 103/ul Critically high 0.3-0.8 [facility] Comment on above: Performed By: #### C BC #### [facility] [address] [place] [address] Dr. Vahid Ornelas Monocytes/100 WBC (Bld) 11.7 % Normal 1.7-12.0 [facility] Comment on above: Performed By: #### C BC #### [facility] [address] [place] [address] Dr. Vahid Ornelas NEUT # 4.7 103/ul Normal 1.4-6.5 [facility] Comment on above: Performed By: #### C BC #### [facility] [address] [address] [address] Vahid Ornelas Neutrophils/100 WBC (Bld) 60.9 % Normal 43.0-75.0 [facility] Comment on above: Performed By: #### C BC #### [facility] [address] [address] [address] Vahid Ornelas Platelet mean volume (Bld) [Entitic vol] 8.1 fL Critically low 9.5-13.5 [facility] Comment on above: Performed By: #### C BC #### [facility] [address] [address] [address] Vahid Ornelas PLT 281 103/ul Normal 150-450 [facility] Comment on above: Performed By: #### C BC #### [facility] [address] [place] [address] Dr. Vahid Ornelas RBC 4.39 106/ul Critically low 4.70-6.10 [facility] Comment on above: Performed By: #### C BC #### [facility] [address] [place] [address] Dr. Vahid Ornelas WBC 7.8 103/ul Normal 4.0-11.0 [facility] Comment on above: Performed By: #### C BC #### [facility] [address] [place] [address] Dr. Vahid Ornelas PROF 14(COMP METB)on 022 Albumin [Mass/Vol] 3.6 g/dL Normal 3.4-5.0 [facility] Comment on above: Performed By: #### C MP #### [facility] [address] [place] [address] Dr. Vahid Ornelas Albumin/Globulin [Mass ratio] 1.0 {ratio} Normal [facility] Comment on above: Performed By: #### C MP #### [facility] [address] [place] [address] Dr. Vahid Ornelas ALP [Catalytic activity/Vol] 142 U/L Critically high 46-116 [facility] Comment on above: Performed By: #### C MP #### [facility] [address] [address] [address] Vahid Ornelas ALT [Catalytic activity/Vol] 42 U/L Normal 16-63 [facility] Comment on above: Performed By: #### C MP #### [facility] [address] [place] [address] Dr. Vahid Ornelas Anion gap [Moles/Vol] 12.8 mmol/L Normal [facility] Comment on above: Performed By: #### C MP #### [facility] [address] [address] [address] Vahid Ornelas AST [Catalytic activity/Vol] 19 U/L Normal 15-37 [facility] Comment on above: Performed By: #### C MP #### [facility] [address] [address] [address] Vahid Ornelas Bilirubin [Mass/Vol] 0.4 mg/dL Normal 0.2-1.0 [facility] Comment on above: Performed By: #### C MP #### [facility] [address] [place] [address] Dr. Vahid Ornelas Calcium [Mass/Vol] 9.2 mg/dL Normal 8.5-10.1 [facility] Comment on above: Performed By: #### C MP #### [facility] [address] [place] [address] Dr. Vahid Ornelas Chloride [Moles/Vol] 99 mmol/L Normal 98-107 [facility] Comment on above: Performed By: #### C MP #### [facility] [address] [address] [address] Vahid Ornelas CO2 [Moles/Vol] 28.5 mmol/L Normal 21.0-32.0 [facility] Comment on above: Performed By: #### C MP #### [facility] [address] [place] [address] Dr. Vahid Ornelas Creatinine [Mass/Vol] 0.92 mg/dL Normal 0.70-1.30 [facility] Comment on above: Performed By: #### C MP #### [facility] [address] [place] [address] Dr. Vahid Ornelas EGFR-AF TURKISH >60 Normal >=60 [facility] Comment on above: Performed By: #### C MP #### [facility] [address] [address] [address] Vahid Ornelas EGFR-NON AF TURKISH >60 Normal >=60 [facility] Comment on above: Performed By: #### C MP #### [facility] [address] [address] [address] Vahid Ornelas Globulin (S) [Mass/Vol] 3.7 g/dL Normal [facility] Comment on above: Performed By: #### C MP #### [facility] [address] [address] [address] Vahid Ornelas Glucose [Mass/Vol] 116 mg/dL Critically high 74-106 [facility] Comment on above: Performed By: #### C MP #### [facility] [address] [address] [address] Vahid Ornelas Potassium [Moles/Vol] 3.3 mmol/L Critically low 3.5-5.1 [facility] Comment on above: Performed By: #### C MP #### [facility] [address] [address] [address] Vahid Ornelas Protein [Mass/Vol] 7.3 g/dL Normal 6.4-8.2 [facility] Comment on above: Performed By: #### C MP #### [facility] [address] [address] [address] Vahid Ornelas Sodium [Moles/Vol] 137 mmol/L Normal 136-145 [facility] Comment on above: Performed By: #### C MP #### [facility] [address] [address] [address] Vahid Ornelas Urea nitrogen [Mass/Vol] 16.0 mg/dL Normal 7.0-18.0 [facility] Comment on above: Performed By: #### C MP #### [facility] [address] [address] [address] Vahid Ornelas Urea nitrogen/Creatinine [Mass ratio] 17.4 mg/mg Normal [facility] Comment on above: Performed By: #### C MP #### [facility] [address] [place] [address] Dr. Vahid Ornelas Urine Cultureon 02-20-2021 Bacteria identified Cx Nom (U) ORGANISM: Staphylococcus lugdunensis (O:STALUG) [place] Count >100,000 Aerobic ROHAN Charge (PC45) --- [...] RESISTANT TO ALL B-LACTAM DRUGS. PERFORMED BY: [place] [address] PATHOLOGIST GEAR HOBBER ARIK KOLB M.D. [facility] Comment on above: Performed By: #### C UU #### [address] Coding Summaryon 02-11-2021 Coding Summary [facility] JmqhasboFYa9zPj+PGhlYW Q+DT9VHMZtU90kiMTlbX9O F0qABR2BCVLWRTMIDL1IFX 0hsZA0NLnzI7TxctFo AjtneGSaAF25MAw4SVY4mW voZHpddQ1ecPXqZ5e2LpKb JB63pS85XMdsPRUeXwD3Sy ZpbjsgbWFy O6zhTzAnmNYeZdf+PHRhYm xlIHdpZHRoPScxMDAlJyBz pPecQM4tAe1bNJAfLBXjuM xhcHNlOiBj t4jxXLKmJCeoMC3kwMqwX7 UdnRQ9DWCqn2v6Xa92oQL+ WJFwYYM8kYmjGOoxb876Rf Dfo0pqAWG7 xLFtIUypMJP5V27yh4I7DD CxOAAdRSK6qAG3mN5nsUti rubkL8DxzBUgEhA1YRT6zM EakY7tjWgt stjcuE0lGgg+M38TTX5RAA BJSP9YVxq2D5StSbpxdDY+ JU90BFZsCE80jSIwyXLra8 zwtKq3UwNe BEWqGTK4gLkjPJigx1KwAG FzC48nrBZre8S4OGRpzEcp aKWoWxYntDK7xJ0yOAesmx uog4jmkxxm Asfdn8duma43gN00Z52sTY muKIPyNLE3AEPyMQFgeQgz dc9chX3uQk9+TLmoh0qvc5 mjeBd6TbKn UHGrdfUadXpvCPY6q6HtOy 01S7WalUkmv7DdOra8ps13 eOWtu3K4pHS3WIhzQDTejZ 5bPTcfBrC5 XHQjXyOeyE93xXQjPXzuRh 6utRtzpSrrRL3nFMWuwyqm NPEiuC3pBOJdeAJcgHrnFK 4wNTBpbjtm w056CuBqGMT7WRIptSUaE7 QdeS3qIfJaVTQmDIYkV1Db nVNdPFixC576PYmaJjL1PP AvdlZhZ9Eq KYPsoGggTeF9w5T5Lq4La3 ElevtqYDM0TWuxQVS3LpT7 JyDaOmB1A9QfGto2JWYhbI joYG5sD5Iz WMTercxvpfrhdYZ9HYFpBB RzcC30xSWdODbvZs3ry8D7 h671UBXxQVLikU46Jl8dqG ogMTBwdCBU nL5nvmhfe7gxkmlsFdKbCA WpZOy2LNh2HZFpmPcfMgIw DXV5KnP0YQL8lYEhkK9lbI sqcixgaR1e Oyc+B57gfR1cAPO4OIA1kl sdEBPkanDbBT43LA35O8Jf PjwvdGFibGU+PGRpdiBzdH lyAX6lSnGp k8hlf8LsERusF6ZtHCKeRX unQzs4HRWiIUU3cJU6xM9v GOWgXWdsg3U5tIP5R1Igbb Tjlr1os7io EFNbVMuzE57wjSRle7T5WS QupKO9XUCtuOdsMlFllW65 Oyc+LIKadFcuv1HrRcdzx2 act3bkcLs4 EoQrZXGbptTpfPkyEVT2f1 PqFu60J44mVBogPDDqYFQh UQKlLMSfkEtggt8vrU1eBo 8+PGNvbCB3 zZA8nU0lIWHwEbQ3UXugK6 28FxLlmUEdCeuoo7hqv5ab cAe4EzRjXKJuyaMccKsdPP Y9k8PiSz84 J98vMPdcJJHqVJQcBCInAE LopNamoe7ahV8bBw3+PC9j t9spoz63yI08uOZ+PHRkIH R9aYeiJPew USJyhB8wPBsaGzW2KEVbVe EltM16sLRwSJrhBn1gyYrx mHnyYY5sVTNhypmfz128Bp Eay7mjEPUb zKNzNAqfXIX6Z44tz1M3DT ZmCIAdJQQ4eIB9jX5fdDly bjogbGVmdDsgdmVydGljYW xsDDfqH199 IHRvcDsnPlBhdGllbnQgTm RfVPh7K0GpOjq0VFKdqWqi YU4ogQHhNMyfDx1rnDhxaV jqNA7sWZSm wpijg445TfZmj4dmFXAcyG OpHUqgBUF7S20ul5T6RSPf EIHrJWL9vGR4yE4lmTtmsb ogbGVmdDsg xbEsnBuyRQcjPHzsQ344DM RvcDsnPkJpcnRoIERhdGU6 XX86YU29wYDre5E0nUQ5Q0 BhZGRpbmct vxfqnKD4RQQaPTQgwT43Ob 6yzAsqKl2sCXNsDTE9RKJv hPPeI0BaaG7xYaGqNDQfPN KbS3JaxHDc SJzrJ241CGezWjY7KDSdzr SaP8ZdPEZlgUsgJpF2p3H0 Gp5DD9K3YK58MZ25gDSby7 M1xVD4U5Ar UDIphzgdfrsxoAC4KITyAG IykV52Xr8jvJinEu3lOLGg VOT7NUNvqFLiW4BdnT6kQq AjMDAwMDAw J2NkyCBdKFaeR179SDhhKw T0WCBuqvPhJ8FdFPQmhAmr KfR2h9T1Br7HJKo1AM29DC 88bXJzi6Q5 xAV0Z2VxDLAgycyhnqxffG B3GOArGKEkmF16Bs9dnAyb Pp0mISBfSGY3SWNrfBCnZ6 PqxO1mCjPv HVHjOBKdT3YhiYLjXAurF4 21NWoaKrV8DPVnomDcB6Gr DFFuwWboOgK3v6O5Hp4EWX QeOM63NKQ4 wGN5LV38VC11O0HxVbidrG FibGU+PHRhYmxlIHdpZHRo LUrkUCMfLrUzcHmoHV6iSi 9yZGVyLWNv eKvdfPYmCsSys7pmSWUaDW eaMY6odRoyB5OcpBX5DRRz a6b7Qg21Y21gM3CqxYQ+PG YpiVA3gSN4 fD1cUmWxLaT6IJthW622Sh QvyNWoNuyde5dpw3fagPq5 CkT3KDOjloFsdDiqXDK0b7 OqWt87A38c IHdpZHRoPSIxNSUiIHZhbG kxjb7ahY2dZl4+PGNvbCB3 jRA8wT6fOiGrVdO9TEwkZ3 49InRvcCIv Qzcgk2web6taxUk8NoLqZC XomwTteDbyHOU7a6PxNz96 V6XrnPoub8KgZzd0ad75oX Jnh6Z3aAY9 M8XyUVMkvgleqUXvxBndDO 3dEMQcmexySOKozO6dFOQn Y3f8GbYjWrR5UQoyZ8Rhwi B8WLFwzVBc QCsvZCO7O15op5H4IZMbEA RwBMP1jCC9wC3mhOlltypy bGVmdDsgdmVydGljYWwtYW inH369EECe vRppJOHeeX9cIKGhfACnwI aoNY1nTRLurqgbOdiJCUQS NsBXCSPtONSILVZYYS5hWU wvdGQ+PHRk FES3eQicEOlqHTSdnQ4jUI AlC4b1AeGtEgA0QHfeO2Ev BGNawdmrRf17jO2mAnBlOi J7OLkhZ7Pe dwG5YWYlcKKyVUypCYL7C0 1tj9J5MBNzMDHbSKR1kCL5 bA5exZkpxbazcAHzfNlkni VydGljYWwt FMjdL510DMRtoIcqMtW0Yh K1OxV8EKe3Q6LcIec9LXCo iBdjPW6nbUWaITixRw5ncE iqxRcyJZ8o VHZrkzhdHJNmuO6rIMTmtU MwlFppPV9yAHDvwgbhw032 LcCyOQN3KEMxtMQvB5KasG 9yOiAjMDAw BGEqD5AkiLXaXXkxF876CP vtPdC3WLBssrQdT4DzARYs wMmaIzP8y2Y8Wn23QMNOIQ FyczwvdGQ+ HFBvHKQ6sIwiTTytDACemA 4mPTZzE9e2CsYkOyE1LTka U5HtGNBuzmfaUx59uJ5tMc EaDvM7THso V9GxlnZ0GMXhyHIkFLbsPU M5B15qe7W3SPFxSRUnZWZ3 bEB3cV8dgTnxmcsfaAJsxC sgdmVydGlj EEkcHGbnE736UQUjbYcdGx 6CKXM9U6WbBtt9POSluZta MR2vwXUkUXzlYv1fpSjzyT boKC4kNDOs tiunOFBppL9nXCXlhXDcdN nrSP1iOARnzibvs047FjTv TBG1TJPhgGZfX0PfcM3pNu AjMDAwMDAw R5QwcLTkGAeeJ537TYdxWy B6TISsvsYoG2CzASBofSrm SxT4v3G1Im5BOCidgLR+PC 49om88O2Pa HetuGfg9DHUmOBL0wUU8kV 8kTVWsZEeti9R5dUF5F0Vn soVwzj7rc3qcEXFxIQeiB1 8pjEXwq7L4 NFAdvSF7TCKovXgnCvRjzW 93Oyc+GTZhaAzid8YiXrtk i9mzy2hfwJh0KaCvOYOkpc FsaWduPSJ0 z1PySb81O33dICibMNApSH DuXVQgXWTbaKydnv8vkG7i Ii8+FCLtzNV8kZE4bV9dTt UrNjK1XBht Z249PyEknONlXfbff6lqj7 jnyKv3KfDgPEEgmlJjmSfq QNX9k7CpXj27Z5OdtXgqj5 SbBmk1oy53 aZVvm9A7yHV5R6YiEEMmri hfuVPgdKsvXU5bAXPyfbxo ZLFpiB3mUYOlN7a4NtFqFx W4PUdaV0Ek laG2SIUvkKKzMLGoqBJBhW 3ceppbr8fshkryGaOcSFLy QWp9ULb5YMSszRlxGeGtUQ B1FvN2JOM0 yJVwsV7pdNgmgoxopA0oPa c+KRi8k3gdyYWkHZ8nmXG4 VV71NJ48jGWwq8K0wKB1L4 BhZGRpbmct pehdzUU5HIPaCNBxhT87Mo 7klDatLz8eLJLcTCS4LSSd yUMjA1YgfF0dOhVmNFRnIM NiY9MvnQIm PJfbB019EXckLcL4NXUemm DcG1IqVJFbeHhoFnG0l9P3 Fw7SAX37TC99XE73gUVlv5 L8tEP1Q6Mv IUZqrzgergcquNJ9WJVnVO MpfZ10Ff0cyZmsMd3pRYHz FGM6CUVhzVBeH2JidT6vKt AjMDAwMDAw O9FdrYPzOLmoZ519DKjuQw G5XZRqmaPrJ9FuTKOulAcb SaO1y9C7Rs5CJi45RQ29NK 05bVQps3I4 gWB0M6AiLOQdmfzussczwJ F3JWZgBMYmoJ78Wa5bxRxy Bz1vHHMpPFX9HMXnjJLaQ7 WmdC3eUpQn ETXbQZCwE8JqrHDeHZjnY4 62ZZzgEtV4KYMcdfUnM3Xl HAVqjDtvEkC4o2B7Yz4QXR pnxlg3Q4Bv PjwvdHI+CE85EFVrFS02fX TxnZTvo7fapTo2GvUqPTVt IUR9jGoiTKeif5LfCKOeV2 4qgLYqw4W8 IGN (more content not included)... [facility] Provider Orderson 02-11-2021 Provider Orders [id number]#1.0 0OTGTIFF [facility] C Urineon 02-10-2021 C Urine Mixed skin, or urogenital marcie. Clinically insignificant [facility] Comment on above: Performed By: #### 6 [id number] #### [facility] (DEFAULT) [address] [id number] Coding Summaryon 02-08-2021 Coding Summary HTMLBase 64 RztolcyaGSz7kUr+PGhlYW Q+VJ2IJNLqB42urWZeaV2X J6iQNK7EMZCLXWERNC5VIG 4jdRB2TJlyJ4WqjoSp VytouAAnQO92FUr5FUU8nH wbGJvurI3rnLUeC2e3LpIs PD20pS72SDtgWQSeTsD9Ho ZpbjsgbWFy V1xfEiXcxPUgUmx+PHRhYm xlIHdpZHRoPScxMDAlJyBz qIwdLO7nKo2wADPxNATccP xhcHNlOiBj j0mbJEYyXKxxBK8avWiuK6 RueTJ4ISYmp7z9Ej80rXJ+ HWCdHFH0qXdeZFmet510Cd Dwh2rcDTI4 gWCrPKyfNKB5G66qi3X9FZ ZjBDLmNSQ3wAR4mU1xuBye xuknW1TyoEPzAoB7LFT2gO DuaE8tfLwp lpxmxH3xGdq+Z81OTL1EDW KKZY2QCpt3E5CyQqxujKB+ ST60GPJyGB16qRMxgUIjm4 zbhCl8JnMc XQJqQXU5yAwzBAbzo3VsFE XfW63oiIIeq6M0YTAngSxy iMRpPyDgwNC5hZ4pTVhacz lir7ldyldc Xlyzc6fmkk47oT93K22iKY ikHAByDKL8KLYbDCGnlGoo ry2zqO5jWq7+KCerf9cju6 wplVh7HgXf BXUcmzMlrVfnECZ5c3GbZl 66O3BnoGdpp0PrGsp6mm27 iSYky2J8bTN9GMluAUDqfN 3cGXvgRhG0 XKHhGnTjvG24dXPzUPdzNy 8ecMtzgZjzBY8aDOBqogne ANAwtJ8iRWOjgRRjdDsuGZ 4wNTBpbjtm n738ItMcRJL5REXpkIZjH3 WkrD8wAeTzVHZeHPGvP0Jv fUKvXGmaI816XGlhZeA2CA NqfqSnU2Fg SVJcvPelBcS5p7V2Mw8Yg6 YqqareCWK0ZOweDPY8BvP2 CiKdZhF0E4ToUcj6BEZqzT ppHI1yN1Ec YNJsexjgmdpjzAJ0UNIdQY YfyP94hMEwLSwjPd4jv5F5 z122PJVwWWZfxX60Vf9beY ogMTBwdCBU bT4pllpzi9mkqnzxOcBmCC KnLKs2LZe1NYViwRziFtBh STL4ZzU3WQP1kICtsI2ccO oepxqpiU6c Oyc+T03naQ0wFVJ6IRT1gb hzBEClfxTsME20MG25X6Vl PjwvdGFibGU+PGRpdiBzdH qpIF6sGqNl b3tvm9WfVZvsL9MpSZDqOC hiJoi0QHVkLFF1qZI0gE4c PSPbUGtkm9H7sUA6G6Shlv Ovgq1gi2pz AARnXCooS67mmEOao0W4TE BivHA9AJUrrBqhHtXzpZ38 Oyc+PYOnrKlib0CwNlodi0 rmm9uuzFb8 YhPvRFHrpiTsyCpnVQK5w9 PzLs61M15uIYmkLMWuHZNf URNoFQXaqIrljh2pgK4wFb 8+PGNvbCB3 vTX8sJ8lPXVzGpQ0FYqjT2 41DjRlvTYnSgklc9yyu2bg mKj6OkViPGDppwMtmXhrAW C4c2WgCh87 Z42lOHupMQEfKJDiYSMmGQ ClbAvwyh4soA6sQd8+PC9j i1lxms42hH37nZC+PHRkIH Q5nSnmKMcz PBLzxW1uOIiyCgQ2QDXtJs EuhJ10wWMbHIyoCr7uhIhg rVdrAB3pCALfxmgrw859Rw Mda6pyGBLj rIThNZcnRZL6H21ug1W4MW OjWVDuVTL4rYA3vQ5ssDrq bjogbGVmdDsgdmVydGljYW vfKIlaG453 IHRvcDsnPlBhdGllbnQgTm ZePYr5O8UmTlo3NWDnaNin UR0ngYZmWZzwNi6oqBevyS zqFU3mHQPt edpgs557MhEjb1ojHXSlmA MiKFzfDUM0D80mp5V6KOUe KQHmZWW0bMM7zU9mjKanas ogbGVmdDsg qkAjnAtaLWxgTZlwI523YG RvcDsnPkJpcnRoIERhdGU6 MJ56OT16qWKtc8V3oCI7A9 BhZGRpbmct toqeyJL6GJOnVYNdmY49Ab 3ocFqdYa4hTAStKXB4ZQVc gUUpG8KteH5wUmXtMNVbHH OmN2IfrQMi VZvuA381ACqhWqB1LEIfyn MjV2WgJJLzsMpgStS4v7L2 Df3FO5X0QR19HD35zQQvz5 K2rFV6O5Nc NIGbqrwhgucafEI7EXQwIV CuqS06An6xzKllYw2nBBIh WOR1NINzbVZeN0IctR7yWd AjMDAwMDAw D0LgsJDwBXmcO977QWjyDs T9REGpdvXyG3AhZFNyqPyb HeQ0h3X4Eq8VVGu7ON81JQ 38wCSgf0O2 sAT8Z7XpIIXjgsftfwtlpH Y7RXRxHJHsgI63Wk2bcFfi Wn2nYGWcUEH0LLNttLDvG9 LqyY2xZdWi MIYiEDIvB0FnuJQmJWlnG9 83FXojPuX8MHUsnlHqH2Zz XJRiaBdgEeI9x5P1Wu2WJW JlUN80FQD3 oCG6AI25DN31E7ZiVerkbQ FibGU+PHRhYmxlIHdpZHRo SWgaDBGwOyJkhPvfNM9dPy 9yZGVyLWNv dZxbqXCxJyNmp7gnTZMrIX fgCT3ylEicH5SbaOL5TADl o3y8Qd66L36pH4GoeHJ+PG QraIL6oWE7 tY2gImEwCdL3YKjyJ828Rw RiiAOrGfpzl2tdq6kesOd9 ZcJ0JMNplqEqhQhiOQA2k3 PvLq34P65g IHdpZHRoPSIxNSUiIHZhbG yfyo5ilR9iKw9+PGNvbCB3 yNT1hS5xOyNxAoA1KPdcM3 49InRvcCIv Zrusf4pga9oakIs7RfSfKQ UeygXlkTeiYCH6j1VoXq81 X4UqcOacs4UfYlq0pv53cL Znb1D4tLG8 X7TqODCalcdmjMYtpQnxGN 0bNZKfnqqcCFVkxD1gQCRc W8g3PwPaUkH0TIwyV2Tndx E2UCDkbDNd SDkkUDY0H11dt5U0CTDpWG CrJJP2kNS9wU7fqHwfdqmr bGVmdDsgdmVydGljYWwtYW aiZ243XQPi yZsiCXJtzN4fYFMfmSPmrS ajWF9wQSHdranhPkxHJOAQ EhGNSFSqEKDXUNZGCO2aWK wvdGQ+PHRk ONS5gJbpXZvkWPWtlX6ePM TzW2a3OeThUqX3WWadU8Nz QLZdxzyuZl49iA6zOsZwOl U1BSpfX8Kv lsU1WMUuwSGkUGyqUEP4G7 4jb8D8TWMhZLEvMVC1aLK0 jA8fwFwqmklpsVXagEbjrl VydGljYWwt FHiyF018UQFacTulQmV0Gs K0YfN8VGe3X0GaAwd0WRSv dSxtMM1dnXGtMBruLc2ltL ifhKcrON2s KAKqtvxtTMLfsJ9uQZUwqD LqlQppUY8qWQJvaakaf018 OiUcEQU0SORwlDZmK5KbqT 9yOiAjMDAw QBYpZ1LjzOLlVIlqW534WT ghJiG8VIIbziVnZ0PsFERd bNrhCtS7r8X2Fj80CEVRNU FyczwvdGQ+ THKbJBV2cTnaTTfkXPMjkE 1nUFPpT5o4DxNcFeP7EYhp S6AjUQHucuviZb96nG6cDl BmDeC9TZqy Z0QmjtO6ZFLtpOVtMZwcLA E1F04cs0S2HRZhLTOtMPV1 aVR5cD7mzOnzbxpdyKDsiG sgdmVydGlj SDceJPklO353GEZxlWrvJi 3SVSL6Z2CtJzx0RNNirVia XS4hsKIuKOriPh5cgEkvwV jdPF5nLRYs llnjWYAcgG7fMCXqmZKsiX kpAY3sFKYxnusvy545GuYm HBS4NUTunGTwO5YjiO2qRd AjMDAwMDAw J1QthAEdZFykH254RIdvIx L5OOOdaiJpY4AdUQBngEin GvL1h8T2Yf1AXEufdMR+PC 03ni34D0Sz YetcCig8QTDpLDR2bDF6aD 6kAICjPLzln4I1aHW3Z1Ez lmShyy7jd4zwGJZaVPwkG6 0jiWGbk2V2 BBMsqOC3EKHiuAvaOmYreU 93Oyc+ITRqkRnvw9CiGwms q2pmc5kweRf9YvDxWIYmyd FsaWduPSJ0 i7DbBm28Y72xAMdoGGCsZS FyLDShFCLkdDmxiy2vyA8k Ii8+ZKIyyTW4yWF7gC5nPy MyUkB3NTtf Q783YvOqqPRhSvxyl0rxi0 sjrMu2WeRtPWXgztYktCig DFB3v5JdQc54L2EzsKndt3 JhZxr2xi49 zDWbt9A7vBI7A1QvJPLgwh kicZMboKiwPN7mKEPkcouc NFQefB2gISPnX5q7DhDfGl B9MAedE7Vq nfM8MAIkgDZnOULtcCHDmQ 8bvkldb1vzwrqcLtUuFNOt QPe3DAc6PDDhwFabXrPvRO R2XzJ9KWQ8 jCYguF7laTueqhbmgD8kQp c+UOs1j4tohISsEP5ybOJ1 XA34UD71oCHpq9J8wSF3K4 BhZGRpbmct bxmfvEJ4GVRvPRSiiF37Ic 9sqBonUf9sDCBzJBH1YEKc iSYrE9RsvT8vSwAhYREjSS JiQ4AhiYLo JZkxX936GEvbVbK3GYOtjt LnO6YdIIRaiKhpHjH1x2M7 Gg5AII80LO46YU19dOYhi6 W5lQO1N4Oi KQKfivvfofnwdJN0LPVpIZ NlsL74Lu3rvPryLx5mWDCl OUP3BTAwsDCjP5TstM2nTq AjMDAwMDAw U4FxeTQiRVnkY738SEubMr A6PWJlbfJhL5QiBWCzhWdi CrQ1g1F6Zx9SCq31JT57QM 23bIZar9G3 lDL5P8KwMHYpyybmuqpixF P8YXWmYIQrwG45Fq4ctEww Ki5sNAZcIGC8OIExfEHhF6 BvvI1fRdVz BYOfNHScF6MlhAQjPUdcA3 30MHrjCeW1JRBfvdWpS3Se OZLzbAzwDxP0l0S1Gs6CJW osoph7R5Jd PjwvdHI+VQ72LJHwEA78vX CyzYZuo4qnyGg8EnHaCALq MXW2uFmsMEhyr3BgOVQnH6 6dnQPtn5Z9 IGN (more content not included)... Normal [facility] Provider Orderson 02-07-2021 Provider Orders [id number]#1.0 0OTGTIFF [facility] .Auto Diff 102-06-2021 Auto [place] % 12 % Normal 08-07 [facility] Comment on above: Performed By: #### 7 [id number], [id number], [id number] #### [facility] (DEFAULT) [address] [place] [address] Baso Abs# 0.0 x10 Normal 0.0-0.2 [facility] Comment on above: Performed By: #### 7 [id number], [id number], [id number], [id number], [id number] #### [facility] (DEFAULT) [address] [place] [address] Basophils/100 WBC (Bld) 0.3 % Normal 0.2-2.0 [facility] Comment on above: Performed By: #### 7 [id number], [id number], [id number], [id number] #### [facility] (DEFAULT) [address] [place] [address] Eos Abs# 0.5 x10 High 0.0-0.4 [facility] Comment on above: Performed By: #### 7 [id number], [id number], [id number], [id number], [id number] #### [facility] (DEFAULT) [address] [place] [address] 96245 Eosinophils/100 WBC (Bld) 6.0 % High 0.9-4.0 [facility] Comment on above: Performed By: #### 7 [id number], [id number], [id number], [id number], [id number] #### [facility] (DEFAULT) [address] [place] [address] Lymph Abs# 1.8 x10 Normal 1.3-2.9 [facility] Comment on above: Performed By: #### 7 [id number], 6936109, [id number], [id number], [id number] #### [facility] (DEFAULT) [address] [place] [address] 73797 Lymphocytes/100 WBC (Bld) 21 % Normal 14-48 [facility] Comment on above: Performed By: #### 7 655555, 3642674, [id number], [id number], [id number] #### [facility] (DEFAULT) [address] [place] [address] [place] Abs# 1.1 x10 High 0.0-0.8 [facility] Comment on above: Performed By: #### 7 [id number], 7222556, [id number], [id number], [id number] #### [facility] (DEFAULT) [address] [place] [address] Neut Abs# 5.3 x10 Normal 1.5-9.2 [facility] Comment on above: Performed By: #### 7 [id number], [id number], [id number], [id number], [id number] #### [facility] (DEFAULT) [address] [place] [address] 62525 Neutrophils/100 WBC (Bld) 60 % Normal 44-88 [facility] Comment on above: Performed By: #### 7 [id number], [id number], [id number], [id number], [id number] #### [facility] (DEFAULT) [address] [place] [address] CBC w/ Auto Diffon 1 Erythrocyte distribution width (RBC) [Ratio] 13.1 % Normal 11.5-15.0 [facility] Comment on above: Performed By: #### 7 [id number], [id number], [id number], [id number], [id number] #### [facility] (DEFAULT) [address] [place] [address] Hematocrit (Bld) [Volume fraction] 43.1 % Normal 34.8-51.9 [facility] Comment on above: Performed By: #### 7 [id number], 0191114, [id number], [id number], [id number] #### [facility] (DEFAULT) [address] [place] [address] Hemoglobin (Bld) [Mass/Vol] 14.7 g/dL Normal 11.8-17.7 [facility] Comment on above: Performed By: #### 7 [id number], [id number], [id number], [id number], [id number] #### [facility] (DEFAULT) [address] [place] [address] Instr WBC 8.7 x10 Invalid Interpretation Code [facility] Comment on above: Performed By: #### 7 [id number], 4945657, [id number], [id number], [id number] #### [facility] (DEFAULT) [address] [place] [address] Man Diff? Auto Normal [facility] Comment on above: Performed By: #### 7 615845, 3659038, [id number], [id number], 24852463 #### [facility] (DEFAULT) [address] [place] [address] MCH (RBC) [Entitic mass] 34 pg Normal 24-34 [facility] Comment on above: Performed By: #### 7 754718, 3694861, 602376246, [id number], 88435104 #### [facility] (DEFAULT) [address] [place] [address] 95108 MCHC (RBC) [Mass/Vol] 34 g/dL Normal 26-37 [facility] Comment on above: Performed By: #### 7 261744, 1940100, 056426460, [id number], 74620182 #### [facility] (DEFAULT) [address] [place] [address] 06940 MCV (RBC) [Entitic vol] 99 fL Normal 81-100 [facility] Comment on above: Performed By: #### 7 843622, 3313596, 780494937, [id number], [id number] #### [facility] (DEFAULT) [address] [place] [address] Platelet 286 x10 Normal 138-427 [facility] Comment on above: Performed By: #### 7 855195, 5773311, 217151720, [id number], 46760692 #### [facility] (DEFAULT) [address] [place] [address] Platelet mean volume (Bld) [Entitic vol] 8.3 fL Normal 6.3-10.2 [facility] Comment on above: Performed By: #### 7 074956, 3212044, 311352624, 0271453401, 83119339 #### [facility] (DEFAULT) [address] [place] [address] 38451 RBC 4.37 x10 Normal 3.70-5.30 [facility] Comment on above: Performed By: #### 7 249773, 9691574, 871293517, 2767224674, 68742321 #### [facility] (DEFAULT) [address] [place] [address] 35638 WBC 8.7 x10 Normal 3.5-10.5 [facility] Comment on above: Performed By: #### 7 570104, 5751091, 861648981, 3809271099, 57429149 #### [facility] (DEFAULT) [address] [place] [address] 12732 CMP Standardon 02-06-2021 eGFR Non AA >60 Invalid Interpretation Code [facility] Comment on above: Performed By: #### 7 028917, 9027625, 220418825, 5444351055, 54572481 #### [facility] (DEFAULT) [address] [place] [address] 69796 eGFR AA >60 Invalid Interpretation Code [facility] Comment on above: Result Comment: Patient Resource Coordinator noe Kidney disease could be indicated at eGFRs of less than 60 ml/min/1.73m2. Kidney Failure is indicated at less than 15 ml/min/1.73m2 Performed By: #### 7 141989, 8376506, 737109552, 1104837144, 03558142 #### [facility] (DEFAULT) [address] [place] [address] 08734 Albumin [Mass/Vol] 4.4 g/dL Normal 3.5-5.0 [facility] Comment on above: Performed By: #### 7 077267, 4003693, 816090340, 1312873506, 08522248 #### [facility] (DEFAULT) [address] [place] [address] Albumin/Globulin [Mass ratio] 1.6 {ratio} Normal 1.4-2.6 [facility] Comment on above: Performed By: #### 7 947258, 3210057, 007950582, 7852557790, 29951005 #### [facility] (DEFAULT) [address] [place] [address] 44408 Alk Phos 107 IU/L High 32-91 [facility] Comment on above: Performed By: #### 7 426757, 7311777, 982517696, 3900178156, 24069278 #### [facility] (DEFAULT) [address] [place] [address] 76444 ALT [Catalytic activity/Vol] 16.0 U/L Low 17.0-63.0 [facility] Comment on above: Performed By: #### 7 985446, 3795215, 035501428, 3108945816, 36268500 #### [facility] (DEFAULT) [address] [place] [address] 65210 Anion gap [Moles/Vol] 17.0 mmol/L Normal 5.0-19.0 [facility] Comment on above: Performed By: #### 7 038599, 4216945, 713566371, 1931073078, 87819691 #### [facility] (DEFAULT) [address] [place] [address] 83943 AST [Catalytic activity/Vol] 16 U/L Normal 15-41 [facility] Comment on above: Performed By: #### 7 562529, 4179460, 785923866, 3241740081, 36640553 #### [facility] (DEFAULT) [address] [place] [address] 52117 Bili Total 0.7 mg/dL Normal 0.3-1.2 [facility] Comment on above: Performed By: #### 7 886082, 9980273, 107582343, 0302907299, 23394554 #### [facility] (DEFAULT) [address] [place] [address] 09448 Calcium [Mass/Vol] 9.6 mg/dL Normal 8.9-10.3 [facility] Comment on above: Performed By: #### 7 269117, 9213725, 174950127, 0974289426, 30380195 #### [facility] (DEFAULT) [address] [place] [address] 04017 Chloride [Moles/Vol] 101 mmol/L Normal 101-111 [facility] Comment on above: Performed By: #### 7 333648, 9886586, 212764987, 9284329309, 45027784 #### [facility] (DEFAULT) [address] [place] [address] 36148 CO2 [Moles/Vol] 25 mmol/L Normal 21-32 [facility] Comment on above: Performed By: #### 7 033047, 9355037, 217481780, 4756475847, 14451509 #### [facility] (DEFAULT) [address] [place] [address] 90508 Creatinine [Mass/Vol] 0.87 mg/dL Low 0.90-1.30 [facility] Comment on above: Performed By: #### 7 094476, 6674350, 648429929, 4718452353, 84522449 #### [facility] (DEFAULT) [address] [place] [address] 47947 Globulin (S) [Mass/Vol] 2.7 g/dL Normal 1.5-4.3 [facility] Comment on above: Performed By: #### 7 364448, 8262151, 268000978, 0392129636, 13857006 #### [facility] (DEFAULT) [address] [place] [address] 87806 Glucose [Mass/Vol] 124.0 mg/dL High 74.0-118.0 [facility] Comment on above: Performed By: #### 7 232544, 6086890, 292817666, 2314158863, 33423901 #### [facility] (DEFAULT) [address] [place] [address] 49805 Osmolality 279 mOsm/L Invalid Interpretation Code [facility] Comment on above: Performed By: #### 7 009004, 0738686, 773014917, 5427097162, 75219996 #### [facility] (DEFAULT) [address] [place] [address] 82959 Potassium [Moles/Vol] 4.1 mmol/L Normal 3.6-5.1 [facility] Comment on above: Performed By: #### 7 992704, 1582479, 144271201, 0142547096, 41170849 #### [facility] (DEFAULT) [address] [place] [address] 33446 Protein [Mass/Vol] 7.1 g/dL Normal 6.5-8.1 [facility] Comment on above: Performed By: #### 7 595563, 4882849, 808202665, 4438342789, 87225638 #### [facility] (DEFAULT) [address] [place] [address] 59397 Sodium [Moles/Vol] 139.0 mmol/L Normal 136.0-144.0 [facility] Comment on above: Performed By: #### 7 162112, 7816231, 852058573, 9753618323, 82237100 #### [facility] (DEFAULT) [address] [place] [address] 02749 Urea nitrogen [Mass/Vol] 13 mg/dL Normal 8-26 [facility] Comment on above: Performed By: #### 7 588244, 5469907, 095527186, 2290238438, 96091512 #### [facility] (DEFAULT) [address] [place] [address] 90492 Urea nitrogen/Creatinine [Mass ratio] 15.0 mg/mg Normal 4.6-16.2 [facility] Comment on above: Performed By: #### 7 866827, 2105610, 729497550, 1662719012, 72155418 #### [facility] (DEFAULT) [address] [place] [address] 22551 PSA Screenon 02-06-2021 PSA Screen 2.30 ng/mL Normal 0.00-4.00 [facility] Comment on above: Result Comment: The [...] [employer] PSA Performed By: #### 7 575517, 1296941, 097641600, 2949961691, 04930115 #### [facility] (DEFAULT) [address] [place] [address] 05701 TSH w/ Reflex to FT4on 02-06 TSH Qn 2.15 m[IU]/L Normal 0.45-5.33 [facility] Comment on above: Result Comment: Gene ral Population (males and non- females, aged 21-88) 0.45 - 5.33 Females, 1st Trimester 0.05 - 3.70 Females, 2nd Trimester 0.31 - 4.35 Females, 3rd Trimester 0.41 - 5.18 Performed By: #### 7 801355, 7084412, 825992501, [id number], 73529577 #### [facility] (DEFAULT) [address] [place] [address] 04264 UA Standardon 02-06-2021 Breakpoint UA Normal [facility] Comment on above: Performed By: #### 1 [id number] #### [facility] (DEFAULT) [address] [place] [address] 57810 Color (U) Yellow Normal [facility] Comment on above: Performed By: #### 1 [id number] #### [facility] (DEFAULT) [address] [place] [address] 67136 Glucose (U) [Mass/Vol] Negative Normal [facility] Comment on above: Performed By: #### 1 [id number] #### [facility] (DEFAULT) [address] [place] [address] 04106 Ketones Ql (U) Negative Normal [facility] Comment on above: Performed By: #### 1 [id number] #### [facility] (DEFAULT) [address] [place] [address] 11598 UA Bilirubin Negative Normal [facility] Comment on above: Performed By: #### 1 [id number] #### [facility] (DEFAULT) [address] [place] [address] 96823 UA Blood LARGE Abnormal NEGATIVE [facility] Comment on above: Performed By: #### 1 [id number] #### [facility] (DEFAULT) [address] [place] [address] 38226 UA Clarity SL CLOUDY Abnormal CLEAR [facility] Comment on above: Performed By: #### 1 [id number] #### [facility] (DEFAULT) [address] [place] [address] 02252 UA Leuk Est MODERATE Abnormal NEGATIVE [facility] Comment on above: Performed By: #### 1 [id number] #### [facility] (DEFAULT) [address] [place] [address] 10762 UA Nitrite Negative Normal NEGATIVE [facility] Comment on above: Performed By: #### 1 [id number] #### [facility] (DEFAULT) [address] [place] [address] 77310 UA pH 5.5 Normal 5-8 [facility] Comment on above: Performed By: #### 1 [id number] #### [facility] (DEFAULT) [address] [place] [address] 13950 UA Protein Negative Normal NEGATIVE [facility] Comment on above: Performed By: #### 1 [id number] #### [facility] (DEFAULT) [address] [place] [address] UA Spec Grav 1.020 Normal 1.001-1.035 [facility] Comment on above: Performed By: #### 1 [id number] #### [facility] (DEFAULT) [address] [place] [address] UA Urobilinogen 0.2 mg/dL Normal 0.2-1.0 [facility] Comment on above: Performed By: #### 1 [id number] #### [facility] (DEFAULT) [address] [place] [id number] Urine Source Clean Catch [facility] Comment on above: Performed By: #### 1 [id number] #### [facility] (DEFAULT) [address] [place] [address] 14175 XR Chest 2 Viewson XR Chest 2 [...] MD Mondragon Wincha 02/06/21 8:03 pm Technologist: [facility] Vital Signs Date Time Vital Sign Value Performing Clinician Facility 09-16-2023 10:42-0500 Blood Pressure Location DULCE MARIA DAMI [facility] 09-16-2023 10:42-0500 Diastolic blood pressure 83 mm[Hg] DULCE MARIA DE SOUZA [facility] 09-16-2023 10:42-0500 Heart rate 86 /min DULCE MARIA DE SOUZA [facility] 09-16-2023 10:42-0500 Systolic blood pressure 108 mm[Hg] DULCE MARIA DAMI [facility] 08-05-2023 09:50-0500 Blood Pressure Location Deandra Lue [facility] 08-05-2023 09:50-0500 Diastolic blood pressure 78 mm[Hg] Deandra Lue [facility] 08-05-2023 09:50-0500 Systolic blood pressure 128 mm[Hg] Deandra Lue [facility] 07-22-2023 08:09-0500 Blood Pressure Location Deandra Lue [facility] 07-22-2023 08:09-0500 Body temperature 97.16 [degF] Deandra Lue [facility] 07-22-2023 08:09-0500 Diastolic blood pressure 78 mm[Hg] Edandra Lue [facility] 07-22-2023 08:09-0500 Heart rate 74 /min Deandra Lue [facility] 07-22-2023 08:09-0500 Systolic blood pressure 118 mm[Hg] Deandra Lue [facility] 11-18-2022 15:12-0400 Blood Pressure Location DULCE MARIA MUKHERJEERY [facility] 11-18-2022 15:12-0400 Diastolic blood pressure 78 mm[Hg] DULCE MARIA DAMI [facility] 11-18-2022 15:12-0400 Heart rate 68 /min DULCE MARIA DAMI [facility] 11-18-2022 15:12-0400 Respiratory rate 16 /min DULCE MARIA DAMI [facility] 11-18-2022 15:12-0400 Systolic blood pressure 132 mm[Hg] DULCE MARIA DAMI [facility] 10-28-2022 13:42-0400 Heart rate 77 /min Deandra Lue [facility] 10-28-2022 13:42-0400 SaO2% (BldA) [Mass fraction] 95 % Deandra Lue [facility] 10-28-2022 13:42-0400 Respiratory rate 16 /min Deandra Lue [facility] 10-28-2022 13:41-0400 Body temperature 98.06 [degF] Deandra Lue [facility] 10-28-2022 13:41-0400 Diastolic blood pressure 83 mm[Hg] Deandra Lue [facility] 10-28-2022 13:41-0400 Mean blood pressure 110 mm[Hg] Deandra Lue [facility] 10-28-2022 13:41-0400 Systolic blood pressure 165 mm[Hg] Deandra Lue [facility] 10-28-2022 12:12-0400 Heart rate 68 /min Deandra Lue [facility] 10-28-2022 12:12-0400 SaO2% (BldA) [Mass fraction] 93 % Deandra Lue [facility] 10-28-2022 12:11-0400 Respiratory rate 18 /min Deandra Lue [facility] 10-28-2022 12:10-0400 Diastolic blood pressure 88 mm[Hg] Deandra Lue [facility] 10-28-2022 12:10-0400 Mean blood pressure 109 mm[Hg] Deandra Lue [facility] 10-28-2022 12:10-0400 Systolic blood pressure 150 mm[Hg] Deandra Lue [facility] 10-28-2022 12:10-0400 Body temperature 98.06 [degF] Deandra Lue [facility] 10-28-2022 12:00-0400 Body temperature 98.6 [degF] Deandra Lue [facility] 10-28-2022 12:00-0400 Diastolic blood pressure 93 mm[Hg] Deandra Lue [facility] 10-28-2022 12:00-0400 Heart rate 71 /min Deandra Lue [facility] 10-28-2022 12:00-0400 Respiratory rate 11 /min Deandra Lue [facility] 10-28-2022 12:00-0400 Systolic blood pressure 153 mm[Hg] Deandra Lue [facility] 10-28-2022 11:55-0400 Blood Pressure Location Deandra Lue [facility] 10-28-2022 11:55-0400 Mean blood pressure 113 mm[Hg] Deandra Lue [facility] 10-28-2022 11:55-0400 Respiratory rate 16 /min Deandra Lue [facility] 10-28-2022 11:40-0400 Mean blood pressure 108 mm[Hg] Deandra Lue [facility] 10-28-2022 11:40-0400 Respiratory rate 19 /min Deandra Lue [facility] 10-28-2022 11:10-0400 Body temperature 97.7 [degF] Deandra Lue [facility] 10-28-2022 11:05-0400 Respiratory rate 8 /min Deandra Lue [facility] 10-28-2022 08:35-0400 Mean blood pressure 102 mm[Hg] Deandra Lue [facility] 10-28-2022 08:35-0400 Heart rate 78 /min Deandra Lue [facility] 10-28-2022 08:33-0400 Body temperature 98.24 [degF] Deandra Lue [facility] 10-15-2022 12:32-0400 Diastolic blood pressure 82 mm[Hg] Deandra Lue [facility] 10-15-2022 12:32-0400 Heart rate 74 /min Deandra Lue [facility] 10-15-2022 12:32-0400 Mean blood pressure 100 mm[Hg] Deandra Lue [facility] 10-15-2022 12:32-0400 Systolic blood pressure 134 mm[Hg] Deandra Lue [facility] 09-08-2022 13:28-0500 Blood Pressure Location Deandra Lue [facility] 09-08-2022 13:28-0500 Diastolic blood pressure 83 mm[Hg] Deandra Lue [facility] 09-08-2022 13:28-0500 Heart rate 81 /min Deandra Lue [facility] 09-08-2022 13:28-0500 Systolic blood pressure 135 mm[Hg] Deandra Lue [facility] 11-21-2021 11:10-0400 Body height 187.96 cm Janice Arellano Other [facility] [facility] Other 10-31-2021 12:30-0400 Body height 187.96 cm Janice Arellano Other [employer] [facility] Other 10-31-2021 12:30-0400 Body mass index (BMI) [Ratio] 25.16 kg/m2 Janice Arellano Other [employer] Other 10-31-2021 12:30-0400 Body temperature 97.3 [degF] Janice Arellano Other [employer] Other 10-31-2021 12:30-0400 Body weight 88.91 kg Janice Arellano Other [employer] Other 10-31-2021 12:30-0400 Diastolic blood pressure 73 mm[Hg] Janice Arellano Other [employer] Other 10-31-2021 12:30-0400 Respiratory rate 18 /min Janice Arellano Other [employer] Other 10-31-2021 12:30-0400 SaO2% (BldA) [Mass fraction] 97 % Janice Hinojosaler Other [employer] Other 10-31-2021 12:30-0400 Systolic blood pressure 137 mm[Hg] Janice Arellano Other [employer] Other Encounters Encounter Date Encounter Type Care Provider Facility Start: 10-08-2023 End: 10-08-2023 ambulatory BOOTHE FAWWAD Not Available Start: 09-16-2023 End: 09-17-2023 ambulatory DULCE MARIA DE SOUZA Facility:[facility] [place] Start: 09-16-2023 End: 09-16-2023 Patient encounter procedure DULCE MARIA DE SOUZA [facility] Start: 08-05-2023 End: 08-06-2023 ambulatory Deandra Koehlere Facility:[facility] Start: 08-05-2023 End: 08-05-2023 Patient encounter procedure Deandra Rodriguez [facility] Start: 08-04-2023 End: 08-04-2023 ambulatory SHAIKH CHAYOD Not Available Start: 07-28-2023 ambulatory DULCE MARIA DE SOUZA Facili ty:[facility] [place] Start: 07-22-2023 End: 07-23-2023 ambulatory Deandra M. Lue Facility:[facility] [place] Start: 07-22-2023 End: 07-22-2023 Patient encounter procedure Deandra Koehlere [facility] Start: 07-08-2023 End: 07-09-2023 ambulatory Deandra M. Lue Facility:[facility] [employer] [facility] Start: 06-23-2023 End: 06-24-2023 ambulatory DULCE MARIA Lamberto DE SOUZA Facility:[facility] [place] Start: 06-23-2023 End: 06-23-2023 Patient encounter procedure DULCE MARIA DE SOUZA [facility] Start: 05-26-2023 End: 05-27-2023 ambulatory Steve ROBISON Facility:[facility] [place] Start: 05-01-2023 End: 05-02-2023 ambulatory Steve ROBISON Facility:[facility] [place] Start: 11-18-2022 End: 11-19-2022 ambulatory DULCE MARIA DE SOUZA Facility:[facility] [place] Start: 11-18-2022 End: 11-18-2022 Patient encounter procedure DULCE MARIA DE SOUZA [facility] Start: 11-07-2022 End: 11-08-2022 ambulatory MAGED GUERRAKERLINE Facility: [facility] Start: 11-07-2022 End: 11-07-2022 Patient encounter procedure [facility] LU[facility] Start: 10-30-2022 End: 10-31-2022 ambulatory Deandra Rodriguez Facility: [facility] Start: 10-30-2022 End: 10-30-2022 Patient encounter procedure Deandra Rodriguez [facility] Start: 10-28-2022 End: 10-28-2022 ambulatory Deandra Rodriguez Facility:[facility] Start: 10-28-2022 End: 10-28-2022 Admission to same day surgery center Deandra Rodriguez [facility] Start: 10-15-2022 End: 10-16-2022 ambulatory Deandra Rodriguez Facility:[facility] Start: 10-15-2022 End: 10-15-2022 Patient encounter procedure Deandra Rodriguez [facility] Start: 10-15-2022 ambulatory Facility:1 [id number] Start: 09-29-2022 End: 09-30-2022 ambulatory Deandra Rodriguez Facility:[facility] Start: 09-08-2022 End: 09-08-2022 Patient encounter procedure Deandra Rodriguez [facility] Start: 08-25-2022 End: 08-25-2022 ambulatory CHRISTIANA DIA Facility:[facility] Start: 12-20-2021 End: 12-20-[address] JERAMY PHIPPS Facility:[facility] Start: 11-21-2021 End: 11-21-2021 ambulatory Janice Arellano Other [employer] Other Start: 11-21-2021 Office outpatient visit 15 minutes Janice Arellano [facility] Start: 10-31-2021 End: 10-31-2021 ambulatory Janice Arellano Other [employer] Other Start: 10-31-2021 Office outpatient visit 15 minutes Janice Arellano [facility] Start: 10-31-2021 Telephone encounter Maged Alvarez i [facility] Procedures Date Procedure Procedure Detail Performing Clinician Start: 10-28-2022 [place] operation, litholapaxy DULCE MARIA DE SOUZA Start: [...] Detail Author Start: 02-17-2024 ambulatory Ambulatory Facility:[facility] Payers Date Payer Category Payer Unknown [id number] 2022 Unknown [id number] 1958 Medicare [id number] 1945 Unknown [id number] 2.16.84 0.1.782510.3.579.2.593 1945 Unknown [id number] 2.16.84 0.1.864780.3.579.2.593 1945 Unknown [id number] 2.16. 840.1.371707.3.579.2.356 1945 Unknown [id number] 2.16.8 40.1.573506.3.579.2.727 1946 Unknown [id number] 2.16.8 40.1.841484.3.579.2.727 1946 Unknown [id number] 2.16.8 40.1.038265.3.579.2.727 1946 Unknown [id number] 2.16.8 40.1.112717.3.579.2.727 1946 Unknown [id number] 2.16.8 40.1.232620.3.579.2.727 1946 Unknown [id number] 2.16.8 40.1.940909.3.579.2.727 1946 Unknown [id number] 2.16.8 40.1.073011.3.579.2.727 1946 Unknown [id number] 2.16.8 40.1.852918.3.579.2.727 1946 Unknown [id number] 2.16.8 40.1.143024.3.579.2.727 1946 Unknown [id number] 2.16.8 40.1.420324.3.579.2.727 1946 Unknown [id number] 2.16.8 40.1.728627.3.579.2.727 1946 Unknown [id number] 2.16.8 40.1.911300.3.579.2.727 1946 Unknown [id number] 2.16.8 40.1.595150.3.579.2.727 1946 Unknown [id number] 2.16.8 40.1.406475.3.579.2.727 1946 Unknown [id number] 2.16.8 40.1.412052.3.579.2.727 1946 Unknown [id number] 2.16.84 0.1.480447.3.579.2.1259 1946 Unknown [id number] 2.16.84 0.1.935217.3.579.2.1259 Medicare [id number] 2.16. 840.1.582782.19 Social History Date Type Detail Facility Sex Assigned At [facility] Start: 09-08-2022 End: 05-01-2023 Tobacco smoking status Ex-smoker (finding) [facility] Start: 07-22-2023 End: 08-05-2023 Tobacco smoking status Never [facility] Start: 09-16-2023 Tobacco smoking status Smoker (findi ng) [facility] Medical Equipment Procedure Code Equipment [...] 09-16-2023 Functional Status N/A [facility] 08-05-2023 Functional Status N/A [facility] 07-22-2023 Functional Status N/A [facility] 11-18-2022 Functional Status N/A [facility] 10-15-2022 Functional Status No [facility] 09-08-2022 Functional Status N/A [facility] Clinical Notes 10-31-2021 to 09-16-2023 Note Date [...] and water are not available, 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 2.Clean your penis with soap and water. [...] reusable catheter in a small bathroom. Take qiav-qyf-tnjrztp and prescription medicines only as told by [...] provider. Document Revised: 05/19/2022 Document Reviewed: 05/19/2022 Else[employer] Patient Education 2022 [employer] Follow Up Care 08/19/2023 12:56:54 With:DULCE MARIA DE SOUZA PA-C, URL Address: [address] 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 2.Clean your penis with soap and water. [...] reusable catheter in a small bathroom. Take okon-khw-nlyykqc and prescription medicines only as told by [...] provider. Document Revised: 05/19/2022 Document Reviewed: 05/19/2022 [employer] Patient Education 2022 [employer] Follow Up Care 07/22/2023 08:40:54 With:Michael SMITH, DIVINE Naranjo, URO Address[address] [place] [phone] When: Unknown Comments:6 mos [facility] 07-22-2023 Hospital Discharge instructions Patient Education [...] urethra. Follow these instructions at home: Take gqxn-klv-iocrlzj and prescription medicines only as told by [...] provider. Document Revised: 01/29/2022 Document Reviewed: 01/29/2022 [employer] Patient Education 2022 [employer]. Follow Up Care 07/08/2023 11:23:53 With:Michael SMITH, Deandra Smith, URL, URO Address: When:Within 2 Week(s) Comments:w/PVR and Voiding Diary [facility] 11-18-2022 Hospital Discharge instructions Patient Education [...] Follow these instructions at home: Medicines Take xyqo-umg-mnadorz and prescription medicines only as told by [...] Document Reviewed: 04/03/2021 Elsevier Patient Education 2022 [employer] [facility] 10-28-2022 Hospital Discharge instructions Patient Education 10/28/2022 12:08:15 White Catheter Care, Male-[facility] (Custom) White Catheter Care, Male A White [...] cotton underwear to absorb moisture and keep skin fitter. 6. Keep the drainage bag below the [...] facility personnel to use a Coude (pronounced hardware installation coordinator-day) tipped catheter. Follow Up Care 09/30/2022 12:31:12 With:Deandra Rodriguez Address: [address] [place] [phone] Business (1) [facility] [place], [address] [address] [phone] Business (1) When: Unknown Comments:Office to call for followup appointment in 2 days for white removal and voiding trial and clean intermittent cath teaching [facility] 10-28-2022 Evaluation + Plan note Extrac claudine from: Title:CSB post op Author:Lev Muniz MD Date:10/28/22 Plan Transfer/Discharge: Transfer/Discharge Discharge when meets criteria ( To home ). Extracted from: Title:EU - cystolitholapaxy, Urolift- FT Author: Deandra Rodriguez MD Date:10/28/22 Impression and Plan Diagnosis BPH with urinary obstruction (ATS04-XT N40.1, Discharge, Medical). Bladder stone (HZH49-IN N21.0, Discharge, Medical). Diagnosis BPH with urinary obstruction (UHU99-LF N40.1, Discharge, Medical). Bladder stone (JFC14-FL N21.0, Discharge, Medical). Counseled: Patient, Family. Extracted from: Title:CSB GA Author:Lev Muniz MD Date:10/28/22 Plan [place] [employer]esthesiologists (ASA) physical status classification: Class II. Anesthetic Preoperative Plan: Anesthesia General. Diagnostic Tests Pending * Calculi Analysis Urinary 10/28/22 [facility]03-23-2023 Note [id number]:[address] [place] [address] 10-15-2022 [id number]:[address] [place], [place] 5834103-06-2023 Note [id number]:[address] [place] [address] 09-29-2022 NoteCystoscopy ? Voiding after the procedure: [...] if you have a fever over 100 degrees.[facility] 09-08-2022 Hospital Discharge instructions Patient Education [...] complications. Follow these instructions at home: Take lvbb-adt-qmlphcd and prescription medicines only as told by [...] 10/19/2001 Document Revised: 06/25/2018 Document Reviewed: 08/14/2017 SUPR Patient Education 2020 [employer]. Follow Up Care 08/26/2022 14:25:12 With:Michael SMITH, DIVINE Naranjo, URO Address: When: Unknown [facility] 04-28-2022 Evaluation note* Encounter Date Diagnosis Assessment [...] verbalized understanding and agreement with treatment plan [facility] Other 04-07-2022 Evaluation note* Encounter Date Diagnosis [...] Contact dermatitis home care material was printed [employer] Other Evaluation + Plan note Future Appointments Appointment Date:09/09/2022 10:15:00 AM Scheduled Provider: Location:[facility] Appointment Type:Urology CALL PAT FT Appointment Date:09/09/2022 10:45:00 AM Scheduled Provider: Location:[facility] Appointment Type:Urology CALL PAT FT Appointment Date:09/15/2022 08:00:00 AM Scheduled Provider: Location:[facility] Appointment Type:Urology FT Appointment Date:09/15/2022 09:00:00 AM Scheduled Provider: Location:[facility] Appointment Type:Urology FT [facility] Evaluation + Plan note Future Appointments Appointment Date:10/28/2022 11:25:00 AM Scheduled Provider: Location:[facility] App[facility]ments Appointment Date:07/08/2023 10:00:00 AM Scheduled Provider:Deandra Rodriguez MD Location:[facility] Appointment Type:URO Office Visit Appointment Date:07/28/2023 01:00:00 PM Scheduled Provider: Location:[facility] Appointment Type:URO Nurse Visit [facility] evaluation + Plan note Future Appointments Appointment Date:08/05/2023 09:45:00 AM Scheduled Provider:Deandra Rodriguez MD Location:[facility] Appointment Type:URO Office Visit [facility] evaluation + Plan note Future Appointments Appointment Date:02/17/2024 10:45:00 AM Scheduled Provider:Deandra Rodriguez MD Location:[facility] Appointment Type:URO Office Visit [facility] evaluation [facility] Other History general Narrative - Reported* Type Description Date Medical History rheumatoid arthritis Medical History ROCIO (noncompliant with CPAP ther apy) Medical History COPD Medical History Insomnia Medical History Hypertension Medical History Kidney Stones Medical History Multiple Renal Cysts [facility] Medical History Urinary Retention (requiring int ermittent self-cath) Surgical History cholecystectomy [facility] Other Hospital course Narrative No data available for this section [facility] Discharge instructions No data available for this section [facility] No data available for this section [facility] Summary Purpose Family History No Family History [...] section and content) DATE CREATED AUTHOR 02/13/2021 [facility] DATE CREATED AUTHOR AUTHOR'S ORGANIZ ATION 08/18/2021 [facility] [place] [facility] DATE CREATED AUTHOR AUTHOR'S ORGANIZ ATION 08/30/2022 [facility] DATE CREATED AUTHOR AUTHOR'S ORGANIZ ATION 11/02/2022 [facility] DATE CREATED AUTHOR AUTHOR'S ORGANIZ ATION 09/23/2023 [facility] DATE CREATED AUTHOR AUTHOR'S ORGANIZ ATION 10/09/2023 [facility] dical Specialists EPIC REASON FOR VISIT (unrecogniz ed section and content) RASH ON ARMNo InformationRAS H Patient Care team informatio n (unrecognized section and content) Personnel Name: MAGED ANDRADE DO Address: Address: [address] Personnel Name: MAGED ANDRADE DO Address: Address: [address] Personnel Name: MAGED ANDRADE DO Address: Address: [address] Personnel Name: MAGED ANDRADE DO Address: Address: [address] Personnel Name: MAGED ANDRADE DO Address: Address: [address] Personnel Name: MAGED ANDRADE DO Address: Address: [address] Personnel Name: MAGED ANDRADE DO Address: Address: [address] Personnel Name: MAGED ANDRADE DO Address: Address: [address] Personnel Name: MAGED ANDRADE DO Address: Address: [address] Personnel Name: MAGED ANDRADE DO Address: Address: [address] [place] [address] FOR RECORDS PERTAINING TO PATIENTS WHO ARE [...] BE BASED ON THE PRIMARY CLINICAL RECORDS. [employer] [facility]. provides no warranty or guarantee of the accuracy or completeness of information in this document.
[2023-10-31 16:53] VITALS: BP 151/90; PULSE 70; TEMP 36.9; O2SAT 97; BMI 25.8
[2023-10-31 17:02] VITALS: PULSE 70
[2023-10-31] MEDS: LACTATED RINGER'S SOLUTION 1,000 ML 100 ML IV (18:30)
[2023-10-31 19:38] VITALS: BP 133/73; PULSE 68; TEMP 36.8; O2SAT 96
--- NOTE | 2023-10-31 20:00 | PC.NURSE ---
Patient states his appetite has been low lately. He feels when he eats it tries to come back up no matter what he eats.
[2023-10-31] MEDS: OMEPRAZOLE 40 MG CAPSULE.DR PO (21:20)
[2023-11-01] VITALS: BP 113/80; PULSE 68; TEMP 36.8; O2SAT 94
--- NOTE | 2023-11-01 01:28 | PC.NURSE ---
Patient called to use bathroom. While in bathroom, patient emptied his manjarrez. Provided education to allow staff to empty so we can measure his output.
[2023-11-01 04:00] VITALS: BP 149/76; PULSE 57; TEMP 36.5; O2SAT 97
[2023-11-01 05:05] LABS: Basophils Percent Auto 0.4 % (0.2-2.0); Eosinophils Absolute Auto 0.2 10^3/uL (0.0-0.7); Eosinophils Percent Auto 2.4 % (0.9-7.0); Hematocrit 36.5 % (42.0-54.0); Hemoglobin 12.1 g/dL (14.0-18.0); Immature Granulocytes Abs Auto 0.05 10^3/uL (0.00-0.03); Immature Granulocytes Pct Auto 0.7 % (0.0-0.5); Lymphocytes Absolute Auto 1.2 10^3/uL (1.2-3.8); Lymphocytes Percent Auto 15.7 % (20.5-60.0); Mean Corpuscular HGB Conc 33.2 g/dL (29.9-35.2); Mean Corpuscular Hemoglobin 33.2 pg (25.9-34.0); Mean Corpuscular Volume 100.3 fL (80.0-94.0); Mean Platelet Volume 9.1 fL (9.5-13.5); Monocytes Absolute Auto 1.2 10^3/uL (0.3-0.8); Monocytes Percent Auto 15.9 % (1.7-12.0); Neutrophils Percent Auto 64.9 % (43.0-75.0); Platelet Count 191 10^3/uL (150-450); Red Blood Count 3.64 10^6/uL (4.70-6.10); Red Cell Distribution Width 12.5 % (11.0-15.0); White Blood Count 7.7 10^3/uL (4.0-11.0)
[2023-11-01] MEDS: LACTATED RINGER'S SOLUTION 1,000 ML 100 ML IV (05:20)
[2023-11-01 05:35] LABS: Alanine Aminotransferase 14 U/L (16-63); Albumin Globulin Ratio 0.7; Albumin Level 2.3 g/dL (3.4-5.0); Alkaline Phosphatase 104 U/L (46-116); Anion Gap 15.5; Aspartate Amino Transferase 19 U/L (15-37); BUN Creatinine Ratio 18.4; Bilirubin Total 0.6 mg/dL (0.2-1.0); Calcium 8.8 mg/dL (8.5-10.1); Carbon Dioxide 23.6 mmol/L (21.0-32.0); Chloride 106 mmol/L (98-107); Estimated GFR (African America >60 (>=60); Estimated GFR (Non-African Ame >60 (>=60); Globulin 3.5 g/dL; Glucose 106 mg/dL (74-106); Potassium 3.1 mmol/L (3.5-5.1); Sodium 142 mmol/L (136-145); Total Protein 5.8 g/dL (6.4-8.2)
[2023-11-01 08:00] VITALS: BP 156/77; PULSE 68; TEMP 36.9; O2SAT 97
[2023-11-01 09:11] VITALS: BP 156/77
[2023-11-01] MEDS: ENOXAPARIN SODIUM 40 MG/0.4 ML SYRINGE SUBQ (09:11)
[2023-11-01] MEDS: LOSARTAN POTASSIUM 50 MG TABLET 100 MG PO (09:11)
[2023-11-01] MEDS: OMEPRAZOLE 40 MG CAPSULE.DR PO (09:11)
[2023-11-01] MEDS: ASPIRIN 81 MG TABLET.DR PO (09:11)
[2023-11-01 09:12] VITALS: BP 156/77
[2023-11-01] MEDS: HYDROCHLOROTHIAZIDE 25 MG TABLET 12.5 MG PO (09:12)
--- NOTE | 2023-11-01 14:50 | PM.HP ---
HPI H&P: HPI History of Present Illness Chief complaint: PROBLEMS CATHING UTI Narrative: 77 y/o male to ER not feeling well. History of BPH with urinary retention. In past had indwelling White and most recently self caths daily. C/o increased fatigue and run down for several days. GI upset and severe reflux. Not eating or drinking much. Noticed decreased output when cath self and to ER. WBC 9.7 and UA showed UTI. Admitted for treatment. Started IV levaquin and IV fluids. C/o severe reflux and started omeprazole. White placed. Much improved overngith. Fatigue improved and normal urine flow. Still problems eating but no nausea. Reflux symptoms improved. Opioid HPI Opioid Management Most Recent Opioid Data: Last Pain Scale 3 09/13/23 10:57 Last Pain Assessment 11/01/23 12:00 Last ORT Total Score 6 10/31/23 16:53 Last ORT Risk Category Moderate Risk 10/31/23 16:53 Review of Systems ROS Constitutional Reports: fatigue; Denies: fever or chills Cardiovascular Denies: chest pain, palpitations or edema Respiratory Denies: shortness of breath, cough or wheezing Gastrointestinal Denies: abdominal pain, nausea, vomiting or diarrhea Genitourinary Reports: difficulty urinating; Denies: painful urination PFSH PFS Medical History (Updated 11/01/23 @ 11:45 by Lior Laguna MD) Rheumatoid arthritis ?M06.9 - Rheumatoid arthritis, unspecified (ICD-10) Hyperlipidemia ?E78.5 - Hyperlipidemia, unspecified (ICD-10) BPH with obstruction/lower urinary tract symptoms ?N40.1 - Benign prostatic hyperplasia with lower urinary tract symptoms (ICD-10) ?N13.8 - Other obstructive and reflux uropathy (ICD-10) Acute urinary retention ?R33.8 - Other retention of urine (ICD-10) White catheter problem ?T83.9XXA - Unspecified complication of genitourinary prosthetic device, implant and graft, initial encounter (ICD-10) Social History (Updated 10/31/23 @ 16:51 by Ashley Crow) Within the past year, how often did you have a drink containing alcohol: never Score interpretation: A score less than 4 is consistent with normal alcohol consumption. 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 groups, or school groups: no Total score: 1 Score interpretation: A score of less than or equal to 1 indicates the most socially isolated. Little interest or pleasure in doing things: not at all Feeling down, depressed, or hopeless: not at all Feel stressed/tense/nervous/anxious/difficulty sleeping: not at all Meds Home Medications and Allergies Home Medications ?Medication ?Instructions ?Recorded ?Confirmed ?Type aspirin 81 mg tablet,delayed 81 mg PO DAILY 10/31/23 10/31/23 History release duloxetine PO 10/31/23 History lamotrigine .ROUTE 10/31/23 History losartan 100 1 tab PO DAILY 10/31/23 10/31/23 History mg-hydrochlorothiazide 12.5 mg tablet potassium chloride .ROUTE 10/31/23 History ropinirole .ROUTE 10/31/23 History trazodone .ROUTE 10/31/23 History calcium carbonate PO 11/01/23 History finasteride 5 mg tablet (Proscar) 5 mg PO QPM 11/01/23 11/01/23 History hydroxychloroquine 200 mg tablet 200 mg PO BID 11/01/23 11/01/23 History (Plaquenil) leflunomide .ROUTE 11/01/23 History levofloxacin 750 mg tablet 750 mg PO DAILY 7 days #7 tabs 11/01/23 Rx multivitamin (Daily Multi-Vitamin 1 tab PO DAILY 11/01/23 11/01/23 History tablet) omeprazole 40 mg capsule,delayed 40 mg PO BID #60 caps 11/01/23 Rx release tamsulosin 0.4 mg capsule (Flomax) 0.4 mg PO QPM 11/01/23 11/01/23 History Allergies Allergy/AdvReac Type Severity Reaction Status Date / Time No Known Drug Allergies Allergy Verified 06/10/23 11:16 Exam Constitutional Vital Signs, click to edit/add: Last Vital Signs Temp 98.4 F 11/01/23 08:00 Pulse 68 11/01/23 08:00 Resp 16 11/01/23 08:00 BP 156/77 H 11/01/23 09:12 Pulse Ox 97 11/01/23 08:00 O2 Del Method Room Air 11/01/23 08:00 Documenting provider has reviewed patient's vital signs: yes Common normals: no apparent distress, oriented x3 and alert HENMT Common normals: normocephalic Eye Common normals: PERRL and EOMs intact bilaterally Respiratory Common normals: normal respiratory effort and clear to auscultation bilaterally Cardio Common normals: regular rate, regular rhythm, no gallops, no murmurs and no rub GI Common normals: Normal to inspection, nondistended, normoactive bowel sounds present and non-tender Extremity Common normals: no pedal edema Results Labs Labs: Short CBC 11/01/23 Range/Units 04:40 WBC 7.7 (4.0-11.0) 10^3/uL Hgb 12.1 L (14.0-18.0) g/dL Hct 36.5 L (42.0-54.0) % Plt Count 191 (150-450) 10^3/uL BMP 11/01/23 04:40 Sodium 142 Potassium 3.1 L Chloride 106 Carbon Dioxide 23.6 BUN 16.0 Creatinine 0.87 Glucose 106 Calcium 8.8 Liver Function 11/01/23 Range/Units 04:40 Total Bilirubin 0.6 (0.2-1.0) mg/dL AST 19 (15-37) U/L ALT 14 L (16-63) U/L Alkaline Phosphatase 104 (46-116) U/L Albumin 2.3 L (3.4-5.0) g/dL Assessment and Plan Assessment and Plan (1) Urinary tract infection: (2) Urinary retention due to benign prostatic hyperplasia: (3) Benign essential hypertension: (4) COPD (chronic obstructive pulmonary disease): (5) GERD (gastroesophageal reflux disease): Plan Presented with decreased urine output and UTI. Improved with IV fluids and levaquin. Discharge home on oral levaquin. Will leave White in place and follow with urology. Continue omeprazole for GERD but may need outpatient EGD. Resume home medication as directed. Follow up with PCP in 1-2 weeks. Urinary Catheter Management Urinary Catheter Management Straight: Cath placed during this visit: yes Urethral indwelling: Yes Reason for continuing: urinary obstruction Insertion date: 10/31/23 Insertion time: 20:34
--- NOTE | 2023-11-03 15:26 | CM.DCFOLLOWU ---
Person spoke with: patient How are you feeling? well How is your pain? no pain Did you understand your discharge instructions? yes Do you have any questions about your discharge instructions? no Were you given any prescriptions at discharge? yes Were you able to get your prescriptions filled? yes Do you understand how to take your medications as ordered? yes Do you have any questions about your follow up appointment and do you plan to keep your follow up appointment? no questions, advised pt to call Dr. Whitley for follow up, he has phone number Is there anything else that you would like to discuss? no Questions/Comments/Concerns/Other: N/A
== END 2023-11-01 12:50 | disposition home or self-care (01) ==
LOC: ER 15:10 → MS 16:40
PROVIDERS: Admitting Provider Family Medicine; Emergency Provider Emergency Medicine Emergency Medical Services; Visit Provider Family Medicine
DX: T83.518A Infection and inflammatory reaction due to other urinary catheter, initial encounter (principal); N39.0 Urinary tract infection, site not specified; N40.1 Benign prostatic hyperplasia with lower urinary tract symptoms; R33.8 Other retention of urine; I10 Essential (primary) hypertension; J44.9 Chronic obstructive pulmonary disease, unspecified; K21.9 Gastro-esophageal reflux disease without esophagitis; B96.89 Other specified bacterial agents as the cause of diseases classified elsewhere; Z79.82 Long term (current) use of aspirin; Z79.899 Other long term (current) drug therapy; Z87.891 Personal history of nicotine dependence; M06.9 Rheumatoid arthritis, unspecified; E78.5 Hyperlipidemia, unspecified; F12.90 Cannabis use, unspecified, uncomplicated; Z20.822 Contact with and (suspected) exposure to COVID-19
CPT/HCPCS: 36415; 51702; 71045; 80053; 81001; 83605; 84443; 84484; 85025; 87086; 87150; 87186; 87804; 87811; 93005; 96365; 96372; 99285; G0378